=== PATIENT | female | born 1985 | race Caucasian/White ===

== ENCOUNTER 2021-06-07 12:36 | Emergency (ER) | payer MEDICAID, SELFPAY ==
[2021-06-07 12:38] VITALS: BP 114/53; PULSE 94; RESP 16; TEMP 35.2; O2SAT 100; BMI 23.3
[2021-06-07 12:43] VITALS: O2SAT 100
--- NOTE | 2021-06-07 12:58 | EKG12_ITS ---
Test Reason : CP Blood Pressure : / mmHG Vent. Rate : 098 BPM Atrial Rate : 098 BPM P-R Int : 174 ms QRS Dur : 106 ms QT Int : 400 ms P-R-T Axes : 082 094 039 degrees QTc Int : 510 ms Normal sinus rhythm Prolonged QT Abnormal ECG Confirmed by MAXINE AMIN, GRAZYNA ([id number]), editor farm journal CHUCK SOTO ([id number]) on 06/08/2021 8:30:12 AM Referred By: DAVID Confirmed By:GRAZYNA GOODMAN MD
--- NOTE | 2021-06-07 13:01 | NURSING ---
NO OLD EKGS
[2021-06-07 13:12] VITALS: O2SAT 98
--- NOTE | 2021-06-07 13:21 | EDS_ITS ---
HPI History of Present Illness Chief Complaint: Chest Pain Detail of Chief Complaint: Sharp stabbing central chest pain and nerve pinching left-sided neck pain Informant: patient Onset/Context/Timing Onset: Hours Activity at onset: rest and - (After taking second hit off of cigarette) Timing: Continuous Quality: Positive for Aching and Sharp Location: Substernal Current Severity: Mild Maximum Severity: Severe Worsened By: Nothing Relieved By: Nothing Associated Symptoms: Positive for Nausea, Diaphoresis and Dyspnea; Negative for Vomiting, Cough, Fever, Lightheadedness, Acid Reflux and Palpitations Narrative Narrative: Patient is a 36-year-old woman who presents with sharp substernal chest pain after taking a puff off of her cigarette. She also complains of pinching left-sided neck pain. She reports that she got sweaty short of breath and sick to her stomach. She denies history of VTE. Denies leg pain, swelling discoloration. She denies risk factors for VTE. She denies prior symptoms. She has no known history of coronary disease or any risk factors. She denies hiatal hernia, peptic ulcer disease or reflux. She denies food intolerance. She denies black or maroon-colored stool. She denies any respiratory symptoms. Prior Similar Symptoms: No Recent Illness/Hospitalization: No CVD Risk Factors: Positive for Smoking; Negative for Hypertension, Diabetes, Hypercholesterolemia and Family History 1' </=55 PE Risk Factors: Negative for Recent Travel/Surgery, Recent Immobilization, Prior DVT or PE, Cancer and OCP + Smoking + >/=35 TAD Risk Factors: Negative for Marfan's Syndrome, Hypertension and Family History PFSH PFSH Medical History no medical history no medical history Home Medications NK 06/07/21 [History Last Taken Unknown] Allergy/AdvReac Type Severity Reaction Status Date / Time No Known Allergies Allergy Verified 06/07/21 12:45 Surgical History no surgical history no surgical history Social History (Updated 06/07/21 @ 13:[address] Palomo Aquino MD) household members: significant other Smoking Status: Current every day smoker tobacco type: cigarettes substance use type: does not use ROS ROS ED Constitutional Constitutional ED: Denies chills, fever(s), subjective, sweats or weight loss Eyes Eyes: Reports none ENT ENT ED: Denies ear pain, rhinorrhea or sore throat Cardiovascular Cardiovascular: Reports as per HPI and chest pain; Denies orthopnea, palpitations, paroxysmal nocturnal dyspnea or racing heartbeat Respiratory/Chest Respiratory/Chest: Reports dyspnea; Denies cough, dyspnea on exertion, orthopnea, paroxysmal nocturnal dyspnea or sputum Gastrointestinal Gastrointestinal: Reports nausea; Denies abdominal pain, constipation, diarrhea or vomiting Genitourinary Genitourinary ED: Denies dysuria, hematuria or urinary frequency Musculoskeletal Musculoskeletal: Denies arthralgias, back pain, myalgias or neck pain Integumentary Denies rash Neurologic Neurologic: Denies headache(s), paresthesias or weakness Psychiatric Psychiatric: Denies depression Endocrine Endocrinology: Denies polydipsia, polyphagia or polyuria Hematologic/Lymphatic Hematologic/Lymphatic: Denies easy bleeding, easy bruising or lymphadenopathy EXAM Physical Exam Const Vital Signs: 06/07/21 12:38 06/07/21 12:43 06/07/21 13:12 Temperature 95.3 F L Temperature Source Temporal Pulse Rate 94 Respiratory Rate 16 Respiratory Effort Normal Non-Labored Blood Pressure 114/53 L Blood Pressure Mean 73 Pulse Ox 100 100 98 Oxygen Delivery Method Room Air Room Air Room Air 06/07/21 14:23 Temperature Temperature Source Pulse Rate 74 Respiratory Rate 19 H Respiratory Effort Blood Pressure 137/74 H Blood Pressure Mean 95 Pulse Ox 100 Oxygen Delivery Method Room Air Positive well nourished and well developed General Appearance ED: well developed, NAD and other When asked why she had tears in her eyes she began to cry and was unable to stop crying HEENT Reports TM's clear and moist mucous membranes HEENT Narrative: Uvula midline. Posterior without erythema or exudate. normocephalic and atraumatic Tympanic Membrane ED: Yes TM's clear Eyes PERRL and EOMs intact bilaterally General Eye ED: Negative for pale conjunctiva or scleral icterus Neck no lymphadenopathy, supple and no JVD Chest Wall inspection of chest normal and palpation of chest normal Resp normal respiratory effort and clear to auscultation bilaterally Effort and Inspection: respiratory distress Cardio regular rate, regular rhythm, S1 normal heart sound and S2 normal heart sound GI normal to inspection, nondistended, normoactive bowel sounds, soft to palpation, non-tender, non-distended and no masses; Negative for hepatosplenomegaly Palpation: Negative for splenomegaly Back/Spine no CVA tenderness and no thoracic nor lumbar tenderness Cervical Spine: cervical spine tenderness Extremity normal to inspection Extremity Narrative: There is no asymmetry, swelling, discoloration, leg vein distention, palpable cords or tenderness along the distribution of the deep venous system. General Extremety ED: Negative for edema or tenderness General Extremity: Negative for edema Neuro oriented x3 and CN's II-XII intact bilaterally Sensorium / Orientation: awake and alert Sensory Exam: sensory level loss detected Motor Exam: strength 5/5 throughout Psych mental status grossly normal Skin no rashes or lesions noted and no wounds General Skin Exam: Negative for jaundice Heart Score History: Slightly/Non-Suspicious ECG: Normal Age: </= 45 years Risk Factors: 1 or 2 Risk Factors Troponin: </= Normal Limit Score: 1 MDM MDM MDM Narrative Medical decision making narrative: Will obtain EKG to rule out cardiac ischemia. Troponin was obtained. Suspect this is anxiety however will evaluate for cardiac versus noncardiac causes. Lab Data Attestation: I reviewed the patient's lab results. Lab results narrative: White count is slightly elevated with no bandemia. This is nonspecific. Potassium is 3.4. Glucose is slightly evaded 123. Troponin is normal. Patient has a very atypical story. Will discharge to home. Labs: Laboratory Results - last 24 hr 06/07/21 06/07/21 06/07/21 13:50 13:50 13:50 WBC 12.6 H RBC 4.36 Hgb 13.3 Hct 40.0 MCV 91.7 MCH 30.5 MCHC 33.3 RDW Std Deviation 42.0 RDW Coeff of Rich 12.4 Plt Count 288 MPV 9.0 Immature Gran % (Auto) 1.100 H Neut % (Auto) 77.3 H Lymph % (Auto) 16.8 L Darke % (Auto) 3.6 Eos % (Auto) 0.8 Baso % (Auto) 0.4 Absolute Neuts (auto) 9.7 H Absolute Lymphs (auto) 2.12 Nucleated RBC % 0 Sodium 136 Potassium 3.4 L Chloride 105 Carbon Dioxide 17.0 L Anion Gap 14 BUN 14 Creatinine 0.64 Estim Creat Clear Calc 131.41 Est GFR (MDRD) Af Amer 135 Est GFR (MDRD) Non-Af 111 BUN/Creatinine Ratio 21.8 H Glucose 123 H Calcium 8.9 Troponin I High Sens 18 Radiography Chest X-Ray - ED: 1 View, Read by ED Physician (Interpreted by me as normal at 02/16/2005), Normal, Heart, Lungs, Mediastinum, Bony Structures and No Acute Disease Diagnostic Testing: Clinical Impression(s) from Imaging Studies Chest X-Ray 06/07/21 14:01 IMPRESSION: Mildly hyperinflated lungs. Otherwise no acute findings. Electronically Signed: Bryson Augustine, at 14:23 EDT , Discharge Plan Triage Chief Complaint: Chest Pain ED Provider: Palomo Aquino Dx/Rx/DC Orders Clinical Impression: Central chest pain Instructions: ED Chest Pain, Noncardiac Prescriptions: No Action NK RF: 0 Primary Care Provider: Care Physician,No Primary Referrals: Care Physician,No Primary [Primary Care Provider] - Activity Restrictions/Additional Instructions: Follow-up with your primary care provider. The name of your primary care provider is located on your insurance card issue to you by [facility]. It is in your best interest to quit smoking. Disposition Disposition: Home, Self Care
--- NOTE | 2021-06-07 13:39 | ED.RN ---
Attempted to draw pt's lab and unable. Pt has been stuck multiple times by multiple nurses. Lab called to come draw.
--- NOTE | 2021-06-07 14:01 | RAD_ITS ---
INDICATION: chest pain EXAMINATION/TECHNIQUE: X-RAY - XR Chest 1 View COMPARISON: None. FINDINGS: LINES/DEVICES: None. The lungs are mildly hyperinflated. No focal consolidations, pleural effusion, or sizable pneumothorax. Heart size is normal. No acute findings in the bones or soft tissues. RAD/Chest 1 View (Portable) IMPRESSION: Mildly hyperinflated lungs. Otherwise no acute findings. Electronically Signed: Bryson Augustine, at 14:23 EDT ,
[2021-06-07 14:07] LABS: Absolute Lymphocyte Count 2.12 X10^3/uL (0.83-4.51); Absolute Neutrophil Count 9.7 X10^3/uL (2.0-7.7); Basophil# 0.05 X10^3/uL; Basophil% 0.4 % (0-1); Eosinophils% 0.8 % (0-5); Hemoglobin 13.3 g/dL (12.0-15.0); Lymphocyte # 2.12 X10^3/ul (0.83-4.51); Lymphocyte % 16.8 % (19-41); Mean Corp Hgb Conc 33.3 g/dL (32-36); Mean Corpuscular Hgb 30.5 pg (27.0-32.0); Mean Corpuscular Volume 91.7 fL (81-99); Monocyte# 0.46 X10^3/uL; Monocyte% 3.6 % (0-10); NRBC Flagged by Analyzer 0 % (0-5); Neutrophil # 9.74 X10^3/uL (2.7-7.7); Neutrophil % 77.3 % (47-70); Platelet Count 288 K/mm3 (150-450); RBC Distribution Width CV 12.4 % (11.6-14.6); Red Blood Count 4.36 M/mm3 (4.2-5.4); White Blood Count 12.6 K/mm3 (4.4-11.0)
[2021-06-07 14:10] LABS: Anion Gap 14 (5-15); BUN 14 mg/dL (7-18); BUN/Creat Ratio 21.8 RATIO (10-20); Calcium,Total 8.9 mg/dL (8.5-10.1); Chloride 105 mmol/L (98-107); Creatinine, Serum 0.64 mg/dL (0.55-1.02); EST Glomerular Filtration Rate 111 mL/min (>60); Est Glom Filt Rate - Afr Amer 135 mL/min (>60); Estimated Creatinine Clearance 131.41 ml/min; Glucose 123 mg/dL (74-106); Potassium 3.4 mmol/L (3.5-5.1); Sodium Level 136 mmol/L (136-145)
[2021-06-07 14:19] LABS: Troponin-I HS (w/2H Reflex) 18 pg/mL (3.0-54.0)
[2021-06-07 14:23] VITALS: BP 137/74; PULSE 74; RESP 19; O2SAT 100
[2021-06-07 14:52] VITALS: PULSE 77; RESP 17; O2SAT 100
[2021-06-07 15:54] LABS: Reflex Troponin-HS? (from REC) Y
== END 2021-06-07 14:53 | disposition home or self-care (01) ==
PROVIDERS: Emergency Provider Emergency Medicine; Visit Provider Emergency Medicine
DX: R07.89 Other chest pain (principal); F17.210 Nicotine dependence, cigarettes, uncomplicated; R07.2 Precordial pain; R06.00 Dyspnea, unspecified; R11.0 Nausea
CPT/HCPCS: 36415; 71045; 80048; 84484; 85025; 93005; 99285; J7030

== ENCOUNTER → 2022-09-16 | Outpatient (CLI) | payer MEDICAID, SELFPAY ==
--- NOTE | 2022-09-16 07:48 | MRI_ITS ---
STUDY: MRI RIGHT ANKLE WITHOUT CONTRAST REASON FOR EXAM: Female, 37 years old. injury 1 week ago, pt fell 15 feet, c/o swelling, bruising TECHNIQUE: Standardized fat and water weighted pulse sequences were obtained in all 3 orthogonal planes. COMPARISON: Right ankle x-ray dated September 15, 2022 FINDINGS: A nondisplaced oblique fracture line is present in the lateral malleolus with mild marrow edema. Mild marrow edema is also present in the lateral aspect of the posterior tibial malleolus, consistent with a mild contusion. A small ankle joint effusion is also present. Mild to moderate subcutaneous edema is present around the lower leg and foot. Mild diffuse intramuscular edema is also present without a tear or fluid collection. Normal posterior tibialis tendon. Normal flexor digitorum longus tendon. Normal flexor hallucis longus tendon. Normal peroneus longus and brevis tendons. Normal tibialis anterior tendon. Normal extensor hallucis longus tendon. Normal extensor digitorum longus tendons. Normal Achilles tendon and teno-osseous insertion. Normal plantar fascia. Normal plantar calcaneal tubercles. Normal intrinsic muscles of the rearfoot. Normal distal tibiofibular syndesmotic ligamentous complex. Normal lateral ligamentous complex. Normal subtalar ligaments and sinus tarsi. Normal deltoid ligamentous complexes. Normal plantar calcaneonavicular (spring) ligament. Normal tibiotalar articulation. Normal talar dome. Normal subtalar articulations. Normal talonavicular articulation. Normal calcaneocuboid articulation. Normal navicular-cuneiform articulations. MRI/Lower Ext Joint Only (Routine) IMPRESSION: 1. A nondisplaced oblique fracture line is present in the lateral malleolus with mild marrow edema. Mild marrow edema is also present in the lateral aspect of the posterior tibial malleolus, consistent with a mild contusion. 2. A small ankle joint effusion is also present. Mild to moderate subcutaneous edema is present around the lower leg and foot. Mild diffuse intramuscular edema is also present without a tear or fluid collection. Electronically Signed: Lakhwinder Barone MD at 10:13 EDT ,
== END | disposition home or self-care (01) ==
LOC: MRI 07:35
PROVIDERS: Referring Provider Orthopaedic Surgery Sports Medicine; Visit Provider Orthopaedic Surgery Sports Medicine
DX: S82.831A Other fracture of upper and lower end of right fibula, initial encounter for closed fracture (principal); M25.571 Pain in right ankle and joints of right foot
CPT/HCPCS: 73721

== ENCOUNTER 2024-09-27 18:42 | Outpatient (CLI) | payer MEDICAID, SELFPAY ==
[2024-09-27 19:00] VITALS: BMI 28.7
[2024-09-27 19:27] VITALS: BP 109/66; PULSE 78; RESP 16; TEMP 36.7
--- OUTSIDE RECORDS SUMMARY | 2024-09-27 20:17 | XMS RPT_ITS | CCD ---
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 127/127 is probably a cyst or partially visualized gallbladder. IMPRESSION: No acute fracture or traumatic malalignment in the cervical or thoracic spine. Chronic findings as above. Electronically signed by: Derek Stack MD 09/10/2022 1:57 PM CDT Technologist: PIPER Dictated By: DEREK STACK MD Signed By: DEREK STACK MD Signed Out: 09/10/22 14:57:52 Normal [facility] ED Adult Data - Texton 09-10 ED Adult Data - Text ED Adult Data Entered On: 09/10/2022 13:08 EDT Performed On: 09/10/2022 13:06 EDT by Sonia Ariza RN Arrival Information Information Given by : Patient Referral Source ED : Home [facility] Mode of Arrival : Car / Walk-In Sonia Ariza RN - 09/10/2022 13:06 EDT Screening-General Meds Triage : NA Accept Blood Products if Necessary : Yes Immunizations Current : Yes Last Tetanus : Less than 5 years Sonia Ariza RN - 09/10/2022 13:06 EDT Depression Screening Patient able to verbalize? : Yes Feeling Down, Depressed, Hopeless : Not at all Little Interest - Pleasure in Activities : Not at all Initial Depression Screen Score : 0 Depression Screening Score 0 : No IP Pt being evaluated or treated for BH conditions : No Sonia Ariza RN - 09/10/2022 13:06 EDT Screening-Safety Abuse/Violence Concerns? : Patient denies Does the patient have a medically restricted extremity? : No Sonia Ariza RN - 09/10/2022 13:06 EDT Problem List Problem List obtained from : Patient Sonia Ariza RN - 09/10/2022 13:06 EDT (As Of: 09/10/2022 13:08:03 EDT) Problems(Active) Anxiety (SNOMED CT :69026362 ) Name of Problem: Anxiety ; Recorder: Sonia Ariza RN; Confirmation: Confirmed ; Classification: Medical ; Code: [id number] ; Contributor System: [employer] ; Last Updated: 09/10/2022 13:07 EDT ; Life Cycle Date: 09/10/2022 ; Life Cycle Status: Active ; Vocabulary: SNOMED CT Depression (SNOMED CT :546992016 ) Name of Problem: Depression ; Recorder: Sonia Ariza RN; Confirmation: Confirmed ; Classification: Medical ; Code: 928688992 ; Contributor System: [employer] ; Last Updated: 09/10/2022 13:07 EDT ; Life Cycle Date: 09/10/2022 ; Life Cycle Status: Active ; Vocabulary: SNOMED CT EP (epilepsy) (SNOMED CT :817411786 ) Name of Problem: EP (epilepsy) ; Recorder: Sonia Ariza RN; Confirmation: Confirmed ; Classification: Medical ; Code: [id number] ; Contributor System: [employer] ; Last Updated: 09/10/2022 13:07 EDT ; Life Cycle Date: 09/10/2022 ; Life Cycle Status: Active ; Vocabulary: SNOMED CT Diagnoses(Active) Ankle injury - Minor Date: 09/10/2022 ; Diagnosis Type: Reason For Visit ; Confirmation: Confirmed ; Clinical Dx: Ankle injury - Minor ; Classification: Medical ; Clinical Service: Emergency medicine ; Code: PNED ; Probability: 0 ; Diagnosis Code: [id number] Procedure History ED Devices Present on Arrival To ED : None Urinary Catheter Present on Admit to ED : No Sonia Ariza RN - 09/10/2022 13:06 EDT - Procedure History (As Of: 09/10/2022 13:08:03 EDT) Social History Does pt have any alcohol,drugs or tobacco : No Do you consume Alcohol : No Social History obtained from : Patient Sonia Ariza RN - 09/10/2022 13:06 EDT Social History (As Of: 09/10/2022 13:08:03 EDT) Alcohol: Denies Alcohol Use (Last Updated: 09/10/2022 13:07:50 EDT by Sonia Ariza RN ) Tobacco: 5-9 cigarettes (between 1/4 to 1/2 pack)/day in last 30 days Tobacco Use:. Cigarettes (Last Updated: 09/10/2022 13:07:57 EDT by Sonia Ariza RN) Substance Abuse: Denies Substance Abuse (Last Updated: 09/10/2022 13:07:47 EDT by Sonia Ariza RN ) Infection Screening Last Physical Overnight Location of the Patient : Personal Residence Travel outside US within past 30 days : No Exposure AND/OR close contact with a person under investigation or laboratory-confirmed COVID-19 individual within 14 days of symptom onset AND/OR any of the following: : No Do you live/work in a high risk situation (congregated living, hemodialysis, infusion clinic, intermediate, assisted living, fdc, homeless [place] health [place] facility, etc.)? : No Sonia Ariza RN - 09/10/2022 13:06 EDT Normal [facility] ED Discharge Educationon ED Discharge Education Cryotherapy What is cryotherapy? Cryotherapy, or cold therapy, is a treatment that uses cold temperatures to treat an injury or medical condition. It includes using cold packs or ice packs to reduce pain and swelling. Who should not use cryotherapy? Cryotherapy is not safe for people who cannot tell you if they are in pain, such as small children and people who have dementia. Cryotherapy is also not safe for people with certain conditions, such as: ? Raynaud phenomenon. ? Cold hypersensitivity. ? Numbness or loss of feeling in the area being iced. Cryotherapy may or may not be safe for people with certain other conditions. Do not use cryotherapy without your health care provider's approval if you have: ? A heart condition. ? High blood pressure. ? Open or healing wounds. ? An infection. ? Rheumatoid arthritis. ? Poor circulation. ? Diabetes. ? Certain skin conditions. How do I use cryotherapy? To use cryotherapy at home to reduce pain and swelling: ? Place a towel between the cold source and your skin. ? Apply the cold source for no more than 20 minutes at a time. ? Check your skin after 5 minutes to make sure there are no signs of a poor response to cold or skin damage. Check for: ? White spots on your skin. Your skin may look blotchy or mottled. ? Skin that looks blue or pale. ? Skin that feels waxy or hard. ? Repeat these steps as many times each day as told by your health care provider. How can I make a cold pack? When using a cold pack at home to reduce pain and swelling, you can use: ? A silica gel cold pack that has been left in the freezer. You can buy this online or in stores. ? A plastic bag of frozen vegetables. ? A sealable plastic bag that has been filled with crushed ice. Always wrap the pack in a dry or damp towel to avoid direct contact with your skin. Contact a health care provider if: ? You develop white spots on your skin. This may give your skin a blotchy or mottled look. ? Your skin turns blue or pale. ? Your skin becomes waxy or hard. ? Your swelling gets worse. This information is not intended to replace advice given to you by your health care provider. Make sure you discuss any questions you have with your health care provider. Document Released: 09/26/2011 Document Revised: 04/06/2017 Document Reviewed: 10/14/2015 [employer] Patient Education ? 2019 [employer] Orthopedics and Rheumatology Wearing a Splint: Care Instructions Your Care Instructions A splint protects a broken bone or other injury. If you have a removable splint, follow your doctor's instructions and only remove the splint if your doctor says it's okay. Most splints can be adjusted. Your doctor will show you how to do this and will tell you when you might need to adjust the splint. A splint is sometimes called a brace. You may also hear it called an immobilizer. An immobilizer, such as a splint or cast, keeps you from moving the injured area. You may get a splint that's already factory-made. Or your doctor might make your splint from plaster or fiberglass. Some splints have a built-in air cushion. Air pads are inflated to hold the injured area in place. Follow-up care is a peralta part of your treatment and safety. Be sure to make and go to all appointments, and call your doctor if you are having problems. It's also a good idea to know your test results and keep a list of the medicines you take. How can you care for yourself at home? General care ? Follow your doctor's instructions on how much weight you can put on your injured limb. ? If the fingers or toes on the limb with the splint were not injured, wiggle them every now and then. This helps move the blood and fluids in the injured limb. ? Prop up the injured limb on a pillow when you ice it or anytime you sit or lie down during the next 3 days. Try to keep it above the level of your heart. This will help reduce swelling. ? Put ice or cold packs on the limb for 10 to 20 minutes at a time. Try to do this every 1 to 2 hours for the next 3 days (when you are awake) or until the swelling goes down. Be careful not to get the splint wet. Put a thin cloth between the ice and your skin. If your splint is removable, ask your doctor if you can take it off when you use ice. ? If you have an adjustable splint that feels too tight, loosen it slightly. ? Keep up your muscle strength and tone as much as you can while protecting your injured limb. Your doctor may want you to tense and relax the muscles protected by the splint. Check with your doctor or your physical or occupational therapist for instructions. Splint and skin care ? If your splint is not to be removed, try blowing cool air from a agriculture department chair or fan into the splint to help relieve itching. Never stick items under your splint to scratch the skin. ? Do not use oils or lotions near your splint. If the skin becomes red or sore around the edge of the splint, you ma (more content not included)... [facility] ED Emergency Severity Index Adult-Texton 09-10-2022 ED Emergency Severity Index Adult-Text CLAUDIA - Adult Entered On: 09/10/2022 12:17 EDT Performed On: 09/10/2022 12:16 EDT by Constance Knapp RN DCP GENERIC CODE Visit Reason : rt ankle/ lower leg injury Tracking Triage Date/Time : 09/10/2022 12:16 EDT Tracking Reg Status : Requested Tracking Acuity : [id number] Tracking Group : [id number] Tracking Constance Knapp RN - 09/10/2022 12:16 EDT [facility] ED Nrsing Adlt Triage Sep Sc rning - Texton 09-10-2022 ED Nrsing Adlt Triage Sep Scrning - Text ED Nursing Adult Triage Sepsis Screening Tool Entered On: 09/10/2022 12:35 EDT Performed On: 09/10/2022 12:35 EDT by Sonia Ariza RN Adult Sepsis Screening Sepsis Infection Screening ED : No Sonia Ariza RN - 09/10/2022 12:35 EDT [facility] ED Patient Summaryon 023 ED Patient Summary [facility] Emergency Department Discharge Instructions [address] [place] [address] (Patient Copy) Name: BILL BRAVO : 1985 Allergies: No Known Medication Allergies Diagnosis: Acute thoracic myofascial strain; Cervical muscle strain; Sprain of ankle, right Visit Date: 09/10/2022 12:14:45 [facility]#: [id number] Current Date Time: 09/10/2022 21:05:08 Address: [address] [place] [address] Primary Care Provider: Name: LUCA PERSON Phone: Emergency Department Care Providers: Primary Physician: CHELSEY COE MD Thank you for choosing [facility] for your emergency care. You are very important to us. Our goal is to demonstrate our high quality medical care, and provide you with a very good patient experience. You may receive a survey about our service. Please take the time to complete the survey and return it so we can continue to enhance our service. Thank you again for allowing the [facility] Emergency Department to care for your medical needs. If you have questions about your care or follow up information please contact us at [phone]. Follow-Up Instructions BILL BRAVO has been given these follow-up instructions: With: Address: When: AIDEN LOPEZ, Orthopedic Surgery [address] [place] [address], [facility] [address] [place] [address] [facility] (1) Within 3 to 5 days With: Address: When: LUCA PERSON Within 3 to 5 days Patient Education Materials BILL BRAVO has been given the following patient education materials: Wearing a Splint: Care Instructions Your Care Instructions A splint protects a broken bone or other injury. If you have a removable splint, follow your doctor's instructions and only remove the splint if your doctor says it's okay. Most splints can be adjusted. Your doctor will show you how to do this and will tell you when you might need to adjust the splint. A splint is sometimes called a brace. You may also hear it called an immobilizer. An immobilizer, such as a splint or cast, keeps you from moving the injured area. You may get a splint that's already factory-made. Or your doctor might make your splint from plaster or fiberglass. Some splints have a built-in air cushion. Air pads are inflated to hold the injured area in place. Follow-up care is a peralta part of your treatment and safety. Be sure to make and go to all appointments, and call your doctor if you are having problems. It's also a good idea to know your test results and keep a list of the medicines you take. How can you care for yourself at home? General care ? Follow your doctor's instructions on how much weight you can put on your injured limb. ? If the fingers or toes on the limb with the splint were not injured, wiggle them every now and then. This helps move the blood and fluids in the injured limb. ? Prop up the injured limb on a pillow when you ice it or anytime you sit or lie down during the next 3 days. Try to keep it above the level of your heart. This will help reduce swelling. ? Put ice or cold packs on the limb for 10 to 20 minutes at a time. Try to do this every 1 to 2 hours for the next 3 days (when you are awake) or until the swelling goes down. Be careful not to get the splint wet. Put a thin cloth between the ice and your skin. If your splint is removable, ask your doctor if you can take it off when you use ice. ? If you have an adjustable splint that feels too tight, loosen it slightly. ? Keep up your muscle strength and tone as much as you can while protecting your injured limb. Your doctor may want you to tense and relax the muscles protected by the splint. Check with your doctor or your physical or occupational therapist for instructions. Splint and skin care ? If your splint is not to be removed, try blowing cool air from a agriculture department chair or fan into the splint to help relieve itching. Never stick items under your splint to scratch the skin. ? Do not use oils or lotions near your splint. If the skin becomes red or sore around the edge of the splint, you may pad the edges with a soft material, such as moleskin, or use tape to cover the edges. ? If you're allowed to take your splint off, be sure your skin is dry before you put it back on. Be careful not to put the splint on too tightly. ? Check the skin under the splint every day. If you can't remove the splint, check the skin around the edges. Tell your doctor if you see redness or sores. Water and your splint ? Keep your splint dry. Moisture can collect under the splint and cause skin irritation and itching. If you have a wound or have had surgery, moisture under the splint can increase the risk of infection. ? Tape a sheet of plastic to cover your splint when you take a shower or bath, unless your doctor ginger (more content not included)... [facility] ED Physician Reporton 2022 ED Physician Report Basic Information Time Seen: 1330[] Arrival Mode: Walk-In [] History Source: Patient _ _ [] History limitation: None [] History of Present Illness Patient presents to the emergency department for evaluation of injury suffered in a fall down the side of a slope into a [place] 2 days ago. Patient states she slid down the embankment of a [place] approximately 15 feet and then twisted her ankle in the [place] at the bottom. Patient states she went to an urgent care and had x-rays of her right foot and tib-fib which were negative. Patient was told that if she had more pain to go to the emergency department. Patient states she also thinks she bumped her head but suffered no loss of consciousness. Patient complains of neck pain and upper back pain. No numbness or weakness. Patient denies other injury. Patient states her last menstrual period was approximately 2 weeks ago and denies possibility of . Review of Systems Constitutional: no fever, no chills, no sweats, no weakness Skin: no jaundice, no rash, no lesions, no petechiae ENMT: no ear pain, no sore throat, no congestion, no hoarseness Respiratory: no shortness of breath, no cough, no orthopnea, no wheezing Cardiovascular: no chest pain, no palpitations, no edema Gastrointestinal: no nausea, no vomiting, no diarrhea, no GI bleeding Genitourinary: no dysuria, no hematuria, no discharge, no pain Musculoskeletal: Right lower extremity: There is bruising and swelling to the lower leg and foot. Dorsalis pedis is 2+. Sensation intact throughout. There is some calf tenderness to palpation. Back: There is mild tenderness to palpation over the upper T-spine and related musculature. Neck: There is mild tenderness to palpation over the C-spine and related musculature. This soreness extends down into the trapezius ridge on both sides. No erythema or ecchymosis. Arm strength is equal and 5/5. No sensory deficit. Neurologic: no headache, no dizziness, no numbness, no weakness Psychiatric: no sleeping problems, no irritability, no mood swings/depression Heme/Lymph: no bleeding tendency, no bruising tendency, no petechiae, no swollen nodes Allergy/Immunologic: no seasonal allergies, no food allergies, no recurrent infections, no impaired immunity Additional ROS info: Except as noted in the above Review of Systems and in the History of Present Illness all other systems have been reviewed and are negative or noncontributory. Physical Exam Vitals & Measurements Initial: T: 36.9 ?C (Oral) HR: 80 (Peripheral) BP: 110/ 49 RR: 18 SpO2: 100% O2 Therapy: Room air General: alert, no acute distress. Skin: warm, dry. Head: no trauma, normocephalic. Neck: trachea midline, no adenopathy, no tenderness. Eye: normal conjunctiva, sclera clear. Cardiovascular: regular rate and rhythm, normal peripheral perfusion. Respiratory: lungs CTA, respirations non-labored. Chest Wall: no deformity. Gastrointestinal: soft, non distended, no RUQ tenderness, no RUQ guarding. Extremities: Right lower extremity: There is bruising and swelling to the lower leg and foot. Dorsalis pedis is 2+. Sensation intact throughout. There is some calf tenderness to palpation. Back: There is mild tenderness to palpation over the upper T-spine and related musculature. Neck: There is mild tenderness to palpation over the C-spine and related musculature. This soreness extends down into the trapezius ridge on both sides. No erythema or ecchymosis. Arm strength is equal and 5/5. No sensory deficit. Neurological: oriented x 4, LOC appropriate for age, CN II-XII intact, motor strength equal & normal bilaterally, sensation equal & normal bilaterally, speech normal. Psychiatric: cooperative, affect appropriate for age, normal judgement, normal psychiatric thoughts. Medical Decision Making Differential diagnosis: [laceration, abrasion, contusion, sprain, strain, extermity fracture, pelvic fracture, head injury, back injury, spinal injury, internal chest injury, internal abdominal injury] PRELIMINARY VASCULAR REPORT: VENOUS DUPLEX COMPLETED. MD REPORT TO FOLLOW NO EVIDENCE OF ACUTE DVT IN THE RIGHT LOWER EXTREMITY LEFT COMMON FEMORAL VEIN APPEARS PATENT [1] Patient presented to the emergency department for evaluation of injury suffered in a slide down an embankment 2 days ago. Patient had initial imaging of her right foot and right tib-fib at an urgent care was negative. Patient complained of pain to her neck and upper back and also pain to her leg. CT scanning of the C-spine and T-spine, read by radiology, shows no acute traumatic findings. Patient had a venous duplex ultrasound of the leg, read by vascular, which showed no evidence of DVT. Patient is not currently splinted but states she was outfitted with a walking boot though she states she cannot tolerate it. Patient will be outfitted with an Aircast. Patient states she has crutches at home. Patient be prescribed ibuprofen and a small quantity of muscle relaxer to take f (more content not included)... [facility] ED Progress Noteon ED Progress Note Late entry Patient here with right ankle injury Patient states she was seen at an urgent care but has not had any relief. Patient examined by Dillon GOMEZ a provided with ankle stirrup splint and crutches and discharged home Understands plan of care and will follow up as discussed [facility] ED Triage Adult-Texton 09-10 ED Triage Adult-Text ED Triage Entered On: 09/10/2022 12:34 EDT Performed On: 09/10/2022 12:33 EDT by Sonia Ariza RN Triage (As Of: 09/10/2022 12:34:07 EDT) Diagnoses(Active) Ankle injury - Minor Date: 09/10/2022 ; Diagnosis Type: Reason For Visit ; Confirmation: Confirmed ; Clinical Dx: Ankle injury - Minor ; Classification: Medical ; Clinical Service: Emergency medicine ; Code: PNED ; Probability: 0 ; Diagnosis Code: [id number] (As Of: 09/10/2022 12:34:07 EDT) Allergies (Active) No Known Medication Allergies Estimated Onset Date: Unspecified ; Created By: Constance Knapp RN; Reaction Status: Active ; Category: Drug ; Substance: No Known Medication Allergies ; Type: Allergy ; Updated By: Constance Knapp RN; Reviewed Date: 09/10/2022 12:16 EDT Vitals/Ht/Wt Temperature Oral : 36.9 degC Pulse Rate : 80 bpm Respiratory Rate : 18 br/min Systolic Blood Pressure : 110 mmHg Diastolic Blood Pressure : 49 mmHg (LOW) SpO2 : 100 % Oxygen Therapy : Room air Pain Symptoms : Yes Numeric Pain Scale : 10 = Severe Pain VAS Pain Scale Age : VAS (8 yrs & older) Height/Length Dosing : 177.80 cm(Converted to: 5.83 ft, 70.00 in) Weight Measured Type of Scale : Patient Stated Weight Patient Stated Weight : 70.5 kg(Converted to: 2,486.81 oz, 155.43 lb) Sonia Ariza RN - 09/10/2022 12:33 EDT [facility] Vascular Lab Reporton 2022 Vascular Lab Report PRELIMINARY VASCULAR REPORT: VENOUS DUPLEX COMPLETED. MD REPORT TO FOLLOW NO EVIDENCE OF ACUTE DVT IN THE RIGHT LOWER EXTREMITY LEFT COMMON FEMORAL VEIN APPEARS PATENT Normal [facility] No Panel Informationon 09-09 IMPRESSION: No acute osseous abnormality Fibre Technologist: PSCB Transcribe Date/Time: Sep 09 2022 3:56P Dictated by : EZ ABBOTT MD This examination was interpreted and the report reviewed and electronically signed by: EZ ABBOTT MD on Sep 09 2022 3:58PM [facility] DIVISION OF RADIOLOGY Radiology Study observation (narrative) [facility] No Panel InformationOrdered By: Ccf Provider on 09-09-2022 [facility] XR Foot - right AP and Later al and obliqueon 09-09-2022 * * *Final Report* * * DATE OF EXAM: Sep 09 2022 3:54PM WOX [id number] - XR FOOT 3V AP/LAT/OBL RT / PROCEDURE REASON: Pain of right lower extremity * * * * Physician Interpretation * * * * EXAMINATION: XR TIBIA FIBULA 2V AP/LAT RT, XR FOOT 3V AP/LAT/OBL RT CLINICAL HISTORY: Lower extremity pain Technique: XR TIBIA FIBULA 2V AP/LAT RT, XR FOOT 3V AP/LAT/OBL RT -- RIGHT with 2 (accession [id number]), 3 (accession [id number]) views on 2 (accession [id number]), 3 (accession [id number]) images Comparison: None RESULT: X-ray right tibia/fibula: No acute fracture or dislocation. Joint spaces are maintained. X-ray right foot: No acute fracture or dislocation. Joint spaces are maintained. DIVISION OF RADIOLOGY Provider, [facility] - 09/09/2022 * * *Final Report* * * DATE OF EXAM: Sep 09 2022 3:54PM WOX 5337 - XR FOOT 3V AP/LAT/OBL RT / PROCEDURE REASON: Pain of right lower extremity * * * * Physician Interpretation * * * * EXAMINATION: XR TIBIA FIBULA 2V AP/LAT RT, XR FOOT 3V AP/LAT/OBL RT CLINICAL HISTORY: Lower extremity pain Technique: XR TIBIA FIBULA 2V AP/LAT RT, XR FOOT 3V AP/LAT/OBL RT -- RIGHT with 2 (accession [id number]), 3 (accession [id number]) views on 2 (accession [id number]), 3 (accession [id number]) images Comparison: None RESULT: X-ray right tibia/fibula: No acute fracture or dislocation. Joint spaces are maintained. X-ray right foot: No acute fracture or dislocation. Joint spaces are maintained. IMPRESSION IMPRESSION: No acute osseous abnormality Fibre Technologist: SHERINE Transcribe Date/Time: Sep 09 2022 3:56P Dictated by : EZ ABBOTT MD This examination was interpreted and the report reviewed and electronically signed by: EZ ABBOTT MD on Sep 09 2022 3:58PM [facility] XR Tibia and Fibula - right AP and Lateralon 09-09-2022 * * *Final Report* * * DATE OF EXAM: Sep 09 2022 3:54PM WOX 5266 - XR TIBIA FIBULA 2V AP/LAT RT / PROCEDURE REASON: Pain of right lower extremity * * * * Physician Interpretation * * * * EXAMINATION: XR TIBIA FIBULA 2V AP/LAT RT, XR FOOT 3V AP/LAT/OBL RT CLINICAL HISTORY: Lower extremity pain Technique: XR TIBIA FIBULA 2V AP/LAT RT, XR FOOT 3V AP/LAT/OBL RT -- RIGHT with 2 (accession [id number]), 3 (accession [id number]) views on 2 (accession [id number]), 3 (accession [id number]) images Comparison: None RESULT: X-ray right tibia/fibula: No acute fracture or dislocation. Joint spaces are maintained. X-ray right foot: No acute fracture or dislocation. Joint spaces are maintained. DIVISION OF RADIOLOGY Provider, [facility] - 09/09/2022 * * *Final Report* * * DATE OF EXAM: Sep 09 2022 3:54PM WOX 5266 - XR TIBIA FIBULA 2V AP/LAT RT / PROCEDURE REASON: Pain of right lower extremity * * * * Physician Interpretation * * * * EXAMINATION: XR TIBIA FIBULA 2V AP/LAT RT, XR FOOT 3V AP/LAT/OBL RT CLINICAL HISTORY: Lower extremity pain Technique: XR TIBIA FIBULA 2V AP/LAT RT, XR FOOT 3V AP/LAT/OBL RT -- RIGHT with 2 (accession [id number]), 3 (accession [id number]) views on 2 (accession [id number]), 3 (accession [id number]) images Comparison: None RESULT: X-ray right tibia/fibula: No acute fracture or dislocation. Joint spaces are maintained. X-ray right foot: No acute fracture or dislocation. Joint spaces are maintained. IMPRESSION IMPRESSION: No acute osseous abnormality Fibre Technologist: SHERINE Transcribe Date/Time: Sep 09 2022 3:56P Dictated by : EZ ABBOTT MD This examination was interpreted and the report reviewed and electronically signed by: EZ ABBOTT MD on Sep 09 2022 3:58PM [facility] Absolute lymphocyte counton 06-07-2021 Lymphocytes Auto (Unsp spec) [#/Vol] 2.12 10*3/uL 0.83-4.51 [facility] Work Phone: Basophil percentageon 2021 Basophils/100 WBC (Bld) 0.4 % 0-1 [facility] Work Phone: Chloride [Moles/Vol] 105 mmol/L 98-107 [facility] Work Phone: Eosinophils/100 WBC (Bld) 0.8 % 0-5 [facility] Work Phone: Glucose [Mass/Vol] 123 mg/dL 74-106 [facility] Work Phone: Comment on above: Fasting Glucose resu lt from 100 to 125 mg/dL suggests IMPAIRED HOMEOSTASIS per A.D.A. criteria. Neutrophils (Bld) [#/Vol] 9.7 10*3/uL 2.0-7.7 [facility] Work Phone: Neutrophils/100 WBC (Bld) 77.3 % 47-70 [facility] Work Phone: Potassium [Moles/Vol] 3.4 mmol/L 3.5-5.1 [facility] Work Phone: Sodium [Moles/Vol] 136 mmol/L 136-145 [facility] Work Phone: WBC (Bld) [#/Vol] 12.6 10*3/uL 4.4-11.0 [facility] Work Phone: Blood erythrocytes count (nu mber/volume)on 06-07-2021 RBC (Bld) [#/Vol] 4.36 10*6/uL 4.2-5.4 [facility] Work Phone: Blood hemoglobin measurement (mass/volume)on 06-07-2021 Hemoglobin (Bld) [Mass/Vol] 13.3 g/dL 12.0-15.0 [facility] Work Phone: Blood lymphocytes/100 leukoc yteson 06-07-2021 Lymphocytes/100 WBC (Bld) 16.8 % 19-41 [facility] Work Phone: Blood monocytes/100 leukocyt eson 06-07-2021 Monocytes/100 WBC (Bld) 3.6 % 0-10 [facility] Work Phone: Blood platelet mean volumeon 06-07-2021 Platelet mean volume (Bld) [Entitic vol] 9.0 fL 6.2-12.0 [facility] Work Phone: Determination of erythrocyte mean corpuscular volume (MCV)on 06-07-2021 MCV (RBC) [Entitic vol] 91.7 fL 81-99 [facility] Work Phone: Hematocrit Auto (Bld) [Volum e fraction]on 06-07-2021 Hematocrit (Bld) [Volume fraction] 40.0 % 37-47 [facility] Work Phone: Laboratory - Chemistry and C hemistry - challengeon 06-07-2021 CO2 [Moles/Vol] 17.0 mmol/L 21.0-32.0 [facility] Work Phone: Urea nitrogen/Creatinine [Mass ratio] 21.8 mg/mg 10-20 [facility] Work Phone: Laboratory - Hematology and Cell countson 06-07-2021 Erythrocyte distribution width (RBC) [Entitic vol] 42.0 fL 35.1-43.9 [facility] Work Phone: Erythrocyte distribution width (RBC) [Ratio] 12.4 % 11.6-14.6 [facility] Work Phone: Immature granulocytes/100 WBC (Bld) 1.100 % 0.0-0.9 [facility] Work Phone: Comment on above: IG% - Immature Granu locytes (promyelocytes, myelocytes and metamyelocytes) > 1% indicates that a LEFT SHIFT is Present. MCH (RBC) [Entitic mass] 30.5 pg 27.0-32.0 [facility] Work Phone: Nucleated RBC/100 WBC (Bld) [Ratio] 0 % 0-5 [facility] Work Phone: MCHC Auto (RBC) [Mass/Vol]on 06-07-2021 MCHC (RBC) [Mass/Vol] 33.3 g/dL 32-36 [facility] Work Phone: No Panel Informationon 06-07 Estimated Creatinine Clearance Calc 131.41 ml/min [facility] Work Phone: Estimated GFR (MDRD) Amer 135 mL/min >60 [facility] Work Phone: Comment on above: GFR Calc Estimated GFR (MDRD) Non-Af Amer 111 mL/min >60 [facility] Work Phone: Comment on above: Non- GFR Calc Troponin I High Sensitivity 18 pg/mL 3.0-54.0 [facility] Work Phone: Comment on above: Please Note: New Yarelis t Units and Gender Specific Reference Ranges. For more information see Policy Stat Procedure Hanna High Sensitivity Troponin (TNIH) and attachments. Platelets bldon 06-07-2021 Platelets (Bld) [#/Vol] 288 10*3/uL 150-450 [facility] Work Phone: Serum or plasma calcium danny urement (mass/volume)on 06-07-2021 Calcium [Mass/Vol] 8.9 mg/dL 8.5-10.1 [facility] Work Phone: Serum or plasma creatinine m easurement (mass/volume)on 06-07-2021 Creatinine [Mass/Vol] 0.64 mg/dL 0.55-1.02 [facility] Work Phone: Comment on above: The validity of the calculated GFR & GFRAA in patients over 70 years has not been determined. Clinical correlation is essential. Serum or plasma urea nitroge n measurement (mass/volume)on 06-07-2021 Urea nitrogen [Mass/Vol] 14 mg/dL 7-18 [facility] Work Phone: Thin prep Papanicolaou smear with manual screeningon 06-07-2021 Thin prep Papanicolaou smear with manual screening 14 5-15 [facility] Work Phone: XR Foot - right AP and Later al and obliqueon 03-04-2020 IMPRESSION: No acute osseous abnormality identified. No radiopaque foreign body identified. Fibre Technologist: SHERINE Transcribe Date/Time: Mar 04 2020 1:13P Dictated by : VERÓNICA GILBERT MD This examination was interpreted and the report reviewed and electronically signed by: VERÓNICA GILBERT MD on Mar 04 2020 1:16PM [facility] DIVISION OF RADIOLOGY * * *Final Report* * * DATE OF EXAM: Mar 04 2020 1:08PM WOX [id number] - XR FOOT 3V AP/LAT/OBL RT / PROCEDURE REASON: Animal bite of foot, right, initial encounter * * * * Physician Interpretation * * * * Right foot radiographs HISTORY: 34 years old Clinical information: Animal bite of foot, right, initial encounter pt states bit by a pig on Monday hindfoot lateral heel area marked by an arrow on ap, not able to weight bear. wound in that area TECHNIQUE: Images: XR FOOT 3V AP/LAT/OBL RT Comparison: None. RESULT: Findings: Hallux valgus deformity. Cornuate navicular bone. No fracture or dislocation. No soft tissue abnormality identified. DIVISION OF RADIOLOGY Provider, [facility] - 03/04/2020 * * *Final Report* * * DATE OF EXAM: Mar 04 2020 1:08PM WOX [id number] - XR FOOT 3V AP/LAT/OBL RT / PROCEDURE REASON: Animal bite of foot, right, initial encounter * * * * Physician Interpretation * * * * Right foot radiographs HISTORY: 34 years old Clinical information: Animal bite of foot, right, initial encounter pt states bit by a pig on Monday hindfoot lateral heel area marked by an arrow on ap, not able to weight bear. wound in that area TECHNIQUE: Images: XR FOOT 3V AP/LAT/OBL RT Comparison: None. RESULT: Findings: Hallux valgus deformity. Cornuate navicular bone. No fracture or dislocation. No soft tissue abnormality identified. IMPRESSION IMPRESSION: No acute osseous abnormality identified. No radiopaque foreign body identified. Fibre Technologist: PSCB Transcribe Date/Time: Mar 04 2020 1:13P Dictated by : VERÓNICA GILBERT MD This examination was interpreted and the report reviewed and electronically signed by: VERÓNICA GILBERT MD on Mar 04 2020 1:16PM [facility] Radiology Study observation (narrative) [facility] XR Foot - right AP and Later al and obliqueOrdered By: [facility] Provider on 03-04-2020 [facility] Acetaminophenon 06-13-2018 Acetaminophen [Mass/Vol] <1 Low 10-30 [facility] Comment on above: Performed By: #### L ACTM #### [facility] [address] [place] [address] Alcohol, Bloodon 06-13-2018 Alcohol, Blood <10 Normal <10 [facility] [place] Comment on above: Performed By: #### L CBC #### [facility] [address] [place] [address] Comprehensive Panelon 2018 Anion gap [Moles/Vol] 13 mmol/L Normal 8-20 [facility] Comment on above: Performed By: #### L P14 #### [facility] [address] [place] [address] Chloride [Moles/Vol] 103 mmol/L Normal 98-109 [facility] Comment on above: Result Comment: Test ing performed on an Atkinson i-STAT. Performed By: #### L P14 #### [place] [address] Potassium [Moles/Vol] 4.1 mmol/L Normal 3.5-4.9 [facility] Comment on above: Result Comment: Test ing performed on an Atkinson i-STAT. Performed By: #### L P14 #### [facility] [address] [place] [address] Sodium [Moles/Vol] 138 mmol/L Normal 138-146 [facility] Comment on above: Result Comment: Test ing performed on an [place]kinson i-STAT. Performed By: #### L P14 #### [facility] [address] [place] [address] Albumin [Mass/Vol] 3.4 g/dL Normal 3.4-5.0 [facility] Comment on above: Performed By: #### L P14 #### [facility] [address] [place] [address] ALP [Catalytic activity/Vol] 78 U/L Normal 46-116 [facility] Comment on above: Performed By: #### L P14 #### [facility] [address] [place] [address] ALT-SGPT Blood 15 U/L Normal 14-63 [facility] [place] Comment on above: Performed By: #### L P14 #### [facility] [address] [place], [place] [address] AST-SGOT Blood 11 U/L Low 15-37 [facility] [place] Comment on above: Performed By: #### L P14 #### [facility] [address] [place], [place] [address] Bilirubin Ql (U) 0.3 mg/dL Normal 0.2-1.0 [facility] Comment on above: Performed By: #### L P14 #### [facility] [address] [place], [place] [address] Calcium [Mass/Vol] 8.8 mg/dL Normal 8.5-10.1 [facility] Comment on above: Performed By: #### L P14 #### [facility] [address] [place] [address] CO2 Blood 26 mEq/L Normal 21-32 [facility] Comment on above: Performed By: #### L P14 #### [facility] [address] [place] [address] Creatinine [Mass/Vol] 0.65 mg/dL Normal 0.51-0.95 [facility] Comment on above: Performed By: #### L P14 #### [facility] [address] [place], [place] [address] Glucose [Mass/Vol] 101 mg/dL High 70-99 [facility] Comment on above: Performed By: #### L P14 #### [facility] [address] [place], [place] [address] Protein [Mass/Vol] 6.7 g/dL Normal 6.4-8.2 [facility] Comment on above: Performed By: #### L P14 #### [facility] [address] [place], [place] [address] Urea nitrogen [Mass/Vol] 10 mg/dL Normal 7-25 [facility] Comment on above: Performed By: #### L P14 #### [facility] [address] [place], [place] [address] Urea nitrogen/Creatinine [Mass ratio] 15 mg/mg Normal 10-20 [facility] Comment on above: Performed By: #### L P14 #### [facility] [address] [place] [address] HCG,Totalon 06-13-2018 HCG Qn m[IU]/mL Normal [facility] Comment on above: Result Comment: Male <2 Non- female <6 female 0-1 Week 0 - 50 1-2 Weeks 40 - 300 2-3 Weeks 100 - 1000 3-4 Weeks 500 - 6000 1-2 Months 5000 - 310695 2-3 Months [address] - 288102 2nd Trimester 3000 - 99653 The concentration of hCG in maternal serum rises rapidly in early . hCG levels less than 25 mIU/mL do NOT exclude . A further sample should be tested after 48 hours if is suspected. Performed By: #### L HCG #### [place] [address] Hemogramon 06-13-2018 Erythrocyte distribution width (RBC) [Ratio] 13.2 % Normal 11.5-15.9 [facility] Comment on above: Performed By: #### L CBC #### [place] [address] Hematocrit (Bld) [Volume fraction] 37.4 % Normal 37.0-47.0 [facility] Comment on above: Performed By: #### L CBC #### [place] [address] Hemoglobin (Bld) [Mass/Vol] 12.2 g/dL Normal 12.0-16.0 [facility] Comment on above: Performed By: #### L CBC #### [place] [address] MCH (RBC) [Entitic mass] 29.0 pg Normal 27.0-31.0 [facility] Comment on above: Performed By: #### L CBC #### [place] [address] MCHC (RBC) [Mass/Vol] 32.6 % Normal 32.0-36.0 [facility] Comment on above: Performed By: #### L CBC #### [place] [address] MCV (RBC) [Entitic vol] 89.0 fL Normal 81.0-99.0 [facility] Comment on above: Performed By: #### L CBC #### [facility] [address] [place] [address] Platelet mean volume (Bld) [Entitic vol] 9.0 fL Normal 7.1-10.5 [facility] Comment on above: Performed By: #### L CBC #### [place] [address] Platelets (Bld) [#/Vol] 316 thou/cmm Normal 150-400 [facility] Comment on above: Performed By: #### L CBC #### [place] [address] RBC (Bld) [#/Vol] 4.20 mil/cmm Normal 4.20-5.40 [facility] Comment on above: Performed By: #### L CBC #### [place] [address] WBC (Bld) [#/Vol] 19.6 thou/cmm High 4.8-10.5 [facility] Comment on above: Performed By: #### L CBC #### [place] [address] Lactic acidon 06-13-2018 Lactate [Moles/Vol] 1.1 mmol/L Normal 0.4-2.0 [facility] Comment on above: Performed By: #### L CBC #### [place] [address] MDRD eGFRon 06-13-2018 GFR/1.73 sq M predicted among non-blacks MDRD (S/P/Bld) [Vol rate/Area] mL/min/{1.73_m2} Normal >60mL/min/1.73 m2 [facility] Comment on above: Result Comment: If t he patient is , multiply the result by 1.210. Performed By: #### L GFR #### [place] [address] Protimeon 06-13-2018 INR Coag (PPP) [Relative time] 1.01 {INR} Normal 0.90-1.30 [facility] Comment on above: Result Comment: Note : Reference Range Change Vitamin K Antagonist (VKA) Therapeutic Range: INR 2 to 3 (Target INR of 2.5) Note: For patients treated with VKA drugs, such as warfarin, the [place] [employer] 2012 Guideline recommends a therapeutic INR range of 2 to 3 (target INR of 2.5). This recommendation includes high-risk patients with antiphospholipid syndrome with previous arterial or venous thromboembolism, current-generation mechanical or bioprosthetic aortic heart valve replacement. VKA Therapeutic Range for some Mechanical Valve Replacement: INR 2.5 to 3.5 (Target INR of 3) Note: Patients with mechanical aortic valve replacement and additional risk factors for thromboembolic events (atrial fibrillation, previous thromboembolism, LV dysfunction, hypercoagulable conditions) or an older generation mechanical AVR (i.e., ball in-Cage) or any mechanical MVR should have a INR therapeutic range of 2.5 to 3.5 target INR of 3). Irvin GH, et al. Chest 2012; 141:7S-47S Leno RA et al. [facility] 2017; 70: 252-289 Performed By: #### L CBC #### [place] [address] PT Coag (PPP) [Time] 10.3 s Normal 9.7-13.0 [facility] Comment on above: Result Comment: . Performed By: #### L CBC #### [place] [address] Salicylateon 06-13-2018 Salicylate 4.4 mg/dL Normal 2.8-20.0 [facility] Comment on above: Performed By: #### L EDITH #### [address] [address] Troponin Ion 06-13-2018 Troponin I.cardiac [Mass/Vol] ng/mL Normal <=0.07 [facility] Comment on above: Performed By: #### L TRP #### [place] [address] Urinalysis Routineon 019 Appearance (U) CLEAR Normal [facility] [place] Comment on above: Performed By: #### L URIN #### [facility] [address] [place] [address] Bilirubin Urine Negative Normal Negative [facility] Comment on above: Performed By: #### L URIN #### [facility] [address] [place] [address] Color (U) YELLOW Normal [facility] Comment on above: Performed By: #### L URIN #### [facility] [address] [place] [address] Ep Cells Urine 0-2 Normal 0-5 [facility] [place] Comment on above: Performed By: #### L URIN #### [facility] [address] [place] [address] Glucose Ql (U) Negative Normal Negative [facility] [place] Comment on above: Performed By: #### L URIN #### [place] [address] Hemoglobin,Urine TRACE-INTACT Abnormal Negative [facility] Comment on above: Performed By: #### L URIN #### [facility] [address] [place] [address] Ketone Urine Negative Normal Negative [facility] Comment on above: Performed By: #### L URIN #### [facility] [address] [place] [address] Leukocytes Esterase Negative Normal Negative [facility] Comment on above: Performed By: #### L URIN #### [place] [address] Nitrites Urine Negative Normal Negative [facility] [place] Comment on above: Performed By: #### L URIN #### [facility] [address] [place] [address] pH (U) 7.0 [pH] Normal 5.0-8.0 [facility] Comment on above: Performed By: #### L URIN #### [place] [address] Protein (U) [Mass/Vol] Negative Normal Negative [facility] Comment on above: Performed By: #### L URIN #### [facility] [address] [place] [address] RBC LM.HPF (Urine sed) [#/Area] 0-3 Normal 0-3 [facility] Comment on above: Performed By: #### L URIN #### [place] [address] Specific [place], Ur <=1.005 Normal 1.005-1.030 [facility] Comment on above: Performed By: #### L URIN #### [place] [address] Urobilinogen,Ur 0.2 EU/dL Normal 0.2-1.0 [facility] Comment on above: Performed By: #### L URIN #### [place] [address] WBC LM.HPF (Urine sed) [#/Area] NONE Normal 0-5 [facility] Comment on above: Performed By: #### L URIN #### [place] [address] Urine Drug Screenon 06-14-19 19 Urine Amphetamine Non-Detected Normal Non-Detected [facility] Comment on above: Performed By: #### L UDR2 #### [place] [address] Urine Barbiturates Non-Detected Normal Non-Detected [facility] Comment on above: Performed By: #### L UDR2 #### [place] [address] Urine Benzodiazepine Non-Detected Normal Non-Detected [facility] Comment on above: Performed By: #### L UDR2 #### [place] [address] Urine Buprenorphine Non-Detected Normal Non-Detected [facility] Comment on above: Result Comment: Urin e Drug Cutoff Levels Urine Amphetamine 500 ng/mL Urine Barbituate 200 ng/mL Urine Benzodiazepines 150 ng/mL Urine Cocaine 150 ng/mL Urine Methamphetamines 500 ng/mL Urine Methadone 200 ng/mL Urine Opiates 100 ng/mL Urine Oxycodone 100 ng/mL Urine Phencyclidine (PCP) 25 ng/mL Urine Propoxyphene 300 ng/mL Urine Tricyclics 300 ng/mL Urine THC 50 ng/mL Urine Buprenorphine 10 ng/mL The results of these analytes are unconfirmed and reported qualitatively as detected or non-detected relative to the cutoff value. Detected results indicate the sample is likely to contain the analyte. Non-detected results indicate that either the sample does not contain the analyte or it is present in concentrations below the cutoff level. This drug screen should be used for medical diagnostic purposes only. Testing Performed at: [address] [address] Performed By: #### L UDR2 #### [place] [address] Urine Cocaine Non-Detected Normal Non-Detected [facility] Comment on above: Performed By: #### L UDR2 #### [place] [address] Urine Methadone Non-Detected Normal Non-Detected [facility] Comment on above: Performed By: #### L UDR2 #### [place] [address] Urine Methamphetamine Non-Detected Normal Non-Detected [facility] Comment on above: Performed By: #### L UDR2 #### [place] [address] Urine Opiate Non-Detected Normal Non-Detected [facility] Comment on above: Performed By: #### L UDR2 #### [place] [address] Urine Oxycodone Non-Detected Normal Non-Detected [facility] Comment on above: Performed By: #### L UDR2 #### [place] [address] Urine PCP Non-Detected Normal Non-Detected [facility] [place] Comment on above: Performed By: #### L UDR2 #### [place] [address] Urine Propoxyphene Non-Detected Normal Non-Detected [facility] Comment on above: Performed By: #### L UDR2 #### [place] [address] Urine THC see below Normal Non-Detected [facility] Comment on above: Result Comment: Dete cted (unconfirmed) Performed By: #### L UDR2 #### [facility] [address] [place], [place] [address] Urine Tricyclics Non-Detected Normal Non-Detected [facility] Comment on above: Performed By: #### L UDR2 #### [facility] [address] [place], [place] [address] CT HEAD W/O CONTRASTon 11-15 CT HEAD W/O CONTRAST Performed at [facility] APPROVED BY: Enrique Saenz MD EXAMINATION: CT HEAD W/O CONTRAST CLINICAL HISTORY: Head trauma, dizziness TECHNIQUE: Serial axial images without IV contrast were obtained from the vertex to the foramen magnum. MQ: [id number] CT Dose-Length Product (DLP): 772 mGy*cm CT Dose Reduction Employed: No dose reduction techniques were required. COMPARISON: None. RESULT: Post-operative change: None. Acute change: No evidence of an acute infarct or other acute parenchymal process. Hemorrhage: No evidence of acute intracranial hemorrhage. Mass Lesion / Mass Effect: There is no evidence of an intracranial mass or extraaxial fluid collection. No significant mass effect. Chronic change: None apparent. Parenchyma: There is no significant volume loss. The brain parenchyma is otherwise within normal limits for age. Ventricles: The ventricles are within normal limits of size and configuration for age. Paranasal sinuses and skull base: The visualized paranasal sinuses are grossly clear. The skull base and imaged soft tissues are unremarkable. IMPRESSION: Normal unenhanced CT brain. Follow-up as indicated. Normal [facility] Vital Signs Date Time Vital Sign Value Performing Clinician Faci shabana 09-27-2024 19:27-0400 Body temperature 98.1 [degF] Etta Diazden CHRISTMAS TREE GRADER-C Work Phone: [facility] 09-27-2024 19:27-0400 Diastolic blood pressure 66 mm[Hg] Etta Merchant [employer]RISTMAS TREE GRADER-C Work Phone: [facility] 09-27-2024 19:27-0400 Heart rate 78 /min Etta Merchant [employer]RISTMAS TREE GRADER-C Work Phone: [facility] 09-27-2024 19:27-0400 Respiratory rate 16 /min Etta Queden [employer]RISTMAS TREE GRADER-C Work Phone: [facility] 09-27-2024 19:27-0400 Systolic blood pressure 109 mm[Hg] Etta Queden CHRISTMAS TREE GRADER-C Work Phone: [facility] 09-27-2024 19:00-0400 Body height 177.8 cm Etta Queden CHRISTMAS TREE GRADER-C Work Phone: [facility] 09-27-2024 19:00-0400 Body mass index (BMI) [Ratio] 28.7 kg/m2 Etta Queden [employer]RISTMAS TREE GRADER-C Work Phone: [facility] 09-27-2024 19:00-0400 Body weight 90.71 kg Etta Queden [employer]RI[employer] GRADER-C Work Phone: [facility] 09-25-2024 11:09-0400 Body mass index (BMI) [Ratio] 28.55 kg/m2 Bandar Cordova MD Work Phone: [facility] 09-25-2024 11:09-0400 Body weight 90.27 kg Bandar Cordova MD Work Phone: [facility] 09-25-2024 11:09-0400 Diastolic blood pressure 62 mm[Hg] Bandar Cordova MD Work Phone: [facility] 09-25-2024 11:09-0400 Systolic blood pressure 124 mm[Hg] Bandar Cordova MD Work Phone: [facility] 09-11-2024 14:28-0400 Body mass index (BMI) [Ratio] 28.09 kg/m2 Jaspal Sykes APRN.HARDBOARD PRESS OPERATOR Work Phone: [facility] 09-11-2024 14:28-0400 Body weight 88.81 kg Jaspal Sykes APRN.CNP Work Phone: [facility] 09-11-2024 14:28-0400 Diastolic blood pressure 80 mm[Hg] Jaspal Haury MASONRY INSTALLER.HARDBOARD PRESS OPERATOR Work Phone: [facility] 09-11-2024 14:28-0400 Systolic blood pressure 124 mm[Hg] Jaspal Sykes MASONRY INSTALLER.HARDBOARD PRESS OPERATOR Work Phone: [facility] 08-27-2024 10:49-0400 Body mass index (BMI) [Ratio] 27.26 kg/m2 Bimal Patel MD Work Phone: [facility] 08-27-2024 10:49-0400 Body weight 86.18 kg Bimal Patel MD Work Phone: [facility] 08-27-2024 10:49-0400 Diastolic blood pressure 70 mm[Hg] Bimal Patel MD Work Phone: [facility] 08-27-2024 10:49-0400 Systolic blood pressure 124 mm[Hg] Bimal Patel MD Work Phone: [facility] 08-15-2024 09:41-0400 Body mass index (BMI) [Ratio] 26.69 kg/m2 Rosalba Espinosa MD Work Phone: [facility] 08-15-2024 09:41-0400 Body weight 84.37 kg Rosalba Espinosa MD Work Phone: [facility] 08-15-2024 09:41-0400 Diastolic blood pressure 66 mm[Hg] Rosalba Espinosa MD Work Phone: [facility] 08-15-2024 09:41-0400 Systolic blood pressure 128 mm[Hg] Rosalba Espinosa MD Work Phone: [facility] 08-01-2024 10:12-0400 Body mass index (BMI) [Ratio] 26.26 kg/m2 Penelope Spears MASONRY INSTALLER.CNM Work Phone: [facility] 08-01-2024 10:12-0400 Body weight 83.01 kg Penelope Spears MASONRY INSTALLER.CNM Work Phone: [facility] 08-01-2024 10:12-0400 Diastolic blood pressure 64 mm[Hg] Penelope Spears MASONRY INSTALLER.CNM Work Phone: [facility] 08-01-2024 10:12-0400 Systolic blood pressure 110 mm[Hg] Penelope Spears MASONRY INSTALLER.CNM Work Phone: [facility] 07-31-2024 09:06-0400 Body mass index (BMI) [Ratio] 26.32 kg/m2 Genet Praisler-Wood MASONRY INSTALLER.HARDBOARD PRESS OPERATOR Work Phone: [facility] 07-31-2024 09:06-0400 Body temperature 98.1 [degF] Genet Praisler-Wood MASONRY INSTALLER.HARDBOARD PRESS OPERATOR Work Phone: [facility] 07-31-2024 09:06-0400 Body weight 83.2 kg Genet Praisler-Wood MASONRY INSTALLER.HARDBOARD PRESS OPERATOR Work Phone: [facility] 07-31-2024 09:06-0400 Diastolic blood pressure 64 mm[Hg] Genet Praisler-Wood MASONRY INSTALLER.HARDBOARD PRESS OPERATOR Work Phone: [facility] 07-31-2024 09:06-0400 Heart rate 108 /min Genet Praisler-Wood MASONRY INSTALLER.HARDBOARD PRESS OPERATOR Work Phone: [facility] 07-31-2024 09:06-0400 Respiratory rate 21 /min Genet Praisler-Wood MASONRY INSTALLER.HARDBOARD PRESS OPERATOR Work Phone: [facility] 07-31-2024 09:06-0400 SaO2% (BldA) [Mass fraction] 98 % Genet Praisler-Wood MASONRY INSTALLER.HARDBOARD PRESS OPERATOR Work Phone: [facility] 07-31-2024 09:06-0400 Systolic blood pressure 126 mm[Hg] Genet Praisler-Wood MASONRY INSTALLER.HARDBOARD PRESS OPERATOR Work Phone: [facility] 07-18-2024 10:16-0400 Body mass index (BMI) [Ratio] 25.68 kg/m2 Rosalba Espinosa MD Work Phone: [facility] 07-18-2024 10:16-0400 Body weight 81.19 kg Rosalba Espinosa MD Work Phone: [facility] 07-18-2024 10:16-0400 Diastolic blood pressure 62 mm[Hg] Rosalba Epsinosa MD Work Phone: [facility] 07-18-2024 10:16-0400 Systolic blood pressure 118 mm[Hg] Rosalba Espinosa MD Work Phone: [facility] 06-25-2024 10:27-0400 Body mass index (BMI) [Ratio] 23.93 kg/m2 Bimal Patel MD Work Phone: [facility] 06-25-2024 10:27-0400 Body weight 75.66 kg Bimal Patel MD Work Phone: [facility] 06-25-2024 10:27-0400 Diastolic blood pressure 60 mm[Hg] Bimal Patel MD Work Phone: [facility] 06-25-2024 10:27-0400 Systolic blood pressure 100 mm[Hg] Bimal Patel MD Work Phone: [facility] 05-28-2024 11:29-0400 Body mass index (BMI) [Ratio] 22.5 kg/m2 Bimal Patel MD Work Phone: [facility] 05-28-2024 11:29-0400 Body weight 71.12 kg Bimal Patel MD Work Phone: [facility] 05-28-2024 11:29-0400 Diastolic blood pressure 62 mm[Hg] Bimal Patel MD Work Phone: [facility] 05-28-2024 11:29-0400 Systolic blood pressure 110 mm[Hg] Bimal Patel MD Work Phone: [facility] 05-02-2024 09:38-0400 Body height 177.8 cm Etta Queden MASONRY INSTALLER.HARDBOARD PRESS OPERATOR Work Phone: [facility] 05-02-2024 09:38-0400 Body mass index (BMI) [Ratio] 20.95 kg/m2 Etta Queden MASONRY INSTALLER.HARDBOARD PRESS OPERATOR Work Phone: [facility] 05-02-2024 09:38-0400 Body temperature 98.1 [degF] Etta Queden MASONRY INSTALLER.HARDBOARD PRESS OPERATOR Work Phone: [facility] 05-02-2024 09:38-0400 Body weight 66.22 kg Etta Queden MASONRY INSTALLER.HARDBOARD PRESS OPERATOR Work Phone: [facility] 05-02-2024 09:38-0400 Diastolic blood pressure 62 mm[Hg] Etta Queden MASONRY INSTALLER.HARDBOARD PRESS OPERATOR Work Phone: [facility] 05-02-2024 09:38-0400 Heart rate 92 /min Etta Queden MASONRY INSTALLER.HARDBOARD PRESS OPERATOR Work Phone: [facility] 05-02-2024 09:38-0400 Respiratory rate 18 /min Etta Queden MASONRY INSTALLER.HARDBOARD PRESS OPERATOR Work Phone: [facility] 05-02-2024 09:38-0400 SaO2% (BldA) [Mass fraction] 66 % Etta Queden MASONRY INSTALLER.HARDBOARD PRESS OPERATOR Work Phone: [facility] 05-02-2024 09:38-0400 Systolic blood pressure 114 mm[Hg] Etta Queden MASONRY INSTALLER.HARDBOARD PRESS OPERATOR Work Phone: [facility] 04-30-2024 10:55-0400 Body mass index (BMI) [Ratio] 20.83 kg/m2 Bimal Patel MD Work Phone: [facility] 04-30-2024 10:55-0400 Body weight 65.86 kg Bimal Patel MD Work Phone: [facility] 04-30-2024 10:55-0400 Diastolic blood pressure 60 mm[Hg] Bimal Patel MD Work Phone: [facility] 04-30-2024 10:55-0400 Systolic blood pressure 110 mm[Hg] Bimal Patel MD Work Phone: [facility] 04-30-2024 10:22-0400 Body mass index (BMI) [Ratio] 20.83 kg/m2 Whi Mob [facility] 04-30-2024 10:22-0400 Body weight 65.86 kg Whi Mob [facility] 04-01-2024 [id number] Body height 177.8 cm Jaspal Haury MASONRY INSTALLER.HARDBOARD PRESS OPERATOR Work Phone: [facility] 04-01-2024 11:02-0500 Body mass index (BMI) [Ratio] 18.94 kg/m2 Jaspal Haury MASONRY INSTALLER.HARDBOARD PRESS OPERATOR Work Phone: [facility] 04-01-2024 11:02-0500 Body weight 59.88 kg Jaspal Haury MASONRY INSTALLER.HARDBOARD PRESS OPERATOR Work Phone: [facility] 04-01-2024 11:02-0500 Diastolic blood pressure 62 mm[Hg] Jaspal Haury MASONRY INSTALLER.HARDBOARD PRESS OPERATOR Work Phone: [facility] 04-01-2024 11:02-0500 Systolic blood pressure 122 mm[Hg] Jaspal Haury MASONRY INSTALLER.HARDBOARD PRESS OPERATOR Work Phone: [facility] 03-25-2024 11:29-0500 Diastolic blood pressure 67 mm[Hg] Jessenia Lamb MD Work Phone: [facility] 03-25-2024 11:29-0500 Heart rate 109 /min Jessenia Lamb MD Work Phone: [facility] 03-25-2024 11:29-0500 Systolic blood pressure 113 mm[Hg] Jessenia Lamb MD Work Phone: [facility] 03-20-2024 16:28-0500 Body height 177.8 cm La Nena Edmondson MD Work Phone: [facility] 03-20-2024 16:28-0500 Body mass index (BMI) [Ratio] 17.71 kg/m2 La Nena Edmondson MD Work Phone: [facility] 03-20-2024 16:28-0500 Body weight 56 kg La Nena Edmondson MD Work Phone: [facility] 03-20-2024 16:28-0500 Diastolic blood pressure 86 mm[Hg] La Nena Edmondson MD Work Phone: [facility] 03-20-2024 16:28-0500 Heart rate 90 /min La Nena Edmondson MD Work Phone: [facility] 03-20-2024 16:28-0500 Systolic blood pressure 128 mm[Hg] La Nena Edmondson MD Work Phone: [facility] 09-09-2022 14:45-0400 Body temperature 99.1 [degF] Herb Pendlebury MASONRY INSTALLER.HARDBOARD PRESS OPERATOR Work Phone: [facility] 09-09-2022 14:45-0400 Diastolic blood pressure 60 mm[Hg] Herb Pendlebury MASONRY INSTALLER.HARDBOARD PRESS OPERATOR Work Phone: [facility] 09-09-2022 14:45-0400 Heart rate 90 /min Herb Pendlebury MASONRY INSTALLER.HARDBOARD PRESS OPERATOR Work Phone: [facility] 09-09-2022 14:45-0400 Respiratory rate 16 /min Herb Pendlebury MASONRY INSTALLER.HARDBOARD PRESS OPERATOR Work Phone: [facility] 09-09-2022 14:45-0400 SaO2% (BldA) [Mass fraction] 99 % Herb Pendlebury MASONRY INSTALLER.HARDBOARD PRESS OPERATOR Work Phone: [facility] 09-09-2022 14:45-0400 Systolic blood pressure 102 mm[Hg] Herb Pendlebury MASONRY INSTALLER.HARDBOARD PRESS OPERATOR Work Phone: [facility] 06-07-2021 14:52-0400 Heart rate 77 /min [facility] Work Phone: 06-07-2021 14:52-0400 Respiratory rate 17 /min [facility] Work Phone: 06-07-2021 14:52-0400 SaO2% (BldA) [Mass fraction] 100 % [facility] Work Phone: 06-07-2021 14:23-0400 Diastolic blood pressure 74 mm[Hg] [facility] Work Phone: 06-07-2021 14:23-0400 Systolic blood pressure 137 mm[Hg] [facility] Work Phone: 06-07-2021 12:38-0400 Body height 177.8 cm [facility] Work Phone: 06-07-2021 12:38-0400 Body mass index (BMI) [Ratio] 23.3 kg/m2 [facility] Work Phone: 06-07-2021 12:38-0400 Body temperature 95.3 [degF] [facility] Work Phone: 06-07-2021 12:38-0400 Body weight 73.8 kg [facility] Work Phone: Encounters Encounter Date Encounter Type Care Provider Facility Start: 10-14-2024 ambulatory [facility] Facility:[facility] Start: 09-27-2024 End: 09-27-2024 ambulatory Etta Merchant CHRISTMAS TREE GRADER-C Work Phone: -[facility] Start: 09-27-2024 End: 09-27-[address] Rosalba Espinosa MD -[facility] Work Phone: Start: 09-25-2024 End: 09-25-2024 Telephone encounter Bandar Cordova MD Work Phone: OB/Gynecology Comment on above: Care Start: 09-25-2024 End: 09-25-2024 Patient encounter procedure Bandar Cordova MD Work Phone: OB/Gynecology Comment on above: Supervision of high risk in third trimester (HCC) (Primary Dx); AMA (advanced maternal age) multigravida 35+, third trimester (HCC); 37 weeks gestation of (HCC); Nicotine use disorder Start: 09-25-2024 End: 09-25-2024 ambulatory ETTA MERCHANT Facility:[facility] Start: 09-18-2024 End: 09-18-2024 ambulatory ETTA MERCHANT Facility:[facility] Start: 09-11-2024 End: 09-11-2024 Patient encounter procedure Whi Tech 1 Director Of Diagnostic Imaging [facility] Comment on above: Encounter for ultras ound to check growth (HCC) (Primary Dx); AMA (advanced maternal age) multigravida 35+, third trimester (HCC); 35 weeks gestation of (HCC) Supervision of high risk in third trimester (HCC) (Primary Dx); 35 weeks gestation of (HCC); AMA (advanced maternal age) multigravida 35+, third trimester (HCC); Thyroid disease during in third trimester (HCC); Tobacco smoking complicating in third trimester (HCC); History of substance abuse (HCC) Start: 09-11-2024 End: 09-11-2024 ambulatory JASPAL SYKES Facility:[facility] Start: 08-27-2024 End: 08-27-2024 Patient encounter procedure Bimal Patel MD Work Phone: OB/Gynecology Comment on above: Supervision of high risk in third trimester (HCC) (Primary Dx); PTSD (post-traumatic stress disorder); Anxiety; AMA (advanced maternal age) multigravida 35+, third trimester (HCC); 33 weeks gestation of (HCC) Start: 08-27-2024 End: 08-27-2024 ambulatory ETTA MERCHANT Facility:[facility] Start: 08-15-2024 End: 08-15-2024 Office outpatient visit 15 minutes Rosalba Espinosa MD Work Phone: OB/Gynecology Comment on above: Supervision of high risk in third trimester (HCC) (Primary Dx); AMA (advanced maternal age) multigravida 35+, third trimester (HCC); PTSD (post-traumatic stress disorder); Anxiety; Low lying placenta, antepartum (HCC); 31 weeks gestation of (HCC) Start: 08-15-2024 End: 08-15-2024 Patient encounter procedure Whi Tech 1 Director Of Diagnostic Imaging [facility] Comment on above: Encounter for ultras ound to check growth (HCC) (Primary Dx); 31 weeks gestation of (HCC); Seizure disorder during in first trimester (HCC) Start: 08-15-2024 End: 08-15-2024 ambulatory ETTA Jennifer MERCHANT Facility:[facility] Start: 08-02-2024 End: 08-02-2024 Telephone encounter Nurse Director Of Diagnostic Imaging Homa Sparks Work Phone: Obstetrics/Gynecology Comment on above: PRAF Start: 08-01-2024 End: 08-01-2024 Patient encounter procedure Penelope Spears TAMMI Work Phone: OB/Gynecology Comment on above: 29 weeks gestation o f (HCC) (Primary Dx); Supervision of high risk in third trimester (HCC); AMA (advanced maternal age) multigravida 35+, third trimester (HCC); PTSD (post-traumatic stress disorder); Anxiety Start: 08-01-2024 End: 08-01-2024 [facility] Facility:[facility] Start: 07-31-2024 End: 07-31-2024 Patient encounter procedure Genet Tim APRN.CNP Work Phone: [facility] Comment on above: Bacterial sinusitis (Primary Dx); Sinus pressure Start: 07-31-2024 End: 07-31-2024 ambulatory GENET TIM Facility:[facility] Start: 07-30-2024 End: 07-30-2024 Telephone encounter Etta Merchant APRN.CNP Work Phone: [facility] Comment on above: Patient Question Start: 07-23-2024 End: 09-22-2024 Follow-up encounter Bimal Patel MD Work Phone: OB/Gynecology Start: 07-18-2024 End: 07-18-2024 Office outpatient visit 15 minutes Rosalba Espinosa MD Work Phone: OB/Gynecology Comment on above: Encounter for superv ision of high risk in second trimester, antepartum (HCC) (Primary Dx); Low lying placenta, antepartum (HCC); AMA (advanced maternal age) multigravida 35+, second trimester (HCC); 27 weeks gestation of (HCC); Screening for diabetes mellitus; Need for vaccination Start: 07-18-2024 End: 07-18-2024 Patient encounter procedure Whi Tech 1 Director Of Diagnostic Imaging [facility] Comment on above: Encounter for ultras ound to check growth (HCC) (Primary Dx); Advanced maternal age in multigravida, first trimester (HCC); Suspected placental problem not found Start: 07-18-2024 End: 07-18-2024 [facility] Facility:[facility] Start: 06-25-2024 End: 06-25-2024 Patient encounter procedure Bimal Patel MD Work Phone: OB/Gynecology Comment on above: Screening for diabet es mellitus (Primary Dx); 24 weeks gestation of (HCC); Encounter for supervision of high risk in second trimester, antepartum (HCC); Advanced maternal age in multigravida, first trimester (HCC); Low lying placenta, antepartum (HCC); Seizure disorder during in first trimester (HCC) Start: 06-25-2024 End: 06-25-2024 [facility] Facility:[facility] Start: 06-20-2024 End: 06-20-2024 Patient encounter procedure Whi Tech 1 Director Of Diagnostic Imaging [facility] Comment on above: Encounter for follow -up ultrasound of anatomy (HCC) (Primary Dx); 23 weeks gestation of (HCC) Start: 06-20-2024 End: 06-20-2024 [facility] Facility:[facility] Start: 05-29-2024 End: 07-29-2024 Follow-up encounter Kamryn Griggs MD Work Phone: Endocrinology Start: 05-29-2024 End: 05-29-2024 Telephone encounter Nurse Director Of Diagnostic Imaging Homa Sparks Work Phone: Obstetrics/Gynecology Comment on above: PRAF Start: 05-29-2024 End: 05-29-2024 [facility] Facility:[facility] Start: 05-28-2024 End: 05-28-2024 [facility] Facility:[facility] Start: 05-28-2024 End: 05-28-2024 Patient encounter procedure Bimal Patel MD Work Phone: OB/Gynecology Comment on above: 20 weeks gestation o f (HCC) (Primary Dx); Seizure disorder (HCC); Advanced maternal age in multigravida, first trimester (HCC); Encounter for supervision of high risk in first trimester, antepartum (HCC) Multigravida of adva nced maternal age in second trimester (HCC) (Primary Dx); Encounter for anatomic survey (HCC); Supervision of high risk in second trimester (HCC); Supervision of high risk in third trimester (HCC); AMA (advanced maternal age) multigravida 35+, first trimester (HCC) Start: 05-27-2024 End: 05-27-2024 [facility] Taco Watkins MD Work Phone: Epilepsy Comment on above: Syncope and collapse (Primary Dx); 10 weeks gestation of (HCC); Seizure disorder during in first trimester (HCC) Start: 05-17-2024 Unlisted evaluation and management service Lois Campos Other Phone: [facility] Start: 05-02-2024 End: 05-02-2024 Patient encounter procedure Etta Merchant APRN.HARDBOARD PRESS OPERATOR Work Phone: [facility] Comment on above: Well adult exam (Emily luis Dx); Seizure disorder during in first trimester (HCC); Thyroid disease during in first trimester; Tobacco smoking complicating in first trimester; PTSD (post-traumatic stress disorder); Anxiety; Nasal congestion; Screening for depression Start: 05-02-2024 End: 05-02-2024 Patient encounter status Etta Merchant APRN.HARDBOARD PRESS OPERATOR Work Phone: [facility] Work Phone: Start: 05-02-2024 End: 05-02-2024 ambulatory LUCA A NAYA Facility:[facility] Start: 05-02-2024 Encounter for genera l adult medical examination without abnormal findings ETTA MERCHANT [facility] Start: 04-30-2024 End: 04-30-2024 ambulatory LUCA A NAYA Facility:[facility] Start: 04-30-2024 End: 04-30-2024 Patient encounter procedure Whi Tech 1 Director Of Diagnostic Imaging [facility] Comment on above: Encounter for antena jesus screening for malformation using ultrasound (Primary Dx); AMA (advanced maternal age) multigravida 35+, first trimester; 16 weeks gestation of 16 weeks gestation o f (Primary Dx); Seizure disorder (HCC); Advanced maternal age in multigravida, first trimester Start: 04-28-2024 End: 04-28-2024 ambulatory Kamryn Griggs MD Work Phone: [facility] Comment on above: thyroid Start: 04-28-2024 End: 04-28-2024 E-mail encounter from caregiver Kamryn Griggs MD Work Phone: [facility] Start: 04-25-2024 End: 04-25-2024 ambulatory Kamryn Griggs MD Work Phone: Endocrinology Comment on above: Hyperthyroidism (Emily luis Dx) Start: 04-25-2024 End: 04-25-2024 Telemedicine consultation with patient Kamryn Griggs MD Work Phone: Endocrinology Start: 04-10-2024 End: 04-11-2024 Telephone encounter Bimal Patel MD Work Phone: OB/Gynecology Comment on above: OB Start: 04-08-2024 End: 04-08-2024 Telephone encounter Katja Goldman MD Work Phone: Neurology [facility] Start: 04-02-2024 End: 06-02-2024 Follow-up encounter Bandar Cordova MD Work Phone: OB/Gynecology Start: 04-02-2024 End: 04-02-2024 Telephone encounter Darshana Mckinney RN Obstetrics/Gynecolog y Comment on above: PRAF Start: 04-01-2024 End: 06-01-2024 Follow-up encounter Jaspal Sykes APRN.CNP Work Phone: OB/Gynecology Start: 04-01-2024 End: 04-01-2024 ambulatory LUCA PERSON Facility:[facility] Start: 04-01-2024 End: 04-01-2024 Patient encounter procedure Whi Tech 1 Director Of Diagnostic Imaging [facility] Comment on above: Encounter for antena jesus screening for malformation using ultrasound (Primary Dx); AMA (advanced maternal age) multigravida 35+, first trimester; 12 weeks gestation of Start: 04-01-2024 End: 04-01-2024 ambulatory LUCA PERSON Facility:[facility] Start: 04-01-2024 End: 04-01-2024 Patient encounter procedure Jaspal Sykes FRANCINE Work Phone: OB/Gynecology Comment on above: Encounter for superv ision of high risk in first trimester, antepartum (Primary Dx); 12 weeks gestation of ; History of substance abuse (HCC); Advanced maternal age in multigravida, first trimester; Tobacco smoking complicating in first trimester; Seizure disorder during in first trimester (HCC); Thyroid disease during in first trimester; PTSD (post-traumatic stress disorder); Screening for STD (sexually transmitted disease); History of depression Start: 03-28-2024 End: 03-28-2024 Telephone encounter Jessenia Lamb MD Work Phone: Maternal Medicine [facility] Start: 03-25-2024 End: 03-25-2024 [facility] Facility:[facility] Start: 03-25-2024 End: 03-25-2024 Patient encounter procedure Jessenia Lamb MD Work Phone: Maternal Medicine [facility] Comment on above: Anxiety (Primary Dx) ; Hyperthyroidism; Goiter; 10 weeks gestation of ; AMA (advanced maternal age) multigravida 35+, first trimester; Multigravida of advanced maternal age in first trimester; Seizure disorder during in first trimester (HCC); Tobacco smoking complicating in first trimester; Thyroid disease during in first trimester; PTSD (post-traumatic stress disorder) Start: 03-22-2024 End: 2024 Telephone encounter La Nena Edmondson MD Work Phone: Obstetrics/Gynecology Comment on above: Results Start: 03-22-2024 End: 03-22-2024 ambulatory LUCA PERSON Facility:[facility] Start: 03-22-2024 End: 03-22-2024 Patient encounter procedure Whi Tech 1 Director Of Diagnostic Imaging [facility] Kather[facility] THOM[facility] Work Phone: Maternal Medicine Comment on above: Encounter to ryan miner viability of , single or unspecified fetus (Primary Dx); Threatened Start: 03-20-2024 End: 03-20-2024 ambulatory LUCA PERSON Facility:[facility] Start: 03-20-2024 Encounter for gynecological examination (general) (routine) without abnormal findings LA NENA EDMONDSON [facility] Start: 03-20-2024 End: 03-20-2024 Patient encounter procedure La Nena Edmondson MD Work Phone: CB/Gynecology Comment on above: Encounter for gyneco logical examination (general) (routine) without abnormal findings (Primary Dx); Encounter for screening for malignant neoplasm of cervix; Screening mammogram for breast cancer; Missed menses; Vaginal discharge; Enlarged thyroid Start: 03-20-2024 End: 03-20-2024 Patient encounter status La Nena Edmondson MD Work Phone: [facility] Start: 09-16-2022 End: 09-16-2022 ambulatory No Primary Care Physician [facility] Work Phone: Start: 09-16-2022 End: 09-16-2022 Patient encounter procedure No Primary Care Physician [facility] Work Phone: Start: 09-15-2022 End: 09-15-2022 Patient encounter procedure No Primary Care Physician [facility] Work Phone: Start: 09-10-2022 End: 09-10-2022 Emergency department patient visit LUCA PERSON Facility:[id number] Start: 09-09-2022 End: 09-09-2022 Subsequent hospital visit by physician Sam[facility] Work Phone: Radiology Comment on above: Pain of right lower extremity [M79.604] Start: 09-09-2022 End: 09-09-2022 Office outpatient visit 15 minutes Herb Freitas APRN.CNP Work Phone: [facility] Comment on above: Pain of right lower extremity (Primary Dx) Start: 06-07-2021 End: 06-07-2021 Emergency department patient visit [facility]gency [facility] Start: 03-04-2020 End: 03-04-2020 Subsequent hospital visit by physician Xr [facility] Work Phone: Radiology Comment on above: Animal bite of foot, right, initial encounter [S91.351A] Procedures Date Procedure Procedure Detail Performing Clinician Start: 09-25-2024 Urnls dip stick/tabl et rgnt non-auto w/o micrscp Bandar Cordova MD Work Phone: Start: 09-11-2024 Urnls dip stick/tabl et rgnt non-auto w/o micrscp Penelope Spears MASONRY INSTALLER.CNM Work Phone: Start: 09-11-2024 Us preg uterus after 1st trimest 1/1st gestation Bimal Patel MD Work Phone: Start: 08-15-2024 Us preg uterus after 1st trimest 1/1st gestation Penelope Reyna DO Work Phone: Start: 07-18-2024 Us preg uterus after 1st trimest 1/1st gestation Bimal Patel MD Work Phone: Start: 06-20-2024 Us preg uterus after 1st trimest 1/1st gestation Penelope Reyna DO Work Phone: Start: 05-28-2024 Us preg uterus after 1st trimest 1/1st gestation Jessenia Lamb MD Work Phone: Start: 05-02-2024 Adult depression scr eening marcelo Merchant MASONRY INSTALLER.HARDBOARD PRESS OPERATOR Work Phone: Start: 04-30-2024 Us preg uterus after 1st trimest 1/1st gestation Jessenia Lamb MD Work Phone: Start: 04-01-2024 Us preg uterus after 1st trimest 1/1st gestation Jessenia Lamb MD Work Phone: Start: 04-01-2024 Antibody screen ETTA MERCHANT Comment on above: Order Comment: Speci men Type: BLOOD SPECIMENOrdering Facility: [facility] Address: [address] [place] [address] Performed By: #### T SPN ####CC MAIN BLOOD BANKCLIA [id number] [place] [address] [place] Start: 03-22-2024 Us preg uterus after 1st trimest 02/13 gestation La Nena Edmondson MD Work Phone: Start: 09-16-2022 MRI of joint of lowe r extremity No Primary Care Physician Start: 09-15-2022 Radiography of ankle No Primary Care Physician Start: 09-09-2022 Radex foot complete minimum 3 views Herb Freitas APRN.CNP Work Phone: Start: 06-07-2021 Plain chest X-ray Start: 03-04-2020 Radex foot complete minimum 3 views Kathya Roy PA-C Work Phone: Plan of Treatment Date Care Activity Detail Author Start: 07-18-2034 Urine microalbumin profile DTaP,Tdap,Td Vaccine (3 - Td or Tdap) [facility] Start: 03-04-2030 Urine microalbumin profile [facility] Start: 03-20-2027 Screening for malignant neoplasm of cervix Cervical Cancer Screening [facility] Start: 05-02-2025 Covid-19 Vaccine ( season) Covid-19 Vaccine ( season) [facility] Comment on above: Postponed from 10/15/2023 (Declined at t his time) Start: 05-02-2025 Depression Screening Depression Screening [facility] Start: 05-02-2025 Hepatitis B Vaccine (1 of 3 - 19+ 3-dose series) Hepatitis B Vaccine (1 of 3 - 19+ 3-dose series) [facility] Comment on above: Postponed from 2004 (Declined at t his time) Start: 05-02-2025 Pneumococcal vaccination Pneumococcal Vaccine (1 of 2 - PCV) [facility] Comment on above: Postponed from 2004 (Declined at t his time) Start: 10-14-2024 Influenza vaccination [facility] Start: 10-09-2024 End: 10-09-2024 Patient encounter procedure Maternal Medicine Comment on above: Growth Growth/OB Start: 10-02-2024 End: 10-02-2024 Patient encounter procedure 10/02/2024 10:15 AM EDT Routine Office Visit OB/Gynecology [address] [place] [address] Penelope Spears APRN.CN [address] [place] [address] OB OB/Gynecology Comment on above: OB Start: 09-27-2024 Nonstress test [facility] Start: 09-27-2024 Obstetric monitoring [facility] Start: 09-27-2024 Vital signs measurements [facility] Start: 09-27-2024 [facility] Start: 09-27-2024 Patient discharge [facility] Start: 09-25-2024 End: 09-25-2025 OBSTETRIC ULTRASOUND [facility] OBSTETRIC ULTRASOUND [facility] Anc Imaging Routine Supervision of high risk in third trimester (HCC) AMA (advanced maternal age) multigravida 35+, third trimester (HCC) 37 weeks gestation of (HCC) Expected: 09/25/2024, Expires: 09/25/2025 [facility] Work Phone: Comment on above: Expected: 09/25/2024, Expires: Start: 09-25-2024 End: 09-25-2024 Patient encounter procedure 09/25/2024 10:40 AM EDT Routine Office Visit OB/Gynecology [address] [place] [address] Bandar Cordova MD [address] [place] [address] OB OB/Gynecology Comment on above: OB Start: 09-18-2024 End: 09-18-2024 Patient encounter procedure 09/18/2024 10:10 AM EDT Routine Office Visit OB/Gynecology [address] [place] [address] Winter Herrera MD [address] [place] [address] OB OB/Gynecology Comment on above: OB Start: 09-11-2024 End: 09-11-2024 Patient encounter procedure Maternal Medicine Comment on above: Growth Growth/OB Start: 09-11-2024 End: 12-11-2024 Thyrotropin [Units/volume] in Serum or Plasma THYROID STIMULATING HORMONE Lab Routine Thyroid disease during in third trimester (HCC) Expected: 09/11/2024, Expires: 12/11/2024 [facility] Work Phone: Comment on above: Expected: 09/11/2024, Expires: Start: 09-11-2024 End: 12-11-2024 Thyroxine (T4) free [Mass/volume] in Serum or Plasma T4 FREE/FREE THYROXINE Lab Routine Thyroid disease during in third trimester (HCC) Expected: 09/11/2024, Expires: 12/11/2024 [facility] Comment on above: Expected: 09/11/2024, Expires: Start: 08-27-2024 End: 08-27-2025 OBSTETRIC ULTRASOUND WHI OBSTETRIC ULTRASOUND WHI Anc Imaging Routine AMA (advanced maternal age) multigravida 35+, third trimester (HCC) Expected: 08/27/2024, Expires: 08/27/2025 [facility] Work Phone: Comment on above: Expected: 08/27/2024, Expires: Start: 08-27-2024 End: 08-27-2024 Patient encounter procedure 08/27/2024 10:40 AM EDT Routine Office Visit OB/Gynecology [address] [place] [address] Bimal Patel MD [address] [place] [address] OB OB/Gynecology Comment on above: OB Start: 08-15-2024 End: 08-15-2024 Patient encounter procedure Maternal Medicine Comment on above: Growth Ob Start: 08-12-2024 Influenza vaccination Influenza Vaccine (#1) [place] Amy jones Comment on above: Postponed from 10/15/2023 (Declined at t his time) Start: 08-06-2024 End: 05-28-2025 OBSTETRIC ULTRASOUND WHI OBSTETRIC ULTRASOUND WHI Anc Imaging Routine Supervision of high risk in third trimester (HCC) Expected: 08/06/2024, Expires: 05/28/2025 [facility] Comment on above: Expected: 08/06/2024, Expires: Start: 08-01-2024 End: 08-01-2024 Patient encounter procedure 08/01/2024 10:15 AM EDT Routine Office Visit OB/Gynecology [address] [place], [place] [id number] Penelope Spears APRN.CN [address] [place] [address] OB OB/Gynecology Comment on above: OB Start: 07-26-2024 End: 10-25-2024 ANEMIA REFLEX PANEL ANEMIA REFLEX PANEL Lab Routine 24 weeks gestation of (HCC) Encounter for supervision of high risk in second trimester, antepartum (HCC) Advanced maternal age in multigravida, first trimester (HCC) Expected: 07/26/2024 (Approximate), Expires: 10/25/2024 [facility] Comment on above: Expected: 07/26/2024 (Approximate), Expi res: 10/25/2024 Start: 07-26-2024 End: 06-25-2025 GESTATIONAL GLUCOSE SCREEN, 1-HOUR, 50 GRAM, NON-FASTING GESTATIONAL GLUCOSE SCREEN, 1-HOUR, 50 GRAM, NON-FASTING Lab Routine Screening for diabetes mellitus Expected: 07/26/2024 (Approximate), Expires: 06/25/2025 [facility] Work Phone: Comment on above: Expected: 07/26/2024 (Approximate), Expi res: 06/25/2025 Start: 07-26-2024 End: 06-25-2025 SYPHILIS TREPONEMAL W/REFLEX SYPHILIS TREPONEMAL W/REFLEX Lab Routine 24 weeks gestation of (HCC) Encounter for supervision of high risk in second trimester, antepartum (HCC) Advanced maternal age in multigravida, first trimester (HCC) Expected: 07/26/2024 (Approximate), Expires: 06/25/2025 [facility] Comment on above: Expected: 07/26/2024 (Approximate), Expi res: 06/25/2025 Start: 07-18-2024 End: 07-18-2024 Patient encounter procedure Maternal Medicine Comment on above: Growth Growth/OB Start: 07-18-2024 End: 07-18-2024 ambulatory 07/18/2024 9:15 AM EDT Results Only [facility] [address] [place] [address] Glucose Test [facility] Comment on above: Glucose Test Start: 06-25-2024 End: 06-25-2025 OBSTETRIC ULTRASOUND WHI OBSTETRIC ULTRASOUND WHI Anc Imaging Routine Advanced maternal age in multigravida, first trimester ([facility]) Low lying placenta, antepartum (HCC) Expected: 06/25/2024, Expires: 06/25/2025 [facility] Comment on above: Expected: 06/25/2024, Expires: Start: 06-25-2024 End: 06-25-2024 Patient encounter procedure 06/25/2024 10:40 AM EDT Routine Office Visit OB/Gynecology [address] [place] [address] Bimal Patel MD [address] [place] [address] OB Routine OB/Gynecology Comment on above: OB Routine Start: 06-18-2024 End: 05-28-2025 OBSTETRIC ULTRASOUND WHI OBSTETRIC ULTRASOUND WHI Anc Imaging Routine Supervision of high risk in second trimester (HCC) Expected: 06/18/2024 (Approximate), Expires: 05/28/2025 [facility] Work Phone: Comment on above: Expected: 06/18/2024 (Approximate), Expi res: 05/28/2025 Start: 05-29-2024 End: 08-28-2024 Thyrotropin [Units/volume] in Serum or Plasma THYROID STIMULATING HORMONE Lab Routine Low TSH level Expected: 05/29/2024, Expires: 08/28/2024 [facility] Work Phone: Comment on above: Expected: 05/29/2024, Expires: Start: 05-29-2024 End: 05-29-2024 ambulatory 05/29/2024 10:30 AM EDT Results Only [facility] [address] [place] [id number] [facility] Start: 05-28-2024 End: 05-28-2024 Patient encounter procedure Maternal Medicine Comment on above: 20 week anatomy follow up OB Start: 05-27-2024 End: 05-27-2024 Distance Health 05/27/2024 12:00 PM EDT [facility] Epilepsy [address] [place] [address] Taco Watkins MD [address] [address] 10 weeks gestation of [Z3A.10]; Seizure disorder during in first trimester (HCC) [O99.351, G40.909] Epilepsy Comment on above: 10 weeks gestation of [Z3A.10] ; Seizure disorder during in first trimester (HCC) [O99.351, G40.909] Start: 05-22-2024 End: 05-22-2024 Patient encounter procedure Maternal Medicine [facility] Comment on above: 20 week anatomy follow up Start: 05-02-2024 End: 05-02-2024 Patient encounter procedure Maternal Medicine Comment on above: 16 week anatomy Establish care Start: 04-30-2024 End: 04-30-2024 Patient encounter procedure 04/30/2024 1:30 PM EDT Routine Office Visit Maternal Medicine [address] [place] [address] [place] [address] [place], [place] [id number] US/MFM Maternal Medicine Comment on above: US/MFM Start: 04-30-2024 End: 04-30-2024 Patient encounter procedure Maternal Medicine Comment on above: 16 week anatomy OB Start: 04-25-2024 End: 07-25-2024 THYROID PEROXIDASE ANTIBODY [facility] Comment on above: Expected: 04/25/2024, Expires: Start: 04-25-2024 End: 07-25-2024 THYROID STIMULATING IMMUNOGLOBULIN BLOOD [facility] Comment on above: Expected: 04/25/2024, Expires: Start: 04-25-2024 End: 07-25-2024 Thyroxine (T4) free [Mass/volume] in Serum or Plasma [facility] Work Phone: Comment on above: Expected: 04/25/2024, Expires: Start: 04-25-2024 End: 07-25-2024 Triiodothyronine (T3) Free [Mass/volume] in Serum or Plasma [facility] Comment on above: Expected: 04/25/2024, Expires: Start: 04-25-2024 End: 04-25-2024 Patient encounter procedure Neurology [facility] Comment on above: consult new consult Start: 04-22-2024 End: 03-25-2025 OBSTETRIC ULTRASOUND WHI OBSTETRIC ULTRASOUND WHI Anc Imaging Routine AMA (advanced maternal age) multigravida 35+, first trimester Expected: 04/22/2024 (Approximate), Expires: 03/25/2025 [facility] Comment on above: Expected: 04/22/2024 (Approximate), Expi res: 03/25/2025 Start: 04-11-2024 End: 04-11-2024 Patient encounter procedure 04/11/2024 11:00 AM [facility] Endocrinology [address] [place] [address] Kamryn Griggs MD [address] [facility] [address] [place] [address] new consult Endocrinology Comment on above: new consult Start: 04-04-2024 End: 04-04-2024 Patient encounter procedure 04/04/2024 10:00 AM EST Routine Office Visit Maternal Medicine [address] [phone] first trimester anatomy Maternal Medicine Comment on above: first trimester anatomy Start: 04-02-2024 End: 04-02-2024 Patient encounter procedure 04/02/2024 8:40 AM EST Office Visit Internal Medicine [address] [facility] [address] [place] [address] [place] [address] [place], [place] [id number] est care Internal Medicine Comment on above: est care Start: 04-01-2024 End: 07-01-2024 HEMOGLOBIN EVALUATION CASCADE [facility] Work Phone: Comment on above: Expected: 04/01/2024, Expires: Start: 04-01-2024 End: 04-01-2024 Patient encounter procedure 04/01/2024 11:15 AM EST Initial Office Visit OB/Gynecology [address] [place] [address] Jaspal Sykes, MASONRY INSTALLER.HARDBOARD PRESS OPERATOR [address] [place] [address] New OB OB/Gynecology Comment on above: New OB Start: 03-28-2024 End: 03-28-2024 Patient encounter procedure 03/28/2024 11:00 AM EST Initial Office Visit OB/Gynecology [address] [place] [address] Jaspal Sykes, MASONRY INSTALLERArthurHARDBOARD PRESS OPERATOR [address] [place] [address] New OB OB/Gynecology Comment on above: New OB Start: 03-25-2024 End: 06-24-2024 ANEMIA REFLEX PANEL ANEMIA REFLEX PANEL Lab Routine Hyperthyroidism Goiter 10 weeks gestation of AMA (advanced maternal age) multigravida 35+, first trimester Anxiety Multigravida of advanced maternal age in first trimester Seizure disorder during in first trimester (HCC) Tobacco smoking complicating in first trimester Thyroid disease during in first trimester Expected: 03/25/2024, Expires: 06/24/2024 [facility] Comment on above: Expected: 03/25/2024, Expires: Start: 03-25-2024 End: 06-24-2024 Bacteria identified in Urine by Culture BACTERIAL CULTURE, URINE Microbiology Routine Hyperthyroidism Goiter 10 weeks gestation of AMA (advanced maternal age) multigravida 35+, first trimester Anxiety Multigravida of advanced maternal age in first trimester Seizure disorder during in first trimester (HCC) Tobacco smoking complicating in first trimester Thyroid disease during in first trimester Expected: 03/25/2024, Expires: 06/24/2024 [facility] Comment on above: Expected: 03/25/2024, Expires: Start: 03-25-2024 End: 06-24-2024 Chlamydia trachomatis+Neisseria gonorrhoeae DNA [Presence] in Unspecified specimen by SHERITA with probe detection GONORRHEA/CHLAMYDIA NAAT Lab Routine Hyperthyroidism Goiter 10 weeks gestation of AMA (advanced maternal age) multigravida 35+, first trimester Anxiety Multigravida of advanced maternal age in first trimester Seizure disorder during in first trimester (HCC) Tobacco smoking complicating in first trimester Thyroid disease during in first trimester Expected: 03/25/2024, Expires: 06/24/2024 [facility] Comment on above: Expected: 03/25/2024, Expires: Start: 03-25-2024 End: 06-24-2024 Chromosome 21 trisomy [Presence] in Blood or Tissue by Cytogenetics [id number] PLUS Lab Routine AMA (advanced maternal age) multigravida 35+, first trimester Expected: 03/25/2024, Expires: 06/24/2024 [facility] Work Phone: Comment on above: Expected: 03/25/2024, Expires: Start: 03-25-2024 End: 06-24-2024 Hemoglobin A1c in Blood HEMOGLOBIN A1C Lab Routine Hyperthyroidism Goiter 10 weeks gestation of AMA (advanced maternal age) multigravida 35+, first trimester Anxiety Multigravida of advanced maternal age in first trimester Seizure disorder during in first trimester (HCC) Tobacco smoking complicating in first trimester Thyroid disease during in first trimester Expected: 03/25/2024, Expires: 06/24/2024 [facility] Comment on above: Expected: 03/25/2024, Expires: Start: 03-25-2024 End: 06-24-2024 Hepatitis B virus surface Ag [Presence] in Serum HEPATITIS B SURFACE ANTIGEN Lab Routine Hyperthyroidism Goiter 10 weeks gestation of AMA (advanced maternal age) multigravida 35+, first trimester Anxiety Multigravida of advanced maternal age in first trimester Seizure disorder during in first trimester (HCC) Tobacco smoking complicating in first trimester Thyroid disease during in first trimester Expected: 03/25/2024, Expires: 06/24/2024 [facility] Comment on above: Expected: 03/25/2024, Expires: Start: 03-25-2024 End: 06-24-2024 Hepatitis C virus Ab [Presence] in Serum HEPATITIS C ANTIBODY IA WITH CONFIRMATION Lab Routine Hyperthyroidism Goiter 10 weeks gestation of AMA (advanced maternal age) multigravida 35+, first trimester Anxiety Multigravida of advanced maternal age in first trimester Seizure disorder during in first trimester (HCC) Tobacco smoking complicating in first trimester Thyroid disease during in first trimester Expected: 03/25/2024, Expires: 06/24/2024 [facility] Comment on above: Expected: 03/25/2024, Expires: Start: 03-25-2024 End: 06-24-2024 HIV 1+2 Ab [Presence] in Serum or Plasma by Immunoassay HIV 1/2 COMBO WITH REFLEX TO DIFFERENTIATION Lab Routine Hyperthyroidism Goiter 10 weeks gestation of AMA (advanced maternal age) multigravida 35+, first trimester Anxiety Multigravida of advanced maternal age in first trimester Seizure disorder during in first trimester (HCC) Tobacco smoking complicating in first trimester Thyroid disease during in first trimester Expected: 03/25/2024, Expires: 06/24/2024 [facility] Comment on above: Expected: 03/25/2024, Expires: Start: 03-25-2024 End: 03-25-2025 OBSTETRIC ULTRASOUND WHI OBSTETRIC ULTRASOUND WHI Anc Imaging Routine AMA (advanced maternal age) multigravida 35+, first trimester Expected: 03/25/2024, Expires: 03/25/2025 [facility] Comment on above: Expected: 03/25/2024, Expires: Start: 03-25-2024 End: 06-24-2024 RUBELLA IGG ANTIBODY RUBELLA IGG ANTIBODY Lab Routine Hyperthyroidism Goiter 10 weeks gestation of AMA (advanced maternal age) multigravida 35+, first trimester Anxiety Multigravida of advanced maternal age in first trimester Seizure disorder during in first trimester (HCC) Tobacco smoking complicating in first trimester Thyroid disease during in first trimester Expected: 03/25/2024, Expires: 06/24/2024 [facility] Comment on above: Expected: 03/25/2024, Expires: Start: 03-25-2024 End: 06-24-2024 SYPHILIS TREPONEMAL W/REFLEX SYPHILIS TREPONEMAL W/REFLEX Lab Routine Hyperthyroidism Goiter 10 weeks gestation of AMA (advanced maternal age) multigravida 35+, first trimester Anxiety Multigravida of advanced maternal age in first trimester Seizure disorder during in first trimester (HCC) Tobacco smoking complicating in first trimester Thyroid disease during in first trimester Expected: 03/25/2024, Expires: 06/24/2024 [facility] Comment on above: Expected: 03/25/2024, Expires: Start: 03-25-2024 End: 06-24-2024 Triiodothyronine (T3) Free [Mass/volume] in Serum or Plasma T3, FREE Lab Routine Thyroid disease during in first trimester Expected: 03/25/2024, Expires: 06/24/2024 [facility] Comment on above: Expected: 03/25/2024, Expires: Start: 03-25-2024 End: 06-24-2024 TYPE + SCREEN TYPE + SCREEN Blood Bank Routine Hyperthyroidism Goiter 10 weeks gestation of AMA (advanced maternal age) multigravida 35+, first trimester Anxiety Multigravida of advanced maternal age in first trimester Seizure disorder during in first trimester (HCC) Tobacco smoking complicating in first trimester Thyroid disease during in first trimester Expected: 03/25/2024, Expires: 06/24/2024 [facility] Comment on above: Expected: 03/25/2024, Expires: Start: 03-22-2024 End: 03-22-2025 OBSTETRIC ULTRASOUND WHI OBSTETRIC ULTRASOUND WHI Anc Imaging Routine Hyperthyroidism Goiter 10 weeks gestation of AMA (advanced maternal age) multigravida 35+, first trimester Expected: 03/22/2024, Expires: 03/22/2025 [facility] Work Phone: Comment on above: Expected: 03/22/2024, Expires: Start: 03-21-2024 End: 03-21-2024 Patient encounter procedure 03/21/2024 12:30 PM EST Appointment Mammogram [address] [place], [place] [address] Screening mammogram for breast cancer [Z12.31] Mammogram Comment on above: Screening mammogram for breast cancer [Z 12.31] Start: 03-20-2024 End: 06-19-2024 Choriogonadotropin.beta subunit [Units/volume] in Serum or Plasma [facility] Comment on above: Expected: 03/20/2024, Expires: Start: 03-20-2024 End: 06-19-2024 Thyrotropin [Units/volume] in Serum or Plasma [facility] Comment on above: Expected: 03/20/2024, Expires: Start: 03-20-2024 End: 06-19-2024 Thyroxine (T4) free [Mass/volume] in Serum or Plasma [facility] Comment on above: Expected: 03/20/2024, Expires: Start: 10-15-2023 Covid-19 Vaccine () Covid-19 Vaccine () [facility] Start: 10-15-2023 Covid-19 Vaccine () Covid-19 Vaccine () [facility] Start: 10-15-2023 Influenza vaccination Influenza Vaccine (#1) [facility] c Start: 10-14-2022 Influenza vaccination INFLUENZA (#1) [facility] Start: 05-13-2021 COVID-19 VACCINE (3 - Pfizer series) COVID-19 VACCINE (3 - Pfizer series) [facility] Start: 2015 HPV TESTING HPV TESTING [facility] Start: 2012 HPV Vaccine (1 - 3-dose SCDM series) HPV Vaccine (1 - 3-dose SCDM series) [facility] Start: 2006 PAP TESTING PAP TESTING [facility] Start: 2006 Screening for malignant neoplasm of cervix Cervical Cancer Screening [facility] Start: 2004 Hepatitis B Vaccine (1 of 3 - 19+ 3-dose series) Hepatitis B Vaccine (1 of 3 - 19+ 3-dose series) [facility] Start: 2004 Pneumococcal vaccination Pneumococcal Vaccine (1 of 2 - PCV) [facility] Start: 2003 Depression Screening Depression Screening [facility] Start: 2003 HEPATITIS C SCREENING HEPATITIS C SCREENING [facility] Start: 2003 Hepatitis C screening Hepatitis C Screening [facility] Start: 2003 HIV SCREENING HIV SCREENING [facility] Start: 2003 HIV screening HIV Screening [facility] Start: 1991 PNEUMOCOCCAL (1 - PCV) PNEUMOCOCCAL (1 - PCV) [facility] Start: 1991 Pneumococcal vaccination Pneumococcal Vaccine (1 of 2 - PCV) [facility] Start: 1985 HEPATITIS B (1 of 3 - 3-dose series) HEPATITIS B (1 of 3 - 3-dose series) [facility] BACTERIAL VAGINOSIS NAAT BACTERI AL VAGINOSIS NAAT Lab Routine Vaginal discharge Ordered: 03/20/2024 [facility] Comment on above: Ordered: 03/20/2024 MARGOT/TRICHOMONAS NAAT MARGOT /TRICHOMONAS NAAT Lab Routine Vaginal discharge Ordered: 03/20/2024 [facility] Comment on above: Ordered: 03/20/2024 Chlamydia trachomatis+Neisseria gonorrhoeae DNA [Presence] in Unspecified specimen by SHERITA with probe detection GONORRHEA/CHLAMYDIA NAAT Lab Routine Screening for STD (sexually transmitted disease) 04/01/2024 12:13 PM [facility] End: 05-27-2025 EPIL EEG LONG EPIL EEG LONG NEUROLOGY Routine Syncope and collapse 1 Occurrences starting 05/27/2024 until 05/27/2025 [facility] Comment on above: 1 Occurrences starting 05/27/2024 until 05/27/2025 End: 04-19-2025 MG Breast Screening RUDDY SCREENING Radiology Routine Screening mammogram for breast cancer 1 Occurrences starting 03/20/2024 until 04/19/2025 [facility] Work Phone: Comment on above: 1 Occurrences starting 03/20/2024 until 04/19/2025 NEURO CARDIO AUTONOM IC REFLEX W/WO TILT NEURO CARDIO AUTONOMIC REFLEX W/WO TILT Procedures Routine Syncope and collapse Ordered: 05/27/2024 [facility] Comment on above: Ordered: 05/27/2024 OUTSIDE VENDOR CARDI AC OUTPATIENT EVENT RECORDER OUTSIDE VENDOR CARDIAC OUTPATIENT EVENT RECORDER Holter Routine Syncope and collapse Ordered: 05/27/2024 [facility] Work Phone: Comment on above: Ordered: 05/27/2024 PAP TEST PAP TEST Lab Rou kesha Encounter for screening for malignant neoplasm of cervix Ordered: 03/20/2024 [facility] Comment on above: Ordered: 03/20/2024 Patient Education [facility] Work Phone: Patient referral [facility] Work Phone: TRICHOMONAS VAGINALI S NAAT TRICHOMONAS VAGINALIS NAAT Lab Routine Screening for STD (sexually transmitted disease) 04/01/2024 12:13 PM [facility] End: 05-25-2025 US Thyroid gland US THYROID/PARATHYROID Radiology Routine Hyperthyroidism 1 Occurrences starting 04/25/2024 until 05/25/2025 [facility] Comment on above: 1 Occurrences starting 04/25/2024 until 05/25/2025 Immunizations Immunization Date Immunization Notes Care Provider Fa cility 07-18-2024 tetanus toxoid, redu adalgisa diphtheria toxoid, and acellular pertussis vaccine, adsorbed [facility] [employer] [facility] 03-04-2020 tetanus toxoid, redu adalgisa diphtheria toxoid, and acellular pertussis vaccine, adsorbed Herb Freitas APRN.CNP Work Phone: [facility] 04-18-2017 influenza virus vaccine, unspecified formulation Xr [place] Work Phone: [facility] Payers Date Payer Category Payer Self-pay [id number] 2022 Unknown [id number] 2016 Medicaid [id number] 2008 Unknown 1985 Unknown [id number] Unknown [id number] Social History Date Type Detail Facility [facility] Work Phone: Start: 06-07-2021 End: 09-15-2022 Tobacco smoking status IAIS Unknown if ever smoked [facility] Start: 1985 Sex Assigned At Female W [facility] Start: 09-09-2022 End: 09-26-2022 Tobacco smoking status IAIS Smokes tobacco daily [facility] Work Phone: History of tobacco use Cigarette Smoker C [facility] Work Phone: Start: 09-09-2022 End: 05-27-2024 Cigarettes smoked current (pack per day) - Reported 1 [facility] Start: 09-09-2022 End: 05-02-2024 Tobacco use and exposure Smokeless tobacco non-user [facility] Work Phone: Start: 03-04-2020 End: 09-09-2022 Alcohol intake Current non-drinker of alcohol (finding) [facility] Start: 09-09-2022 End: 05-27-2024 Tobacco use panel [facility] Start: 11-04-2016 PHQ2 Score 0 [facility] Start: 1985 Sex Assigned At Not on file C [facility] Start: 02-03-2020 End: 03-04-2020 Exposure to SARS-CoV-2 (event) Not sure [facility] Start: 03-20-2024 End: 03-25-2024 Alcoholic beverage intake Current drinker of alcohol (finding) [facility] Start: 01-22-2024 [facility] Start: 04-01-2024 End: 09-25-2024 Alcoholic beverage intake Ex-drinker (finding) [facility] Start: 03-29-2024 Education 14 [facility] Start: 03-29-2024 Gender identity Identifies as female gender (finding) [facility] Start: 03-29-2024 Sexual orientation Heterosexual (fin ding) [facility] Start: 05-02-2024 Tobacco smoking stat us IAIS Occasional tobacco smoker [facility] Start: 05-02-2024 Tobacco Comment Working on joiv tting with patches [facility] Goals Date Patient Goal Desired Activity /State 06-19-2024 Goal Observation Personal health goal Functional Status Date Assessment Result Facility 06-13-2018 Are you deaf, or do you have serious difficulty hearing No 06/13/2018 4:35 PM Luz Marina Franco RN No [facility] 06-13-2018 Are you blind, or do you have serious difficulty seeing, even when wearing glasses No 06/13/2018 4:35 PM Luz Marina Franco RN No [facility] 06-13-2018 Do you have serious difficulty walking or climbing stairs No 06/13/2018 4:35 PM Luz Marina Franco, RN No [facility] 06-13-2018 Do you have difficul ty dressing or bathing No 06/13/2018 4:35 PM Luz Marina Franco, RN No [facility] 06-13-2018 Because of a physica l, mental, or emotional condition, do you have difficulty doing errands alone such as visiting a physician's office or shopping No 06/13/2018 4:35 PM EDT Luz Marina Yap, RN No [facility] Mental Status Date Assessment Result Facility 06-07-2021 Cognitive function Voice/Name [facility] Work Phone: 06-13-2018 Because of a physica l, mental, or emotional condition, do you have serious difficulty concentrating, remembering, or making decisions No 06/13/2018 4:35 PM EDT Luz Marina Yap RN No [facility] Clinical Notes 03-04-2020 to 09-25-2024 Telephone Encounter - Bandar Cordova MD - 09/25/2024 5:05 PM EDTTelephone Encounter - Bandar Cordova MD - 09/25/2024 5:05 PM EDTPatient InstructionsPatient InstructionsPatient Instructions Note Date & Type Note Facility 09-25-2024 Telephone encounter Note agree Bandar Cordova MD [facility] 09-25-2024 Miscellaneous Notes agree Bandar Cordova MD 37w2d Called Pt and reassured her that it is not uncommon to have some spotting/increase in cervical mucous after a cervical exam. Advised Pt to continue to monitor at this time for contractions & to call the office if they are <10 minutes apart, vaginal bleeding/leaking of fluid, and/or decreased movement. Pt voiced understanding. Staci Schroeder, TRICE Ob patient 37w2d called stating that she had her cervix checked at appointment today and thinks she lost part of her mucus plug- pt. described thicker clear discharge with brownish-red blood mixed in. Patient denies contractions, denies increased pelvic pressure, no bright red VB, baby is active. Patient was anxious d/t brownish-red blood noted in discharge. documented in this encounter [facility] 09-25-2024 Telephone encounter Note 37w2d Called Pt and reassured her that it is not uncommon to have some spotting/increase in cervical mucous after a cervical exam. Advised Pt to continue to monitor at this time for contractions & to call the office if they are <10 minutes apart, vaginal bleeding/leaking of fluid, and/or decreased movement. Pt voiced understanding. Staci Schroeder RN [facility] 09-25-2024 Telephone encounter Note Ob patient 37w2d called stating that she had her cervix checked at appointment today and thinks she lost part of her mucus plug- pt. described thicker clear discharge with brownish-red blood mixed in. Patient denies contractions, denies increased pelvic pressure, no bright red VB, baby is active. Patient was anxious d/t brownish-red blood noted in discharge. [facility] 09-25-2024 Progress note Formatting of t his note might be different from the original. RR- VB No. LOF No. CTXS No. Movement: present. Other c/o: No. Medication list reviewed. SENSITIVE EXAM: The sensitive examination was discussed with the Patient or Patient's Authorized Diversional Therapist. As applicable, any other physician, advance practice provider, medical student, or other health professional student that will be observing or involved in the sensitive examination for educational or training purposes was discussed with the Patient or Authorized Diversional Therapist. The Patient or Authorized Diversional Therapist has agreed to proceed with the sensitive examination. (Sensitive examination includes inspection and/or palpation of the breasts, pelvis, prostate and anorectal regions). Physical Exam See Flow Sheet Abd: soft, nontender, gravid Ext: edema: Trace A/P 37w2d Estimated Date of Delivery: 10/14/24 ASSESSMENT/PLAN: 1. Supervision of high risk in third trimester ([facility]) - ICD9: V23.9, ICD10: O09.93 (primary diagnosis) - URINE OB DIP B/O - OBSTETRIC ULTRASOUND WHI 2. AMA (advanced maternal age) multigravida 35+, third trimester ([facility]) - ICD9: 659.63, ICD10: O09.523 d/wher recommend delivery at 39-40 weeks and r/b/a to this growth scan at 39 weeks if not delivered kcick counts - URINE OB DIP B/O - OBSTETRIC ULTRASOUND WHI 3. 37 weeks gestation of ([facility]) - ICD9: V22.2, ICD10: Z3A.37 - URINE OB DIP B/O - OBSTETRIC ULTRASOUND WHI 4. Nicotine use disorder - ICD9: 305.1, ICD10: F17.200 using nicotine patches only occas at this time Bandar Cordova MD [facility] 09-25-2024 Miscellaneous Notes RR- VB No. LOF No. CTXS No. Movement: present. Other c/o: No. Medication list reviewed. SENSITIVE EXAM: The sensitive examination was discussed with the Patient or Patient's Authorized Diversional Therapist. As applicable, any other physician, advance practice provider, medical student, or other health professional student that will be observing or involved in the sensitive examination for educational or training purposes was discussed with the Patient or Authorized Diversional Therapist. The Patient or Authorized Diversional Therapist has agreed to proceed with the sensitive examination. (Sensitive examination includes inspection and/or palpation of the breasts, pelvis, prostate and anorectal regions). Physical Exam See Flow Sheet Abd: soft, nontender, gravid Ext: edema: Trace A/P 37w2d Estimated Date of Delivery: 10/14/24 ASSESSMENT/PLAN: 1. Supervision of high risk in third trimester ([facility]) - ICD9: V23.9, ICD10: O09.93 (primary diagnosis) - URINE OB DIP B/O - OBSTETRIC ULTRASOUND WHI 2. AMA (advanced maternal age) multigravida 35+, third trimester ([facility]) - ICD9: 659.63, ICD10: O09.523 d/wher recommend delivery at 39-40 weeks and r/b/a to this growth scan at 39 weeks if not delivered kcick counts - URINE OB DIP B/O - OBSTETRIC ULTRASOUND WHI 3. 37 weeks gestation of ([facility]) - ICD9: V22.2, ICD10: Z3A.37 - URINE OB DIP B/O - OBSTETRIC ULTRASOUND WHI 4. Nicotine use disorder - ICD9: 305.1, ICD10: F17.200 using nicotine patches only occas at this time Bandar Cordova MD documented in this encounter [facility] 09-25-2024 Instructions Ivonne Olivarez MA - 09/25/2024 11:09 AM EDT SEQUENTIAL SCREENINGS The [facility] offers sequential screenings for women who are interested in screenings for chromosomal abnormalities and certain defects during a . The sequential screen combines ultrasound and blood tests to determine the risk of chromosomal abnormalities, including Down's Syndrome (Trisomy 21) and Trisomy 18, as well as open neural tube defects including spina bifida. Ultrasound examination is performed between 11 weeks and 13 weeks gestational age. Blood tests are drawn after the ultrasound and again later in the between 15 and 21 weeks gestational age. Please let your physician know if you are interested in this testing. It will require an appointment with our optical engineering technician. This is not an ultrasound performed by a physician in our office during a routine visit. SIGNS AND SYMPTOMS OF LABOR 1. Contractions every 10 minutes or more often 2. Clear, pink, or brownish fluid (water) leaking from vagina 3. Feeling that baby is pushing down, pressure 4. Low, dull backache 5. Cramps that feel like a period 6. Cramps with or without diarrhea If you notice any of the above symptoms, contact our office at [phone] and ask to speak with a nurse. After hours, you can call doctors registry at [phone] OR call [facility] at [phone] and ask to have the doctor call center professional paged. If you consider this an emergency, dial 9-1- or go to your nearest emergency department. NEED HELP? Are you dealing with a violent or abusive relationship? Are you a victim of rape or sexual assult? Call [facility] ([place]) 24 hour Crisis Hotline: 611.663.1436 or 960-407-2434. MANUAL Your Guide to a Healthy manual is now on-line. Visit [email or web address] to download your free copy documented in this encounter [facility] 09-21-2024 Evaluation note MonSep 21 04 :54:08 EDT 2024: No Assessment Information [facility] 09-18-2024 Evaluation note MonSep 18 17 :17:40 EDT 2024: No Assessment Information [facility] 09-11-2024 Note Indication Evaluation of growth Advanced maternal age Impression - Single, live, intrauterine . - presentation is cephalic. - The biometry is consistent with the assigned gestational dating. - The EFW is 3060 g, at the 87%. AC is at the 99%. - The amniotic fluid volume is normal amount with an MVP of 7.4 cm and an JIMMY of 17.8 cm. - The placenta is posterior, fundal. - No malformations visualized on a limited survey as detailed below. Maternal Structures: Uterus: Fibroid(s): Size 31 mm x 17 mm x 26 mm. Mean 24.7 mm. Vol 7.174 cm . Anterior Recommendations Additional follow-up as clinically indicated. Maternal Assessment Height 178 cm Height (ft) 5 ft Height (in) 10 in Physical Exam Initial weight (lb) 123 lb Initial BMI 17.65 kg/m Maternal assessment other: 3 Para 0 REMOTE READ Method Transabdominal ultrasound examination Pierce . Number of fetuses: 1 Dating LMP on: 01/16/2024 GA by LMP 34 w + 1 d ROSELIA by LMP: 10/22/2024 GA by prior assessment 35 w + 2 d ROSELIA by prior assessment: 10/14/2024 Ultrasound examination on: 09/11/2024 GA by U/S based upon: AC, BPD, Femur, HC GA by U/S 36 w + 1 d ROSELIA by U/S: 10/08/2024 Assigned: based on stated ROSELIA, selected on 09/11/2024 Assigned GA 35 w + 2 d Assigned ROSELIA: 10/14/2024 General Evaluation Cardiac activity present. FHR 145 bpm. movements: present. Presentation: cephalic Placenta: Placental site: posterior, fundal Umbilical cord: Cord vessels: 3 vessel cord Amniotic fluid: Amount of AF: normal amount. MVP 7.4 cm. JIMMY 17.8 cm. Q1 7.4 cm, Q2 4.4 cm, Q3 2.8 cm, Q4 3.1 cm Growth Overview Exam date GA BPD (mm) HC (mm) AC (mm) FL (mm) HL (mm) EFW (g) 04/30/2024 16w 1d 33.4 58% 123.4 39% 106.5 66% 20.9 58% 20.4 52% 152 52% 05/28/2024 20w 1d 47.8 63% 174.9 45% 160.5 77% 32.4 63% 32.6 81% 362 68% 06/20/2024 23w 3d 56.2 34% 209.1 36% 214.5 97% 42.1 74% 724 92% 07/18/2024 27w 3d 73.7 94% 266.8 76% 253.6 93% 54.8 95% 1365 95% 08/15/2024 31w 3d 82.7 88% 297.4 63% 296.6 95% 61.7 78% 2097 86% 09/11/2024 35w 2d 89.6 80% 321.9 53% 341.2 99% 68.6 69% 3060 87% Biometry Standard BPD 89.6 mm 36w 2d 80% Hadlock OFD 112.2 mm 34w 1d 44% Nicolaides HC 321.9 mm 35w 3d 53% Camelia AC 341.2 mm 38w 0d 99% Hadlock Femur 68.6 mm 34w 6d 69% Camelia EFW 3,060 g 37w 1d 87% Hadlock EFW (lb) 6 lb EFW (oz) 12 oz EFW by: Hadlock (HC-AC-FL) Extended Rhit 5.0 mm Extremities / Bony Struc FL / HC 0.21 Other Structures FHR 145 bpm Anatomy Lateral ventricles: normal Cavum septi pellucidi: normal Cerebellum: normal Cisterna magna: normal 4-chamber view: normal RVOT view: normal LVOT view: normal 3-vessel view: normal Heart / Thorax Situs: situs solitus (normal) Diaphragm: normal Stomach: normal Kidneys: normal Bladder: normal sex: female Wants to know sex: yes Maternal Structures Uterus / Cervix Fibroids: Fibroids identified Uterine fibroid D1 31 mm Uterine fibroid D2 17 mm Uterine fibroid D3 26 mm Uterine fibroid mean 24.7 mm Uterine fibroid vol 7.174 cm Uterine fibroids findings: Anterior Performed By: Delisa Terrell, JAYMS, RVT Read By: Aaliyah Stevens M.D. [facility] 09-11-2024 Progress note Formatting of t his note might be different from the original. EH - S: Bill is a 39 year old female who presents at 35w2d for a routine visit. Feeling movement. Denies headache, visual changes, chest pain, shortness of breath, vaginal bleeding, leakage of fluid, or dysuria. Feeling well, no complaints. O: See flow sheet Gen: No apparent distress Abd: Gravid, nontender ASSESSMENT/PLAN: 1. Supervision of high risk in third trimester ([facility]) - ICD9: V23.9, ICD10: O09.93 (primary diagnosis) - Continue PNV and LDA 2. 35 weeks gestation of ([facility]) - ICD9: V22.2, ICD10: Z3A.35 - GBS next visit - Growth today, report pending 3. AMA (advanced maternal age) multigravida 35+, third trimester ([facility]) - ICD9: 659.63, ICD10: O09.523 - Age 39 at ROSELIA 4. Thyroid disease during in third trimester ([facility]) - ICD9: 648.13, 246.9, ICD10: O99.283, E07.9 - Last TSH/T4 May - Ordered 5. Tobacco smoking complicating in third trimester ([facility]) - ICD9: 649.03, ICD10: O99.333 - No longer smoking - Using patch through psych 6. History of substance abuse ([facility]) - ICD9: 305.93, ICD10: F19.11 - Coping well, no concerns at this time PTL precautions and kick counts reviewed. RTO in 1 week or sooner as needed. Jaspal Sykes APRN.HARDBOARD PRESS OPERATOR [facility] 09-11-2024 Miscellaneous Notes EH - S: Bill is a 39 year old female who presents at 35w2d for a routine visit. Feeling movement. Denies headache, visual changes, chest pain, shortness of breath, vaginal bleeding, leakage of fluid, or dysuria. Feeling well, no complaints. O: See flow sheet Gen: No apparent distress Abd: Gravid, nontender ASSESSMENT/PLAN: 1. Supervision of high risk in third trimester ([facility]) - ICD9: V23.9, ICD10: O09.93 (primary diagnosis) - Continue PNV and LDA 2. 35 weeks gestation of ([facility]) - ICD9: V22.2, ICD10: Z3A.35 - GBS next visit - Growth today, report pending 3. AMA (advanced maternal age) multigravida 35+, third trimester ([facility]) - ICD9: 659.63, ICD10: O09.523 - Age 39 at ROSELIA 4. Thyroid disease during in third trimester ([facility]) - ICD9: 648.13, 246.9, ICD10: O99.283, E07.9 - Last TSH/T4 May - Ordered 5. Tobacco smoking complicating in third trimester ([facility]) - ICD9: 649.03, ICD10: O99.333 - No longer smoking - Using patch through psych 6. History of substance abuse ([facility]) - ICD9: 305.93, ICD10: F19.11 - Coping well, no concerns at this time PTL precautions and kick counts reviewed. RTO in 1 week or sooner as needed. Jaspal Sykes APRN.HARDBOARD PRESS OPERATOR S: Bill Bravo is a 39 year old female who presents at 35 weeks gestation for a routine visit. Just completed growth US. Denies headache, visual changes, chest pain, shortness of breath, vaginal bleeding, leakage of fluid, or dysuria. Feeling well, no complaints. O: See flow sheet Gen: No apparent distress Abd: Gravid, nontender ASSESSMENT/PLAN: 1. 35 weeks gestation of ([facility]CC) - ICD9: V22.2, ICD10: Z3A.35 (primary diagnosis) 2. Supervision of high risk in third trimester 3. AMA (advanced maternal age) multigravida 35+, third trimester Penelope Spears APRN.CNM documented in this encounter [facility] 09-11-2024 Progress note Formatting of t his note might be different from the original. S: Bill Bravo is a 39 year old female who presents at 35 weeks gestation for a routine visit. Just completed growth US. Denies headache, visual changes, chest pain, shortness of breath, vaginal bleeding, leakage of fluid, or dysuria. Feeling well, no complaints. O: See flow sheet Gen: No apparent distress Abd: Gravid, nontender ASSESSMENT/PLAN: 1. 35 weeks gestation of (HCC) - ICD9: V22.2, ICD10: Z3A.35 (primary diagnosis) 2. Supervision of high risk in third trimester 3. AMA (advanced maternal age) multigravida 35+, third trimester Penelope Spears APRN.CNM [facility] 09-11-2024 Instructions Samantha Abbott LPN - 09/11/2024 2:24 PM EDT SEQUENTIAL SCREENINGS The [facility] offers sequential screenings for women who are interested in screenings for chromosomal abnormalities and certain defects during a . The sequential screen combines ultrasound and blood tests to determine the risk of chromosomal abnormalities, including Down's Syndrome (Trisomy 21) and Trisomy 18, as well as open neural tube defects including spina bifida. Ultrasound examination is performed between 11 weeks and 13 weeks gestational age. Blood tests are drawn after the ultrasound and again later in the between 15 and 21 weeks gestational age. Please let your physician know if you are interested in this testing. It will require an appointment with our optical engineering technician. This is not an ultrasound performed by a physician in our office during a routine visit. SIGNS AND SYMPTOMS OF LABOR 1. Contractions every 10 minutes or more often 2. Clear, pink, or brownish fluid (water) leaking from vagina 3. Feeling that baby is pushing down, pressure 4. Low, dull backache 5. Cramps that feel like a period 6. Cramps with or without diarrhea If you notice any of the above symptoms, contact our office at [phone] and ask to speak with a nurse. After hours, you can call doctors registry at [phone] OR call [facility] at [phone] and ask to have the doctor call center professional paged. If you consider this an emergency, dial 2-3-6 or go to your nearest emergency department. NEED HELP? Are you dealing with a violent or abusive relationship? Are you a victim of rape or sexual assult? Call [facility] ([place]) 24 hour Crisis Hotline: 194.412.8347 or 935-620-6922. MANUAL Your Guide to a Healthy manual is now on-line. Visit [email or web address] to download your free copy documented in this encounter [facility] 08-27-2024 Progress note Formatting of t his note might be different from the original. KJ - S: Aqua denies LOF, contractions or vaginal bleeding. O: 33w1d, see flow sheet SENSITIVE EXAM: Sensitive exam not performed. A/P: Assessment & Plan Supervision of high risk in third trimester ([facility]) PTSD (post-traumatic stress disorder) Anxiety AMA (advanced maternal age) multigravida 35+, third trimester ([facility]) Growth US scheduled Orders: OBSTETRIC ULTRASOUND WHI; Future 33 weeks gestation of (HCC) Reviewed PTL & FM precautions Bimal Patel MD [facility] 08-27-2024 Miscellaneous Notes KJ - S: Bill denies LOF, contractions or vaginal bleeding. O: 33w1d, see flow sheet SENSITIVE EXAM: Sensitive exam not performed. A/P: Assessment & Plan Supervision of high risk in third trimester ([facility]CC) PTSD (post-traumatic stress disorder) Anxiety AMA (advanced maternal age) multigravida 35+, third trimester ([facility]CC) Growth US scheduled Orders: OBSTETRIC ULTRASOUND WHI; Future 33 weeks gestation of ([facility]CC) Reviewed PTL & FM precautions Bimal Patel MD documented in this encounter [facility] 08-27-2024 Instructions Hilda Nogueira MA - 08/27/2024 10:47 AM EDT SEQUENTIAL SCREENINGS The [facility] offers sequential screenings for women who are interested in screenings for chromosomal abnormalities and certain defects during a . The sequential screen combines ultrasound and blood tests to determine the risk of chromosomal abnormalities, including Down's Syndrome (Trisomy 21) and Trisomy 18, as well as open neural tube defects including spina bifida. Ultrasound examination is performed between 11 weeks and 13 weeks gestational age. Blood tests are drawn after the ultrasound and again later in the between 15 and 21 weeks gestational age. Please let your physician know if you are interested in this testing. It will require an appointment with our optical engineering technician. This is not an ultrasound performed by a physician in our office during a routine visit. SIGNS AND SYMPTOMS OF LABOR 1. Contractions every 10 minutes or more often 2. Clear, pink, or brownish fluid (water) leaking from vagina 3. Feeling that baby is pushing down, pressure 4. Low, dull backache 5. Cramps that feel like a period 6. Cramps with or without diarrhea If you notice any of the above symptoms, contact our office at [phone] and ask to speak with a nurse. After hours, you can call doctors registry at [phone] OR call [facility] at [phone] and ask to have the doctor call center professional paged. If you consider this an emergency, dial 10-14- or go to your nearest emergency department. NEED HELP? Are you dealing with a violent or abusive relationship? Are you a victim of rape or sexual assult? Call [facility] ([place]) 24 hour Crisis Hotline: 952.261.7232 or 976-072-0720. MANUAL Your Guide to a Healthy manual is now on-line. Visit [email or web address] to download your free copy documented in this encounter [facility] 08-21-2024 Evaluation note MonAug 21 03 :28:34 EDT 2024: No Assessment Information [facility] 08-15-2024 Evaluation note MonAug 15 23 :54:41 EDT 2024: No Assessment Information [facility] 08-15-2024 Note Indication Evaluation of growth Advanced maternal age Impression - Single, live, intrauterine . - presentation is cephalic. - The biometry is consistent with the assigned gestational dating. - The EFW is 2097 g, at the 86%. AC is at the 95%. - The amniotic fluid volume is normal amount with an MVP of 4.4 cm and an JIMMY of 13.4 cm. - The placenta is posterior, fundal. - No malformations visualized on a limited survey as detailed below. Maternal Structures: Uterus: Fibroid(s): Size 30 mm x 21 mm x 27 mm. Mean 26.0 mm. Vol 8.906 cm . Anterior Recommendations Growth in four weeks Maternal Assessment Height 178 cm Height (ft) 5 ft Height (in) 10 in Physical Exam Initial weight (lb) 123 lb Initial BMI 17.65 kg/m Maternal assessment other: 3 Para 0 REMOTE READ Method Transabdominal ultrasound examination Pierce . Number of fetuses: 1 Dating LMP on: 01/16/2024 GA by LMP 30 w + 2 d ROSELIA by LMP: 10/22/2024 GA by prior assessment 31 w + 3 d ROSELIA by prior assessment: 10/14/2024 Ultrasound examination on: 08/15/2024 GA by U/S based upon: AC, BPD, Femur, HC GA by U/S 32 w + 5 d ROSELIA by U/S: 10/05/2024 Assigned: based on stated ROSELIA, selected on 08/15/2024 Assigned GA 31 w + 3 d Assigned ROSELIA: 10/14/2024 General Evaluation Cardiac activity present. FHR 145 bpm. movements: present. Presentation: cephalic Placenta: Placental site: posterior, fundal Umbilical cord: Cord vessels: 3 vessel cord Amniotic fluid: Amount of AF: normal amount. MVP 4.4 cm. JIMMY 13.4 cm. Q1 2.8 cm, Q2 4.1 cm, Q3 2.1 cm, Q4 4.4 cm Growth Overview Exam date GA BPD (mm) HC (mm) AC (mm) FL (mm) HL (mm) EFW (g) 04/30/2024 16w 1d 33.4 58% 123.4 39% 106.5 66% 20.9 58% 20.4 52% 152 52% 05/28/2024 20w 1d 47.8 63% 174.9 45% 160.5 77% 32.4 63% 32.6 81% 362 68% 06/20/2024 23w 3d 56.2 34% 209.1 36% 214.5 97% 42.1 74% 724 92% 07/18/2024 27w 3d 73.7 94% 266.8 76% 253.6 93% 54.8 95% 1365 95% 08/15/2024 31w 3d 82.7 88% 297.4 63% 296.6 95% 61.7 78% 2097 86% Biometry Standard BPD 82.7 mm 33w 2d 88% Hadlock OFD 103.1 mm 30w 3d 40% Nicolaides HC 297.4 mm 32w 0d 63% Camelia AC 296.6 mm 33w 4d 95% Hadlock Femur 61.7 mm 31w 6d 78% Camelia EFW 2,097 g 32w 5d 86% Hadlock EFW (lb) 4 lb EFW (oz) 10 oz EFW by: Hadlock (HC-AC-FL) Extended Rhit 5.1 mm Extremities / Bony Struc FL / HC 0.21 Other Structures FHR 145 bpm Anatomy Lateral ventricles: normal Cavum septi pellucidi: normal Cerebellum: normal Cisterna magna: normal 4-chamber view: normal RVOT view: normal LVOT view: normal 3-vessel view: normal Heart / Thorax Situs: situs solitus (normal) Diaphragm: normal Stomach: normal Kidneys: normal Bladder: normal sex: female Wants to know sex: yes Maternal Structures Uterus / Cervix Fibroids: Fibroids identified Uterine fibroid D1 30 mm Uterine fibroid D2 21 mm Uterine fibroid D3 27 mm Uterine fibroid mean 26.0 mm Uterine fibroid vol 8.906 cm Uterine fibroids findings: Anterior Performed By: Delisa Terrell, GENE, RVT Read By: Aaliyah Stevens M.D. [facility] 08-15-2024 Progress note Formatting of t his note might be different from the original. S: Bill Bravo is a 39 year old female who presents at 10/14/2024, by Ultrasound for a routine visit. Denies headache, visual changes, chest pain, shortness of breath, vaginal bleeding, leakage of fluid, or dysuria. Feeling well, no complaints. Good movement, No contractions O: See flow sheet Gen: No apparent distress Abd: Gravid, nontender EFW 86% JIMMY 13 ASSESSMENT/PLAN: 1. Supervision of high risk in third trimester ([facility]) - ICD9: V23.9, ICD10: O09.93 (primary diagnosis) 2. AMA (advanced maternal age) multigravida 35+, third trimester ([facility]) - ICD9: 659.63, ICD10: O09.523 3. PTSD (post-traumatic stress disorder) - ICD9: 309.81, ICD10: F43.10 4. Anxiety - ICD9: 300.00, ICD10: F41.9 stable 5. Low lying placenta, antepartum ([facility]) - ICD9: 641.13, ICD10: O44.40 resolved 6. 31 weeks gestation of ([facility]) - ICD9: V22.2, ICD10: Z3A.31 Rosalba Espinosa MD [facility] 08-15-2024 Miscellaneous Notes S: Bill Bravo is a 39 year old female who presents at 10/14/2024, by Ultrasound for a routine visit. Denies headache, visual changes, chest pain, shortness of breath, vaginal bleeding, leakage of fluid, or dysuria. Feeling well, no complaints. Good movement, No contractions O: See flow sheet Gen: No apparent distress Abd: Gravid, nontender EFW 86% JIMMY 13 ASSESSMENT/PLAN: 1. Supervision of high risk in third trimester ([facility]) - ICD9: V23.9, ICD10: O09.93 (primary diagnosis) 2. AMA (advanced maternal age) multigravida 35+, third trimester ([facility]) - ICD9: 659.63, ICD10: O09.523 3. PTSD (post-traumatic stress disorder) - ICD9: 309.81, ICD10: F43.10 4. Anxiety - ICD9: 300.00, ICD10: F41.9 stable 5. Low lying placenta, antepartum ([facility]) - ICD9: 641.13, ICD10: O44.40 resolved 6. 31 weeks gestation of ([facility]) - ICD9: V22.2, ICD10: Z3A.31 Rosalba Espinosa MD documented in this encounter [facility] 08-15-2024 Instructions Max Waldrop MA - 08/15/2024 9:41 AM EDT SEQUENTIAL SCREENINGS The [facility] offers sequential screenings for women who are interested in screenings for chromosomal abnormalities and certain defects during a . The sequential screen combines ultrasound and blood tests to determine the risk of chromosomal abnormalities, including Down's Syndrome (Trisomy 21) and Trisomy 18, as well as open neural tube defects including spina bifida. Ultrasound examination is performed between 11 weeks and 13 weeks gestational age. Blood tests are drawn after the ultrasound and again later in the between 15 and 21 weeks gestational age. Please let your physician know if you are interested in this testing. It will require an appointment with our optical engineering technician. This is not an ultrasound performed by a physician in our office during a routine visit. SIGNS AND SYMPTOMS OF LABOR 1. Contractions every 10 minutes or more often 2. Clear, pink, or brownish fluid (water) leaking from vagina 3. Feeling that baby is pushing down, pressure 4. Low, dull backache 5. Cramps that feel like a period 6. Cramps with or without diarrhea If you notice any of the above symptoms, contact our office at [phone] and ask to speak with a nurse. After hours, you can call doctors registry at [phone] OR call [facility] at [phone] and ask to have the doctor call center professional paged. If you consider this an emergency, dial 9--1 or go to your nearest emergency department. NEED HELP? Are you dealing with a violent or abusive relationship? Are you a victim of rape or sexual assult? Call [facility] ([place]) 24 hour Crisis Hotline: 829.285.6376 or 549-541-7097. MANUAL Your Guide to a Healthy manual is now on-line. Visit [email or web address] ncyGuide to download your free copy documented in this encounter [facility] 08-02-2024 Miscellaneous Notes 3rd risk assessment form submitted 08/02/24 Neema Menchaca RN documented in this encounter [facility] 08-02-2024 Telephone encounter Note 3rd risk assessment form submitted 08/02/24 Neema Menchaca RN [facility] 08-01-2024 Progress note Formatting of t his note might be different from the original. S: Bill Braov is a 39 year old female who presents at 29 weeks gestation for a routine visit. Positive movements. Increased nasal / head congestion. Seen at Urgent Care yesterday and started on antibiotic and nasal spray. Denies headache, visual changes, chest pain, shortness of breath, vaginal bleeding, leakage of fluid, or dysuria. O: See flow sheet Gen: No apparent distress Abd: Gravid, nontender ASSESSMENT/PLAN: 1. 29 weeks gestation of 2. Supervision of high risk in third trimester 3. AMA (advanced maternal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 have a problem with alcohol or other drug use? 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 stopped 2011. pt father alcoholic, 2 sisters from overdose. Does your partner have a problem with alcohol or other drug use? Yes fob addict to heroin. clean since 2014. fob father alcoholic, fob brother is addict and alcoholic. In the past, have you had difficulties in your life because of alcohol or other drugs, including prescription medications? Yes In the past month have you drunk any alcohol or used other drugs? Yes Are you taking medication for pain during the either prescribed or not? No Based on the screen and further questions, she is considered at moderate risk due to: use in the past Patient offered brief intervention. In discussing this issue my medical advice was that Bill Bravo abstain. Her readiness to change(0 lowest - 10 highest) was 10. We discussed her motivation to change based upon this response. Patient agreed that she would: abstain. Patient will return in 2 weeks to discuss her progress with this plan. In total, 5 minutes of personal time was spent administering and interpreting the screen, plus performing a brief intervention. Jaspal Sykes APRN.HARDBOARD PRESS OPERATOR ASSESSMENT: 39 year old at 11w4d wks gestational age PLAN: 1) Patient oriented to practice. Patient given new OB orientation folder. Discussed nutrition, folic acid supplementation, dietary guidelines, exercise, smoking, alcohol, caffeine, and drug use. Discussed gestational weight gain guidelines. Discussed routine OB labs including STD/HIV. Discussed how to access Your guide to a health and the Rn Labor And Delivery. Discussed hemoglobin electrophoresis. Patient: Accepts Reviewed midwifery and foreman/project manager services that are available. 2) Screening: Hemoglobin A1C: ordered Baby Aspirin: The patient has been counseled about the potential benefits of low dose aspirin in and our recommendation that this be offered to all patients, regardless of whether they meet the high risk criteria specified above. She Accepts Aneuploidy Screening: Discussed aneuploidy screening, nuchal translucency/first trimester early anatomy ultrasound and NIPT. The risks/benefits and limitations of NIPT/aneuploidy screening were reviewed including the potential for false negative and false positive results. The availability of genetic counseling was reviewed. Information on aneuploidy screening was provided. The patient chooses to proceed with First trimester early anatomy ultrasound (12-13w6d) and NIPT (10 weeks) Myriad Carrier Screening: Discussed myriad carrier screening. We discussed the availability of professional-society guided carrier screening and reviewed the conditions screened and limitations of screening. The availability of genetic counseling was reviewed. Information on carrier screening was provided. The patient Declines 3) Patient offered option of Virtual Visits. Patient unsure. May consider in future. ACTIVE PROBLEM LIST Encounter for Supervision of High Risk in First Trimester, Antepartum - 04/01/2024 Comment: Care Checklist Vaccines: [] Flu vaccine [] declined [] RSV vaccine 32 0/7 - 36 6/7 (Oct - Mar) [] declined [] COVID vaccine [] declined [] TDaP 27-36 [] declined First trimester: [x] Dating US [x] 1st tri labs [x] Pap smear [] Carrier screening [x] declined [x] NIPT screening [] declined [x] First trimester anatomy scan [] declined [x] universal ASA ordered (start 12w-16w) [] declined [] M Power Consult [] not indicated [] declined Second trimester: [] Anatomy scan [] Mode of Delivery - [] Feeding - [] Pump ordered [] Diabetes screen [] CBC, RPR [] Behavioral Health Screening Third trimester (28-30 weeks): [] Consent [] Contraception [] Clinical Research Nurse Coordinator [] TeamBirth handout Third trimester (36-40 weeks): [] GBS [] Presentation - [] Scheduled [] yes - Hibiclens, pre-op instructions, CBC, T&S ordered [] no [] H&P [] Preferences worksheet [] Scanned in EM Advanced Maternal Age in Multigravida, First Trimester - 04/01/2024 Comment: Will be 39 at [place] Jaspal Sykes APRN.BRIDGET History of Depression - 04/01/2024 Comment: April 01, 2024 Follows with psych in [place]. Seeing next week. Mental health resources provided. 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 Risks reviewed. Resources provided. Cessation encouraged. Jaspal Sykes APRN.CNP Thyroid Disease During in First Trimester - 03/25/2024 Comment: TSH 0.067 Free T4 1.5 Free T3 order Ptsd (Post-Traumatic Stress Disorder) - 03/25/2024 Comment: Lost both sisters at young ages. Dad struggled with alcoholism. On Prazosin - stopped night terrors Clonazepam rarely Mental health resources provided Jaspal Sykes APRN.BRIDGET History of Substance Use - 04/01/2024 Comment: April 01, 2024 Reports abusing prescription pills. Has not used in 12 years. Follows with recovery program. Jaspal Sykes APRN.BRIDGET Bill self swabbed for STD screening today as she already had exam. Follow up in 2 weeks or sooner prn. Plan for NT scan between 12w0d and 13w6d gestation. Jaspal Sykes APRN.BRIDGET I spent 4 minutes counseling on risks of smoking during , providing resources, and encouraging cessation during this visit. documented in this encounter [facility] 03-29-2024 Instructions Jaspal Sykes APRN.CNP - 03/29/2024 2:48 PM EST Images from the original note were not included. Please select the following link to access the [facility] Your Guide to a Healthy . [email or web address] Please select the following link to access the [facility] Your Guide to a Healthy . [email or web address] How SMOKING Affects Your and Your Baby During Smoking during affects you and your baby's health before, during and after your baby is born. The nicotine (the addictive substance in cigarettes), carbon monoxide and numerous other poisons you inhale from a cigarette are carried through your bloodstream and go directly to your baby. Smoking while will: Lower the amount of oxygen available to you and your growing baby Increase your baby's heart rate Increase the chances of miscarriage and stillbirth Increase the risk that your baby is born prematurely and/or born with low weight Increase your baby's risk of developing respiratory problems The more cigarettes you smoke per day, the greater your baby's chances of developing these and other health problems. There is no safe level of smoking for your baby's health. How does secondhand smoke affect me and my baby? Second-hand smoke (also called passive smoke or environmental tobacco smoke) is the combination of smoke from a burning cigarette and smoke exhaled by a smoker. The smoke that geiger off the end of a cigarette or cigar contains more harmful substances ( tar, carbon monoxide, nicotine and others) than the smoke inhaled by the smoker. If you are regularly exposed to second-hand smoke, you increase your and your baby's risk of developing lung cancer, heart disease, emphysema, allergies, asthma and other health problems. Babies exposed to second-hand smoke may also develop reduced lung capacity and are at higher risk for sudden syndrome (SIDS). What happens if I keep smoking after my baby is born? If you continue to smoke after your baby is born, you increase his or her chance of developing certain illnesses and problems, such as: Frequent colds Bronchitis and pneumonia Asthma Chronic coughs Ear infections High blood pressure Learning and behavior problems later in childhood Why should I quit smoking? Smoking is the leading cause of preventable in the [place] By quitting you can: Prolong your life Lower your risk of heart disease Lower your risk of developing lung, throat, mouth, pancreatic and bladder cancer Lower your risk of developing breathing problems such as chronic obstructive pulmonary disease (COPD), asthma and emphysema Lower your risk of developing allergies Raise your energy level Improve your appearance; your skin will wrinkle less and look better, and your fingers and teeth will not be yellow Improve your sense of smell and taste Feel healthier overall, with improved self-esteem Save a lot of money (the average smoker spends $740 a year for cigarettes!) How can I quit smoking? There is no one way to quit smoking that works for everyone, since each person has different smoking habits. Here are some tips: Hide your matches, lighters, and ashtrays. Take a deep breath and hold it for five to ten seconds whenever you get the urge to smoke. Designate your home a non-smoking area. Ask people who smoke not to smoke around you. Drink less caffeinated beverages; caffeine may stimulate your urge to smoke. Also avoid alcohol, as it also may increase your urge to smoke and can be harmful to your baby. Change your habits connected with smoking. If you smoked while driving or when feeling stressed, try other activities to replace smoking. Keep mints or gum (preferably sugarless) on hand for those times when you get the urge to smoke. Stay active to keep your mind off smoking and help relieve tension: take a walk, exercise, read a book or try a new a hobby. Look for support from others. Join a support group or smoking cessation program, such as the [facility] Smoking Cessation Program. For more information, please call . Do not go places where many people are smoking such as bars or clubs, and smoking sections of restaurants. Should I use a nicotine replacement to help me quit? Nicotine gum and patches release nicotine into the bloodstream of the smoker who is trying to quit. Although these products can reduce withdrawal symptoms and decrease cravings in smokers who are trying to quit, nicotine is quite toxic and potentially harmful to the fetus (as well as to the who is ). Therefore, these and any other products containing nicotine are not always ecommended for the woman who is trying to quit smoking. They may be prescribed in indivdual cases. How will I feel when I quit? The benefits of not smoking start within days of quitting. After you quit, you and your baby's heart beat will return to normal, and your baby will be less likely to develop breathing problems. You may have symptoms of withdrawal because your body is used to nicotine, the addictive substance in cigarettes. You may crave cigarettes, be irritable, feel very hungry, cough often, get headaches or have difficulty concentrating. The withdrawal symptoms are only temporary. They are strongest when you first quit but will go away within 10 to 14 days. When withdrawal symptoms occur, stay in control. Think about your reasons for quitting. Remind yourself that these are signs that your body is healing and getting used to being without cigarettes. Remember that withdrawal symptoms are easier to treat than the major diseases that smoking can cause. Even after the withdrawal is over, expect periodic urges to smoke. However, these cravings are generally short-lived and will go away whether you smoke or not. Don't Smoke! If you smoke again (called a relapse) do not lose hope. Seventy-five percent of those who quit relapse. Most smokers quit three times before they are successful. If you relapse, don't give up! Plan ahead and think about what you will do next time you get the urge to smoke. (This information is provided by the [facility] and is not intended to replace the medical advice of your doctor or health care provider. Please consult your health care provider for advice about a specific medical condition. For additional written health information, please call the Cancer Answer Line at [facility] Monday - Monday 8-4:30 for assistance: [phone]. Or visit [email or web address]/) [facility] s Smoking Cessation Program The [facility] Smoking Cessation Program is a comprehensive, multifaceted program that can be tailored to your individual needs. We offer a variety of services designed to help you throughout the process, including office visits, distance health visits (virtual or telephone), and the eCoach program or pharmacy consultations. To schedule, call [phone] Appointments: An office visit: This is a one-on-one approach where you go to an office and meet with the provider to discuss your options for quitting. Distance health visits: This type of visit can be completed via virtual visit or telephone visit. Virtual visits require a smartphone, tablet or computer with access to a webcam, microphone and Internet connection. You will need to sign up for [email or web address] prior to your virtual visit. Telephone visits can be completed via audio only if patient does not have access to the above Pharmacotherapy Nicotine replacement therapy (patches, gum, lozenges, inhalers or nasal spray) Bupropion (Wellbutrin) Chantix Integrative and Lifestyle Medicine Services: Acupuncture Holistic Psychotherapy Meditation Yoga And more The eCoach program Expert tips tailored to you Behavioral replacements Recognizing individual triggers On your schedule Pharmacy consultation You can meet with a pharmacist (either online or in person) to discuss smoking cessation medications, including: Nicotine replacement therapy: gum, patches, lozenges, inhalers or nasal spray Bupropion SR Varenicline (Chantix ) The [place] [employer] (ACS) has a section devoted to quitting tobacco with information on where to get help, interactive tools, the relationship of tobacco and cancer, how to keep your kids smoke-free, smoke-free communities and the ACS s annual [place] Smokeout. Visit this link for more info: https://www.cancer.org/cancer/ris k-prevention/tobacco/guide-quitti ng-smoking.html The [place] [employer] has tools, tips, support and fact sheets to help you stop smoking or to help a loved one quit. There s also more information about [place] From Smoking , the program we use in our smoking classes at [facility]. Visit this link for more info: https://www.lung.org/quit-smoking /ibjk-ixvfuyf-mzao-smoking The National [employer] [place] s site, Smokefree.gov, has an abundance of free and accurate resources to encourage smokers to stop: Smokefree apps for your smartphone offer individualized guidance once you input your information You can sign up for the SmokefreeAnyviteT text messaging program, which sends you daily text messages with encouragement, tips and advice to help making quitting easier Create a personalized Quit Plan by choosing a quit date and answering seven questions Take a quiz on your withdrawal symptoms See how you can prepare to quit 6-375-VEQB-NOW is the national portal to a network of state quitlines. Quitlines offer evidence-based support--like counseling, referrals to local programs, and free medication--to people who want to quit tobacco. Psychotherapy Services at [facility] Call Behavioral Health Access Line at [phone] to schedule Individual psychotherapy In-person or virtual Wait time for first evaluation may be 12 or more weeks. Wait list spots may be available. Due to the high volume of patients this option is recommended if you are looking for short term acute symptom coping strategies. 8-908-4-PGUV4EFGX - [facility] Mental Health Hotline If you are in suicidal crisis, please call or text 7-162-869-TALK ( ) or visit the National Suicide Prevention Lifeline website. mchb.union county general hospitala.gov If you are in crisis, call 911 or go to your nearest Emergency Department Here are some links for wonderful Providers here in the community and surrounding areas. Do not hesitate to contact their offices, many are offering virtual visits during this time. Psychotherapy Services outside of [facility] Support International Online Provider Directory https://psidiGlobal Experienceory.com/ - can assist in finding providers in your area that might be more extensive then the list below. [facility] [place], [place] [address] [place] [address] [address] [facility] [address] [place] [address] [facility] [address] [place], [place] [id number] Benjamín Jolly MD [address] [place] [address] [facility] [address] [facility], [address] [place] [address] [facility] [address] [place] [address] [facility]ing Services Talavera / Leslie [phone]/ [phone] Maryam Ludwig [address] [facility] [address] [facility] [phone] Aves of Counseling and Mediation Miller / Manjeet [phone] Behavioral health services of [address] [address]/ [place] [phone] Yolanda Juan, NANDA, CLC [facility] Workshops, telehealth and at home visits. [phone] [facility] counseling [place] 20 locations [place], [place], [place], [place], [place], [place], [place], [facility], [facility], [place], [place], [place], [place], [place], [place], [facility], [place], [place] ,[facility], [place], [place],[facility], [facility] [place], [place], [facility], [facility], [place] www.multicare healthAdBm Technologieser.co [phone] Psychotherapy resources outside of [facility] are listed below [facility] Scurri Psychotherapy Web: https://www.AssuraMed/ Support International Online Provider Directory https://African Grain Company/ Insight Counseling https://CLOUD SYSTEMS/ StraighterLine for Behavioral Health and Wellness Web: https://Pathwright/ Tactiga for Effective Living Web: https://Aventura.IndianRoots.AtheroNova/ LifeStance Web: https://Nest Labs.AtheroNova/location/[place]/ [facility] Web: https://www.All Together [facility].or / [facility] Web: https://Adams Arms.org/ Recovery Resources Mental health and substance abuse help Web: https://www.Kreditss.org & RESOURCES Support International Direct peer support and connection to professional resources Non-Emergency Helpline Phone: / Text: [phone] Web: https://www..net/ Online Provider Directory: https://African Grain Company/ Online Support Meetings: https://www..net/get-he lp/ger-imwihs-ammukuh-meetings/ BEN Baby and B2B Sales Executive Services Web: https://wwwYabbly/ Provasculon Expert information on medication use during and Text: [phone] Web: https://Nyxoah/ NATIONAL REGISTRY FOR PSYCHIATRIC MEDICATIONS Currently studying the safety of antidepressants, ADHD medications and atypical antipsychotics taken during TO PARTICIPATE CALL TOLL-FREE: Web: https://womenentalhealth.org/re search/pregnancyregistry/ Support Groups: [facility]- Follow on facebook Baby Bistro support group led by [facility] department [facility] - Support Group [facility].org The POEM support group [phone] Www.poTuneWikionline.org Follow on facebook - POEM rush chapter Online support meetings PSI https://www..net/get-he lp/ugx-igbbqu-mjulruk-meetings/ [facility] mommy and me virtual support group 11:30-1pm Support for mothers and new babies and toddlers Kramer childbirth education: Childbirth @cc.org or call [phone] CRISIS: CRISIS HOTLINE [phone], 911 or go to the nearest [facility] [phone] / [facility] [phone] https://www.calvary hospitalrb.org Crisis text line text the word HOME to [address]250 [facility] [address] guzman [address] [facility] [address] www.Happy Inspector.AtheroNova Mahsa Cavazos clinical counseling [address] [address] www.bethbritton.AtheroNova [phone] [facility] space psychotherapy Elly Saldana AIR CARGO GROUND CREW SUPERVISOR TELEGRAPH OFFICE TELEPHONE CLERK-S [address] [facility] www.O4 International [phone]/ Adam [phone] They all offer virtual. All work with trauma Support groups Online support meetings PSI https://www..net/get-he lp/qcf-gcijbe-vvplxkw-meetings/ Here are the support groups they offer: Support of parents of 1 to 4 years old children POEM ( Outreach and Encouragement for Moms) offers free support for mothers experiencing depression, anxiety, and other mood and anxiety disorders. Masks are recommended but not required. No pre-registration required. Babies in arms welcome. meetings now take place on the and Monday of each month Location: [facility] [address] [place] [address] Room 122 (library room) 7-8:00 p.m. When you enter the [facility] parking lot off of [address] the entrance door closest to our meeting room is on the front of the building toward the right. For those who are more comfortable with a virtual platform, POEM offers online support group options several days of the week. To register for an online group or to find out more about POEM, website at: https://mhaohio.org/get-help/nyu [facility] – brooklynyfgb-uonfvb-zpzpor/poem-services/ offer a confidential helpline: private Facebook group is called MARILIN Fink Here are the groups they offer: Traumatic childbirth resources: Http://pattch.org/ https://www.StarbucksmarlenyUnigobakariJinni.AtheroNova/ Name Location (s) Phone # (s) Services Website [facility] 9204 [facility], [facility] [phone]; [address] [facility] 201 [facility] [phone] In-Person GROUPS INDIVIDUAL THERAPY MATERNAL- MENTAL HEALTH MEDICATION MANAGEMENT PLAY AND ART THERAPY TELETHERAPY https://www.AssuraMed/s ervices/ [facility] Lianna RUSH? [address] [place], [place] [address] ? [address], [address] [place], [place] [id number] ? BAZAN [address] [place], [place] [address]? Grief Support Groups Individual Grief Counseling Spiritual Care Memorial Events https://berlin.[facility].org/grief-services [facility] [address] [place], [place] [address]; ; Email: genesis@ZeroDesktop Women's Mental Health; Couples Counseling; Trauma (EMDR); Stress Management; Mood and Anxiety Related Disorders- and much more https://www.Steel Wool Entertainment/ LifeStance Numerous as they have contract providers: access website to find specific providers near you Counseling including CBT and EMDR as well as many more modalities; Medication Management; Telehealth and In-Person https://CoolHotNot Corporation/ Repka.com Behavioral Health and Wellness [address] [place] [address]; [phone] Personal, Family and Group Therapy; Psychological Testing and Diagnosis; Medication Management; Life and Career Coaching; Psychoanalysis; Literacy Testing; Yoga and Meditation https://Pathwright/ Quixhop Mind [place] [address] [facility] [address], [place] [address] [address] ; [address] [place] [address], [address] [place] [address]; Office # for both sites: Individual and Couples Counseling https://www.Microtest Diagnostics.AtheroNova/ paymentinsurance.html OCD & Anxiety [facility] [address] [facility], [address], [place] [address]; Specialize in Cognitive-Behavioral Therapy (CBT) for the treatment of anxiety disorders across the lifespan. TELEHEALTH ONLY. https://ocdandanxietycenteroMedSynergiesv Yillio.AtheroNova/faqs [facility] [address] [facility] [address]th [place], [address] [place] [address] [facility] [place], [address] [place] [address] [facility] [place] [address] [place] [address] [place] [address], [address] [place] 4726 [facility] [place], [address] [place] [address]25 [place], [place], [id number] Transportation Services To minimize patient barriers, [facility] provides transportation services to patients who qualify. If you are unable to get to your appointment at any of our facilities, please let us know. Need help now? Stop by one of our walk-in clinics to establish behavioral health care. Counseling Indvidual, Group, Couples and Family Counseling and EMDR. Medication Management Case Management benefits applications housing assistance Substance abuse treatment Medication assisted treatment https://www.[facility].or g/mental-health/ [facility] OFFICE AT [facility] [address] [place] [address] [facility] OFFICE 5208 [place] [address] [facility] OFFICE [address] [place] [address] TO OFFICE (at [facility]) [address] [place] [address] [facility] SYRINGE EXCHANGE PROGRAM & HIV SCREENING [address] [place] [address] V[place] EXCHANGE PROGRAM [address] [place] [address] Behavioral Health Urgent Care: [facility] Sites Counseling Indvidual and Group Medication Management Case Management benefits applications housing assistance Substance abuse treatment Medication assisted treatment Employment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 state, incidental AMA (advanced maternal age) multigravida 35+, third trimester ([facility]) Thyroid disease during in third trimester ([facility]) Tobacco smoking complicating in third trimester ([facility]) Tobacco use disorder complicating , childbirth, or the puerperium, antepartum condition or complication History of substance abuse ([facility]) Other, mixed, or unspecified nondependent drug abuse, unspecified [facility] Diagnosis Anxiety- Primary Anxiety state, unspecified Hyperthyroidism Thyrotoxicosis 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 or other cause, without mention of thyrotoxic crisis or storm Goiter Goiter, unspecified 10 weeks gestation of ([facility]) state, incidental AMA (advanced maternal age) multigravida 35+, first trimester ([facility]) Multigravida of advanced maternal age in first trimester ([facility]) Seizure disorder during in first trimester ([facility]) Tobacco smoking complicating in first trimester ([facility]) Tobacco use disorder complicating , childbirth, or the puerperium, antepartum condition or complication Thyroid disease during in first trimester ([facility]) PTSD (post-traumatic stress disorder) Posttraumatic stress disorder 16 weeks gestation of ([facility])- Primary state, incidental Seizure disorder ([facility]) Unspecified epilepsy without mention of intractable epilepsy Advanced maternal age in multigravida, first trimester ([facility]) 20 weeks gestation of ([facility])- Primary state, incidental Seizure disorder ([facility]) Unspecified epilepsy without mention of intractable epilepsy Advanced maternal age in multigravida, first trimester ([facility]) Encounter for supervision of high risk in first trimester, antepartum ([facility]) Screening for diabetes mellitus- Primary 24 weeks gestation of ([facility]) state, incidental Encounter for supervision of high risk in second trimester, antepartum ([facility]) Advanced maternal age in multigravida, first trimester ([facility]) Low lying placenta, antepartum ([facility]) Seizure disorder during in first trimester ([facility]) Low lying placenta, antepartum ([facility])- Primary Supervision of high risk in third trimester ([facility])- Primary Unspecified high-risk PTSD (post-traumatic stress disorder) Posttraumatic stress disorder Anxiety Anxiety state, unspecified AMA (advanced maternal age) multigravida 35+, third trimester ([facility]) 33 weeks gestation of ([facility]) state, incidental Supervision of high risk in third trimester ([facility])- Primary Unspecified high-risk AMA (advanced maternal age) multigravida 35+, third trimester ([facility]) Thyroid disease during in third trimester ([facility]) History of substance abuse ([facility]) Other, mixed, or unspecified nondependent drug abuse, unspecified Tobacco smoking complicating in third trimester ([facility]) Tobacco use disorder complicating , childbirth, or the puerperium, antepartum condition or complication PTSD (post-traumatic stress disorder) Posttraumatic stress disorder 36 weeks gestation of ([facility]) state, incidental 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 or other cause, without mention of thyrotoxic crisis or storm Goiter Goiter, unspecified 10 weeks gestation of ([facility]) state, incidental AMA (advanced maternal age) multigravida 35+, first trimester ([facility]) Multigravida of advanced maternal age in first trimester ([facility]) Seizure disorder during in first trimester ([facility]) Tobacco smoking complicating in first trimester ([facility]) Tobacco use disorder complicating , childbirth, or the puerperium, antepartum condition or complication Thyroid disease during in first trimester ([facility]) PTSD (post-traumatic stress disorder) Posttraumatic stress disorder 16 weeks gestation of ([facility])- Primary state, incidental Seizure disorder ([facility]) Unspecified epilepsy without mention of intractable epilepsy Advanced maternal age in multigravida, first trimester ([facility]) 20 weeks gestation of ([facility])- Primary state, incidental Seizure disorder (HCC) Unspecified epilepsy without mention of intractable epilepsy Advanced maternal age in multigravida, first trimester ([facility]) Encounter for supervision of high risk in first trimester, antepartum ([facility]) Screening for diabetes mellitus- Primary 24 weeks gestation of ([facility]) state, incidental Encounter for supervision of high risk in second trimester, antepartum ([facility]) Advanced maternal age in multigravida, first trimester ([facility]) Low lying placenta, antepartum ([facility]) Seizure disorder during in first trimester ([facility]) Supervision of high risk in third trimester ([facility])- Primary Unspecified high-risk PTSD (post-traumatic stress disorder) Posttraumatic stress disorder Anxiety Anxiety state, unspecified AMA (advanced maternal age) multigravida 35+, third trimester (HCC) 33 weeks gestation of ([facility]) state, incidental Supervision of high risk in third trimester ([facility])- Primary Unspecified high-risk AMA (advanced maternal age) multigravida 35+, third trimester ([facility]) Thyroid disease during in third trimester ([facility]) History of substance abuse ([facility]) Other, mixed, or unspecified nondependent drug abuse, unspecified Tobacco smoking complicating in third trimester (HCC) Tobacco use disorder complicating , childbirth, or the puerperium, antepartum condition or complication PTSD (post-traumatic stress disorder) Posttraumatic stress disorder 36 weeks gestation of (HCC) state, incidental Supervision of high risk in third trimester ([facility])- Primary Unspecified high-risk AMA (advanced maternal age) multigravida 35+, third trimester ([facility]) 37 weeks gestation of ([facility]) state, incidental Nicotine use disorder Tobacco use disorder documented in this encounter [facility] Discharge instructions Additional Instructions Follow-up with your primary care provider. The name of your primary care provider is located on your insurance card issue to you by [facility]. It is in your best interest to quit smoking.[facility] Work Phone: Reason for referral (narrative)* Diagnostic Procedure Only (Urgent) - Closed Specialty Diagnoses / Procedures Referred By Contac t Referred To Contact XR IMAGING Diagnoses Pain of right lower extremity Procedures XR FOOT GENERAL 3V AP/LAT/OBL RIGHT RADEX FOOT COMPLETE MINIMUM 3 VIEWS Herb Freitas APRN.HARDBOARD PRESS OPERATOR [address] [place] [address] [place] [address] Referral ID Status Reason Start Date Expiration Date V isits Requested Visits Authorized [id number] Closed Auto-Generate d Referral 09/09/2022 10/09/2023 1 1 * Diagnostic Procedure Only (Urgent) - Closed Specialty Diagnoses / Procedures Referred By Francesca t Referred To Contact XR IMAGING Diagnoses Pain of right lower extremity Procedures XR TIBIA FIBULA 2V AP/LAT RIGHT RADIOLOGIC EXAMINATION TIBIA & FIBULA 2 VIEWS Herb Freitas APRN.HARDBOARD PRESS OPERATOR [address] [place] [address] [place] [address] Referral ID Status Reason Start Date Expiration Date V isits Requested Visits Authorized [id number] Closed Auto-Generate d Referral 09/09/2022 10/09/2023 1 1 [facility] for referral (narrative)* Diagnostic Procedure Only (Routine) - Authorized Specialty Diagnoses / Procedures Referred By Francesca t Referred To Contact BR IMAGING Diagnoses Screening mammogram for breast cancer Procedures RUDDY SCREENING SCREENING MAMMOGRAPHY BI 2-VIEW BREAST INC CAD [place] Nena Edmondson MD [address] [address] Br Imaging [address] [place] [address] Referral ID Status Reason Start Date Expiration Date Visits Requested Visits Authorized [id number] Authorized Auto-Generat ed Referral 03/20/2024 04/19/2025 1 1 [facility] for referral (narrative)* Diagnostic Procedure Only (Routine) - Closed Specialty Diagnoses / Procedures Referred By Franecsca t Referred To Contact [facility][NOTE 3] Diagnoses Threatened Procedures OBSTETRIC ULTRASOUND WHI US PREG UTERUS AFTER 1ST TRIMEST 1/1ST GESTATION [place]ena Edmondson [place] [address] [id number] [address] Referral ID Status Reason Start Date Expiration Date V isits Requested Visits Authorized [id number] Closed Auto-Generate d Referral 03/22/2024 03/22/2025 1 1 [facility] for referral (narrative)* Referring Provider Reason for Referral [facility] for referral (narrative)No reason for referral information available[facility] Work Phone: Reason for visit Narrative* Diagnostic Procedure Only (Urgent) - Closed Specialty Diagnoses / Procedures Referred By Contac t Referred To Contact XR IMAGING Diagnoses Pain of right lower extremity Procedures XR FOOT GENERAL 3V AP/LAT/OBL RIGHT RADEX FOOT COMPLETE MINIMUM 3 VIEWS Herb Freitas, GABINO.HARDBOARD PRESS OPERATOR [address] [place] [address] [place] [address] Referral ID Status Reason Start Date Expiration Date V isits Requested Visits Authorized [id number] Closed Auto-Generate d Referral 09/09/2022 10/09/2023 1 1 [facility] for visit Narrative* Diagnostic Procedure Only (Routine) - Closed Specialty Diagnoses / Procedures Referred By Contac t Referred To Contact [facility][NOTE 3] Diagnoses AMA (advanced maternal age) multigravida 35+, third trimester (HCC) Procedures OBSTETRIC ULTRASOUND WHI US PREG UTERUS AFTER 1ST TRIMEST GESTATION Bimal Patel MD [address] [place] [address] Phone: tel: fax: [address] [address] Referral ID Status Reason Start Date Expiration Date V isits Requested Visits Authorized [id number] Closed Auto-Generate d Referral 08/27/2024 08/27/2025 1 1 [facility] Summary Purpose Family History No Family History Records FoundNo Family History Records FoundNo Family History Records FoundNo Family History Records FoundNo Family History Records FoundNo Family History Records FoundNo Family History Records Found Advance Directives Advance Directive Response Recorded Date/ Time Living Will No June 07, 2021 12:43pm Power of Tactical Air Control Party Manager No June 07 12:43pm Chief Complaint and Reason for Visit Chief Complaint cHEST PAIN Chief Complaint RIGHT ANKLE RM 3 Other fracture of upper and lower end of right fib Reason for Visit Closed fracture of r ight distal fibula Right ankle pain Chief Complaint Admit Date R/O LABOR September 27, 2024 6: 42pm Reason for Referral Specialty Diagnoses / Procedures Referred By Contac t Referred To Contact Orthopedics Diagnoses Pain of right lower extremity Procedures CONSULT TO ORTHOPAEDICS OFFICE/OUTPATIENT [facility] 60-74 MINUTES Herb Freitas APRN.HARDBOARD PRESS OPERATOR [address] [place] [address] Referral ID Status Reason Start Date Expiration Date Visits Requested Visits Authorized [id number] Authorized PCP Requested Referral 09/09/2022 09/09/2023 1 1 Specialty Diagnoses / Procedures Referred By Contac t Referred To Contact XR IMAGING Diagnoses Pain of right lower extremity Procedures XR FOOT GENERAL 3V AP/LAT/OBL RIGHT RADEX FOOT COMPLETE MINIMUM 3 VIEWS Herb Freitas APRN.HARDBOARD PRESS OPERATOR [address] [place] [address] Xr Imaging Referral ID Status Reason Start Date Expiration Date V isits Requested Visits Authorized [id number] Closed Auto-Generate d Referral 09/09/2022 10/09/2023 1 1 Specialty Diagnoses / Procedures Referred By Contac t Referred To Contact XR IMAGING Diagnoses Pain of right lower extremity Procedures XR TIBIA FIBULA 2V AP/LAT RIGHT RADIOLOGIC EXAMINATION TIBIA & FIBULA 2 VIEWS Herb Freitas APRN.HARDBOARD PRESS OPERATOR [address] [place] [address] Xr Imaging Referral ID Status Reason Start Date Expiration Date V isits Requested Visits Authorized [id number] Closed Auto-Generate d Referral 09/09/2022 10/09/2023 1 1 Additional Source Comments INFORMATION SOURCE (unrecogn ized section and content) DATE CREATED AUTHOR 08/26/2018 [facility] DATE CREATED AUTHOR AUTHOR'S ORGANIZ ATION 09/13/2022 [facility] DATE CREATED AUTHOR AUTHOR'S ORGANIZ ATION 03/28/2024 [facility] DATE CREATED AUTHOR AUTHOR'S ORGANIZ ATION 03/30/2024 [facility] DATE CREATED AUTHOR AUTHOR'S ORGANIZ ATION 06/21/2024 [facility] DATE CREATED AUTHOR AUTHOR'S ORGANIZ ATION 08/02/2024 [facility] DATE CREATED AUTHOR AUTHOR'S ORGANIZ ATION 09/27/2024 [facility] Goals (unrecognized section and content) Goals may be documented in a n alternate sectionGoals may be documented in an alternate section No Goals Information No Goals Information No Goals Information No Goals Information No Goals Information No Goals Information No Goals Information No Goals InformationGoals may be documented in an alternate section Source Comments (unrecognize d section and content) In the event this informatio n is protected by the Federal Confidentiality of Alcohol and Drug Abuse Patient Records regulations: The Federal rules restrict any use of the information to criminally investigate or prosecute any alcohol or drug abuse patient.[facility] the event this information is protected by the Federal Confidentiality of Alcohol and Drug Abuse Patient Records regulations: The Federal rules restrict any use of the information to criminally investigate or prosecute any alcohol or drug abuse patient.[facility] CenterIn the event this information is protected by the Federal Confidentiality of Alcohol and Drug Abuse Patient Records regulations: The Federal rules restrict any use of the information to criminally investigate or prosecute any alcohol or drug abuse patient.[facility] CenterIn the event this information is protected by the Federal Confidentiality of Alcohol and Drug Abuse Patient Records regulations: The Federal rules restrict any use of the information to criminally investigate or prosecute any alcohol or drug abuse patient.[facility] Center[facility] the event this information is protected by the Federal Confidentiality of Alcohol and Drug Abuse Patient Records regulations: The Federal rules restrict any use of the information to criminally investigate or prosecute any alcohol or drug abuse patient.[facility] CenterIn the event this information is protected by the Federal Confidentiality of Alcohol and Drug Abuse Patient Records regulations: The Federal rules restrict any use of the information to criminally investigate or prosecute any alcohol or drug abuse patient.[facility] CenterIn the event this information is protected by the Federal Confidentiality of Alcohol and Drug Abuse Patient Records regulations: The Federal rules restrict any use of the information to criminally investigate or prosecute any alcohol or drug abuse patient.[facility] Center[facility] the event this information is protected by the Federal Confidentiality of Alcohol and Drug Abuse Patient Records regulations: The Federal rules restrict any use of the information to criminally investigate or prosecute any alcohol or drug abuse patient.[facility] CenterIn the event this information is protected by the Federal Confidentiality of Alcohol and Drug Abuse Patient Records regulations: The Federal rules restrict any use of the information to criminally investigate or prosecute any alcohol or drug abuse patient.[facility] CenterIn the event this information is protected by the Federal Confidentiality of Alcohol and Drug Abuse Patient Records regulations: The Federal rules restrict any use of the information to criminally investigate or prosecute any alcohol or drug abuse patient.[facility] CenterIn the event this information is protected by the Federal Confidentiality of Alcohol and Drug Abuse Patient Records regulations: The Federal rules restrict any use of the information to criminally investigate or prosecute any alcohol or drug abuse patient.[facility] CenterIn the event this information is protected by the Federal Confidentiality of Alcohol and Drug Abuse Patient Records regulations: The Federal rules restrict any use of the information to criminally investigate or prosecute any alcohol or drug abuse patient.[facility] CenterIn the event this information is protected by the Federal Confidentiality of Alcohol and Drug Abuse Patient Records regulations: The Federal rules restrict any use of the information to criminally investigate or prosecute any alcohol or drug abuse patient.[facility] CenterIn the event this information is protected by the Federal Confidentiality of Alcohol and Drug Abuse Patient Records regulations: The Federal rules restrict any use of the information to criminally investigate or prosecute any alcohol or drug abuse patient.[facility] CenterIn the event this information is protected by the Federal Confidentiality of Alcohol and Drug Abuse Patient Records regulations: The Federal rules restrict any use of the information to criminally investigate or prosecute any alcohol or drug abuse patient.[facility] CenterIn the event this information is protected by the Federal Confidentiality of Alcohol and Drug Abuse Patient Records regulations: The Federal rules restrict any use of the information to criminally investigate or prosecute any alcohol or drug abuse patient.[facility] CenterIn the event this information is protected by the Federal Confidentiality of Alcohol and Drug Abuse Patient Records regulations: The Federal rules restrict any use of the information to criminally investigate or prosecute any alcohol or drug abuse patient.[facility] CenterIn the event this information is protected by the Federal Confidentiality of Alcohol and Drug Abuse Patient Records regulations: The Federal rules restrict any use of the information to criminally investigate or prosecute any alcohol or drug abuse patient.[facility] CenterIn the event this information is protected by the Federal Confidentiality of Alcohol and Drug Abuse Patient Records regulations: The Federal rules restrict any use of the information to criminally investigate or prosecute any alcohol or drug abuse patient.[facility] CenterIn the event this information is protected by the Federal Confidentiality of Alcohol and Drug Abuse Patient Records regulations: The Federal rules restrict any use of the information to criminally investigate or prosecute any alcohol or drug abuse patient.[facility] CenterIn the event this information is protected by the Federal Confidentiality of Alcohol and Drug Abuse Patient Records regulations: The Federal rules restrict any use of the information to criminally investigate or prosecute any alcohol or drug abuse patient.[facility] CenterIn the event this information is protected by the Federal Confidentiality of Alcohol and Drug Abuse Patient Records regulations: The Federal rules restrict any use of the information to criminally investigate or prosecute any alcohol or drug abuse patient.[facility] CenterIn the event this information is protected by the Federal Confidentiality of Alcohol and Drug Abuse Patient Records regulations: The Federal rules restrict any use of the information to criminally investigate or prosecute any alcohol or drug abuse patient.[facility] CenterIn the event this information is protected by the Federal Confidentiality of Alcohol and Drug Abuse Patient Records regulations: The Federal rules restrict any use of the information to criminally investigate or prosecute any alcohol or drug abuse patient.[facility] CenterIn the event this information is protected by the Federal Confidentiality of Alcohol and Drug Abuse Patient Records regulations: The Federal rules restrict any use of the information to criminally investigate or prosecute any alcohol or drug abuse patient.[facility] CenterIn the event this information is protected by the Federal Confidentiality of Alcohol and Drug Abuse Patient Records regulations: The Federal rules restrict any use of the information to criminally investigate or prosecute any alcohol or drug abuse patient.[facility] CenterIn the event this information is protected by the Federal Confidentiality of Alcohol and Drug Abuse Patient Records regulations: The Federal rules restrict any use of the information to criminally investigate or prosecute any alcohol or drug abuse patient.[facility] CenterIn the event this information is protected by the Federal Confidentiality of Alcohol and Drug Abuse Patient Records regulations: The Federal rules restrict any use of the information to criminally investigate or prosecute any alcohol or drug abuse patient.[facility] CenterIn the event this information is protected by the Federal Confidentiality of Alcohol and Drug Abuse Patient Records regulations: The Federal rules restrict any use of the information to criminally investigate or prosecute any alcohol or drug abuse patient.[facility] CenterIn the event this information is protected by the Federal Confidentiality of Alcohol and Drug Abuse Patient Records regulations: The Federal rules restrict any use of the information to criminally investigate or prosecute any alcohol or drug abuse patient.[facility] CenterIn the event this information is protected by the Federal Confidentiality of Alcohol and Drug Abuse Patient Records regulations: The Federal rules restrict any use of the information to criminally investigate or prosecute any alcohol or drug abuse patient.[facility] CenterIn the event this information is protected by the Federal Confidentiality of Alcohol and Drug Abuse Patient Records regulations: The Federal rules restrict any use of the information to criminally investigate or prosecute any alcohol or drug abuse patient.[facility] CenterIn the event this information is protected by the Federal Confidentiality of Alcohol and Drug Abuse Patient Records regulations: The Federal rules restrict any use of the information to criminally investigate or prosecute any alcohol or drug abuse patient.[facility] CenterIn the event this information is protected by the Federal Confidentiality of Alcohol and Drug Abuse Patient Records regulations: The Federal rules restrict any use of the information to criminally investigate or prosecute any alcohol or drug abuse patient.[facility] CenterIn the event this information is protected by the Federal Confidentiality of Alcohol and Drug Abuse Patient Records regulations: The Federal rules restrict any use of the information to criminally investigate or prosecute any alcohol or drug abuse patient.[facility] CenterIn the event this information is protected by the Federal Confidentiality of Alcohol and Drug Abuse Patient Records regulations: The Federal rules restrict any use of the information to criminally investigate or prosecute any alcohol or drug abuse patient.[facility] CenterIn the event this information is protected by the Federal Confidentiality of Alcohol and Drug Abuse Patient Records regulations: The Federal rules restrict any use of the information to criminally investigate or prosecute any alcohol or drug abuse patient.[facility] CenterIn the event this information is protected by the Federal Confidentiality of Alcohol and Drug Abuse Patient Records regulations: The Federal rules restrict any use of the information to criminally investigate or prosecute any alcohol or drug abuse patient.[facility] CenterIn the event this information is protected by the Federal Confidentiality of Alcohol and Drug Abuse Patient Records regulations: The Federal rules restrict any use of the information to criminally investigate or prosecute any alcohol or drug abuse patient.[facility] CenterIn the event this information is protected by the Federal Confidentiality of Alcohol and Drug Abuse Patient Records regulations: The Federal rules restrict any use of the information to criminally investigate or prosecute any alcohol or drug abuse patient.[facility] CenterIn the event this information is protected by the Federal Confidentiality of Alcohol and Drug Abuse Patient Records regulations: The Federal rules restrict any use of the information to criminally investigate or prosecute any alcohol or drug abuse patient.[facility] CenterIn the event this information is protected by the Federal Confidentiality of Alcohol and Drug Abuse Patient Records regulations: The Federal rules restrict any use of the information to criminally investigate or prosecute any alcohol or drug abuse patient.[facility] Reason for Visit (unrecogniz ed section and content) Reason Comments Ankle Injury right ankle injury x 1 am, fell 15ft into a lower [place] Reason Comments Well Woman Reason Comments Results Reason Comments US Specialty Diagnoses / Procedures Referred By Contac t Referred To Contact [facility][NOTE 3] Diagnoses Threatened Procedures OBSTETRIC ULTRASOUND WHI US PREG UTERUS AFTER 1ST TRIMEST GESTATION La Nena Edmondson MD [address] [address] Formerly [facility] [address] [place] [address] Referral ID Status Reason Start Date Expiration Date V isits Requested Visits Authorized [id number] Closed Auto-Generate d Referral 03/22/2024 03/22/2025 1 1 Reason Comments Consult Specialty Diagnoses / Procedures Referred By Contac t Referred To Contact Diagnoses Hyperthyroidism Goiter 10 weeks gestation of AMA (advanced maternal age) multigravida 35+, first trimester Procedures CONSULT TO MATERNAL MEDI OFFICE/OUTPATIENT NEW HIGH [facility] 60 MINUTES La Nena Edmondson MD [address] [address] Phone: tel: fax: Referral ID Status Reason Start Date Expiration Date V isits Requested Visits Authorized [id number] Closed PCP Requested Referral Auto-Generated Referral 03/22/2024 03/22/2025 1 1 Reason Onset Date Comments Results 03/22/2024 Reason Comments Initial OB Visit Specialty Diagnoses / Procedures Referred By Contac t Referred To Contact [facility][NOTE 3] Diagnoses AMA (advanced maternal age) multigravida 35+, first trimester Procedures OBSTETRIC ULTRASOUND WHI US PREG UTERUS AFTER 1ST [place] [address] [place] [address] Phone: tel: fax: [facility] [address] [place] [address] Referral ID Status Reason Start Date Expiration Date V isits Requested Visits Authorized [id number] Closed Auto-Generate d Referral 03/25/2024 03/25/2025 1 1 Reason Comments PRAF Reason Comments OB Reason Comments Thyroid Problem Specialty Diagnoses / Procedures Referred By Contac t Referred To Contact Endocrinology Diagnoses Hyperthyroidism Goiter Procedures CONSULT TO ENDOCRINOLOGY OFFICE/OUTPATIENT NEW HIGH MDM 60 MINUTES La Nena Edmondson MD [address] [address] Phone: tel: fax: Referral ID Status Reason Start Date Expiration Date V isits Requested Visits Authorized [id number] Closed PCP Requested Referral 03/22/2024 03/22/2025 1 1 Referral ID Status Reason Start Date Expiration Date V isits Requested Visits Authorized [id number] Closed Auto-Generate d Referral 03/25/2024 03/25/2025 1 1 Reason Onset Date Comments Care 04/30/2024 Reason Comments Establish Care Reason Comments New Patient Specialty Diagnoses / Procedures Referred By Contac t Referred To Contact Neurology Diagnoses 10 weeks gestation of (HCC) Seizure disorder during in first trimester (HCC) Procedures CONSULT TO NEUROLOGY OFFICE/OUTPATIENT NEW HIGH MDM 60 [place] [address] [place] [address] Phone: tel: fax: Referral ID Status Reason Start Date Expiration Date V isits Requested Visits Authorized [id number] Closed PCP Requested Referral 03/25/2024 03/25/2025 1 1 Reason Onset Date Comments Care 05/28/2024 Reason Comments US Specialty Diagnoses / Procedures Referred By Contac t Referred To Contact [facility][NOTE 3] Diagnoses AMA (advanced maternal age) multigravida 35+, first trimester (HCC) Procedures OBSTETRIC ULTRASOUND WHI US PREG UTERUS AFTER 1ST [place] [address] [place] [address] Phone: tel: fax: [address] [address] Referral ID Status Reason Start Date Expiration Date V isits Requested Visits Authorized [id number] Closed Auto-Generate d Referral 04/22/2024 03/25/2025 1 1 Specialty Diagnoses / Procedures Referred By Contac t Referred To Contact [facility][NOTE 3] Diagnoses Supervision of high risk in second trimester (HCC) Procedures OBSTETRIC ULTRASOUND WHI US PREG UTERUS AFTER 1ST TRIMEST GESTATION Penelope Reyna DO [address] [place] [address] Phone: tel: fax: [address] [address] Referral ID Status Reason Start Date Expiration Date V isits Requested Visits Authorized [id number] Closed Auto-Generate d Referral 06/18/2024 05/28/2025 1 1 Reason Onset Date Comments Care 06/25/2024 Specialty Diagnoses / Procedures Referred By Contac t Referred To Contact [facility][NOTE 3] Diagnoses Advanced maternal age in multigravida, first trimester (HCC) Low lying placenta, antepartum (HCC) Procedures OBSTETRIC ULTRASOUND WHI US PREG UTERUS AFTER 1ST TRIMEST GESTATION Bimal Patel MD [address] [place] [address] Phone: tel: fax: [address] [address] Referral ID Status Reason Start Date Expiration Date V isits Requested Visits Authorized [id number] Closed Auto-Generate d Referral 06/25/2024 06/25/2025 1 1 Reason Onset Date Comments Care 07/18/2024 Reason Comments Patient Question Reason Comments Sinus Problem Sinus pressure, pain . Nasal congestion x 9 days Reason Onset Date Comments Care 08/01/2024 Reason Onset Date Comments Care 08/15/2024 Specialty Diagnoses / Procedures Referred By Francesca grewal Referred To Contact [facility][NOTE 3] Diagnoses Supervision of high risk in third trimester (HCC) Procedures OBSTETRIC ULTRASOUND WHI US PREG UTERUS AFTER 1ST TRIMEST GESTATION Penelope Reyna DO [address] [place] [address] Phone: tel: fax: [facility] [address] [place] [address] Referral ID Status Reason Start Date Expiration Date V isits Requested Visits Authorized [id number] Closed Auto-Generate d Referral 08/06/2024 05/28/2025 1 1 Reason Onset Date Comments Care 08/27/2024 Reason Onset Date Comments Care 09/11/2024 Reason Onset Date Comments Care 09/25/2024 Reason Comments Care Care Teams (unrecognized sec tion and content) And Drying Supervisor Cooking Casing Relationship Specialty Start Date End Date Luca Person MD [address] [place] [address] PCP - General Internal Medicine 09/09/22 Team Status: Active Member Role Status Dates Dr. Luca Person MD Primary Care Provider Active Team Status: Inactive Member Role Status Dates No Primary Care Physician Primary Care Provider, Refer ring Provider Active Aiden Hercules MD Attending Provider Active Team Status: Inactive Member Role Status Dates No Primary Care Physician Primary Care Provider Active Dr. Uri Vargas MD Attending Provider Active Team Status: Inactive Member Role Status Dates Aiden Hercules MD Attending Provider, Referring Prov ider Active Dr. Luca Person MD Primary Care Provider Active And Drying Supervisor Cooking Casing Relationship Specialty Start Date [place] Luc[place] Person [place] [address] [address] PCP - General Internal Medicine 09/09/22 And Drying Supervisor Cooking Casing Relationship Specialty Start Date End Date Luca Person MD [address] [place] [address] PCP - General Internal Medicine 09/09/22 And Drying Supervisor Cooking Casing Relationship Specialty Start Date End Date Luca Person MD [address] [place] [address] PCP - General Internal Medicine 09/09/22 And Drying Supervisor Cooking Casing Relationship Specialty Start Date End Date Luca Person MD [address] [place] [address] PCP - General Internal Medicine 09/09/22 And Drying Supervisor Cooking Casing Relationship Specialty Start Date End Date Luca Person MD [address] [place] [address] PCP - General Internal Medicine 09/09/22 And Drying Supervisor Cooking Casing Relationship Specialty Start Date End Date Luca Person MD [address] [place] [address] PCP - General Internal Medicine 09/09/22 And Drying Supervisor Cooking Casing Relationship Specialty Start Date End Date Luca Person MD [address] [place] [address] PCP - General Internal Medicine 09/09/22 And Drying Supervisor Cooking Casing Relationship Specialty Start Date End Date Luca Person MD [address] [place], [place] [address] PCP - General Internal Medicine 09/09/22 And Drying Supervisor Cooking Casing Relationship Specialty Start Date End Date Luca Person MD [address] [place], [place] [address] PCP - General Internal Medicine 09/09/22 And Drying Supervisor Cooking Casing Relationship Specialty Start Date End Date Luca Person MD [address] [facility] [address] [place] [address] PCP - General Internal Medicine 09/09/22 And Drying Supervisor Cooking Casing Relationship Specialty Start Date End Date Luca Person MD [address] [facility] [address] [place], [place] [address] PCP - General Internal Medicine 09/09/22 And Drying Supervisor Cooking Casing Relationship Specialty Start Date End Date Luca Person MD [address] [facility] [address] [place], [place] [id number] PCP - General Internal Medicine 09/09/22 And Drying Supervisor Cooking Casing Relationship Specialty Start Date End Date Luca Person MD [address] [facility] [address] [place], [place] [address] PCP - General Internal Medicine 09/09/22 And Drying Supervisor Cooking Casing Relationship Specialty Start Date End Date Etta Merchant, MASONRY INSTALLER.HARDBOARD PRESS OPERATOR [address] [place] [address] PCP - General Family Medicine 05/02/24 And Drying Supervisor Cooking Casing Relationship Specialty Start Date End Date Etta Merchant, MASONRY INSTALLER.HARDBOARD PRESS OPERATOR [address] [place] [address] PCP - General Family Medicine 05/02/24 And Drying Supervisor Cooking Casing Relationship Specialty Start Date End Date Etta Merchant, MASONRY INSTALLER.HARDBOARD PRESS OPERATOR [address] [facility] [address] PCP - General Family Medicine 05/02/24 And Drying Supervisor Cooking Casing Relationship Specialty Start Date End Date Etta Merchant, MASONRY INSTALLER.HARDBOARD PRESS OPERATOR [address] [place] [address] PCP - General Family Medicine 05/02/24 And Drying Supervisor Cooking Casing Relationship Specialty Start Date End Date Luca Person MD [facility] [address], [place] [address] PCP - General Internal Medicine 09/09/22 05/01/24 Etta Merchant, MASONRY INSTALLER.HARDBOARD PRESS OPERATOR [address] [facility] [place] [address] PCP - General Family Medicine 05/02/24 And Drying Supervisor Cooking Casing Relationship Specialty Start Date End Date Etta Merchant, MASONRY INSTALLER.HARDBOARD PRESS OPERATOR [address] [facility] [address] PCP - General Family Medicine 05/02/24 And Drying Supervisor Cooking Casing Relationship Specialty Start Date End Date Etta Merchant, MASONRY INSTALLER.HARDBOARD PRESS OPERATOR [address] [facility] [address] PCP - General Family Medicine 05/02/24 And Drying Supervisor Cooking Casing Relationship Specialty Start Date End Date Etta Merchant, MASONRY INSTALLER.HARDBOARD PRESS OPERATOR [address] [facility] [address] PCP - General Family Medicine 05/02/24 And Drying Supervisor Cooking Casing Relationship Specialty Start Date End Date Etta Merchant, MASONRY INSTALLER.HARDBOARD PRESS OPERATOR [address] [facility] [place] [address] PCP - General Family Medicine 05/02/24 And Drying Supervisor Cooking Casing Relationship Specialty Start Date End Date Etta Merchant, MASONRY INSTALLER.HARDBOARD PRESS OPERATOR [address] [place] [address] PCP - General Family Medicine 05/02/24 And Drying Supervisor Cooking Casing Relationship Specialty Start Date End Date QuedenJacquelinny A, MASONRY INSTALLER.HARDBOARD PRESS OPERATOR [address] [place] [address] PCP - General Family Medicine 05/02/24 And Drying Supervisor Cooking Casing Relationship Specialty Start Date End Date Queden, Etta A, MASONRY INSTALLER.HARDBOARD PRESS OPERATOR [address] [place] [address] PCP - General Family Medicine 05/02/24 And Drying Supervisor Cooking Casing Relationship Specialty Start Date End Date Queden, Etta A, MASONRY INSTALLER.HARDBOARD PRESS OPERATOR [address] [place] [address] PCP - General Family Medicine 05/02/24 And Drying Supervisor Cooking Casing Relationship Specialty Start Date End Date QuedenJacquelinny A, MASONRY INSTALLER.HARDBOARD PRESS OPERATOR [address] [place] [address] PCP - General Family Medicine 05/02/24 And Drying Supervisor Cooking Casing Relationship Specialty Start Date End Date QuedenJacquelinny A, MASONRY INSTALLER.HARDBOARD PRESS OPERATOR [address] [place] [address] PCP - General Family Medicine 05/02/24 And Drying Supervisor Cooking Casing Relationship Specialty Start Date End Date Queden, Etta A, MASONRY INSTALLER.HARDBOARD PRESS OPERATOR [address] [place] [address] PCP - General Family Medicine 05/02/24 And Drying Supervisor Cooking Casing Relationship Specialty Start Date End Date Queden, Etta A, MASONRY INSTALLER.HARDBOARD PRESS OPERATOR [address] [place] [address] PCP - General Family Medicine 05/02/24 And Drying Supervisor Cooking Casing Relationship Specialty Start Date End Date Etta Merchant, MASONRY INSTALLER.HARDBOARD PRESS OPERATOR [address] [place] [address] PCP - General Family Medicine 05/02/24 And Drying Supervisor Cooking Casing Relationship Specialty Start Date End Date Etta Merchant, MASONRY INSTALLER.HARDBOARD PRESS OPERATOR [address] [place] [address] PCP - General Family Medicine 05/02/24 And Drying Supervisor Cooking Casing Relationship Specialty Start Date End Date Etta Merchant, MASONRY INSTALLER.HARDBOARD PRESS OPERATOR [address] [place], [place] [id number] PCP - General Family Medicine 05/02/24 And Drying Supervisor Cooking Casing Relationship Specialty Start Date End Date Etta Merchant, MASONRY INSTALLER.HARDBOARD PRESS OPERATOR [address] [place] [address] PCP - General Family Medicine 05/02/24 Team Status: Active Member Role/Relationship Status Dates Etta Merchant CHRISTMAS TREE GRADER, CHRISTMAS TREE GRADER-C Primary Care Provider Active Team Status: Inactive Member Role/Relationship Status Dates Etta Merchant CHRISTMAS TREE GRADER, CHRISTMAS TREE GRADER-C Primary Care Provider Active Start: September 27, 2024 End: September 27, 2024 Dr. Rosalba Espinosa MD Attending Provider Active Start: September 27, 2024 End: September 27, 2024 FOR RECORDS PERTAINING TO PATIENTS WHO ARE OR HAVE BEEN ENROLLED IN A CHEMICAL DEPENDENCY/SUBSTANCEABUSE PROGRAM, SOME INFORMATION MAY BE OMITTED. This clinical summary was aggregated from multiple sources. Caution should be exercised in using it in the provision of clinical care. This summary normalizes information from multiple sources, and as a consequence, information in this document may materially change the coding, format and clinical context of patient data. In addition, data may be omitted in some cases. CLINICAL DECISIONS SHOULD BE BASED ON THE PRIMARY CLINICAL RECORDS. [facility] provides no warranty or guarantee of the accuracy or completeness of information in this document.
--- NOTE | 2024-09-29 17:14 | OB.TRI.NOTE ---
HPI - General General Date of Admission: 09/28/24 Date of Service: 09/28/24 Chief Complaint: spotting HPI Narrative BILL BRAVO, is a 39 F who presents with spotting. No painful contractions. No LOF. Good movement. Cervix 1 cm. No blood on exam. Reactive NST Maternal Data Information Final ROSELIA: 10/14/24 Gestational age: 37+4 PFSH PFS Medical History Closed fracture of right distal fibula Right ankle pain Home Medications ?Medication ?Instructions ?Recorded ?Last Taken ?Type clonazepam 1 mg tablet 1 mg PO 09/15/22 Unknown History Held on 09/27/24. Instructions: on hold since aspirin 81 mg chewable tablet 1 tab PO DAILY 09/27/24 09/27/24 08:00 History vit no.95-ferrous 1 tab PO DAILY 09/27/24 09/27/24 08:00 History fumarate 28 mg-folic acid 800 mcg tablet () Allergy/AdvReac Type Severity Reaction Status Date / Time No Known Allergies Allergy Verified 09/27/24 19:31 Surgical History Hx of dilation and curettage Social History household members: significant other Smoking Status: Current every day smoker tobacco type: cigarettes alcohol intake: current alcohol intake frequency: holidays/special occasions only substance use type: does not use History 3 Elective abortions Hx Para 0 Spontaneous abortions Hx # Term Pregnancies Ectopic pregnancies Hx # Pregnancies Multiple births # of living children NST FHR Rate Baby A Baseline: 130 Variability:: Moderate Accelerations:: 15 x 15 Decelerations:: None NST Reactive:: Yes Uterine Activity:: irregular Assessment & Plan (1) 37 weeks gestation of : (2) Spotting affecting in third trimester: PLAN: Plan Discharged home
== END 2024-09-27 19:43 | disposition home or self-care (01) ==
LOC: WPOUT 18:56 → WP 18:56
PROVIDERS: PCP Nurse Practitioner Family; Visit Provider Obstetrics & Gynecology
DX: O26.853 Spotting complicating pregnancy, third trimester (principal); Z3A.37 37 weeks gestation of pregnancy; O99.333 Smoking (tobacco) complicating pregnancy, third trimester; F17.210 Nicotine dependence, cigarettes, uncomplicated
CPT/HCPCS: 99221; G0378

== ENCOUNTER 2024-09-29 19:58 | Outpatient (CLI) | payer MEDICAID, SELFPAY ==
--- OUTSIDE RECORDS SUMMARY | 2024-09-29 20:04 | XMS RPT_ITS | CCD ---
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 clonazePAM (KLONOPIN) 1 mg tablet TAKE ONE TABLET BY MOUT (more content not included)... Normal [facility] Examination level ultrasound on 04-30-2024 [...] 5 oz EFW by: Hadlock (HC-AC-FL) Extended Hospital Sales Representative 4.8 mm Extremities / Bony Struc FL / HC 0.17 72% Hadlock Other Structures FHR 158 bpm Anatomy Cranium: normal Lateral ventricles: normal Choroid plexus: normal Midline falx: normal Cerebellum: normal Cisterna magna: normal Lips: normal Profile: normal 4-chamber view: normal RVOT view: normal LVOT view: normal 3-vessel view: normal 3-hvoece-wuzcnbr view: normal Heart / Thorax Diaphragm: normal [...] Lt ovary: Not visualized Performed By: Delisa Terrell, GENE, RVT Read By: Aaliyah Stevens M.D. MATERNAL MEDICINE [facility] Radiology Study observation (narrative) [facility] Comprehensive metabolic 2000 panelon 04-25-2024 Albumin [Mass/Vol] 4.1 g/dL 3.9 - 4.9 g/dL [facility] ALP [Catalytic activity/Vol] 69 U/L 34 - 123 U/L [facility] ALT With P-5'-P [Catalytic activity/Vol] 15 U/L 7 - 38 U/L [facility] Anion gap [Moles/Vol] 11 mmol/L 8 - 15 mmol/L [facility] AST With P-5'-P [Catalytic activity/Vol] 12 U/L Low 13 - 35 U/L [facility] Bilirubin [Mass/Vol] 0.3 mg/dL 0.2 - 1 .3 mg/dL [facility] Calcium [Mass/Vol] 9.5 mg/dL 8.5 - 10. 2 mg/dL [facility] Chloride [Moles/Vol] 103 mmol/L 98 - 10 7 mmol/L [facility] CO2 [Moles/Vol] 24 mmol/L 22 - 30 mmol/L [facility] Creatinine [Mass/Vol] 0.44 mg/dL Low 0.58 - 0.96 mg/dL [facility] GFR/1.73 sq M.predicted among non-blacks MDRD (S/P/Bld) [Vol rate/Area] 126 mL/min/{1.73_m2} - PINF [facility] Comment on above: Estimated Glomerular Filtration Rate [...] [Mass/Vol] 90 mg/dL 74 - 99 mg/dL [facility] Comment on above: The [place] Diabete s Association (ADA) provides guidance for [...] Standards of Medical Care in Diabetes 2016, [place] Diabetes Association. Diabetes Care. 2016.39(Suppl 1). Interpretation and review of laboratory results Abnormal [facility] Potassium [Moles/Vol] 3.9 mmol/L 3.7 - 5.1 mmol/L [facility] Protein [Mass/Vol] 6.9 g/dL 6.3 - 8.0 g/dL [facility] Sodium [Moles/Vol] 138 mmol/L 136 - 144 mmol/L [facility] Urea nitrogen [Mass/Vol] 9 mg/dL 7 - 21 mg/dL [facility] Albumin [Mass/Vol] 4.1 g/dL Normal 3.9-4.9 [facility] Comment on above: Order Comment: Cara felix Type: BLOOD SPECIMEN Ordering Facility: [facility] Address: [address] [place] [address] Performed By: #### 3 016-3, 16493-8 #### [facility] CLIA [id number] [address] [place] [address] ALP [Catalytic activity/Vol] 69 U/L Normal 34-123 [facility] Comment on above: Order Comment: Cara felix Type: BLOOD SPECIMEN Ordering Facility: [facility] Address: [address] [place] [address] Performed By: #### 3 016-3, 10216-3 #### [facility] CLIA [id number] [address] [place] ALT With P-5'-P [Catalytic activity/Vol] 15 U/L Normal 7-38 [facility] Comment on above: Order Comment: Speci men Type: BLOOD SPECIMEN Ordering Facility: [facility] Address: [facility] [place] [id number] Performed By: #### 3 016-3, 72530-5 #### [facility] CLIA [id number] [address] [place] [address] [place] Anion gap [Moles/Vol] 11 mmol/L Normal 8-15 [facility] Comment on above: Order Comment: Speci men Type: BLOOD SPECIMEN Ordering Facility: [facility] Address: [address] [place], [place] [address] Performed By: #### 3 016-3, 17781-0 #### [facility] CLIA [id number] [address] [place] [address] [place] AST With P-5'-P [Catalytic activity/Vol] 12 U/L Low 13-35 [facility] Comment on above: Order Comment: Speci men Type: BLOOD SPECIMEN Ordering Facility: [facility] Address: [address] [place], [place] [address] Performed By: #### 3 016-3, 85820-7 #### [facility] CLIA [id number] [address] [place] [address] [place] Bilirubin [Mass/Vol] 0.3 mg/dL Normal 0.2-1.3 [facility] Comment on above: Order Comment: Speci men Type: BLOOD SPECIMEN Ordering Facility: [facility] Address: [address] [place] [id number] Performed By: #### 3 016-3, 01943-8 #### [facility] CLIA [id number] [address] [place] [address] [place] Calcium [Mass/Vol] 9.5 mg/dL Normal 8.5-10.2 [facility] Comment on above: Order Comment: Speci men Type: BLOOD SPECIMEN Ordering Facility: [facility] Address: [address] [place] [address] Performed By: #### 3 016-3, 77529-2 #### [facility] CLIA [id number] [address] [place] [address] [place] Chloride [Moles/Vol] 103 mmol/L Normal 98-107 [facility] Comment on above: Order Comment: Speci men Type: BLOOD SPECIMEN Ordering Facility: [facility] Address: [address] [place] [address] Performed By: #### 3 016-3, 18254-2 #### [facility] CLIA [id number] [address] [place] [address] [place] CO2 [Moles/Vol] 24 mmol/L Normal 22-30 [facility] Comment on above: Order Comment: Speci men Type: BLOOD SPECIMEN Ordering Facility: [facility] Address: [address] [place] [address] Performed By: #### 3 016-3, 57610-1 #### [facility] CLIA [id number] [address] [place] [address] [facility] Creatinine [Mass/Vol] 0.44 mg/dL Low 0.58-0.96 [facility] Comment on above: Order Comment: Speci men Type: BLOOD SPECIMEN Ordering Facility: [facility] Address: [address] [place] [address] Performed By: #### 3 016-3, 29332-6 #### [facility] CLIA [id number] [address] [place] [address] [facility] Creatinine and Glomerular filtration rate.predicted panel (S/P/Bld) 126 mL/min/1.73m??? Normal >=60 [facility] Comment on above: Order Comment: Speci men Type: BLOOD SPECIMEN Ordering Facility: [facility] Address: [address] [place] [address] Result Comment: Anya mated Glomerular Filtration Rate [...] actual GFR. Performed By: #### 3 016-3, 02405-9 #### [facility] CLIA [id number] [address] [place] [address] [place] Glucose [Mass/Vol] 90 mg/dL Normal 74-99 [facility] Comment on above: Order Comment: Cara felix Type: BLOOD SPECIMEN Ordering Facility: [facility] Address: [address] [place] [address] Result Comment: The [place] Diabetes Association (ADA) provides guidance for cutoff [...] Standards of Medical Care in Diabetes 2016, [place] Diabetes Association. Diabetes Care. 2016.39(Suppl 1). Performed By: #### 3 016-3, 85262-3 #### [facility] CLIA [id number] [address] [place] [address] [place] Potassium [Moles/Vol] 3.9 mmol/L Normal 3.7-5.1 [facility] Comment on above: Order Comment: Cara felix Type: BLOOD SPECIMEN Ordering Facility: [facility] Address: [address] [place] [id number] Performed By: #### 3 016-3, 27558-0 #### [facility] CLIA [id number] [address] [place] [address] [place] Protein [Mass/Vol] 6.9 g/dL Normal 6.3-8.0 [facility] Comment on above: Order Comment: Cara felix Type: BLOOD SPECIMEN Ordering Facility: [facility] Address: [address] [place], [place] [address] Performed By: #### 3 016-3, 94281-4 #### [facility] CLIA [id number] [address] [place] [address] [place] Sodium [Moles/Vol] 138 mmol/L Normal 136-144 [facility] Comment on above: Order Comment: Speci men Type: BLOOD SPECIMEN Ordering Facility: [facility] Address: [address] [place] [address] Performed By: #### 3 016-3, 98527-6 #### [facility] CLIA [id number] [address] [place] [address] [place] Urea nitrogen [Mass/Vol] 9 mg/dL Normal 7-21 [facility] Comment on above: Order Comment: Speci men Type: BLOOD SPECIMEN Ordering Facility: [facility] Address: [address] [place] [address] Performed By: #### 3 016-3, 74093-3 #### [facility] CLIA [id number] [address] [place] [address] [place] No Panel Informationon 04-25 [facility] T3Free SerPl-mCncon 04-26-19 25 Free T3 [Mass/Vol] 2.7 pg/mL Normal 2.3-4.1 [facility] Comment on above: Order Comment: Speci men Type: BLOOD SPECIMEN Ordering Facility: [facility] Address: [address] [place] [address] Performed By: #### 3 024-7, 3051-0 #### [facility] CLIA [id number] [address] [place] [address] [place] T4 Free SerPl-mCncon 025 Free T4 [Mass/Vol] 1.1 ng/dL Normal 0.9-1.7 [facility] Comment on above: Order Comment: Speci men Type: BLOOD SPECIMEN Ordering Facility: [facility] Address: [address] [place] [address] Performed By: #### 3 024-7, 3051-0 #### [facility] CLIA [id number] [address] [place] [id number] [facility] THYROID PEROXIDASE ANTIBODYo n 04-25-2024 TPO Ab Qn [IU]/mL Normal <5.6 [facility] Comment on above: Order Comment: Specrickey felix Type: BLOOD SPECIMEN Ordering Facility: [facility] Address: [address] [place] [address] Result Comment: Thyr oid Peroxidase Antibody test is used as an aid in diagnosis of autoimmune thyroid disease. Clinical correlation is required. Performed By: #### M ICRO #### [facility] CLIA [id number] [address] [place], [place] [address] [address] [place] THYROID STIMULATING HORMONEo n 04-25-2024 TSH Qn 0.771 m[IU]/L [facility] Comment on above: If the patient is [...] Plata, et al. 2017 Guidelines of the [place] Thyroid Association for the Diagnosis and Management of Thyroid Disease during and the . Thyroid, 2017:27:3:315-389. THYROID STIMULATING IMMUNOGL OBULIN BLOODon 04-25-2024 Thyroid stimulating immunoglobulins actual/normal (S) [Relative mass conc] % Normal <0.55 [facility] Comment on above: Order Comment: Speci isidro Type: BLOOD SPECIMEN Ordering Facility: [facility] Address: [address] [place] [address] Result Comment: Thyr oid Stimulating Immunoglobulin test is used as an aid in diagnosis of autoimmune hyperthyroidism especially in patients with Grave's orbitopathy and dermopathy. Low positive TSH receptor stimulating antibody levels may occasionally be found in patients with autoimmune hypothyroidism. Clinical correlation is required. Performed By: #### T SIGIM #### [facility] CLIA [id number] [facility] [place] [address] [place] TSI QUALITATIVE Negative Normal Negative [facility] Comment on above: Order Comment: Cara felix Type: BLOOD SPECIMEN Ordering Facility: [facility] Address: [address] [place] [address] Performed By: #### T SIGIM #### [facility] CLIA [id number] [address] [place] [address] [place] TSH Qnon 04-25-2024 Interpretation and review of laboratory results Normal [facility] TSH SerPl-aCncon 04-25-2024 TSH Qn 0.771 m[IU]/L Normal 0.270-4.200 [facility] Comment on above: Order Comment: Cara felix Type: BLOOD SPECIMEN Ordering Facility: [facility] Address: [address] [place] [address] Result Comment: If t he patient is , TSH reference range varies by gestational period: First Trimester (weeks 9-12): 0.180-2.990 mIU/L Second Trimester: 0.110-3.980 mIU/L Third Trimester: 0.480-4.710 mIU/L Lan Aragon et al. A Practical Approach for the Verifications and Determination of Site- and Trimester-Specific Reference Intervals for Thyroid Function tests in . Thyroid, 2019:29:3:412-420. Abisai E, et al. 2017 Guidelines of the [place] Thyroid Association for the Diagnosis and Management of Thyroid Disease during and the . Thyroid, 2017:27:3:315-389. Performed By: #### 3 016-3, 79951-7 #### [facility] CLIA [id number] [address] [place] [address] [place] CNPNon 04-10-2024 CNPN Telephone (OBGYWM) BILL BRAVO ([id number]) 1985 F Date Time Provider Department 04/10/24 BIMAL PATEL During your visit today, we recorded the following information about you: Staci Schroeder, RN 04/10/2024 12:20 PM Signed 13w2d Pt calling crying stating she saw her Pnggwkhg30 results online and that Trisomy 21 was [...] then relaxed. States she sees MFM in [facility], but that it is quite a drive and she would like to be seen here in [place]. [facility] physician is one who ordered testing. MFM [...] AM Signed Pt notified. TRICE Vines Tara, TRICE 04/15/2024 9:25 AM Signed Aaliyah Stevens MD [...] yesterday and she has seen MFM in [facility] 03/25/24 (Jessenia Lamb). . 13w3d. complicated by AMA, PTSD, Anxiety (On Klonopin), Seizure disorder (On Lamictal) and Tobacco use. Pt has a psychiatrist who manages her anxiety and PTSD. Pt wanted to see MFM provider in [place] as she lives in [place]. Had already had May 2024 appt scheduled [...] for f/u. Advised Pt to send Dr. Zainab ramey message for his guidance. MFM appointments in [place] cancelled. Pt denies additional questions/concerns at this time. Staci Schroeder RN Allergies As of Date: 04/10/2024 (No Known Allergies) Date Reviewed: 04/01/2024 Reviewed by: Haury, Jaspal, MEDICAL FIELD REPRESENTATIVE.WET CLEANER MACHINE - Fully Assessed Reason for Visit: OB [Other] Prescriptions as of 04/15/2024 - folic acid 1 mg tablet Take 1 tablet by mouth once daily. - prazosin HCl (PRAZOSIN ORAL) Take 2 mg by mouth daily at bedtime. - Yyeulakt-St-Sst-Fe-F A tab Take 1 tablet by mouth [...] of de (more content not included)... Normal [facility] BILL BRAVO ([id number]) 1985 F Date Time Provider Department 04/08/24 KATJA RO During your visit today, we recorded the following information about you: Amy Patient Tnt Line Supervisor Candace Boyd 04/08/2024 12:58 PM Signed Name of Caller: Bill Relationship to patient: patient Last visit in this department: Visit date not found Reason for Call: Other : Patient calling to see if she can do this appointment virtually. She also stated since she is she's not sure about scans how that would work etc. Please advise. Callback number: [phone] Fax Number (if necessary): N/A Additional info if needed (Prior Auth #, Claim #, etc?): N/A Candace Reyes Patient Tnt Line Supervisor Sugar Stuart RN 04/08/2024 4:03 PM Addendum New patient consult - patient ~ 16 weeks Denies recent seizure/unable to recall date of last seizure Offered transfer to [facility] for options to schedule earlier appointment w/epilepsy provider due to Per [facility] - Patient placed on wait list w/Dr. Ro; declined earlier appointment w/other epilepsy provider Spoke with patient - she does Not wish to schedule earlier appointment Sguar Forrester RN Allergies As of Date: 04/08/2024 (No Known Allergies) Date Reviewed: 04/01/2024 Reviewed by: Jaspal Sykes APRN.WET CLEANER MACHINE - Fully Assessed Prescriptions as of 04/08/2024 - folic acid 1 mg tablet Take 1 tablet by mouth once daily. - prazosin HCl (PRAZOSIN ORAL) Take 2 mg by mouth daily at bedtime. - Aczekahd-La-Ngg-Fe-F A tab Take 1 tablet by mouth [...] Encounter Status:Closed by SUGAR FORRESTER on 04/08/24 [facility] 04-02-2024 [facility] BILL [facility]VO ([id number]) 1985 F Date Time Provider Department 04/02/24 [facility] MCKINNEY [facility] During your visit today, we recorded the following information about you: Darshana Mckinney RN 04/02/2024 8:11 AM Signed 1st risk assessment form submitted 04/02/2024 12w 1 d today Allergies As of Date: 04/02/2024 (No Known Allergies) Date Reviewed: 04/01/2024 Reviewed by: Jaspal Sykes APRN.WET CLEANER MACHINE - Fully Assessed Reason for Visit: PRAF [4193] Prescriptions as of 04/02/2024 - folic acid 1 mg tablet Take 1 tablet by mouth once daily. - prazosin HCl (PRAZOSIN ORAL) Take 2 mg by mouth daily at bedtime. - Enjvcsrm-Im-Ucf-Fe-F A tab Take 1 tablet by mouth [...] Status:Closed by DARSHANA MCKINNEY on 04/02/24 Normal [facility] Bacteria Ur Culton 5 Bacteria identified Cx Nom (U) ORGANISM ID: 1 10,000 -<50,000 CFU/ml Normal urogenital sunday Normal [facility] Comment on above: Performed By: #### 6 30-4 ####[facility] [id number] [place] [address] [place] C. trachomatis+N. gonorrhoea e DNA SHERITA+probe Ql (Unsp spec)on 04-01-2024 C. trachomatis rRNA SHERITA+probe Ql (Unsp spec) Not detected Normal Not detected [facility] Comment on above: Order Comment: Speci men Type: URINE SPECIMEN Ordering Facility: [facility] Address: [address] [place] [address] Performed By: #### 3 6902-5 #### [facility] CLIA [id number] [address] [place] [address] [place] N. gonorrhoeae rRNA SHERITA+probe Ql (Unsp spec) Not detected Normal Not detected [facility] Comment on above: Order Comment: Speci men Type: URINE SPECIMEN Ordering Facility: [facility] Address: [address] [place] [address] Performed By: #### 3 6902-5 #### [facility] CLIA [id number] [address] [place] [address] [place] C. trachomatis rRNA SHERITA+probe Ql (Unsp spec) Not detected Normal Not detected [facility] Comment on above: Order Comment: Speci men Type: URINE SPECIMEN Ordering Facility: [facility] Address: [address] [place] [address] Performed By: #### 3 6902-5 #### [facility] CLIA [id number] [address] [place] [address] [place] N. gonorrhoeae rRNA SHERITA+probe Ql (Unsp spec) Not detected Normal Not detected [facility] Comment on above: Order Comment: Speci men Type: URINE SPECIMEN Ordering Facility: [facility] Address: [address] [place] [address] Performed By: #### 3 6902-5 #### [facility] CLIA [id number] [address] [place] [address] [place] CBC W Auto Differential pane l (Bld)on 04-01-2024 Basophils (Bld) [#/Vol] 0.03 10*3/uL Normal <0.11 [facility] Comment on above: Order Comment: Speci men Type: URINE SPECIMEN Ordering Facility: [facility] Address: [address] [place] [address] Performed By: #### 3 6902-5 #### [facility] CLIA [id number] [address] [place] [address] [place] Basophils/100 WBC (Bld) 0.2 % Normal [facility] Comment on above: Order Comment: Speci men Type: URINE SPECIMEN Ordering Facility: [facility] Address: [address] [place] [address] Performed By: #### 3 6902-5 #### [facility] CLIA [id number] [address] [place] [address] [place] Differential cell count method Nom (Bld) Auto Normal [facility] Comment on above: Order Comment: Speci men Type: URINE SPECIMEN Ordering Facility: [facility] Address: [address] [place] [address] Performed By: #### 3 6902-5 #### [facility] CLIA [id number] [address] [place] [address] [place] Eosinophils (Bld) [#/Vol] 0.06 10*3/uL Normal <0.46 [facility] Comment on above: Order Comment: Speci men Type: URINE SPECIMEN Ordering Facility: [facility] Address: [address] [place] [address] Performed By: #### 3 6902-5 #### [facility] CLIA [id number] [address] [place] [address] [place] Eosinophils/100 WBC (Bld) 0.4 % Normal [facility] Comment on above: Order Comment: Speci men Type: URINE SPECIMEN Ordering Facility: [facility] Address: [address] [place] [address] Performed By: #### 3 6902-5 #### [facility] CLIA [id number] [address] [place] [address] [place] Erythrocyte distribution width (RBC) [Ratio] 13.5 % Normal 11.5-15.0 [facility] Comment on above: Order Comment: Speci men Type: URINE SPECIMEN Ordering Facility: [facility] Address: [address] [place] [address] Performed By: #### 3 6902-5 #### [facility] CLIA [id number] [address] [place] [address] [place] Hematocrit (Bld) [Volume fraction] 37.7 % Normal 36.0-46.0 [facility] Comment on above: Order Comment: Speci men Type: URINE SPECIMEN Ordering Facility: [facility] Address: [address] [place] [address] Performed By: #### 3 6902-5 #### [facility] CLIA [id number] [address] [place] [address] [place] Hemoglobin (Bld) [Mass/Vol] 12.8 g/dL Normal 11.5-15.5 [facility] Comment on above: Order Comment: Speci men Type: URINE SPECIMEN Ordering Facility: [facility] Address: [address] [place] [address] Performed By: #### 3 6902-5 #### [facility] CLIA [id number] [address] [place] [address] [place] Immature granulocytes (Bld) [#/Vol] 0.14 10*3/uL High <0.10 [facility] Comment on above: Order Comment: Speci men Type: URINE SPECIMEN Ordering Facility: [facility] Address: [address] [place] [address] Performed By: #### 3 6902-5 #### [facility] CLIA [id number] [address] [place] [address] [place] Immature granulocytes/100 WBC (Bld) 1.0 % Normal [facility] Comment on above: Order Comment: Speci men Type: URINE SPECIMEN Ordering Facility: [facility] Address: [address] [place] [address] Performed By: #### 3 6902-5 #### [facility] CLIA [id number] [address] [place] [address] [place] Lymphocytes (Bld) [#/Vol] 2.72 10*3/uL Normal 1.00-4.00 [facility] Comment on above: Order Comment: Speci men Type: URINE SPECIMEN Ordering Facility: [facility] Address: [address] [place] [address] Performed By: #### 3 6902-5 #### [facility] CLIA [id number] [address] [place] [address] [place] Lymphocytes/100 WBC (Bld) 19.4 % Normal [facility] Comment on above: Order Comment: Speci men Type: URINE SPECIMEN Ordering Facility: [facility] Address: [address] [place] [address] Performed By: #### 3 6902-5 #### [facility] CLIA [id number] [address] [place] [address] [place] MCHC (RBC) [Mass/Vol] 34.0 g/dL Normal 30.5-36.0 [facility] Comment on above: Order Comment: Speci men Type: URINE SPECIMEN Ordering Facility: [facility] Address: [address] [place] [address] Performed By: #### 3 6902-5 #### [facility] CLIA [id number] [address] [place] [address] [place] MCV (RBC) [Entitic vol] 85.9 fL Normal 80.0-100.0 [facility] Comment on above: Order Comment: Speci men Type: URINE SPECIMEN Ordering Facility: [facility] Address: [address] [place] [address] Performed By: #### 3 6902-5 #### [facility] CLIA [id number] [address] [place] [address] [place] Monocytes (Bld) [#/Vol] 0.85 10*3/uL Normal <0.87 [facility] Comment on above: Order Comment: Speci men Type: URINE SPECIMEN Ordering Facility: [facility] Address: [address] [place] [address] Performed By: #### 3 6902-5 #### [facility] CLIA [id number] [address] [place] [address] [place] Monocytes/100 WBC (Bld) 6.0 % Normal [facility] Comment on above: Order Comment: Speci men Type: URINE SPECIMEN Ordering Facility: [facility] Address: [address] [place] [address] Performed By: #### 3 6902-5 #### [facility] CLIA [id number] [address] [place] [address] [place] Neutrophils (Bld) [#/Vol] 10.25 10*3/uL High 1.45-7.50 [facility] Comment on above: Order Comment: Speci men Type: URINE SPECIMEN Ordering Facility: [facility] Address: [address] [place] [address] Performed By: #### 3 6902-5 #### [facility] CLIA [id number] [address] [place] [address] [place] Neutrophils/100 WBC (Bld) 73.0 % Normal [facility] Comment on above: Order Comment: Speci men Type: URINE SPECIMEN Ordering Facility: [facility] Address: [address] [place] [address] Performed By: #### 3 6902-5 #### [facility] CLIA [id number] [address] [place] [address] [place] Nucleated RBC (Bld) [#/Vol] 10*3/uL Normal <0.01 [facility] Comment on above: Order Comment: Speci men Type: URINE SPECIMEN Ordering Facility: [facility] Address: [address] [place] [address] Performed By: #### 3 6902-5 #### [facility] CLIA [id number] [address] [place] [address] [place] Nucleated RBC/100 WBC (Bld) [Ratio] 0.0 /100 WBC Normal [facility] Comment on above: Order Comment: Speci men Type: URINE SPECIMEN Ordering Facility: [facility] Address: [address] [place] [address] Performed By: #### 3 6902-5 #### [facility] CLIA [id number] [address] [place] [address] [place] Platelet mean volume (Bld) [Entitic vol] 8.3 fL Low 9.0-12.7 [facility] Comment on above: Order Comment: Speci men Type: URINE SPECIMEN Ordering Facility: [facility] Address: [address] [place] [address] Performed By: #### 3 6902-5 #### [facility] CLIA [id number] [address] [place] [address] [place] Platelets (Bld) [#/Vol] 289 10*3/uL Normal 150-400 [facility] Comment on above: Order Comment: Speci men Type: URINE SPECIMEN Ordering Facility: [facility] Address: [address] [place] [address] Performed By: #### 3 6902-5 #### [facility] CLIA [id number] [address] [place] [address] [place] RBC (Bld) [#/Vol] 4.39 10*6/uL Normal 3.90-5.20 [facility] Comment on above: Order Comment: Speci men Type: URINE SPECIMEN Ordering Facility: [facility] Address: [address] [place] [address] Performed By: #### 3 6902-5 #### [facility] CLIA [id number] [address] [place] [address] [place] WBC (Bld) [#/Vol] 14.05 10*3/uL High 3.70-11.00 [facility] Comment on above: Order Comment: Speci men Type: URINE SPECIMEN Ordering Facility: [facility] Address: [address] [place] [address] Performed By: #### 3 6902-5 #### [facility] CLIA [id number] [address] [place] [address] [place] Examination level ultrasound on 04-01-2024 Indication First trimester anatomic survey Advanced maternal age, history of seizures Impression REMOTE READ The patient is referred for a first trimester anatomy scan including nuchal translucency measurement as clinically indicated. - Single, live, intrauterine . - Northrop rump length measurement is consistent with the [...] view: suboptimal 4-chamber view with color: suboptimal [id number] view: suboptimal Abdominal cord insertion: normal Stomach: [...] Read By: Aaliyah Stevens M.D. MATERNAL MEDICINE [facility] Radiology Study observation (narrative) [facility] HBV surface Ag Ser Qlon 03-16 HBV surface Ag Ql (S) Negative Normal Negative [facility] Comment on above: Order Comment: Speci men Type: URINE SPECIMEN Ordering Facility: [facility] Address: [address] [place] [address] Performed By: #### 3 6902-5 #### [facility] CLIA [id number] [address] [place] [address] [place] [address] [place] HCV Ab Ser Qlon 04-01-2024 HCV Ab Ql (S) Positive Abnormal Negative [facility] Comment on above: Order Comment: Speci men Type: BLOOD SPECIMENOrdering Facility: [facility] Address: [address] [place] [address] Performed By: #### 1 6128-1, 56970-7 ####[facility] [id number] [place] [address] [place] HCV RNA SHERITA+probe Qnon 04-01 HCV RNA SHERITA+probe Ql Not detected Normal Not detected [facility] Comment on above: Order Comment: Speci men Type: BLOOD SPECIMENOrdering Facility: [facility] Address: [address] [place] [address] Performed By: #### 1 6128-1, 99897-1 ####[facility] [id number] [place] [address] [place] HGB ELECTROPHORESIS FOR EVAL (LAB ORDER)on 04-01-2024 Hemoglobin A (Bld) [Mass fraction] 96.9 % Normal 96.2-98.0 [facility] Comment on above: Order Comment: Speci men Type: SWAB Ordering Facility: [facility] Address: [address] [place] [address] Performed By: #### C VTV, BVAMP #### [facility] CLIA [id number] [address] [place] [address] [place] Hemoglobin A2 (Bld) [Mass fraction] 3.1 % Normal 2.0-3.1 [facility] Comment on above: Order Comment: Speci men Type: SWAB Ordering Facility: [facility] Address: [address] [place] [address] Performed By: #### C VTV, BVAMP #### [facility] CLIA [id number] [address] [place] [address] [place] Hemoglobin Unsp Elph (Bld) [Mass fraction] No abnormal hemoglobin identified. Normal No abnormal hemoglobin identified. [facility] Comment on above: Order Comment: Speci men Type: SWAB Ordering Facility: [facility] Address: [address] [place] [address] Performed By: #### C VTV, BVAMP #### [facility] CLIA [id number] [address] [place] [address] [place] HGB EVALUATION CASCADE INTER Kurtis 04-01-2024 Hemoglobin pattern (Bld) [Interp] Reviewed by Brigitte Trotter MD, PhD Normal [facility] Comment on above: Order Comment: Speci men Type: SWAB Ordering Facility: [facility] Address: [address] [place] [address] Performed By: #### C VTV, BVAMP #### [facility] CLIA [id number] [address] [place] [address] [place] INTERPRETATION (HGB EVAL) Normal [facility] Comment on above: Order Comment: Speci men Type: SWAB Ordering Facility: [facility] Address: [address] [place] [address] Result Comment: Hemo globins were analyzed by capillary electrophoresis and CBC red cell parameters were reviewed. No abnormal hemoglobin is identified. There is a normal hemoglobin capillary electrophoresis pattern. Performed By: #### C VTV, BVAMP #### [facility] CLIA [id number] [address] [place] [address] [place] HIV 1+2 Ab IA Qlon 5 HIV 1 and 2 Ab IA.rapid Nom (S/P/Bld) Normal [facility] Comment on above: Order Comment: Speci men Type: URINE SPECIMEN Ordering Facility: [facility] Address: [address] [place] [address] Result Comment: Test not indicated. Performed By: #### 3 6902-5 #### [facility] CLIA [id number] [address] [place] [address] [place] HIV 1+2 Ab+HIV1 p24 Ag IA Ql Non-Reactive Normal Nonreactive [facility] Comment on above: Order Comment: Speci men Type: URINE SPECIMEN Ordering Facility: [facility] Address: [address] [place] [address] Performed By: #### 3 6902-5 #### [facility] CLIA [id number] [address] [place] [address] [place] HIV immunoassay testing algorithm interpretation (S/P/Bld) [Interp] Normal [facility] Comment on above: Order Comment: Speci men Type: URINE SPECIMEN Ordering Facility: [facility] Address: [address] [place] [address] Result Comment: No e vidence of HIV-1 or HIV-2 infection. Should recent infection be suspected, repeat testing may be considered 2-3 weeks after this draw. [place] Rev. Code 3701.243(E): This information has been [...] diagnoses. Performed By: #### 3 6902-5 #### [facility] CLIA [id number] [address] [place] [address] [place] HbA1c (Bld)on 04-01-2024 Average glucose Estimated from glycated hemoglobin (Bld) [Mass/Vol] 117 mg/dL Normal [facility] Comment on above: Order Comment: Speci men Type: URINE SPECIMEN Ordering Facility: [facility] Address: [address] [place] [address] Result Comment: eAG: (Estimated average glucose) is a calculated value from HgbA1c and is vaccine customer representative of the average blood glucose level in the last 2-3 month period. Performed By: #### 3 6902-5 #### [facility] CLIA [id number] [address] [place] [address] [place] HbA1c (Bld) [Mass fraction] 5.7 % High 4.3-5.6 [facility] Comment on above: Order Comment: Speci men Type: URINE SPECIMEN Ordering Facility: [facility] Address: [address] [place] [address] Result Comment: Jerry [place] Diabetes Association guidelines indicate that patients with HgbA1c in the range 5.7-6.4% are at increased risk for development of diabetes, and intervention by lifestyle modification may be beneficial. HgbA1c greater or equal to 6.5% is considered diagnostic of diabetes. Performed By: #### 3 6902-5 #### [facility] CLIA [id number] [address] [place] [address] [place] [id number] PLUSon 04-01-2024 Cell-free DNA./Cell-free DNA.total Dosage of chromosome-specific cfDNA (cfDNA) [Molar fraction] 15% Normal [facility] Comment on above: Order Comment: Speci men Type: URINE SPECIMEN Ordering Facility: [facility] Address: [address] [place] [address] Performed By: #### 3 6902-5 #### [facility] CLIA [id number] [address] [place] [address] [place] Chr 13+18+21+X+Y aneuploidy Dosage of chromosome-specific cfDNA Ql (cfDNA) Negative Normal [facility] Comment on above: Order Comment: Speci men Type: URINE SPECIMEN Ordering Facility: [facility] Address: [address] [place] [address] Performed By: #### 3 6902-5 #### [facility] CLIA [id number] [address] [place] [address] [place] Chr 21 trisomy Dosage of chromosome-specific cfDNA Ql (cfDNA) Negative Normal [facility] Comment on above: Order Comment: Speci men Type: URINE SPECIMEN Ordering Facility: [facility] Address: [address] [place] [address] Performed By: #### 3 6902-5 #### [facility] CLIA [id number] [address] [place] [address] [place] Chr X and Y aneuploidy risk Sequencing Ql (cfDNA) [Interp] Not detected Normal [facility] Comment on above: Order Comment: Speci men Type: URINE SPECIMEN Ordering Facility: [facility] Address: [address] [place] [address] Result Comment: Not Detected Not Detected Performed By: #### 3 6902-5 #### [facility] CLIA [id number] [address] [place] [address] [place] Citation James (Reference lab test) Comment Normal [facility] Comment on above: Order Comment: Speci men Type: URINE SPECIMEN Ordering Facility: [facility] Address: [address] [place] [address] Result Comment: 1. P yasmine MEDELLIN et al. Wanda Med. 2012;14(3):296-305. 2. Marilyn MERAZ, et al. Prenat Diag. 2013;33(6):591-597. 3. Jose C, et al. Clin Chem. 2015 Apr;61(4):608-616. 4. Maury MEDELLIN, et al. Wanda Med. 2011;13(11):913-920. 5. ACOG/SMFM Practice Bulletin No. 226, Nov 2019. Performed By: #### 3 6902-5 #### [facility] CLIA [id number] [address] [place] [address] [place] Gestational age Estimated from conception date Pierce Normal [facility] Comment on above: Order Comment: Speci men Type: URINE SPECIMEN Ordering Facility: [facility] Address: [address] [place] [address] Performed By: #### 3 6902-5 #### [facility] CLIA [id number] [address] [place] [address] [place] GESTATIONALAGE AGE > OR = 9W Yes Normal [facility] Comment on above: Order Comment: Speci men Type: URINE SPECIMEN Ordering Facility: [facility] Address: [address] [place] [address] Performed By: #### 3 6902-5 #### [facility] CLIA [id number] [address] [place] [address] [place] Laboratory comment James (Report) Comment Normal [facility] Comment on above: Order Comment: Speci isidro Type: URINE SPECIMEN Ordering Facility: [facility] Address: [address] [place] [address] Result Comment: The MaterniT(R) 21 PLUS laboratory-developed test (LDT) analyzes circulating cell-free DNA from a maternal blood sample. This test is used for screening purposes and not diagnostic. Clinical correlation is recommended. Validation data on twin pregnancies is limited and the ability of this test to detect aneuploidy in higher multiple gestations has not yet been validated. Performed By: #### 3 6902-5 #### [facility] CLIA [id number] [address] [place] [address] news director name Nom (Provider) Comment Normal [facility] Comment on above: Order Comment: Specrickey felix Type: URINE SPECIMEN Ordering Facility: [facility] Address: [address] [place] [address] Result Comment: This specimen showed an expected representation of chromosome 21, 18 and 13 material. Clinical correlation is suggested. Comment Vickey Villarreal MD, PhD, Director, [employer] Performed By: #### 3 6902-5 #### [facility] CLIA [id number] [address] [place] [address] LIMITATIONS OF THE TEST Comment Normal [facility] Comment on above: Order Comment: Cara felix Type: URINE SPECIMEN Ordering Facility: [facility] Address: [address] [place] [address] Result Comment: Isidro plata the results of these tests are highly [...] Fragmin(R)). Performed By: #### 3 6902-5 #### [facility] CLIA [id number] [address] [place] [address] [place] Monosomy X risk Dosage of chromosome-specific cfDNA Ql (Plasma cell-free+WBC DNA) [Interp] Not detected Normal [facility] Comment on above: Order Comment: Speci men Type: URINE SPECIMEN Ordering Facility: [facility] Address: [address] [place] [address] Performed By: #### 3 6902-5 #### [facility] CLIA [id number] [address] [place] [address] STATES [facility] NEGATIVE PREDICTIVE VALUE Note Normal [facility] Comment on above: Order Comment: Speci men Type: URINE SPECIMEN Ordering Facility: [facility] Address: [address] [place] [address] Result Comment: The Negative Predictive Value (NPV) for trisomy 21, 18, and 13 is greater than 99%. The NPV for SCA and ESS cannot be calculated as SCA and ESS are only reported when an abnormality is detected. Performed By: #### 3 6902-5 #### [facility] CLIA [id number] [address] [place] [address] [place] PERFORMANCE CHARACTERISTICS Note Normal [facility] Comment on above: Order Comment: Speci men Type: URINE SPECIMEN Ordering Facility: [facility] Address: [address] [place] [address] Result Comment: ! Sex ! Accuracy: 99.4% [...] ! ! ! * As reported in [facility] database nstd37 [https://www.ncbi.nlm.nih.gov/dbvar/studies/nstd37/ ] # Estimated Sensitivity. [...] only. Performed By: #### 3 6902-5 #### [facility] CLIA [id number] [address] [place], [place] [address] [address] [place] POSITIVE PREDICTIVE VALUE N/A Normal [facility] Comment on above: Order Comment: Speci men Type: URINE SPECIMEN Ordering Facility: [facility] Address: [address] [place] [address] Performed By: #### 3 6902-5 #### [facility] CLIA [id number] [address] [place] [address] [place] Reference Lab Test Method Comment Normal [facility] Comment on above: Order Comment: Speci men Type: URINE SPECIMEN Ordering Facility: [facility] Address: [address] [place] [address] Result Comment: See Notes Circulating cell-free DNA [...] 22. Performed By: #### 3 6902-5 #### [facility] CLIA [id number] [address] [place] [address] [place] Service comment (Unsp spec) [Interp] Comment Normal [facility] Comment on above: Order Comment: Speci men Type: URINE SPECIMEN Ordering Facility: [facility] Address: [address] [place] [address] Result Comment: See Notes [employer] is a subsidiary of [employer], using the brand [employer]. This test was developed and its performance characteristics determined by [employer]. It has not been cleared or approved by the Food and Drug Administration. This laboratory is certified under the Clinical Laboratory Improvement Amendments (CLIA) as qualified to perform high complexity clinical laboratory testing and accredited by the [employer] ([employer]). If there is future clinical need for adding MaterniT GENOME testing, this specimen will be available until term. [facility] samples will not be retained beyond 60 days. [facility] patients will have to send a new sample for re-sequencing ([facility] Test Code: [id number]). Performed By: #### 3 6902-5 #### [facility] CLIA [id number] [address] [place] [address] [place] Sex Dosage of chromosome-specific cfDNA Nom (cfDNA) Comment Normal [facility] Comment on above: Order Comment: Speci men Type: URINE SPECIMEN Ordering Facility: [facility] Address: [address] [place] [address] Result Comment: Cons istent with Female Performed By: #### 3 6902-5 #### [facility] CLIA [id number] [address] [place] [address] [place] Test performance information James (Unsp spec) Comment Normal [facility] Comment on above: Order Comment: Speci men Type: URINE SPECIMEN Ordering Facility: [facility] Address: [address] [place] [address] Result Comment: The performance characteristics of the MaterniT(R) 21 PLUS laboratory-developed test (LDT) have been determined in a clinical validation study with women at increased risk for chromosomal aneuploidy.[1-4] Performed By: #### 3 6902-5 #### [facility] CLIA [id number] [address] [place] [address] [place] Trisomy 13 risk Dosage of chromosome-specific cfDNA Ql (cfDNA) [Interp] Negative Normal [facility] Comment on above: Order Comment: Speci men Type: URINE SPECIMEN Ordering Facility: [facility] Address: [address] [place] [address] Performed By: #### 3 6902-5 #### [facility] CLIA [id number] [address] [place] [address] [place] Trisomy 18 risk Dosage of chromosome-specific cfDNA Ql (Plasma cell-free+WBC DNA) [Interp] Negative Normal [facility] Comment on above: Order Comment: Speci men Type: URINE SPECIMEN Ordering Facility: [facility] Address: [address] [place] [address] Performed By: #### 3 6902-5 #### [facility] CLIA [id number] [address] [place] [address] [place] RBC PARAMETERS FOR HB IDon 0 - Erythrocyte distribution width (RBC) [Ratio] 13.4 % Normal 11.5-15.0 [facility] Comment on above: Order Comment: Speci men Type: SWAB Ordering Facility: [facility] Address: [address] [place] [address] Performed By: #### C VTV, BVAMP #### [facility] CLIA [id number] [address] [place] [address] [place] Hematocrit (Bld) [Volume fraction] 39.4 % Normal 36.0-46.0 [facility] Comment on above: Order Comment: Speci men Type: SWAB Ordering Facility: [facility] Address: [address] [place] [address] Performed By: #### C VTV, BVAMP #### [facility] CLIA [id number] [address] [place] [address] [place] Hemoglobin (Bld) [Mass/Vol] 12.9 g/dL Normal 11.5-15.5 [facility] Comment on above: Order Comment: Speci men Type: SWAB Ordering Facility: [facility] Address: [address] [place] [address] Performed By: #### C VTV, BVAMP #### [facility] CLIA [id number] [address] [place] [address] [place] MCH (RBC) [Entitic mass] 29.2 pg Normal 26.0-34.0 [facility] Comment on above: Order Comment: Speci men Type: SWAB Ordering Facility: [facility] Address: [address] [place] [address] Performed By: #### C VTV, BVAMP #### [facility] CLIA [id number] [address] [place] [address] [place] Order Comment: Speci men Type: URINE SPECIMEN Ordering Facility: [facility] Address: [address] [place] [address] Performed By: #### 3 6902-5 #### [facility] CLIA [id number] [address] [place] [address] [place] MCHC (RBC) [Mass/Vol] 32.7 g/dL Normal 30.5-36.0 [facility] Comment on above: Order Comment: Speci men Type: SWAB Ordering Facility: [facility] Address: [address] [place] [address] Performed By: #### C VTV, BVAMP #### [facility] CLIA [id number] [address] [place] [address] [place] MCV (RBC) [Entitic vol] 89.1 fL Normal 80.0-100.0 [facility] Comment on above: Order Comment: Speci men Type: SWAB Ordering Facility: [facility] Address: [address] [place] [address] Performed By: #### C VTV, BVAMP #### [facility] CLIA [id number] [address] [place] [address] [place] RBC (Bld) [#/Vol] 4.42 10*6/uL Normal 3.90-5.20 [facility] Comment on above: Order Comment: Speci men Type: SWAB Ordering Facility: [facility] Address: [address] [place] [address] Performed By: #### C VTV, BVAMP #### [facility] CLIA [id number] [address] [place] [address] [place] RUBELLA IGG ANTIBODYon 04-01 RUBELLA IGG AB, QUAL Positive Normal Positive [facility] Comment on above: Order Comment: Speci men Type: BLOOD SPECIMENOrdering Facility: [facility] Address: [address] [place] [address] Result Comment: The result suggests recent or past exposure to Rubella virus or history of Rubella vaccination. Positive result may also be seen due to presence of passively-transferred antibodies. Please correlate with patient's history. Performed By: #### R UBIGG ####[facility] [id number] [place] [address] [place] Reagin and Treponema pallidu m IgG and IgM [Interp]on 04-01-2024 T. pallidum IgG+IgM IA Ql (S) Non-Reactive Normal Nonreactive [facility] Comment on above: Order Comment: Speci men Type: URINE SPECIMEN Ordering Facility: [facility] Address: [address] [place] [address] Performed By: #### 3 6902-5 #### [facility] CLIA [id number] [address] [place] [address] [place] Reagin+T pallidum IgG+IgM Se rPl-Impon 04-01-2024 Reagin and Treponema pallidum IgG and IgM [Interp] Cannot exclude recent Treponemal infection if specimen collected within 7-10 days after appearance of suspect lesions or 2-3 weeks after an exposure. Clinical correlation is required. Normal [facility] Comment on above: Order Comment: Speci men Type: URINE SPECIMEN Ordering Facility: [facility] Address: [address] [place] [address] Performed By: #### 3 6902-5 #### [facility] CLIA [id number] [address] [place] [address] [place] T3Free SerPl-mCncon 04-01-19 25 Free T3 [Mass/Vol] 2.7 pg/mL Normal 2.3-4.1 [facility] Comment on above: Order Comment: Speci men Type: SWAB Ordering Facility: [facility] Address: [address] [place] [address] Performed By: #### C VTV, BVAMP #### [facility] CLIA [id number] [address] [place] [address] [place] TRICHOMONAS VAGINALIS NAATon 04-01-2024 T. vaginalis DNA SHERITA+probe Ql (Unsp spec) Not detected Normal Not detected [facility] Comment on above: Order Comment: Speci men Type: URINE SPECIMEN Ordering Facility: [facility] Address: [address] [place] [address] Performed By: #### 3 6902-5 #### [facility] CLIA [id number] [address] [place] [address] OF [facility] TYPE + SCREEN PRENATALon ABO A Normal [facility] Comment on above: Order Comment: Speci men Type: BLOOD SPECIMENOrdering Facility: [facility] Address: [address] [place] [address] Performed By: #### T SPN ####[facility] [id number] [place] [address] [place] Rh Nom (Bld) Positive Normal [facility] Comment on above: Order Comment: Speci men Type: BLOOD SPECIMENOrdering Facility: [facility] Address: [address] [place] [address] Performed By: #### T SPN ####[facility]LOOD BANKIA [id number] [address] OF [facility] TYPE AND SCREEN EXPIRATION 04/04/2024 23:59 Normal [facility] Comment on above: Order Comment: Speci men Type: BLOOD SPECIMENOrdering Facility: [facility] Address: [address] [place] [address] Performed By: #### T SPN ####[facility] BLO[facility] BANKCLIA [id number] [place] [address] [place] CNCOon 03-28-2024 CNCO Letter Text [facility] CNPRenee 03-28-2024 CNPN Telephone ([facility]) BILL BRAVO Alok ([id number]) 1985 F Date Time Provider Department 03/28/24 [...] Family Services. Please advise. Thank. Callback number: [phone] Lila Guajardo Allergies As of Date: 03/28/2024 (No Known Allergies) Date Reviewed: 03/25/2024 Reviewed by: Fiona Pierce, RN - Fully Assessed Prescriptions as of 03/28/2024 - prazosin HCl (PRAZOSIN ORAL) Take 2 mg by mouth daily at bedtime. - Hoeercec-Er-Clj-Fe-F A tab Take 1 tablet by mouth [...] Encounter Status:Closed by BRY WANG on 03/28/24 [id number][facility] 1985 F Date Time Provider Department 03/22/24 LA NENA EDMONDSON [facility] During your visit today, we recorded the following information about you: La Nena Edmondson MD 03/22/2024 7:55 PM Signed She had US today and confirmed to have an IUP. Her thyroid labs showed a probably hyperactive thyroid and she has to see lolita/Dr. Boy ZEPEDA. Referral placed. 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 Needs MFM appointment for a consult and first trimester US All orders placed. Thank you. Delisa Li RN 03/25/2024 8:48 AM Signed Called patient. No answer, LVM to call back. TRICE Lyn Tiffany, RN 2024 10:05 AM Signed Pt has NOB scheduled in [facility] for 03/28/24 Endo consult visit scheduled for [...] [O09.521] Order(s):CONSULT TO ENDOCRINOLOGY [9007] Order #: [id number]: 1 FUTURE OBSTETRIC ULTRASOUND [facility] [[id number]] Order #: [id number]: 1 FUTURE CONSULT TO MATERNAL MEDI [[id number]] Order #: [id number]: 1 FUTURE Prescriptions as of 2024 - prazosin HCl (PRAZOSIN ORAL) Take 2 mg by mouth daily at bedtime. - Kehklhbw-Qc-Riq-Fe-F A tab Take 1 tablet by mouth [...] Encounter Status:Closed by ELLY DOMINGO on 03/26/24 [facility] CNPN Telephone ([facility]) BILL BRAVO ([id number]) 1985 F Date Time Provider Department 03/22/24 LA NENA EDMONDSON [facility] During your visit today, we recorded the following information about you: La Nena Edmondson MD 03/22/2024 8:14 AM Signed Please let her know that the blood work we did on Monday due to delayed period and concerns with her thyroid came back showing that she is . She can do dating US today or monday if she wants. Shannon Carrillo, TRICE 03/22/2024 9:41 AM Signed I called the patient and there was no answer. She has viewed HCG results and is now scheduled for US today, 03/22 at [facility]. I left a voicemail for patient letting [...] [95] Primary Visit Diagnosis:Threatened [O20.0] Order(s):OBSTETRIC ULTRASOUND [facility] [[id number]] Order #: [id number]: 1 FUTURE Prescriptions as of 03/22/2024 - [...] Status:Closed by SHANNON CARRILLO on 03/22/24 Normal [facility] Examination level ultrasound on 03-22-2024 Indication Confirmation of intrauterine . Estimation of gestational age Impression - Single, live, intrauterine . - An intrauterine gestational sac with a yolk sac and pole is present. - Northrop rump length measurement is NOT consistent with [...] Read By: Jessenia Lamb M.D. MATERNAL MEDICINE [facility] Radiology Study observation (narrative) [facility] B-HCG SerPl-[place]Cn[place] 5 [place] [address].0 m[IU]/mL High <5.0 [facility] Comment on above: Order Comment: Speci men Type: BLOOD SPECIMENOrdering Facility: [facility] Address: [address] [place] [address] Result Comment: MCKENNA TITATIVE HCG NORMAL RANGES Weeks of Gestation (Weeks Since LMP) 3 Weeks (5.8-71.2 mIU/mL) 4 Weeks (9.5-750 mIU/mL) 5 Weeks (217-7138 mIU/mL) 6 Weeks (158-79630 mIU/mL) 7 Weeks (3697-890967 mIU/mL) 8 Weeks (55972-719907 mIU/mL) 9 Weeks (01516-288666 mIU/mL) 10 Weeks (33848-525649 mIU/mL) 12 Weeks (20455-398423 mIU/mL) Referenced to 4th IS of [facility] Performed By: #### 2 1198-7 ####[facility]CLIA [id number] [facility] [place] [address] [place] BACTERIAL VAGINOSIS NAATon 0 03-20-2024 Lactobacillus crispatus+gasseri+lexx enii + Gardnerella vaginalis + Atopobium vaginae rRNA SHERITA+probe Ql (Vag fld) Not detected Normal Not detected [facility] Comment on above: Order Comment: Speci men Type: SWAB Ordering Facility: [facility] Address: [address] [place] [address] Performed By: #### C VTV, BVAMP #### [facility] CLIA [id number] [address] [place] [address] [place] MARGOT/TRICHOMONAS NAATon 0 03-20-2024 C. glabrata RNA SHERITA+probe Ql (Vag fld) Not detected Normal Not detected [facility] Comment on above: Order Comment: Speci men Type: SWAB Ordering Facility: [facility] Address: [address] [place] [address] Performed By: #### C VTV, BVAMP #### [facility] CLIA [id number] [address] [place] [address] [place] Margot sp DNA SHERITA+probe Ql (Vag fld) Not detected Normal Not detected [facility] Comment on above: Order Comment: Speci men Type: SWAB Ordering Facility: [facility] Address: [address] [place] [address] Result Comment: The Margot species group target includes C. albicans, C. tropicalis, C. parapsilosis, and C. dubliniensis. Performed By: #### C VTV, BVAMP #### [facility] CLIA [id number] [address] [place] [address] [place] T. vaginalis DNA SHERITA+probe Ql (Unsp spec) Not detected Normal Not detected [facility] Comment on above: Order Comment: Speci men Type: SWAB Ordering Facility: [facility] Address: [address] [place] [address] Performed By: #### C VTV, BVAMP #### [facility] CLIA [id number] [address] [place] [address] [place] CNOVon 03-20-2024 [facility] ([id number][facility] 1985 F Date Time Provider Department 03/20/24 [...] last menstrual period was 01/16/2024 (exact date). 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 On exam thyroid is slightly enlarged Counseled She will see her PCP in 1-2 weeks and will do labs today. Declines Cx Wants testing for BV. Participation of a fellow, resident, medical student, or advanced practice provider student in performing the sensitive examination was discussed with the patient or authorized vaccine customer representative. The patient or authorized vaccine customer representative has agreed to proceed with the [...] of Onset Coronary Artery Disease Mother 52 [place] Alcohol/Drug Father Alcohol/Drug Sister Cancer Maternal Grandmother [...] HPV ordered. Reviewed and encouraged self-breast exam. 0941-4295 mg of calcium daily. Encourged a healthy [...] discharge [N89.8] Enlarged thyroid [E04.9] Order(s):RUDDY SCREENING [[id number]] Order #: [id number] FUTURE PAP TEST [SAT5131] Order #: [id number] HCG QUANTITATIVE [SQHCGQT] Order #: [id number] FUTURE MARGOT/TRICHOMONAS NAAT [SQCVTV] Order #: [id number] BACTERIAL VAGINOSIS NAAT [SQBVAMP] Order #: [id number] THYROID STIMULATING HORMONE [SQTSH] Order #: [id number] FUTURE T4 FREE/FREE THYROXINE [SQFT4] Order #: [id number] FUTURE Prescriptions as of 03/20/2024 - buPROPion [...] initial encounte* (more content not included)... Normal [facility] PAP TESTon 03-20-2024 ADEQUACY Satisfactory for interpretation. Normal [facility] Comment on above: Order Comment: Speci men Type: FLUID SPECIMENOrdering Facility: [facility] Address: [address] [place] [address] Performed By: #### L [id number] ####[facility] LABCLIA [id number] [place] [address] [place] CASE REPORT Normal [facility] Comment on above: Order Comment: Speci men Type: FLUID SPECIMENOrdering Facility: [facility] Address: [address] [place] [address] Result Comment: Gyne cologic Cytology Report Case: [id number] Authorizing Provider: La Nena Edmondson MD Collected: 03/20/2024 04:47 PM Ordering Location: CB/Gynecology Received: 03/21/2024 05:57 AM First Screen: Mili Coronado, CT, ASCP Rescreen: Katia Wise, CT, ASCP Specimen: Pap Test, ThinPrep, Cervix Performed By: #### L [id number] ####[facility] LABCLIA [id number] [place] [address] [place] CLINICAL HISTORY, CYTOLOGY, COPY CENTER ASSOCIATE Routine Exam Normal [facility] Comment on above: Order Comment: Speci men Type: FLUID SPECIMENOrdering Facility: [facility] Address: [address] [place] [address] Result Comment: Vagi nal Spotting Performed By: #### L [id number] ####[facility] LABCLIA [id number] [place] [address] [place] FINAL PERFORMING LAB [facility] Comment on above: Order Comment: Speci men Type: FLUID SPECIMENOrdering Facility: [facility] Address: [address] [place] [address] Result Comment: Tech nical component, car racer screening performed at [facility], [address] [place] [address] CLIA# [id number] Diagnostic interpretation performed at [facility], [address] [place] [address] CLIA# [id number] Procurement Analyst: Ahsan Kinney M.D. Performed By: #### L [id number] ####[facility] LABCLIA [id number] [place] [address] [place] INTERPRETATION, CYTOLOGY, COPY CENTER ASSOCIATE Normal [facility] Comment on above: Order Comment: Speci men Type: FLUID SPECIMENOrdering Facility: [facility] Address: [address] [place] [address] Result Comment: Nega tive for intraepithelial lesion or malignancy. at 0948 EST Performed By: #### L [id number] ####[facility] LABCLIA [id number] [place] [address] [place] LMP 01/16/2024 Normal [facility] Comment on above: Order Comment: Speci men Type: FLUID SPECIMENOrdering Facility: [facility] Address: [address] [place] [address] Performed By: #### L [id number] ####[facility] LABCLIA [id number] [place] [address] [place] PAP DISCLAIMER COMMENT The Pap Smear is a screening test for cervical cancer. False negative results occur with all screening tests, emphasizing the need for rescreening at recommended intervals, and clinical correlation. Normal [facility] Comment on above: Order Comment: Speci men Type: FLUID SPECIMENOrdering Facility: [facility] Address: [address] [place] [address] Performed By: #### L [id number] ####[facility] LABIA [id number] [place] [address] [place] PAP SLIDING JOINT MAKER COMMENT This specimen has been analyzed by the ThinPrep Imaging System, an automated imaging and review system, which assists the laboratory in evaluating cells on ThinPrep Pap tests. Following automated imaging, selected inman from every slide are reviewed by a car racer. Normal [facility] Comment on above: Order Comment: Speci men Type: FLUID SPECIMENOrdering Facility: [facility] Address: [address] [place] [address] Performed By: #### L [id number] ####[facility] LABIA [id number] [place] [address] [place] T4 Free SerPl-mCncon 025 Free T4 [Mass/Vol] 1.5 ng/dL Normal 0.9-1.7 [facility] Comment on above: Order Comment: Speci men Type: SWAB Ordering Facility: [facility] Address: [address] [place] [address] Performed By: #### C VTV, BVAMP #### [facility] CLIA [id number] [address] [place] [address] [place] TSH SerPl-aCncon 03-20-2024 TSH Qn 0.067 m[IU]/L Low 0.270-4.200 [facility] Comment on above: Order Comment: Speci men Type: SWAB Ordering Facility: [facility] Address: [address] [place] [address] Result Comment: If t he patient is , TSH reference range varies by gestational period: First Trimester (weeks 9-12): 0.180-2.990 mIU/L Second Trimester: 0.110-3.980 mIU/L Third Trimester: 0.480-4.710 mIU/L Lan Aragon et al. A Practical Approach for the Verifications and Determination of Site- and Trimester-Specific Reference Intervals for Thyroid Function tests in . Thyroid, 2019:29:3:412-420. Abisai Plata et al. 2017 Guidelines of the [place] Thyroid Association for the Diagnosis and Management of Thyroid Disease during and the . Thyroid, 2017:27:3:315-389. Performed By: #### C VTV, BVAMP #### [facility] CLIA [id number] [address] [place], [place] [address] [place] [address] [place] APAP 325MG/OXYCODONE 5MG [...] Tiwari RN - 09/10/2022 20:58 EDT Normal [facility] Comment on above: Order Comment: Check [...] findings as above. Electronically signed by: Derek Stcak MD 09/10/2022 1:57 PM CDT Technologist: PIPER Dictated By: DEREK STACK MD Signed By: DEREK STACK MD Signed Out: 09/10/22 14:57:52 Normal [facility] CT THORACIC SPINE WO CONTRAS Ton [...] STACK MD Signed Out: 09/10/22 14:57:52 Normal [facility] ED Adult Data - Texton 09-10 [...] have a medically restricted extremity? : No Sonai Ariza RN - 09/10/2022 13:06 EDT Problem List Problem List obtained from : Patient Sonia Ariza RN - 09/10/2022 13:06 EDT (As Of: 09/10/2022 13:08:03 EDT) Problems(Active) Anxiety (SNOMED CT :35346624 ) Name of Problem: Anxiety ; Recorder: Sonia Ariza RN; Confirmation: Confirmed ; Classification: Medical ; Code: [id number] ; Contributor System: [employer] ; Last Updated: 09/10/2022 13:07 EDT ; Life Cycle Date: 09/10/2022 ; Life Cycle Status: Active ; Vocabulary: SNOMED CT Depression (SNOMED CT :361360932 ) Name of Problem: Depression ; Recorder: Sonia Ariza RN; Confirmation: Confirmed ; Classification: Medical ; Code: [id number] ; Contributor System: Good EggsChart ; Last Updated: 09/10/2022 13:07 EDT ; Life Cycle Date: 09/10/2022 ; Life Cycle Status: Active ; Vocabulary: SNOMED CT EP (epilepsy) (SNOMED CT :115675725 ) Name of Problem: EP (epilepsy) ; Recorder: Sonia Ariza RN; Confirmation: Confirmed ; Classification: Medical ; Code: [id number] ; Contributor System: [employer] ; Last Updated: 09/10/2022 13:07 EDT ; Life Cycle Date: 09/10/2022 ; Life Cycle Status: Active ; Vocabulary: SNOMED CT Diagnoses(Active) Ankle injury - Minor Date: 09/10/2022 ; Diagnosis Type: Reason For Visit ; Confirmation: Confirmed ; Clinical Dx: Ankle injury - Minor ; Classification: Medical ; Clinical Service: Emergency medicine ; Code: PNED ; Probability: 0 ; Diagnosis Code: [id number] Procedure History ED Devices Present on Arrival [...] risk situation (congregated living, hemodialysis, infusion clinic, shelter, assisted living, jail, homeless alf, etc.)? : No Sonia Ariza RN - 09/10/2022 13:06 EDT Normal [facility] ED Discharge Educationon ED Discharge Education [...] 09/26/2011 Document Revised: 04/06/2017 Document Reviewed: 10/14/2015 [employer] Patient Education ? 2019 [employer] Orthopedics and Rheumatology Wearing a Splint: [...] removed, try blowing cool air from a hair stylist or fan into the splint to help relieve itching. Never stick items under your splint to scratch the skin. ? Do not use oils or lotions near your splint. If the skin becomes red or sore around the edge of the splint, you ma (more content not included)... Normal [facility] ED Emergency Severity Index Adult-Texton 09-10-2022 ED Emergency Severity Index Adult-Text CLAUDIA - Adult Entered On: 09/10/2022 12:17 EDT Performed On: 09/10/2022 12:16 EDT by Constance Knapp RN CLUADIA DCP GENERIC CODE Visit Reason : rt ankle/ lower leg injury Tracking Triage Date/Time : 09/10/2022 12:16 EDT Tracking Reg Status : Requested Tracking Acuity : [id number] Tracking Group : [id number] Tracking Constance Knapp RN - 09/10/2022 12:16 EDT Normal [facility] ED Nrsing Adlt Triage Sep Sc rning - Texton 09-10-2022 ED Nrsing Adlt Triage Sep Scrning - Text ED Nursing Adult Triage Sepsis Screening Tool Entered On: 09/10/2022 12:35 EDT Performed On: 09/10/2022 12:35 EDT by Sonia Ariza RN Adult Sepsis Screening Sepsis Infection Screening ED : No Sonia Ariza RN - 09/10/2022 12:35 EDT Normal [facility] ED Patient Summaryon 023 ED Patient Summary [facility] Emergency Department Discharge Instructions [id number] [place] [address] (Patient Copy) Name: LAWRENCEBILL HER : 1985 Allergies: No Known Medication Allergies Diagnosis: Acute thoracic myofascial strain; Cervical muscle strain; Sprain of ankle, right Visit Date: 09/10/2022 12:14:45 [facility]#: [id number] Current Date Time: 09/10/2022 21:05:08 Address: [address] [place] [address] Primary Care Provider: Name: LUCA PERSON Phone: Emergency Department Care Providers: Primary Physician: CHELSEY COE MD Thank you for choosing [facility] for your emergency care. You are very important to us. Our goal is to demonstrate our high quality medical care, and provide you with a very good patient experience. You may receive a survey about our service. Please take the time to complete the survey and return it so we can continue to enhance our service. Thank you again for allowing the [facility] Emergency Department to care for your medical needs. If you have questions about your care or follow up information please contact us at [phone]. Follow-Up Instructions BILL BRAVO has been given these follow-up instructions: With: Address: When: AIDEN LOPEZ, Orthopedic Surgery [address] [place] [address], [facility] [address] [place] [address] [facility] () Within 3 to 5 days With: Address: [...] removed, try blowing cool air from a hair stylist or fan into the splint to help [...] doctor ginger (more content not included)... Normal [facility] ED Physician Reporton 2022 ED Physician Report Basic Information Time Seen: 1330[] Arrival Mode: Walk-In [] History Source: Patient _ _ [] History limitation: None [] History of Present Illness Patient presents to the emergency department for evaluation of injury suffered in a fall down the side of a slope into a [place] 2 days ago. Patient states she slid down the embankment of a [place] approximately 15 feet and then twisted her ankle in the [place] at the bottom. Patient states she went [...] take f (more content not included)... Normal [facility] ED Progress Noteon ED Progress Note Late entry Patient here with right ankle injury Patient states she was seen at an urgent care but has not had any relief. Patient examined by Dillon GOMEZ a provided with ankle stirrup splint and crutches and discharged home Understands plan of care and will follow up as discussed Normal [facility] ED Triage Adult-Texton 09-10 ED Triage [...] PNED ; Probability: 0 ; Diagnosis Code: [id number] (As Of: 09/10/2022 12:34:07 EDT) Allergies (Active) [...] Ariza RN - 09/10/2022 12:33 EDT Normal [facility] Vascular Lab Reporton 2022 Vascular Lab Report PRELIMINARY VASCULAR REPORT: VENOUS DUPLEX COMPLETED. MD REPORT TO FOLLOW NO EVIDENCE OF ACUTE DVT IN THE RIGHT LOWER EXTREMITY LEFT COMMON FEMORAL VEIN APPEARS PATENT Normal [facility] No Panel Informationon 09-09 IMPRESSION: No acute osseous abnormality Food Safety Coordinator: SHERINE Transcribe Date/Time: Sep 09 2022 3:56P Dictated by : EZ ABBOTT MD This examination was interpreted and the report reviewed and electronically signed by: EZ ABBOTT MD on Sep 09 2022 3:58PM [facility] DIVISION OF RADIOLOGY Radiology Study observation (narrative) [facility] No Panel InformationOrdered By: Ccf Provider on 09-09-2022 [facility] XR Foot - right AP and Later [...] AP/LAT/OBL RT -- RIGHT with 2 (accession [id number]), 3 (accession [id number]) views on 2 (accession [id number]), 3 (accession [id number]) images Comparison: None RESULT: X-ray right tibia/fibula: No acute fracture or dislocation. Joint spaces are maintained. X-ray right foot: No acute fracture or dislocation. Joint spaces are maintained. DIVISION OF RADIOLOGY Provider, [facility] [place] - 09/09/2022 * * *Final Report* * [...] AP/LAT/OBL RT -- RIGHT with 2 (accession [id number]), 3 (accession [id number]) views on 2 (accession [id number]), 3 (accession [id number]) images Comparison: None RESULT: X-ray right tibia/fibula: No acute fracture or dislocation. Joint spaces are maintained. X-ray right foot: No acute fracture or dislocation. Joint spaces are maintained. IMPRESSION IMPRESSION: No acute osseous abnormality Food Safety Coordinator: [facility] Transcribe Date/Time: Sep 09 2022 3:56P Dictated by : EZ ABBOTT MD This examination was interpreted and the report reviewed and electronically signed by: EZ ABBOTT MD on Sep 09 2022 3:58PM [facility] XR Tibia and Fibula - right AP [...] AP/LAT/OBL RT -- RIGHT with 2 (accession [id number]), 3 (accession [id number]) views on 2 (accession [id number]), 3 (accession [id number]) images Comparison: None RESULT: X-ray right tibia/fibula: No acute fracture or dislocation. Joint spaces are maintained. X-ray right foot: No acute fracture or dislocation. Joint spaces are maintained. DIVISION OF RADIOLOGY Provider, [facility] [place] - 09/09/2022 * * *Final Report* * [...] AP/LAT/OBL RT -- RIGHT with 2 (accession [id number]), 3 (accession [id number]) views on 2 (accession [id number]), 3 (accession [id number]) images Comparison: None RESULT: X-ray right tibia/fibula: No acute fracture or dislocation. Joint spaces are maintained. X-ray right foot: No acute fracture or dislocation. Joint spaces are maintained. IMPRESSION IMPRESSION: No acute osseous abnormality Food Safety Coordinator: [facility] Transcribe Date/Time: Sep 09 2022 3:56P Dictated by : EZ ABBOTT MD This examination was interpreted and the report reviewed and electronically signed by: EZ ABBOTT MD on Sep 09 2022 3:58PM [facility] Absolute lymphocyte counton 06-07-2021 Lymphocytes Auto (Unsp spec) [#/Vol] 2.12 10*3/uL 0.83-4.51 [facility] Work Phone: Basophil percentageon 2021 Basophils/100 WBC (Bld) 0.4 % 0-1 [facility] Work Phone: Chloride [Moles/Vol] 105 mmol/L 98-107 [facility] Work Phone: Eosinophils/100 WBC (Bld) 0.8 % 0-5 [facility] Work Phone: Glucose [Mass/Vol] 123 mg/dL 74-106 [facility] Work Phone: Comment on above: Fasting Glucose resu lt from 100 to 125 mg/dL suggests IMPAIRED HOMEOSTASIS per A.D.A. criteria. Neutrophils (Bld) [#/Vol] 9.7 10*3/uL 2.0-7.7 [facility] Work Phone: Neutrophils/100 WBC (Bld) 77.3 % 47-70 [facility] Work Phone: Potassium [Moles/Vol] 3.4 mmol/L 3.5-5.1 [facility] Work Phone: Sodium [Moles/Vol] 136 mmol/L 136-145 [facility] Work Phone: WBC (Bld) [#/Vol] 12.6 10*3/uL 4.4-11.[address] [facility] Work Phone: Blood erythrocytes count (nu mber/volume)on 06-07-2021 RBC (Bld) [#/Vol] 4.36 10*6/uL 4.2-5.[address] [facility] Work Phone: Blood hemoglobin measurement (mass/volume)on 06-07-2021 Hemoglobin (Bld) [Mass/Vol] 13.3 g/dL 12.0-15.0 [facility] Work Phone: Blood lymphocytes/100 leukoc yteson 06-07-2021 Lymphocytes/100 WBC (Bld) 16.8 % 19-41 [facility] Work Phone: Blood monocytes/100 leukocyt eson 06-07-2021 Monocytes/100 WBC (Bld) 3.6 % 0-10 [facility] Work Phone: Blood platelet mean volumeon 06-07-2021 Platelet mean volume (Bld) [Entitic vol] 9.0 fL 6.2-12.0 [facility] Work Phone: Determination of erythrocyte mean corpuscular volume (MCV)on 06-07-2021 MCV (RBC) [Entitic vol] 91.7 fL 81-99 [facility] Work Phone: Hematocrit Auto (Bld) [Volum e fraction]on 06-07-2021 Hematocrit (Bld) [Volume fraction] 40.0 % 37-47 [facility] Work Phone: Laboratory - Chemistry and C hemistry - challengeon 06-07-2021 CO2 [Moles/Vol] 17.0 mmol/L 21.0-32.0 [facility] Work Phone: Urea nitrogen/Creatinine [Mass ratio] 21.8 mg/mg 10-20 [facility] Work Phone: Laboratory - Hematology and Cell countson 06-07-2021 Erythrocyte distribution width (RBC) [Entitic vol] 42.0 fL 35.1-43.9 [facility] Work Phone: Erythrocyte distribution width (RBC) [Ratio] 12.4 % 11.6-14.6 [facility] Work Phone: Immature granulocytes/100 WBC (Bld) 1.100 % 0.0-0.9 [facility] Work Phone: Comment on above: IG% - Immature Granu locytes (promyelocytes, myelocytes and metamyelocytes) > 1% indicates that a LEFT SHIFT is Present. MCH (RBC) [Entitic mass] 30.5 pg 27.0-32.0 [facility] Work Phone: Nucleated RBC/100 WBC (Bld) [Ratio] 0 % 0-5 [facility] Work Phone: MCHC Auto (RBC) [Mass/Vol]on 06-07-2021 MCHC (RBC) [Mass/Vol] 33.3 g/dL 32-36 [facility] Work Phone: No Panel Informationon 06-07 Estimated Creatinine Clearance Calc 131.41 ml/min [facility] Work Phone: Estimated GFR (MDRD) Amer 135 mL/min >60 [facility] Work Phone: Comment on above: GFR Calc Estimated GFR (MDRD) Non-Af Amer 111 mL/min >60 [facility] Work Phone: Comment on above: Non- GFR Calc Troponin I High Sensitivity 18 pg/mL 3.0-54.0 [facility] Work Phone: Comment on above: Please Note: [place] t Units and Gender Specific Reference Ranges. For more information see Policy Stat Procedure [place] High Sensitivity Troponin (TNIH) and attachments. Platelets bldon 06-07-2021 Platelets (Bld) [#/Vol] 288 10*3/uL 150-450 [facility] Work Phone: Serum or plasma calcium danny urement (mass/volume)on 06-07-2021 Calcium [Mass/Vol] 8.9 mg/dL 8.5-10.1 [facility] Work Phone: Serum or plasma creatinine m easurement (mass/volume)on 06-07-2021 Creatinine [Mass/Vol] 0.64 mg/dL 0.55-1.02 [facility] Work Phone: Comment on above: The validity of the calculated GFR & GFRAA in patients over 70 years has not been determined. Clinical correlation is essential. Serum or plasma urea nitroge n measurement (mass/volume)on 06-07-2021 Urea nitrogen [Mass/Vol] 14 mg/dL 7-18 [facility] Work Phone: Thin prep Papanicolaou smear with manual screeningon 06-07-2021 Thin prep Papanicolaou smear with manual screening 14 5-15 [facility] Work Phone: XR Foot - right AP and Later al and obliqueon 03-04-2020 IMPRESSION: No acute osseous abnormality identified. No radiopaque foreign body identified. Food Safety Coordinator: SHERINE Transcribe Date/Time: Mar 04 2020 1:13P Dictated by : VERÓNICA GILBERT MD This examination was interpreted and the report reviewed and electronically signed by: VERÓNICA GILBERT MD on Mar 04 2020 1:16PM [facility] DIVISION OF RADIOLOGY * * *Final [...] tissue abnormality identified. DIVISION OF RADIOLOGY Provider, [facility] [place] - 03/04/2020 * * *Final Report* * [...] abnormality identified. No radiopaque foreign body identified. Food Safety Coordinator: [facility] Transcribe Date/Time: Mar 04 2020 1:13P Dictated by : VERÓNICA GILBERT MD This examination was interpreted and the report reviewed and electronically signed by: VERÓNICA GILBERT MD on Mar 04 2020 1:16PM [facility] Radiology Study observation (narrative) [facility] XR Foot - right AP and Later al and obliqueOrdered By: Cc Provider on 03-04-2020 [facility] Acetaminophenon 06-13-2018 Acetaminophen [Mass/Vol] <1 Low 10-30 [facility] Comment on above: Performed By: #### L ACTM #### [facility] [address] [place] [address] Alcohol, Bloodon 06-13-2018 Alcohol, Blood <10 Normal <10 [facility] Comment on above: Performed By: #### L CBC #### [facility] [address] [place] [address] Comprehensive Panelon 2018 Anion gap [Moles/Vol] 13 mmol/L Normal 8-20 [facility] Comment on above: Performed By: #### L P14 #### [place] [address] Chloride [Moles/Vol] 103 mmol/L Normal 98-109 [facility] Comment on above: Result Comment: Test ing performed on an [place] i-STAT. Performed By: #### L P14 #### [place] [address] Potassium [Moles/Vol] 4.1 mmol/L Normal 3.5-4.9 [facility] Comment on above: Result Comment: Test ing performed on an [place] i-STAT. Performed By: #### L P14 #### [place] [address] Sodium [Moles/Vol] 138 mmol/L Normal 138-146 [facility] Comment on above: Result Comment: Test ing performed on an [place] i-STAT. Performed By: #### L P14 #### [facility] [address] [place] [address] Albumin [Mass/Vol] 3.4 g/dL Normal 3.4-5.0 [facility] Comment on above: Performed By: #### L P14 #### [place] [address] ALP [Catalytic activity/Vol] 78 U/L Normal 46-116 [facility] Comment on above: Performed By: #### L P14 #### [address] [place] [address] ALT-SGPT Blood 15 U/L Normal 14-63 [facility] Comment on above: Performed By: #### L P14 #### [facility] [address] [place], [place] [address] AST-SGOT Blood 11 U/L Low 15-37 [facility] Comment on above: Performed By: #### L P14 #### [facility] [address] [place], [place] [address] Bilirubin Ql (U) 0.3 mg/dL Normal 0.2-1.0 [facility] Comment on above: Performed By: #### L P14 #### [facility] [address] [place], [place] [address] Calcium [Mass/Vol] 8.8 mg/dL Normal 8.5-10.1 [facility] Comment on above: Performed By: #### L P14 #### [facility] [address] [place] [address] CO2 Blood 26 mEq/L Normal 21-32 [facility] Comment on above: Performed By: #### L P14 #### [facility] [address] [place], [place] [address] Creatinine [Mass/Vol] 0.65 mg/dL Normal 0.51-0.95 [facility] Comment on above: Performed By: #### L P14 #### [facility] [address] [place], [place] [address] Glucose [Mass/Vol] 101 mg/dL High 70-99 [facility] Comment on above: Performed By: #### L P14 #### [facility] [address] [place], [place] [address] Protein [Mass/Vol] 6.7 g/dL Normal 6.4-8.2 [facility] Comment on above: Performed By: #### L P14 #### [facility] [address] [place], [place] [address] Urea nitrogen [Mass/Vol] 10 mg/dL Normal 7-25 [facility] Comment on above: Performed By: #### L P14 #### [address] [address] Urea nitrogen/Creatinine [Mass ratio] 15 mg/mg Normal 10-20 [facility] Comment on above: Performed By: #### L P14 #### [place] [address] HCG,Totalon 06-13-2018 HCG Qn m[IU]/mL Normal [facility] Comment on above: Result Comment: Male <2 Non- female <6 female 0-1 Week 0 - 50 1-2 Weeks 40 - 300 2-3 Weeks 100 - 1000 3-4 Weeks 500 - 6000 1-2 Months 5000 - 330471 2-3 Months [address] - [id number] 2nd Trimester 3000 - [address] The concentration of hCG in maternal serum rises rapidly in early . hCG levels less than 25 mIU/mL do NOT exclude . A further sample should be tested after 48 hours if is suspected. Performed By: #### L HCG #### [place] [address] Hemogramon 06-13-2018 Erythrocyte distribution width (RBC) [Ratio] 13.2 % Normal 11.5-15.9 [facility] Comment on above: Performed By: #### L CBC #### [place] [address] Hematocrit (Bld) [Volume fraction] 37.4 % Normal 37.0-47.0 [facility] Comment on above: Performed By: #### L CBC #### [place] [address] Hemoglobin (Bld) [Mass/Vol] 12.2 g/dL Normal 12.0-16.0 [facility] Comment on above: Performed By: #### L CBC #### [place] [address] MCH (RBC) [Entitic mass] 29.0 pg Normal 27.0-31.0 [facility] Comment on above: Performed By: #### L CBC #### [place] [address] MCHC (RBC) [Mass/Vol] 32.6 % Normal 32.0-36.0 [facility] Comment on above: Performed By: #### L CBC #### [facility] [address] [place], [place] [address] MCV (RBC) [Entitic vol] 89.0 fL Normal 81.0-99.0 [facility] Comment on above: Performed By: #### L CBC #### [facility] [address] [place], [place] [address] Platelet mean volume (Bld) [Entitic vol] 9.0 fL Normal 7.1-10.5 [facility] Comment on above: Performed By: #### L CBC #### [facility] [address] [place], [place] [address] Platelets (Bld) [#/Vol] 316 thou/cmm Normal 150-400 [facility] Comment on above: Performed By: #### L CBC #### [place] [address] RBC (Bld) [#/Vol] 4.20 mil/cmm Normal 4.20-5.40 [facility] Comment on above: Performed By: #### L CBC #### [facility] [address] [place] [address] WBC (Bld) [#/Vol] 19.6 thou/cmm High 4.8-10.5 [facility] Comment on above: Performed By: #### L CBC #### [place] [address] Lactic acidon 06-13-2018 Lactate [Moles/Vol] 1.1 mmol/L Normal 0.4-2.0 [facility] Comment on above: Performed By: #### L CBC #### [facility] [address] [place], [place] [address] MDRD eGFRon 06-13-2018 GFR/1.73 sq M predicted among non-blacks MDRD (S/P/Bld) [Vol rate/Area] mL/min/{1.73_m2} Normal >60mL/min/1.73 m2 [facility] Comment on above: Result Comment: If t he patient is , multiply the result by 1.210. Performed By: #### L GFR #### [place] [address] Protimeon 06-13-2018 INR Coag (PPP) [Relative time] 1.01 {INR} Normal 0.90-1.30 [facility] Comment on above: Result Comment: Note : Reference Range Change Vitamin K Antagonist (VKA) Therapeutic Range: INR 2 to 3 (Target INR of 2.5) Note: For patients treated with VKA drugs, such as warfarin, the [employer] 2012 Guideline recommends [...] GH, et al. Chest 2012; 141:7S-47S Leno RA, et al. JACC 2017; 70: 252-289 Performed By: #### L CBC #### [place] [address] PT Coag (PPP) [Time] 10.3 s Normal 9.7-13.0 [facility] Comment on above: Result Comment: . Performed By: #### L CBC #### [place] [address] Salicylateon 06-13-2018 Salicylate 4.4 mg/dL Normal 2.8-20.0 [facility] Comment on above: Performed By: #### L EDITH #### [place] [address] Troponin Ion 06-13-2018 Troponin I.cardiac [Mass/Vol] ng/mL Normal <=0.07 [facility] Comment on above: Performed By: #### L TRP #### [address] [place] [address] Urinalysis Routineon 019 Appearance (U) CLEAR Normal [facility] Comment on above: Performed By: #### L URIN #### [facility] [address] [place] [address] Bilirubin Urine Negative Normal Negative [facility] Comment on above: Performed By: #### L URIN #### [facility] [address] [place] [address] Color (U) YELLOW Normal [facility] Comment on above: Performed By: #### L URIN #### [facility] [address] [place] [address] Ep Cells Urine 0-2 Normal 0-5 [facility] Comment on above: Performed By: #### L URIN #### [place] [address] Glucose Ql (U) Negative Normal Negative [facility] Comment on above: Performed By: #### L URIN #### [place] [address] Hemoglobin,Urine TRACE-INTACT Abnormal Negative [facility] Comment on above: Performed By: #### L URIN #### [place] [address] Ketone Urine Negative Normal Negative [facility] Comment on above: Performed By: #### L URIN #### [place] [address] Leukocytes Esterase Negative Normal Negative [facility] Comment on above: Performed By: #### L URIN #### [place] [address] Nitrites Urine Negative Normal Negative [facility] Comment on above: Performed By: #### L URIN #### [place] [address] pH (U) 7.0 [pH] Normal 5.0-8.0 [facility] Comment on above: Performed By: #### L URIN #### [place] [address] Protein (U) [Mass/Vol] Negative Normal Negative [facility] Comment on above: Performed By: #### L URIN #### [place] [address] RBC LM.HPF (Urine sed) [#/Area] 0-3 Normal 0-3 [facility] Comment on above: Performed By: #### L URIN #### [place] [address] Specific [place], Ur <=1.005 Normal 1.005-1.030 [facility] Comment on above: Performed By: #### L URIN #### [place] [address] Urobilinogen,Ur 0.2 EU/dL Normal 0.2-1.0 [facility] Comment on above: Performed By: #### L URIN #### [place] [address] WBC LM.HPF (Urine sed) [#/Area] NONE Normal 0-5 [facility] Comment on above: Performed By: #### L URIN #### [place] [address] Urine Drug Screenon 06-14-19 19 Urine Amphetamine Non-Detected Normal Non-Detected [facility] Comment on above: Performed By: #### L UDR2 #### [place] [address] Urine Barbiturates Non-Detected Normal Non-Detected [facility] Comment on above: Performed By: #### L UDR2 #### [place] [address] Urine Benzodiazepine Non-Detected Normal Non-Detected [facility] Comment on above: Performed By: #### L UDR2 #### [place] [address] Urine Buprenorphine Non-Detected Normal Non-Detected [facility] Comment on above: Result Comment: Urin e [...] medical diagnostic purposes only. Testing Performed at: [place] [address] Performed By: #### L UDR2 #### [place] [address] Urine Cocaine Non-Detected Normal Non-Detected [facility] Comment on above: Performed By: #### L UDR2 #### [place] [address] Urine Methadone Non-Detected Normal Non-Detected [facility] Comment on above: Performed By: #### L UDR2 #### [place] [address] Urine Methamphetamine Non-Detected Normal Non-Detected [facility] Comment on above: Performed By: #### L UDR2 #### [place] [address] Urine Opiate Non-Detected Normal Non-Detected [facility] Comment on above: Performed By: #### L UDR2 #### [place] [address] Urine Oxycodone Non-Detected Normal Non-Detected [facility] Comment on above: Performed By: #### L UDR2 #### [facility] [address] [place] [address] Urine PCP Non-Detected Normal Non-Detected [facility] Comment on above: Performed By: #### L UDR2 #### [place] [address] Urine Propoxyphene Non-Detected Normal Non-Detected [facility] Comment on above: Performed By: #### L UDR2 #### [facility] [address] [place], [place] [address] Urine THC see below Normal Non-Detected [facility] Comment on above: Result Comment: Dete cted (unconfirmed) Performed By: #### L UDR2 #### [facility] [address] [place], [place] [address] Urine Tricyclics Non-Detected Normal Non-Detected [facility] Comment on above: Performed By: #### L UDR2 #### [facility] [address] [place], [place] [address] CT HEAD W/O CONTRASTon 11-15 CT HEAD W/O CONTRAST Performed at [facility] APPROVED BY: Enrique Saenz MD [...] unenhanced CT brain. Follow-up as indicated. Normal [facility] Vital Signs Date Time Vital Sign Value Performing Clinician Avai shabana 09-27-2024 19:27-0400 Body temperature 98.1 [degF] Etta Merchant [employer] Work Phone: [facility] 09-27-2024 19:27-0400 Diastolic blood pressure 66 mm[Hg] Etta Merchant [employer] Work Phone: [facility] 09-27-2024 19:27-0400 Heart rate 78 /min Etta Laneden [employer] Work Phone: [facility] 09-27-2024 19:27-0400 Respiratory rate 16 /min Etta Laneden [employer] Work Phone: [facility] 09-27-2024 19:27-0400 Systolic blood pressure 109 mm[Hg] Etta Laneden [employer] Work Phone: [facility] 09-27-2024 19:00-0400 Body height 177.8 cm Etta Laneden [employer] Work Phone: [facility] 09-27-2024 19:00-0400 Body mass index (BMI) [Ratio] 28.7 kg/m2 Etta Laneden [employer] Work Phone: [facility] 09-27-2024 19:00-0400 Body weight 90.71 kg Etta Laneden FIELD MERCHANDISER-C Work Phone: [facility] 09-25-2024 11:09-0400 Body mass index (BMI) [Ratio] 28.55 kg/m2 Bandar Cordova MD Work Phone: [facility] 09-25-2024 11:09-0400 Body weight 90.27 kg Bandar Cordova MD Work Phone: [facility] 09-25-2024 11:09-0400 Diastolic blood pressure 62 mm[Hg] Bandar Cordova MD Work Phone: [facility] 09-25-2024 11:09-0400 Systolic blood pressure 124 mm[Hg] Bandar Cordova MD Work Phone: [facility] 09-11-2024 14:28-0400 Body mass index (BMI) [Ratio] 28.09 kg/m2 Jaspal Sykes APRN.WET CLEANER 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 Phone: [facility] 09-11-2024 14:28-0400 Body weight 88.81 kg Jaspal Sykes APRN.WET CLEANER 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 Phone: [facility] 09-11-2024 14:28-0400 Diastolic blood pressure 80 mm[Hg] Jaspal Mony MEDICAL FIELD REPRESENTATIVE.WET CLEANER 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 Phone: [facility] 09-11-2024 14:28-0400 Systolic blood pressure 124 mm[Hg] Jaspal Maesoni MEDICAL FIELD REPRESENTATIVE.WET CLEANER 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 Phone: [facility] 08-27-2024 10:49-0400 Body mass index (BMI) [Ratio] 27.26 kg/m2 Bimal Patel MD Work Phone: [facility] 08-27-2024 10:49-0400 Body weight 86.18 kg Bimal Patel MD Work Phone: [facility] 08-27-2024 10:49-0400 Diastolic blood pressure 70 mm[Hg] Bimal Patel MD Work Phone: [facility] 08-27-2024 10:49-0400 Systolic blood pressure 124 mm[Hg] Bimal Patel MD Work Phone: [facility] 08-15-2024 09:41-0400 Body mass index (BMI) [Ratio] 26.69 kg/m2 Rosalba Espinosa MD Work Phone: [facility] 08-15-2024 09:41-0400 Body weight 84.37 kg Rosalba Espinosa MD Work Phone: [facility] 08-15-2024 09:41-0400 Diastolic blood pressure 66 mm[Hg] Rosalba Espinosa MD Work Phone: [facility] 08-15-2024 09:41-0400 Systolic blood pressure 128 mm[Hg] Rosalba Espinosa MD Work Phone: [facility] 08-01-2024 10:12-0400 Body mass index (BMI) [Ratio] 26.26 kg/m2 Penelope Spears MEDICAL FIELD REPRESENTATIVE.CNM Work Phone: [facility] 08-01-2024 10:12-0400 Body weight 83.01 kg Penelope Spears MEDICAL FIELD REPRESENTATIVE.CNM Work Phone: [facility] 08-01-2024 10:12-0400 Diastolic blood pressure 64 mm[Hg] Penelope Plotts MEDICAL FIELD REPRESENTATIVE.CNM Work Phone: [facility] 08-01-2024 10:12-0400 Systolic blood pressure 110 mm[Hg] Penelope Plotts MEDICAL FIELD REPRESENTATIVE.CNM Work Phone: [facility] 07-31-2024 09:06-0400 Body mass index (BMI) [Ratio] 26.32 kg/m2 Genet Praisler-Wood MEDICAL FIELD REPRESENTATIVE.WET CLEANER 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 Phone: [facility] 07-31-2024 09:06-0400 Body temperature 98.1 [degF] Genet Praisler-Wood MEDICAL FIELD REPRESENTATIVE.WET CLEANER 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 Phone: [facility] 07-31-2024 09:06-0400 Body weight 83.2 kg Genet Praisler-Wood MEDICAL FIELD REPRESENTATIVE.WET CLEANER 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 Phone: [facility] 07-31-2024 09:06-0400 Diastolic blood pressure 64 mm[Hg] Genet Praisler-Wood MEDICAL FIELD REPRESENTATIVE.WET CLEANER 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 Phone: [facility] 07-31-2024 09:06-0400 Heart rate 108 /min Genet Praisler-Wood MEDICAL FIELD REPRESENTATIVE.WET CLEANER 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 Phone: [facility] 07-31-2024 09:06-0400 Respiratory rate 21 /min Genet Praisler-Wood MEDICAL FIELD REPRESENTATIVE.WET CLEANER 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 Phone: [facility] 07-31-2024 09:06-0400 SaO2% (BldA) [Mass fraction] 98 % Genet Praisler-Wood MEDICAL FIELD REPRESENTATIVE.WET CLEANER 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 Phone: [facility] 07-31-2024 09:06-0400 Systolic blood pressure 126 mm[Hg] Genet Praisler-Wood MEDICAL FIELD REPRESENTATIVE.WET CLEANER 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 Phone: [facility] 07-18-2024 10:16-0400 Body mass index (BMI) [Ratio] 25.68 kg/m2 Rosalba Espinosa MD Work Phone: [facility] 07-18-2024 10:16-0400 Body weight 81.19 kg Rosalba Espinosa MD Work Phone: [facility] 07-18-2024 10:16-0400 Diastolic blood pressure 62 mm[Hg] Rosalba Espinosa MD Work Phone: [facility] 07-18-2024 10:16-0400 Systolic blood pressure 118 mm[Hg] Rosalba Espinosa MD Work Phone: [facility] 06-25-2024 10:27-0400 Body mass index (BMI) [Ratio] 23.93 kg/m2 Bimal Patel MD Work Phone: [facility] 06-25-2024 10:27-0400 Body weight 75.66 kg Bimal Patel MD Work Phone: [facility] 06-25-2024 10:27-0400 Diastolic blood pressure 60 mm[Hg] Bimal Patel MD Work Phone: [facility] 06-25-2024 10:27-0400 Systolic blood pressure 100 mm[Hg] Bimal Patel MD Work Phone: [facility] 05-28-2024 11:29-0400 Body mass index (BMI) [Ratio] 22.5 kg/m2 Bimal Patel MD Work Phone: [facility] 05-28-2024 11:29-0400 Body weight 71.12 kg Bimal Patel MD Work Phone: [facility] 05-28-2024 11:29-0400 Diastolic blood pressure 62 mm[Hg] Bimal Patel MD Work Phone: [facility] 05-28-2024 11:29-0400 Systolic blood pressure 110 mm[Hg] Bimal Patel MD Work Phone: [facility] 05-02-2024 09:38-0400 Body height 177.8 cm Etta Merchant APRN.CNP Work Phone: [facility] 05-02-2024 09:38-0400 Body mass index (BMI) [Ratio] 20.95 kg/m2 Etta Queden MEDICAL FIELD REPRESENTATIVE.WET CLEANER 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 Phone: [facility] 05-02-2024 09:38-0400 Body temperature 98.1 [degF] Etta Queden MEDICAL FIELD REPRESENTATIVE.WET CLEANER 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 Phone: [facility] 05-02-2024 09:38-0400 Body weight 66.22 kg Etta Queden MEDICAL FIELD REPRESENTATIVE.WET CLEANER 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 Phone: [facility] 05-02-2024 09:38-0400 Diastolic blood pressure 62 mm[Hg] Etta Queden MEDICAL FIELD REPRESENTATIVE.WET CLEANER 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 Phone: [facility] 05-02-2024 09:38-0400 Heart rate 92 /min Etta Queden MEDICAL FIELD REPRESENTATIVE.WET CLEANER 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 Phone: [facility] 05-02-2024 09:38-0400 Respiratory rate 18 /min Etta Queden MEDICAL FIELD REPRESENTATIVE.WET CLEANER 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 Phone: [facility] 05-02-2024 09:38-0400 SaO2% (BldA) [Mass fraction] 66 % Etta Queden MEDICAL FIELD REPRESENTATIVE.WET CLEANER 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 Phone: [facility] 05-02-2024 09:38-0400 Systolic blood pressure 114 mm[Hg] Etta Queden MEDICAL FIELD REPRESENTATIVE.WET CLEANER 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 Phone: [facility] 04-30-2024 10:55-0400 Body mass index (BMI) [Ratio] 20.83 kg/m2 Bimal Patel MD Work Phone: [facility] 04-30-2024 10:55-0400 Body weight 65.86 kg Bimal Patel MD Work Phone: [facility] 04-30-2024 10:55-0400 Diastolic blood pressure 60 mm[Hg] Bimal Patel MD Work Phone: [facility] 04-30-2024 10:55-0400 Systolic blood pressure 110 mm[Hg] Bimal Patel MD Work Phone: [facility] 04-30-2024 10:22-0400 Body mass index (BMI) [Ratio] 20.83 kg/m2 i [facility] 04-30-2024 10:22-0400 Body weight 65.86 kg i [facility] 04-01-2024 11:02-0500 Body height 177.8 cm Jaspal Tusoni MEDICAL FIELD REPRESENTATIVE.WET CLEANER 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 Phone: [facility] 04-01-2024 11:02-0500 Body mass index (BMI) [Ratio] 18.94 kg/m2 Jaspal Haury MEDICAL FIELD REPRESENTATIVE.WET CLEANER 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 Phone: [facility] 04-01-2024 11:02-0500 Body weight 59.88 kg Jaspal Haury MEDICAL FIELD REPRESENTATIVE.WET CLEANER 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 Phone: [facility] 04-01-2024 11:02-0500 Diastolic blood pressure 62 mm[Hg] Jaspal Haury MEDICAL FIELD REPRESENTATIVE.WET CLEANER 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 Phone: [facility] 04-01-2024 11:02-0500 Systolic blood pressure 122 mm[Hg] Jaspal Haury MEDICAL FIELD REPRESENTATIVE.WET CLEANER 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 Phone: [facility] 03-25-2024 11:29-0500 Diastolic blood pressure 67 mm[Hg] Jessenia Lamb MD Work Phone: [facility] 03-25-2024 11:29-0500 Heart rate 109 /min Jessenia Lamb MD Work Phone: [facility] 03-25-2024 11:29-0500 Systolic blood pressure 113 mm[Hg] Jessenia Lamb MD Work Phone: [facility] 03-20-2024 16:28-0500 Body height 177.8 cm La Nena Edmondson MD Work Phone: [facility] 03-20-2024 16:28-0500 Body mass index (BMI) [Ratio] 17.71 kg/m2 La Nena Edmondson MD Work Phone: [facility] 03-20-2024 16:28-0500 Body weight 56 kg La Nena Edmondson MD Work Phone: [facility] 03-20-2024 16:28-0500 Diastolic blood pressure 86 mm[Hg] La Nena Edmondson MD Work Phone: [facility] 03-20-2024 16:28-0500 Heart rate 90 /min La Nena Edmondson MD Work Phone: [facility] 03-20-2024 16:28-0500 Systolic blood pressure 128 mm[Hg] La Nena Edmondson MD Work Phone: [facility] 09-09-2022 14:45-0400 Body temperature 99.1 [degF] Herb Pendlebury MEDICAL FIELD REPRESENTATIVE.WET CLEANER 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 Phone: [facility] 09-09-2022 14:45-0400 Diastolic blood pressure 60 mm[Hg] Herb Pendlebury MEDICAL FIELD REPRESENTATIVE.WET CLEANER 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 Phone: [facility] 09-09-2022 14:45-0400 Heart rate 90 /min Herb Pendlebury MEDICAL FIELD REPRESENTATIVE.WET CLEANER 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 Phone: [facility] 09-09-2022 14:45-0400 Respiratory rate 16 /min Herb Pendlebury MEDICAL FIELD REPRESENTATIVE.WET CLEANER 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 Phone: [facility] 09-09-2022 14:45-0400 SaO2% (BldA) [Mass fraction] 99 % Herb Pendlebury MEDICAL FIELD REPRESENTATIVE.WET CLEANER 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 Phone: [facility] 09-09-2022 14:45-0400 Systolic blood pressure 102 mm[Hg] Herb Pendlebury MEDICAL FIELD REPRESENTATIVE.WET CLEANER 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 Phone: [facility] 06-07-2021 14:52-0400 Heart rate 77 /min [facility] Work Phone: 06-07-2021 14:52-0400 Respiratory rate 17 /min [facility] Work Phone: 06-07-2021 14:52-0400 SaO2% (BldA) [Mass fraction] 100 % [facility] Work Phone: 06-07-2021 14:23-0400 Diastolic blood pressure 74 mm[Hg] [facility] Work Phone: 06-07-2021 14:23-0400 Systolic blood pressure 137 mm[Hg] [facility] Work Phone: 06-07-2021 12:38-0400 Body height 177.[address] [facility] Work Phone: 06-07-2021 12:38-0400 Body mass index (BMI) [Ratio] 23.3 kg/m2 [facility] Work Phone: 06-07-2021 12:38-0400 Body temperature 95.3 [degF] [facility] Work Phone: 06-07-2021 12:38-0400 Body weight 73.[address] [facility] Work Phone: Encounters Encounter Date Encounter Type Care Provider Facility Start: 09-27-2024 End: 09-27-[address] Rosalba Espinosa [facility] Work Phone: Start: 09-27-2024 End: 09-27-2024 ambulatory Etta Merchant FIELD MERCHANDISER-C Work Phone: [facility] Comment on above: Start: 09-25-2024 End: 09-25-2024 Telephone encounter Bandar [...] Start: 09-25-2024 End: 09-25-2024 ambulatory ETTA MERCHANT Facility:[facility] Start: 09-18-2024 End: 09-18-2024 ambulatory ETTA Jennifer ANOOP Facility:[facility] Start: 09-11-2024 End: 09-11-2024 Patient encounter procedure Whi Tech 1 General Purchasing Agent [facility] Comment on [...] Start: 09-11-2024 End: 09-11-2024 ambulatory JASPAL SYKES Facility:[facility] Start: 08-27-2024 End: 08-27-2024 Patient encounter procedure Bimal Patel MD Work Phone: OB/Gynecology Comment on above: Supervision of high risk in third trimester (HCC) (Primary Dx); PTSD (post-traumatic stress disorder); Anxiety; AMA (advanced maternal age) multigravida 35+, third trimester (HCC); 33 weeks gestation of (HCC) Start: 08-27-2024 End: 08-27-2024 ambulatory ETTA Jennifer ANOOP Facility:[facility] Start: 08-15-2024 End: 08-15-2024 Office outpatient visit 15 minutes Rosalba Espinosa MD Work Phone: OB/Gynecology Comment on above: Supervision of high risk in third trimester (HCC) (Primary Dx); AMA (advanced maternal age) multigravida 35+, third trimester (HCC); PTSD (post-traumatic stress disorder); Anxiety; Low lying placenta, antepartum (HCC); 31 weeks gestation of (HCC) Start: 08-15-2024 End: 08-15-2024 Patient encounter procedure Whi Tech 1 General Purchasing Agent [facility] Comment on above: Encounter for ultras ound to check growth (HCC) (Primary Dx); 31 weeks gestation of (HCC); Seizure disorder during in first trimester (HCC) Start: 08-15-2024 End: 08-15-2024 ambulatory [facility] Facility:[facility] Start: 08-02-2024 End: 08-02-2024 Telephone encounter Nurse General Purchasing Agent Homa Sparks Work Phone: Obstetrics/Gynecology Comment on above: PRAF Start: 08-01-2024 End: 08-01-2024 Patient encounter procedure Penelope Spears CNM Work Phone: OB/Gynecology Comment on above: 29 weeks gestation o f (HCC) (Primary Dx); Supervision of high risk in third trimester (HCC); AMA (advanced maternal age) multigravida 35+, third trimester (HCC); PTSD (post-traumatic stress disorder); Anxiety Start: 08-01-2024 End: 08-01-2024 ambulatory [facility]A [facility] Facility:[facility] Start: 07-31-2024 End: 07-31-2024 Patient encounter procedure Genet Tim APRN.CNP Work Phone: [facility] Comment on above: Bacterial sinusitis (Primary Dx); Sinus pressure Start: 07-31-2024 End: 07-31-2024 ambulatory GENET TIM Facility:[facility] Start: 07-30-2024 End: 07-30-2024 Telephone encounter Etta Merchant APRN.CNP Work Phone: [facility] Comment on above: Patient Question Start: 07-23-2024 [...] 07-18-2024 Patient encounter procedure Whi Tech 1 General Purchasing Agent [facility] Comment on above: Encounter for ultras ound to check growth (HCC) (Primary Dx); Advanced maternal age in multigravida, first trimester (HCC); Suspected placental problem not found Start: 07-18-2024 End: 07-18-[address] [facility] Facility:[facility] Start: 06-25-2024 End: 06-25-2024 Patient encounter [...] first trimester (HCC) Start: 06-25-2024 End: 06-25-[address] [facility] Facility:[facility] Start: 06-20-2024 End: 06-20-2024 Patient encounter procedure Whi Tech 1 General Purchasing Agent [facility] Comment on above: Encounter for follow -up ultrasound of anatomy (HCC) (Primary Dx); 23 weeks gestation of (HCC) Start: 06-20-2024 End: 06-20-[address] [facility] Facility:[facility] Start: 05-29-2024 End: 07-29-2024 Follow-up encounter Kamryn Griggs MD Work Phone: Endocrinology Start: 05-29-2024 End: 05-29-2024 Telephone encounter Nurse General Purchasing Agent Homa Sparks Work Phone: Obstetrics/Gynecology Comment on above: PRAF Start: 05-29-2024 End: 05-29-[address] [facility] Facility:[facility] Start: 05-28-2024 End: 05-28-[address] [facility] Facility:[facility] Start: 05-28-2024 End: 05-28-2024 Patient encounter [...] first trimester (HCC) Start: 05-27-2024 End: 05-27-2024 [facility] Taco Watkins MD Work Phone: Epilepsy Comment on above: Syncope and collapse (Primary Dx); 10 weeks gestation of (HCC); Seizure disorder during in first trimester (HCC) Start: 05-17-2024 Unlisted evaluation and management service Lois Campos Other Phone: [facility] Start: 05-02-2024 End: 05-02-2024 Patient encounter procedure Etta Merchant APRN.CNP Work Phone: [facility] Comment on above: Well adult exam (Emily luis Dx); Seizure disorder during in first trimester (HCC); Thyroid disease during in first trimester; Tobacco smoking complicating in first trimester; PTSD (post-traumatic stress disorder); Anxiety; Nasal congestion; Screening for depression Start: 05-02-2024 End: 05-02-2024 Patient encounter status Etta Merchant APRN.WET CLEANER 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 Phone: [facility] Work Phone: Start: 05-02-2024 End: 05-02-2024 ambulatory LUCA PERSON Facility:[facility] Start: 05-02-2024 Encounter for genera l adult medical examination without abnormal findings ETTA MERCHANT [facility] Start: 04-30-2024 End: 04-30-2024 ambulatory LUCA PERSON Facility:[facility] Start: 04-30-2024 End: 04-30-2024 Patient encounter procedure Whi Tech 1 General Purchasing Agent [facility] Comment on [...] Start: 04-08-2024 End: 04-08-2024 Telephone encounter Katja Ro MD Work Phone: Neurology Epilepsy [facility] Start: 04-02-2024 End: 06-02-2024 Follow-up encounter Bandar Cordova MD Work Phone: OB/Gynecology Start: 04-02-2024 End: 04-02-2024 Telephone encounter Darshana Mckinney RN Obstetrics/Gynecolog y Comment on above: PRAF Start: 04-01-2024 End: 06-01-2024 Follow-up encounter Jaspal Sykes APRN.CNP Work Phone: OB/Gynecology Start: 04-01-2024 End: 04-01-2024 ambulatory LUCA PERSON Facility:[facility] Start: 04-01-2024 End: 04-01-2024 Patient encounter procedure Whi Tech 1 General Purchasing Agent [facility] Comment on above: Encounter for antena jesus screening for malformation using ultrasound (Primary Dx); AMA (advanced maternal age) multigravida 35+, first trimester; 12 weeks gestation of Start: 04-01-2024 End: 04-01-2024 ambulatory LUCA PERSON Facility:[facility] Start: 04-01-2024 End: 04-01-2024 Patient encounter [...] Jessenia Lamb MD Work Phone: Maternal Medicine [facility] Start: 03-25-2024 End: 03-25-2024 ambulatory LUCA PERSON Facility:[facility] Start: 03-25-2024 End: 03-25-2024 Patient encounter procedure Jessenia Lamb MD Work Phone: Maternal Medicine [facility] Comment on above: Anxiety (Primary Dx) ; [...] Results Start: 03-22-2024 End: 03-22-2024 ambulatory LUCA PRESON Facility:[facility] Start: 03-22-2024 End: 03-22-2024 Patient encounter procedure Sallie Roth 1 General Purchasing Agent [address] Work Phone: Maternal Medicine Comment on above: Encounter to ryan miner viability of , single or unspecified fetus (Primary Dx); Threatened Start: 03-20-2024 End: 03-20-2024 ambulatory LUCA PERSON Facility:[facility] Start: 03-20-2024 Encounter for gynecological examination (general) (routine) without abnormal findings LA NENA EDMONDSON [facility] Start: 03-20-2024 End: 03-20-2024 Patient encounter procedure La Nena Edmondson MD Work Phone: CB/Gynecology Comment on above: Encounter for gyneco logical examination (general) (routine) without abnormal findings (Primary Dx); Encounter for screening for malignant neoplasm of cervix; Screening mammogram for breast cancer; Missed menses; Vaginal discharge; Enlarged thyroid Start: 03-20-2024 End: 03-20-2024 Patient encounter status La Nena Edmondson MD Work Phone: [facility] Start: 09-16-2022 End: 09-16-2022 ambulatory No Primary Care Physician [facility] Work Phone: Start: 09-16-2022 End: 09-16-2022 Patient encounter procedure No Primary Care Physician [facility] Work Phone: Start: 09-15-2022 End: 09-15-2022 Patient encounter procedure No Primary Care Physician [facility] Work Phone: Start: 09-10-2022 End: 09-10-2022 Emergency department patient visit LUCA PERSON Facility:[id number] Start: 09-09-2022 End: 09-09-2022 Subsequent hospital visit by physician Samanta [facility] Ollie Work Phone: Radiology Comment on above: Pain of right lower extremity [M79.604] Start: 09-09-2022 End: 09-09-2022 Office outpatient visit 15 minutes Herb Freitas MEDICAL FIELD REPRESENTATIVE.WET CLEANER 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 Phone: [facility] Comment on above: Pain of right lower extremity (Primary Dx) Start: 06-07-2021 End: 06-07-2021 [facility] Start: 03-04-2020 End: 03-04-2020 Subsequent hospital visit by physician [facility] Work Phone: Radiology Comment on above: Animal bite of foot, right, initial encounter [S91.351A] Procedures Date Procedure Procedure Detail Performing Clinician Start: 09-25-2024 Urnls dip stick/tabl et rgnt non-auto w/o micrscp Bandar Cordova MD Work Phone: Start: 09-11-2024 Urnls dip stick/tabl et rgnt non-auto w/o micrscp Penelope Spears MEDICAL FIELD REPRESENTATIVE.CNM Work Phone: Start: 09-11-2024 Us preg uterus after 1st trimest 1/1st gestation Bimal Patel MD Work Phone: Start: 08-15-2024 Us preg uterus after 1st trimest / gestation Penelope Reyna DO Work Phone: Start: 07-18-2024 Us preg uterus after 1st trimest / gestation Bimal Patel MD Work Phone: Start: 06-20-2024 Us preg uterus after 1st trimest /1st gestation Penelope Reyna DO Work Phone: Start: 05-28-2024 Us preg uterus after 1st trimest /1st gestation Jessenia Lamb MD Work Phone: Start: 05-02-2024 Adult depression scr eening marcelo Merchant MEDICAL FIELD REPRESENTATIVE.WET CLEANER 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 Phone: Start: 04-30-2024 Us preg uterus after 1st trimest /1st gestation Jessenia Lamb MD Work Phone: Start: 04-01-2024 Us preg uterus after 1st trimest 1/1st gestation Jessenia Lamb MD Work Phone: Start: 04-01-2024 Antibody screen ETTA QUEULICES Comment on above: Order Comment: Speci men Type: BLOOD SPECIMENOrdering Facility: [facility] Address: [address] [place] [address] Performed By: #### T SPN ####CC MAIN BLOOD BANKCLIA [id number] [facility] [id number] [place] Start: 03-22-2024 Us preg [...] DTaP,Tdap,Td Vaccine (3 - Td or Tdap) [facility] Start: 03-04-2030 Urine microalbumin profile [facility] Start: 03-20-2027 Screening for malignant neoplasm of cervix Cervical Cancer Screening [facility] Start: 05-02-2025 Covid-19 Vaccine ( season) Covid-19 Vaccine ( season) [facility] Comment on above: Postponed from 10/15/2023 (Declined at t his time) Start: 05-02-2025 Depression Screening Depression Screening [facility] Start: 05-02-2025 Hepatitis B Vaccine (1 of 3 - 19+ 3-dose series) Hepatitis B Vaccine (1 of 3 - 19+ 3-dose series) [facility] Comment on above: Postponed from 2004 (Declined at t his time) Start: 05-02-2025 Pneumococcal vaccination Pneumococcal Vaccine (1 of 2 - PCV) [facility] Comment on above: Postponed from 2004 (Declined at t his time) Start: 10-14-2024 Influenza vaccination [facility] Start: 10-14-2024 ambulatory [place] [facility] Start: 10-09-2024 End: 10-09-2024 Patient encounter procedure Maternal Medicine Comment on above: Growth Growth/OB Start: 10-02-2024 End: 10-02-2024 Patient encounter procedure 10/02/2024 10:15 AM EDT Routine Office Visit OB/Gynecology [address] [place] [address] Penelope Spears APRN.CN [address] [place] [address] OB OB/Gynecology Comment on above: OB Start: 09-27-2024 Nonstress test [facility] Start: 09-27-2024 Obstetric monitoring [facility] Start: 09-27-2024 Vital signs measurements [facility] Start: 09-27-2024 [facility] Start: 09-27-2024 Patient discharge [facility] Start: 09-25-2024 End: 09-25-2025 OBSTETRIC ULTRASOUND WHI OBSTETRIC ULTRASOUND WHI Anc Imaging Routine Supervision of high risk in third trimester (HCC) AMA (advanced maternal age) multigravida 35+, third trimester (HCC) 37 weeks gestation of (HCC) Expected: 09/25/2024, Expires: 09/25/2025 [facility] Work Phone: Comment on above: Expected: 09/25/2024, Expires: Start: 09-25-2024 End: 09-25-2024 Patient encounter procedure 09/25/2024 10:40 AM EDT Routine Office Visit OB/Gynecology [address] [place], [place] [id number] Bandar Cordova MD [address] [place] [address] OB OB/Gynecology Comment on above: OB Start: 09-18-2024 End: 09-18-2024 Patient encounter procedure 09/18/2024 10:10 AM EDT Routine Office Visit OB/Gynecology [address] [place] [address] Winter Herrera MD [address] [place] [address] OB OB/Gynecology Comment on above: OB Start: 09-11-2024 End: 09-11-2024 Patient encounter procedure Maternal Medicine Comment on above: Growth Growth/OB Start: 09-11-2024 End: 12-11-2024 Thyrotropin [Units/volume] in Serum or Plasma THYROID STIMULATING HORMONE Lab Routine Thyroid disease during in third trimester (HCC) Expected: 09/11/2024, Expires: 12/11/2024 [facility] Work Phone: Comment on above: Expected: 09/11/2024, Expires: Start: 09-11-2024 End: 12-11-2024 Thyroxine (T4) free [Mass/volume] in Serum or Plasma T4 FREE/FREE THYROXINE Lab Routine Thyroid disease during in third trimester (HCC) Expected: 09/11/2024, Expires: 12/11/2024 [facility] Comment on above: Expected: 09/11/2024, Expires: Start: 08-27-2024 End: 08-27-2025 OBSTETRIC ULTRASOUND WHI OBSTETRIC ULTRASOUND WHI Anc Imaging Routine AMA (advanced maternal age) multigravida 35+, third trimester (HCC) Expected: 08/27/2024, Expires: 08/27/2025 [facility] Work Phone: Comment on above: Expected: 08/27/2024, Expires: Start: 08-27-2024 End: 08-27-2024 Patient encounter procedure 08/27/2024 10:40 AM EDT Routine Office Visit OB/Gynecology [address] [place] [id number] Bimal Patel MD [address] [place] [address] OB OB/Gynecology Comment on above: OB Start: 08-15-2024 End: 08-15-2024 Patient encounter procedure Maternal Medicine Comment on above: Growth Ob Start: 08-12-2024 Influenza vaccination Influenza Vaccine (#1) [facility] Comment on above: Postponed from 10/15/2023 (Declined at t his time) Start: 08-06-2024 End: 05-28-2025 OBSTETRIC ULTRASOUND WHI OBSTETRIC ULTRASOUND WHI Anc Imaging Routine Supervision of high risk in third trimester (HCC) Expected: 08/06/2024, Expires: 05/28/2025 [facility] Comment on above: Expected: 08/06/2024, Expires: Start: 08-01-2024 End: 08-01-2024 Patient encounter procedure 08/01/2024 10:15 AM EDT Routine Office Visit OB/Gynecology [address] [place] [address] Penelope Spears APRN.CN [address] [place] [address] OB OB/Gynecology Comment on above: OB Start: 07-26-2024 End: 10-25-2024 ANEMIA REFLEX PANEL ANEMIA REFLEX PANEL Lab Routine 24 weeks gestation of (HCC) Encounter for supervision of high risk in second trimester, antepartum (HCC) Advanced maternal age in multigravida, first trimester (HCC) Expected: 07/26/2024 (Approximate), Expires: 10/25/2024 [facility] Comment on above: Expected: 07/26/2024 (Approximate), Expi res: 10/25/2024 Start: 07-26-2024 End: 06-25-2025 GESTATIONAL GLUCOSE SCREEN, 1-HOUR, 50 GRAM, NON-FASTING GESTATIONAL GLUCOSE SCREEN, 1-HOUR, 50 GRAM, NON-FASTING Lab Routine Screening for diabetes mellitus Expected: 07/26/2024 (Approximate), Expires: 06/25/2025 [facility] Work Phone: Comment on above: Expected: 07/26/2024 (Approximate), Expi res: 06/25/2025 Start: 07-26-2024 End: 06-25-2025 SYPHILIS TREPONEMAL W/REFLEX SYPHILIS TREPONEMAL W/REFLEX Lab Routine 24 weeks gestation of (HCC) Encounter for supervision of high risk in second trimester, antepartum (HCC) Advanced maternal age in multigravida, first trimester (HCC) Expected: 07/26/2024 (Approximate), Expires: 06/25/2025 [facility] Comment on above: Expected: 07/26/2024 (Approximate), Expi res: 06/25/2025 Start: 07-18-2024 End: 07-18-2024 Patient encounter procedure Maternal Medicine Comment on above: Growth Growth/OB Start: 07-18-2024 End: 07-18-2024 ambulatory 07/18/2024 9:15 AM EDT Results Only [place] [facility] [address] [place] [address] Glucose Test [facility] Comment on above: Glucose Test Start: 06-25-2024 End: 06-25-2025 OBSTETRIC ULTRASOUND WHI OBSTETRIC ULTRASOUND WHI Anc Imaging Routine Advanced maternal age in multigravida, first trimester (HCC) Low lying placenta, antepartum (HCC) Expected: 06/25/2024, Expires: 06/25/2025 [facility] Comment on above: Expected: 06/25/2024, Expires: Start: 06-25-2024 End: 06-25-2024 Patient encounter procedure 06/25/2024 10:40 AM EDT Routine Office Visit OB/Gynecology [address] [place] [address] Bimal Patel MD [address] [place] [address] OB Routine OB/Gynecology Comment on above: OB Routine Start: 06-18-2024 End: 05-28-2025 OBSTETRIC ULTRASOUND WHI OBSTETRIC ULTRASOUND WHI Anc Imaging Routine Supervision of high risk in second trimester (HCC) Expected: 06/18/2024 (Approximate), Expires: 05/28/2025 [facility] Work Phone: Comment on above: Expected: 06/18/2024 (Approximate), Expi res: 05/28/2025 Start: 05-29-2024 End: 08-28-2024 Thyrotropin [Units/volume] in Serum or Plasma THYROID STIMULATING HORMONE Lab Routine Low TSH level Expected: 05/29/2024, Expires: 08/28/2024 [facility] Work Phone: Comment on above: Expected: 05/29/2024, Expires: Start: 05-29-2024 End: 05-29-2024 ambulatory 05/29/2024 10:30 AM EDT Results Only [facility] [address] [place] [id number] [facility] Start: 05-28-2024 End: 05-28-2024 Patient encounter procedure Maternal Medicine Comment on above: 20 week anatomy follow up OB Start: 05-27-2024 End: 05-27-2024 [facility] 05/27/2024 12:00 PM EDT [facility] Epilepsy [address] [place] [address] Taco Watkins MD [address] [address] 10 weeks gestation of [Z3A.10]; Seizure disorder during in first trimester ([facility]) [O99.351, G40.909] Epilepsy Comment on above: 10 weeks gestation of [Z3A.10] ; Seizure disorder during in first trimester (HCC) [O99.351, G40.909] Start: 05-22-2024 End: 05-22-2024 Patient encounter procedure Maternal Medicine [facility] Comment on above: 20 week anatomy follow up Start: 05-02-2024 End: 05-02-2024 Patient encounter procedure Maternal Medicine Comment on above: 16 week anatomy Establish care Start: 04-30-2024 End: 04-30-2024 Patient encounter procedure 04/30/2024 1:30 PM EDT Routine Office Visit Maternal Medicine [address] [place] [address] [place] [address] [place] [address] US/MFM Maternal Medicine Comment on above: US/MFM Start: 04-30-2024 End: 04-30-2024 Patient encounter procedure Maternal Medicine Comment on above: 16 week anatomy OB Start: 04-25-2024 End: 07-25-2024 THYROID PEROXIDASE ANTIBODY [facility] Comment on above: Expected: 04/25/2024, Expires: Start: 04-25-2024 End: 07-25-2024 THYROID STIMULATING IMMUNOGLOBULIN BLOOD [facility] Comment on above: Expected: 04/25/2024, Expires: Start: 04-25-2024 End: 07-25-2024 Thyroxine (T4) free [Mass/volume] in Serum or Plasma [facility] Work Phone: Comment on above: Expected: 04/25/2024, Expires: Start: 04-25-2024 End: 07-25-2024 Triiodothyronine (T3) Free [Mass/volume] in Serum or Plasma [facility] Comment on above: Expected: 04/25/2024, Expires: Start: 04-25-2024 End: 04-25-2024 Patient encounter procedure Neurology [facility] Comment on above: consult new consult Start: 04-22-2024 End: 03-25-2025 OBSTETRIC ULTRASOUND WHI OBSTETRIC ULTRASOUND WHI Anc Imaging Routine AMA (advanced maternal age) multigravida 35+, first trimester Expected: 04/22/2024 (Approximate), Expires: 03/25/2025 [facility] Comment on above: Expected: 04/22/2024 (Approximate), Expi res: 03/25/2025 Start: 04-11-2024 End: 04-11-2024 Patient encounter procedure 04/11/2024 11:00 AM EST [facility] Endocrinology [address] [place] [address] Kamryn Griggs MD [address] [place] [address] new consult Endocrinology Comment on above: new consult Start: 04-04-2024 End: 04-04-2024 Patient encounter procedure 04/04/2024 10:00 AM EST Routine Office Visit Maternal Medicine [address] [facility] [address] [place] [id number] first trimester anatomy Maternal Medicine Comment on above: first trimester anatomy Start: 04-02-2024 End: 04-02-2024 Patient encounter procedure 04/02/2024 8:40 AM EST Office Visit Internal Medicine [address] [facility] [address] [place] [address] [place] [address] [place] [address] est care Internal Medicine Comment on above: est care Start: 04-01-2024 End: 07-01-2024 HEMOGLOBIN EVALUATION CASCADE [facility] Work Phone: Comment on above: Expected: 04/01/2024, Expires: Start: 04-01-2024 End: 04-01-2024 Patient encounter procedure 04/01/2024 11:15 AM EST Initial Office Visit OB/Gynecology [address] [place], [place] [address] Jaspal Sykes APRN.W[employer]ACHINE [address] [place], [place] [address] New OB OB/Gynecology Comment on above: New OB Start: 03-28-2024 End: 03-28-2024 Patient encounter procedure 03/28/2024 11:00 AM EST Initial Office Visit OB/Gynecology [address] [place], [place] [id number] Jaspal Sykes APRN.W[employer]ACHINE [address] [place] [address] New OB OB/Gynecology Comment on above: New [...] in first trimester Expected: 03/25/2024, Expires: 06/24/2024 [facility] Comment on above: Expected: 03/25/2024, Expires: Start: [...] in first trimester Expected: 03/25/2024, Expires: 06/24/2024 [facility] Comment on above: Expected: 03/25/2024, Expires: Start: [...] in first trimester Expected: 03/25/2024, Expires: 06/24/2024 [facility] Comment on above: Expected: 03/25/2024, Expires: Start: 03-25-2024 End: 06-24-2024 Chromosome 21 trisomy [Presence] in Blood or Tissue by Cytogenetics [id number] PLUS Lab Routine AMA (advanced maternal age) multigravida 35+, first trimester Expected: 03/25/2024, Expires: 06/24/2024 [facility] Work Phone: Comment on above: Expected: [...] in first trimester Expected: 03/25/2024, Expires: 06/24/2024 [facility] Comment on above: Expected: 03/25/2024, Expires: Start: [...] in first trimester Expected: 03/25/2024, Expires: 06/24/2024 [facility] Comment on above: Expected: 03/25/2024, Expires: Start: [...] in first trimester Expected: 03/25/2024, Expires: 06/24/2024 [facility] Comment on above: Expected: 03/25/2024, Expires: Start: [...] in first trimester Expected: 03/25/2024, Expires: 06/24/2024 [facility] Comment on above: Expected: 03/25/2024, Expires: Start: 03-25-2024 End: 03-25-2025 OBSTETRIC ULTRASOUND WHI OBSTETRIC ULTRASOUND WHI Anc Imaging Routine AMA (advanced maternal age) multigravida 35+, first trimester Expected: 03/25/2024, Expires: 03/25/2025 [facility] Comment on above: Expected: 03/25/2024, Expires: Start: [...] in first trimester Expected: 03/25/2024, Expires: 06/24/2024 [facility] Comment on above: Expected: 03/25/2024, Expires: Start: [...] in first trimester Expected: 03/25/2024, Expires: 06/24/2024 [facility] Comment on above: Expected: 03/25/2024, Expires: Start: 03-25-2024 End: 06-24-2024 Triiodothyronine (T3) Free [Mass/volume] in Serum or Plasma T3, FREE Lab Routine Thyroid disease during in first trimester Expected: 03/25/2024, Expires: 06/24/2024 [facility] Comment on above: Expected: 03/25/2024, Expires: Start: [...] in first trimester Expected: 03/25/2024, Expires: 06/24/2024 [facility] Comment on above: Expected: 03/25/2024, Expires: Start: 03-22-2024 End: 03-22-2025 OBSTETRIC ULTRASOUND WHI OBSTETRIC ULTRASOUND WHI Anc Imaging Routine Hyperthyroidism Goiter 10 weeks gestation of AMA (advanced maternal age) multigravida 35+, first trimester Expected: 03/22/2024, Expires: 03/22/2025 [facility] Work Phone: Comment on above: Expected: 03/22/2024, Expires: Start: 03-21-2024 End: 03-21-2024 Patient encounter procedure 03/21/2024 12:30 PM EST Appointment [facility]amm[facility] [address] [facility] [place] [address] Screening mammogram for breast cancer [Z12.31] Mammogram Comment on above: Screening mammogram for breast cancer [Z 12.31] Start: 03-20-2024 End: 06-19-2024 Choriogonadotropin.beta subunit [Units/volume] in Serum or Plasma [facility] Comment on above: Expected: 03/20/2024, Expires: Start: 03-20-2024 End: 06-19-2024 Thyrotropin [Units/volume] in Serum or Plasma [facility] Comment on above: Expected: 03/20/2024, Expires: Start: 03-20-2024 End: 06-19-2024 Thyroxine (T4) free [Mass/volume] in Serum or Plasma [facility] Comment on above: Expected: 03/20/2024, Expires: Start: 10-15-2023 Covid-19 Vaccine ( season) Covid-19 Vaccine ( season) [facility] Start: 10-15-2023 Covid-19 Vaccine () Covid-19 Vaccine () [facility] Start: 10-15-2023 Influenza vaccination Influenza Vaccine (#1) [facility] Start: 10-14-2022 Influenza vaccination INFLUENZA (#1) [facility] Start: 05-13-2021 COVID-19 VACCINE (3 - Pfizer series) COVID-19 VACCINE (3 - Pfizer series) [facility] Start: 2015 HPV TESTING HPV TESTING [facility] Start: 2012 HPV Vaccine (1 - 3-dose SCDM series) HPV Vaccine (1 - 3-dose SCDM series) [facility] Start: 2006 PAP TESTING PAP TESTING [facility] Start: 2006 Screening for malignant neoplasm of cervix Cervical Cancer Screening [facility] Start: 2004 Hepatitis B Vaccine (1 of 3 - 19+ 3-dose series) Hepatitis B Vaccine (1 of 3 - 19+ 3-dose series) [facility] Start: 2004 Pneumococcal vaccination Pneumococcal Vaccine (1 of 2 - PCV) [facility] Start: 2003 Depression Screening Depression Screening [facility] Start: 2003 HEPATITIS C SCREENING HEPATITIS C SCREENING [facility] Start: 2003 Hepatitis C screening Hepatitis C Screening [facility] Start: 2003 HIV SCREENING HIV SCREENING [facility] Start: 2003 HIV screening HIV Screening [facility] Start: 1991 PNEUMOCOCCAL (1 - PCV) PNEUMOCOCCAL (1 - PCV) [facility] Start: 1991 Pneumococcal vaccination Pneumococcal Vaccine (1 of 2 - PCV) [facility] Start: 1985 HEPATITIS B (1 of 3 - 3-dose series) HEPATITIS B (1 of 3 - 3-dose series) [facility] BACTERIAL VAGINOSIS NAAT BACTERI AL VAGINOSIS NAAT Lab Routine Vaginal discharge Ordered: 03/20/2024 [facility] Comment on above: Ordered: 03/20/2024 MARGOT/TRICHOMONAS NAAT MARGOT /TRICHOMONAS NAAT Lab Routine Vaginal discharge Ordered: 03/20/2024 [facility] Comment on above: Ordered: 03/20/2024 Chlamydia trachomatis+Neisseria gonorrhoeae DNA [Presence] in Unspecified specimen by SHERITA with probe detection GONORRHEA/CHLAMYDIA NAAT Lab Routine Screening for STD (sexually transmitted disease) 04/01/2024 12:13 PM [facility] End: 05-27-2025 EPIL EEG LONG EPIL EEG LONG NEUROLOGY Routine Syncope and collapse 1 Occurrences starting 05/27/2024 until 05/27/2025 [facility] Comment on above: 1 Occurrences starting 05/27/2024 until 05/27/2025 End: 04-19-2025 MG Breast Screening RUDDY SCREENING Radiology Routine Screening mammogram for breast cancer 1 Occurrences starting 03/20/2024 until 04/19/2025 [facility] Work Phone: Comment on above: 1 Occurrences starting 03/20/2024 until 04/19/2025 NEURO CARDIO AUTONOM IC REFLEX W/WO TILT NEURO CARDIO AUTONOMIC REFLEX W/WO TILT Procedures Routine Syncope and collapse Ordered: 05/27/2024 [facility] Comment on above: Ordered: 05/27/2024 OUTSIDE VENDOR CARDI AC OUTPATIENT EVENT RECORDER OUTSIDE VENDOR CARDIAC OUTPATIENT EVENT RECORDER Holter Routine Syncope and collapse Ordered: 05/27/2024 [facility] Work Phone: Comment on above: Ordered: 05/27/2024 PAP TEST PAP TEST Lab Ruby rebolledo Encounter for screening for malignant neoplasm of cervix Ordered: 03/20/2024 [facility] Comment on above: Ordered: 03/20/2024 Patient Education [facility] Work Phone: Patient referral [facility] Work Phone: TRICHOMONAS VAGINALI S NAAT TRICHOMONAS VAGINALIS NAAT Lab Routine Screening for STD (sexually transmitted disease) 04/01/2024 12:13 PM [facility] End: 05-25-2025 US Thyroid gland US THYROID/PARATHYROID Radiology Routine Hyperthyroidism 1 Occurrences starting 04/25/2024 until 05/25/2025 [facility] Comment on above: 1 Occurrences starting 04/25/2024 until 05/25/2025 Immunizations Immunization Date Immunization Notes Care Provider Kaci coleman 07-18-2024 tetanus toxoid, redu adalgisa diphtheria toxoid, and acellular pertussis vaccine, adsorbed [facility] 03-04-2020 tetanus toxoid, redu adalgisa diphtheria toxoid, and acellular pertussis vaccine, adsorbed Herb Freitas APRN.[facility] Work Phone: [facility] 04-18-2017 influenza virus vaccine, unspecified formulation [facility] Work Phone: [facility] Payers Date Payer Category Payer Self-pay [id number] 2022 Unknown [id number] 2016 Medicaid [id number] 2008 Unknown 1985 Unknown [id number] Unknown [id number] Unknown [id number] Social History Date Type Detail Facility [facility] Work Phone: Start: 06-07-2021 End: 09-15-2022 Tobacco smoking status NHIS Unknown if ever smoked [facility] Start: 1985 Sex Assigned At Female [facility] Start: 09-09-2022 End: 09-26-2022 Tobacco smoking status NHIS Smokes tobacco daily [facility] Work Phone: History of tobacco use Cigarette Smoker [facility] Work Phone: Start: 09-09-2022 End: 05-27-2024 Cigarettes smoked current (pack per day) - Reported 1 [facility] Start: 09-09-2022 End: 05-02-2024 Tobacco use and exposure Smokeless tobacco non-user [facility] Work Phone: Start: 03-04-2020 End: 09-09-2022 Alcohol intake Current non-drinker of alcohol (finding) [facility] Start: 09-09-2022 End: 05-27-2024 Tobacco use panel [facility] Start: 11-04-2016 PHQ2 Score 0 [facility] Start: 1985 Sex Assigned At Not on file [facility] Start: 02-03-2020 End: 03-04-2020 Exposure to SARS-CoV-2 (event) Not sure [facility] Start: 03-20-2024 End: 03-25-2024 Alcoholic beverage intake Current drinker of alcohol (finding) [facility] Start: 01-22-2024 [facility] Start: 04-01-2024 End: 09-25-2024 Alcoholic beverage intake Ex-drinker (finding) [facility] Start: 03-29-2024 Education 14 [facility] Start: 03-29-2024 Gender identity Identifies as female gender (finding) [facility] Start: 03-29-2024 Sexual orientation Heterosexual (chen bledsoe) [facility] Start: 05-02-2024 Tobacco smoking stat us NVIS Occasional tobacco smoker [facility] Start: 05-02-2024 Tobacco Comment Working on jovi tting with patches [facility] Goals Date Patient Goal Desired Activity /State 06-19-2024 Goal Observation Personal health goal Functional Status Date Assessment Result Facility 06-13-2018 Are you deaf, or do you have serious difficulty hearing No 06/13/2018 4:35 PM Luz Marina Franco, TRICE No [facility] 06-13-2018 Are you blind, or do you have serious difficulty seeing, even when wearing glasses No 06/13/2018 4:35 PM Luz Marina Franco, RN No [facility] 06-13-2018 Do you have serious difficulty walking or climbing stairs No 06/13/2018 4:35 PM Luz Marina Franco, RN No [facility] 06-13-2018 Do you have difficul ty dressing or bathing No 06/13/2018 4:35 PM EDT Luz Marina Yap RN No [facility] 06-13-2018 Because of a physica l, mental, or emotional condition, do you have difficulty doing errands alone such as visiting a physician's office or shopping No 06/13/2018 4:35 PM EDT Luz Marina Yap RN No [facility] Mental Status Date Assessment Result Facility 06-07-2021 Cognitive function Voice/Name [facility] Work Phone: 06-13-2018 Because of a physica l, mental, or emotional condition, do you have serious difficulty concentrating, remembering, or making decisions No 06/13/2018 4:35 PM EDT Luz Marina Yap RN No [facility] Clinical Notes 03-04-2020 to 09-27-2024 Telephone Encounter - Mervat Randall RN - 09/27/2024 6:22 PM EDTTelephone Encounter - Mervat Randall RN - 09/27/2024 6:22 PM EDTTelephone Encounter - Staci Schroeder RN - 09/25/2024 4:27 PM EDT Note Date & Type Note Facility 09-27-2024 Telephone encounter Note Reason for Conversation Background Spotting and very small dark blood clots for about 48 hours since last cervix check. Believes she lost her mucous plug on Monday following cervix check. No abdominal pain or contractions. Disposition Go to LD Now Patient advised to go to the Labor and Delivery Unit now. Patient plans to go to [facility] at this time. She has another adult available to drive her. Encouraged to anchor tack puller and call 911 if anything worsens or changes en route. [facility] Charge Nurse (Sukhjinder) notified of patient's pending arrival. Reason for Disposition MILD-MODERATE vaginal bleeding (e.g., small to medium clots; like mild menstrual period) (Exception: Single episode of faint spotting when wiping, or slight spotting after intercourse or pelvic exam.) No Initial Assessment on file. No Additional Information on file. Protocols Used - Vaginal Bleeding Greater Than 20 Weeks [id number] [facility] Work Phone: 09-27-2024 Miscellaneous Notes Reason for Conversation Background Spotting and very small dark blood clots for about 48 hours since last cervix check. Believes she lost her mucous plug on Monday following cervix check. No abdominal pain or contractions. Disposition Go to Now Patient advised to go to the Labor and Delivery Unit now. Patient plans to go to [facility] at this time. She has another adult available to drive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 Smoking Cessation Program is a comprehensive, multifaceted program that can be tailored to your individual needs. We offer a variety of services designed to help you throughout the process, including office visits, distance health visits (virtual or telephone), and the eCoach program or pharmacy consultations. To schedule, call [phone] Appointments: An office visit: This is a [...] You will need to sign up for LogicBayt prior to your virtual visit. Telephone visits [...] spray Bupropion SR Varenicline (Chantix ) The [place] Cancer Society (ACS) has a section devoted to quitting tobacco with information on where to get help, interactive tools, the relationship of tobacco and cancer, how to keep your kids smoke-free, smoke-free communities and the ACS s annual [place] Smokeout. Visit this link for more info: https://www.cancer.org/cancer/ris k-prevention/tobacco/guide-quitti ng-smoking.html The [place] Lung Association has tools, tips, support and fact sheets to help you stop smoking or to help a loved one quit. There s also more information about [place] From Smoking , the program we use in our smoking classes at [facility]. Visit this link for more info: https://www.lung.org/quit-smoking /qxuz-qgdulbs-bibp-smoking The National Cancer Crandon s site, Smokefree.gov, has an abundance of free and accurate resources to encourage smokers to stop: Smokefree apps for your smartphone offer individualized guidance once you input your information You can sign up for the SmokefreeTXT text messaging program, which sends you daily text messages with encouragement, tips and advice to help making quitting easier Create a personalized Quit Plan by choosing a quit date and answering seven questions Take a quiz on your withdrawal symptoms See how you can prepare to quit NOW is the national portal to a network of state quitlines. Quitlines offer evidence-based support--like counseling, referrals to local programs, and free medication--to people who want to quit tobacco. Psychotherapy Services at [facility] Call Behavioral Health Access Line at [phone] to schedule Individual psychotherapy In-person or virtual Wait time for first evaluation may be 12 or more weeks. Wait list spots may be available. Due to the high volume of patients this option is recommended if you are looking for short term acute symptom coping strategies. 2-177-0-ZHUK0CWJE - [facility] Mental Health Hotline If you are in suicidal crisis, please call or text 7-314-588-TALK ( ) or visit the National Suicide Prevention Lifeline website. mchb.[facility] care facilitya.gov If you are in crisis, call 911 or go to your nearest Emergency Department Here are some links for wonderful Providers here in the community and surrounding areas. Do not hesitate to contact their offices, many are offering virtual visits during this time. Psychotherapy Services outside of [facility] Support International Online Provider Directory https://Tuizzi.Apps4Pro/ - can assist in finding providers in your area that might be more extensive then the list below. [facility] [place], [place] [address] [place] [address] [facility] [address] [place] [address] [facility] [address] [place], [place] [address] [facility] [address] [place] [address] Benjamín Jolly MD [address] [place] [address] [facility] [address] [place] [address], [address] [place] [address] [facility] [address] [place] [address] [facility] [place] / [place] [phone]/ [phone] Maryam Ludwig [address] [facility] [phone] Josuees of Counseling and Mediation [place] / [place] [phone] [facility] [address] [place] [address]/ [place] and [place] [phone] Yolanda Juan, NANDA, CLC [facility] Workshops, telehealth and at home visits. [phone] [facility] [place] 20 locations [place], [place], [place], [place], [place], [place], [place], [facility], [place], [place], [place], [place], [place], [place], [facility], [place], [place] ,[facility], [place], [place],[facility], [facility], [place], [facility], [facility], [place] www.st. joseph medical centerBIO-NEMSer.co [phone] Psychotherapy resources outside of [facility] are listed below [facility] Talko Psychotherapy Web: https://www.Filament Labs/ Support International Online Provider Directory https://Tibion Bionic Technologies/ [facility] https://Task Spotting Inc./ Partners for Behavioral Health and Wellness Web: https://Bio-Key International/ Center for Effective Living Web: https://www.effectiveScreen Tonicliving.Apps4Pro/ LifeStance Web: https://Plan B Funding.Apps4Pro/location/s yañez/[place]/ [facility] Web: https://www.signaturehealthinc.or / [facility] Web: https://Clinicient.org/ Recovery Resources Mental health and substance abuse help Web: https://www.recres.org & RESOURCES Support International Direct peer support and connection to professional resources Non-Emergency Helpline Phone: / Text: [phone] Web: https://www..net/ Online Provider Directory: https://Tibion Bionic Technologies/ Online Support Meetings: https://www..net/get-he lp/ccp-vuakll-ecwxjxs-meetings/ BEN Baby and Special Education Resource Room Teacher Services Web: https://WHI Solution/ MotherToLandmark Games And Toys Expert information on medication use during and Text: [phone] Web: https://Evogen/ NATIONAL REGISTRY FOR PSYCHIATRIC MEDICATIONS Currently studying the safety of antidepressants, ADHD medications and atypical antipsychotics taken during TO PARTICIPATE CALL TOLL-FREE: Web: https://womenentalhealth.org/re search/pregnancyregistry/ Support Groups: [facility]- Follow on facebook Baby Bistro support group led by [facility] department [facility] - Support Group [facility].org The POEM support group [phone] Www.poemonline.org Follow on facebook - MARILIN fink Online support meetings PSI https://www..net/get-he lp/ooe-ynbxfp-fvygeig-meetings/ [facility] mommy and me virtual support group 11:30-1pm Support for mothers and new babies and toddlers Bar[place]oo childbirth education: Childbirth @[facility].org or call [phone] CRISIS: CRISIS HOTLINE [phone], 911 or go to the nearest . [facility] [phone] / [facility] [phone] https://www.[facility].org Crisis text line text the word HOME to [phone] [facility] [address]omas [address] [facility] [address] www.Dragon Ports Mahsa Cavazos clinical counseling [address] [facility] [address] [place] [address] www.Sopogy.Apps4Pro [phone] Expert Dynamics psychotherapy Elly Saldana WAREHOUSE CLERK CENTRIFUGAL DRIER OPERATOR-S [address] [facility] www.Particle [phone]/ [place] [phone] They all offer virtual. All work with trauma Support groups Online support meetings PSI https://www..net/get-he lp/kbi-ncticg-qgzzlug-meetings/ Here are the support groups they offer: Support of parents of 1 to 4 years old children POEM ( Outreach and Encouragement for Moms) offers free support for mothers experiencing depression, anxiety, and other mood and anxiety disorders. Masks are recommended but not required. No pre-registration required. Babies in arms welcome. meetings now take place on the and Monday of each month Location: [facility] [address] [place] [address] Room 122 (library room) 7-8:00 p.m. When you enter the [facility] parking lot off of [address] the entrance door closest to our meeting room is on the front of the building toward the right. For those who are more comfortable with a virtual platform, PO offers online support group options several days of the week. To register for an online group or to find out more about POEM, website at: https://aohio.org/get-help/[facility] centerqbiq-edkyqq-xycvst/poem-services/ offer a confidential helpline: private Facebook group is called MARILIN Fink Here are the groups they offer: Traumatic childbirth resources: Http://pattch.org/ https://www.dayannaPOKKTsherlyn CellCap Technologies.Apps4Pro/ Name Location (s) Phone # (s) Services Website [facility] [address] [facility] [place], [place] - [phone]; [address] [facility] [address] [facility] [phone] In-Person GROUPS INDIVIDUAL THERAPY MATERNAL- MENTAL HEALTH MEDICATION MANAGEMENT PLAY AND ART THERAPY TELETHERAPY https://www.Filament Labs/s noemi/ Mereabdisherlyn of Lianna [place]? [address] [place], [place] [address] ? JESSUP [address] [facility], [address] [place], [place] [address] ? BAZAN [address] [place], [place] [address]? Grief Support Groups Individual Grief Counseling Spiritual Care Memorial Events https://abrams.[facility].org/grief-services [facility] [address] [place], [place] [address]; ; Email: genesis@Cupoint Women's Mental Health; Couples Counseling; Trauma (EMDR); Stress Management; Mood and Anxiety Related Disorders- and much more https://www.Bibulu/ LifeStance Numerous as they have contract providers: access website to find specific providers near you Counseling including CBT and EMDR as well as many more modalities; Medication Management; Telehealth and In-Person https://Uman Pharma/ Partners for Behavioral Health and Wellness [address] [place], [place] [address]; [phone] Personal, Family and Group Therapy; Psychological Testing and Diagnosis; Medication Management; Life and Career Coaching; Psychoanalysis; Literacy Testing; Yoga and Meditation https://PrecisionHawk.Apps4Pro/ Fit Mind [facility] [address], [place] [address] [address] ; [address] [facility], [address] [place] [address]; Office # for both sites: Individual and Couples Counseling https://www.Shanxi Zinc Industry Group.Apps4Pro/ paymentinsurance.html OCD & Anxiety [facility] [address] [facility], [address], [place] [address]; Specialize in Cognitive-Behavioral Therapy (CBT) for the treatment of anxiety disorders across the lifespan. TELEHEALTH ONLY. https://ocdandanxietycenterofclev Just Fab/faqs [facility] [address] [facility] 6th [place], [address] [address] [place], [address] [place] [address] [facility] [address] [place], [id number] [place] [address] [place], [address], [address] [place] [address] [place], [address] [place] [address] [place], [place], [id number] Transportation Services To minimize patient barriers, [facility] provides transportation services to patients who qualify. If you are unable to get to your appointment at any of our facilities, please let us know. Need help now? Stop by one of our walk-in clinics to establish behavioral health care. Counseling Indvidual, Group, Couples and Family Counseling and EMDR. Medication Management Case Management benefits applications housing assistance Substance abuse treatment Medication assisted treatment https://www.[facility].or g/mental-health/ [facility] OFFICE AT [facility] [address] [place] [address] [facility] OFFICE [address] [place] [address] [facility] OFFICE [address] [place] [address] [place] OFFICE (at [facility]) [address] [place] [address] [place] SYRINGE EXCHANGE PROGRAM & HIV SCREENING [address] [place] [address] [place] [facility] EXCHANGE PROGRAM [address] [place] [address] Behavioral Health Urgent Care: [facility] Sites Counseling Indvidual and Group Medication Management Case Management benefits applications housing assistance Substance abuse treatment Medication assisted treatment Employment Services/ Job Training https://theKodiak Networksmsio.org/ Recovery Resources [address] [place], [place] [address]: P: [phone] [address] [facility], [address] [address] P: [phone] Our services include: Addiction Mental Health Treatment Assessment Psychiatry Medical Care Employment Housing Drug and Alcohol Prevention HIV/AIDS Prevention https://www.[facility].org/ [facility] [place] [address] [place] [address] [place] [address] [place], [place] [address] [place] [address] [place] [address] [place] [address] [facility] [address] [place] [address] [place] [address] [place] [address] TMS Therapy/ Counseling Psychocological Testing for ADHD Medication Management In-Person/ Telemedicine https://www.Layer3 TV/amer[place] ents-depression Memory & Psychological services [address] [place] [address], [place] [address] Neuropsychological Testing For ADHD https://www.memoryandpsych.com/ The Counsel[facility] - Main Office [facility] [place], [place] [address] [address] [id number] [address] [id number] Providing cghf-eu-gewf and telehealth services. Adult Case Management Community Education and Prevention Employment Outpatient Treatment - Counseling & Psychotherapy Psychiatric Services http://www.ccwhc.org/ Ebb And [facility] Center [place] [address] [place] [address] [facility] [address] [place] [address] Virtual Appointments! Now offering safe and convenient virtual client appointments to anyone in [place]! Individual Therapy Couples/Relationship Therapy Trauma/EMDR Therapy Art Therapy Play Therapy Pharmacy Intern Support: Parenting Skills, Parent Child Interaction Therapy, Parent Infant Interaction Therapy Meditation Dietitian/Financial Legal Assistant Services Group Therapy Yoga https://www.Texas Energy Network. Apps4Pro/ Maritza Mckeon [phone] Private Practice: Telehealth Only Specializes in EMDR for Trauma None documented in this encounter [facility] 03-28-2024 Telephone encounter Note Name of Caller: Aqua Relationship to patient: patient Last visit in this department: Visit date not found Reason for Call: Other : Patient is asking if she can have a letter sent to her My Chart from Dr. Lamb stating her due date. She needs for Job and Family Services. Please advise. Thank. Callback number: [phone] Lila Guajardo [facility] 03-28-2024 Miscellaneous Notes Name of Caller: Aqua Relationship to patient: patient Last visit in this department: Visit date not found Reason for Call: Other : Patient is asking if she can have a letter sent to her My Chart from Dr. Lamb stating her due date. She needs for Job and Family Services. Please advise. Thank. Callback number: [phone] Lila Guajardo documented in this encounter [facility] 2024 Telephone encounter Note Pt has [facility] scheduled [facility] for 03/28/24 Endo consult visit scheduled for 04/11/24 US scheduled for 04/04/24 Will close this encounter. Elly Domingo, RN [facility] 2024 Miscellaneous Notes Pt has NOB scheduled in [facility] for 03/28/24 Endo consult visit scheduled for 04/11/24 US scheduled for 04/04/24 Will close this encounter. Elly Domingo RN Called patient. No answer, LVM to call back. Delisa Li RN She had US today and confirmed to have an IUP. Her thyroid labs showed a probably hyperactive thyroid and she has to see lolita/Dr. Boy DIMASP. Referral placed. 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 Needs MFM appointment for a consult and first trimester US All orders placed. Thank you. documented in this encounter [facility] 03-25-2024 Note HNO ID: [id number] Author: JESSENIA LAMB MD Service: ? Author [...] of Onset Coronary Artery Disease Mother 52 [place] Alcohol/Drug Father Alcohol/Drug Sister Cancer Maternal Grandmother [...] ANEMIA REFLEX P (more content not included)... [facility] 03-25-2024 History of Present illness Narrative [...] of Onset Coronary Artery Disease Mother 52 [place] Alcohol/Drug Father Alcohol/Drug Sister Cancer Maternal Grandmother [...] age) multigravida 35+, first trimester Relevant Orders [id number] PLUS OBSTETRIC ULTRASOUND WHI OBSTETRIC ULTRASOUND WHI [...] which included preparing to see the patient, xely-ct-rzer patient care, completing clinical documentation, obtaining and/or reviewing separately obtained history, counseling and educating the patient/family/caregiver, ordering medications, tests, or procedures, independently interpreting results (not separately reported), and care coordination (not separately reported). documented in this encounter [facility] 03-25-2024 Telephone encounter Note Called patient. No answer, [facility] to call back. Delisa Li RN [facility] 03-22-2024 Telephone encounter Note She had US today and confirmed to have an IUP. Her thyroid labs showed a probably hyperactive thyroid and she has to see lolita/Dr. Brunson KATELYN. Referral placed. 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 Needs [facility] appointment for a consult and first trimester US All orders placed. Thank you. [facility] 03-22-2024 Telephone encounter Note Patient called back and spoke to PSS. Confirmed that she got the message and is going to go to US today as scheduled. Shannon Carrillo RN [facility] 03-22-2024 Miscellaneous Notes Patient called back and spoke to PSS. Confirmed that she got the message and is going to go to US today as scheduled. Shannon Carrillo RN I called the patient and there was no answer. She has viewed HCG results and is now scheduled for US today, 03/22 at [facility]. I left a voicemail for patient letting [...] if she wants. documented in this encounter [facility] 03-22-2024 Telephone encounter Note I called the patient and there was no answer. She has viewed HCG results and is now scheduled for US today, 03/22 at [facility]. I left a voicemail for patient letting her know that I was calling about results and US order. Advised patient to call office with any questions. Shannon Carrillo RN [facility] 03-22-2024 Telephone encounter Note Please let her know that the blood work we did on Monday due to delayed period and concerns with her thyroid came back showing that she is . She can do dating US today or monday if she wants. [facility] 03-20-2024 Note HNO ID: [id number] Author: LA NENA EDMONDSON MD Service: ? Author Type: Physician Type: Progress Notes Filed: 03/20/2024 16:45 Note Text: Bill Bravo is a 38 year old No obstetric history on file. who presents for her annual gynecologic exam. Patient's last menstrual period was 01/16/2024 (exact date). 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 On exam thyroid is slightly enlarged Counseled She will see her PCP in 1-2 weeks and will do labs today. Declines Cx Wants testing for BV. Participation of a fellow, resident, medical student, or advanced practice provider student in performing the sensitive examination was discussed with the patient or authorized vaccine customer representative. The patient or authorized vaccine customer representative has agreed to proceed with the [...] of Onset Coronary Artery Disease Mother 52 [place] Alcohol/Drug Father Alcohol/Drug Sister Cancer Maternal Grandmother [...] HPV ordered. Reviewed and encouraged self-breast exam. 2254-4301 mg of calcium daily. Encourged a healthy diet and exercise. Return to office in one year or earlier as needed. La Nena Edmondson MD [facility] 03-20-2024 History of Present illness Narrative Bill Bravo is a 38 year old No obstetric history on file. who presents for her annual gynecologic exam. Patient's last menstrual period was 01/16/2024 (exact date). 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 On exam thyroid is slightly enlarged Counseled She will see her PCP in 1-2 weeks and will do labs today. Declines Cx Wants testing for BV. Participation of a fellow, resident, medical student, or advanced practice provider student in performing the sensitive examination was discussed with the patient or authorized vaccine customer representative. The patient or authorized vaccine customer representative has agreed to proceed with the [...] of Onset Coronary Artery Disease Mother 52 [place] Alcohol/Drug Father Alcohol/Drug Sister Cancer Maternal Grandmother [...] HPV ordered. Reviewed and encouraged self-breast exam. 0264-5995 mg of calcium daily. Encourged a healthy diet and exercise. Return to office in one year or earlier as needed. La Nena Edmondson MD documented in this encounter [facility] 09-10-2022 Note ED Nursing Discharge Summary Entered On: 09/10/2022 21:04 EDT Performed On: 09/10/2022 16:35 EDT by Te CARNES, Mackenzie KINCAID Information [id number] ED IV's : No IV ED IV Site Assessment : No IV ED Vitals Completed : Yes ED Final Assessment Completed : Yes ED Progress Note Completed : Yes Complete all PRN/Pain response forms? : Yes ED Disassociate Patient from Monitor : N/A Updated Depart Time : Yes Mode of Discharge : Ambulatory Discharge Transportation : Private vehicle ED Belongings sent w patient [id number] : Yes Valuables Complete : No Mackenzie Tiwari RN - 09/10/2022 21:03 EDT Education Instructions given to [...] Mackenzie Tiwari RN - 09/10/2022 21:03 EDT [facility] 09-09-2022 History of Present illness Narrative [...] 2022 3:29 PM documented in this encounter [facility] 09-09-2022 History of Present illness Narrative Subjective HPI Nontoxic-appearing female presents urgent care chief plaint right ankle injury. Duration of symptoms today. Associated symptoms right ankle pain swelling bruising. Patient [place] when she slipped and fell into [place]. States she slid down the bank that [...] x 1 am, fell 15ft into a [place] PAST MEDICAL HISTORY Diagnosis Date Anxiety Chronic [...] of Onset Coronary Artery Disease Mother 52 [place] Alcohol/Drug Father Alcohol/Drug Sister Cancer Maternal Grandmother [...] of care. This note was generated using [employer] software. It may contain errors in wording, punctuation, or spelling. Herb Freitas APRN.[employer] documented in this encounter [facility] 03-04-2020 History of Present illness Narrative Radiology [...] 2020 1:08 PM documented in this encounter [facility] Evaluation note No assessment inform ation available [facility] Work Phone: Evaluation note Diagnosis Pain of right lower extremity- Primary [facility] Diagnosis Onset Date Resolution Status Closed fracture of right distal fibula acute Right ankle pain acute [facility] Work Phone: Evaluation note* Diagnosis Pain of right lower extremity [facility] Diagnosis Animal bite of foot, right, initial encounter [facility] Diagnosis Encounter for gynecological examination (general) (routine) without abnormal findings- Primary Encounter for screening for malignant neoplasm of cervix Screening for malignant neoplasm of the cervix Screening mammogram for breast cancer Missed menses Absence of menstruation Vaginal discharge Leukorrhea, not specified as infective Enlarged thyroid Goiter, unspecified [facility] Diagnosis Threatened - Primary Threatened , unspecified as to episode of care Encounter to determine viability of , single or unspecified fetus- Primary Threatened Threatened , unspecified as to episode of care [facility] Diagnosis Encounter to determine viability of , single or unspecified fetus- Primary Threatened Threatened , unspecified as to episode of care [facility]* Diagnosis Anxiety- Primary Anxiety state, unspecified [...] c/w Overt hyperthroidism [facility] Diagnosis Hyperthyroidism- Primary Thyrotoxicosis without mention [...] Posttraumatic stress disorder [facility]* Diagnosis Anxiety- Primary Anxiety state, unspecified [...] other mental disorder documented in this encounter [facility] note* Diagnosis Anxiety- Primary Anxiety state, [...] of state, incidental documented in this encounter [facility] note* Diagnosis Anxiety- Primary Anxiety state, [...] crisis or storm documented in this encounter [facility] note* Diagnosis Anxiety- Primary Anxiety state, [...] thyroid function study documented in this encounter [facility] note* Diagnosis Anxiety- Primary Anxiety state, [...] multigravida, first trimester documented in this encounter [facility] note* Diagnosis Anxiety- Primary Anxiety state, [...] multigravida, first trimester documented in this encounter [facility] note* Diagnosis Anxiety- Primary Anxiety state, [...] Primary Routine general medical examination at a health care facility Seizure disorder during in first trimester (HCC) Thyroid disease during in first trimester Tobacco smoking complicating in first trimester Tobacco use disorder complicating , childbirth, or the puerperium, antepartum condition or complication PTSD (post-traumatic stress disorder) Posttraumatic stress disorder Anxiety Anxiety state, unspecified Nasal congestion Other diseases of nasal cavity and sinuses Screening for depression [facility] Diagnosis Anxiety- Primary Anxiety state, unspecified Hyperthyroidism Thyrotoxicosis 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 or other cause, without mention of thyrotoxic crisis or storm Goiter Goiter, unspecified 10 weeks gestation of ([facility]) state, incidental AMA (advanced maternal age)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 or other cause, without mention of thyrotoxic crisis or storm Goiter Goiter, unspecified 10 weeks gestation of ([facility]) state, incidental AMA (advanced maternal age) multigravida 35+, first trimester ([facility]) Multigravida of advanced maternal age in first trimester ([facility]) Seizure disorder during in first trimester ([facility]) Tobacco smoking complicating in first trimester ([facility]) Tobacco use disorder complicating , childbirth, or the puerperium, antepartum condition or complication Thyroid disease during in first trimester ([facility]) PTSD (post-traumatic stress disorder) Posttraumatic stress disorder 16 weeks gestation of ([facility])- Primary state, incidental Seizure disorder ([facility]) Unspecified epilepsy without mention of intractable epilepsy Advanced maternal age in multigravida, first trimester ([facility]) 20 weeks gestation of ([facility])- Primary state, incidental Seizure disorder ([facility]) Unspecified epilepsy without mention of intractable epilepsy Advanced maternal age in multigravida, first trimester ([facility]) Encounter for supervision of high risk in first trimester, antepartum ([facility]) Screening for diabetes mellitus- Primary 24 weeks gestation of ([facility]) state, incidental Encounter for supervision of high risk in second trimester, antepartum ([facility]) Advanced maternal age in multigravida, first trimester ([facility]) Low lying placenta, antepartum ([facility]) Seizure disorder during in first trimester ([facility]) Supervision of high risk in third trimester ([facility])- Primary Unspecified high-risk PTSD (post-traumatic stress disorder) Posttraumatic stress disorder Anxiety Anxiety state, unspecified AMA (advanced maternal age) multigravida 35+, third trimester ([facility]) 33 weeks gestation of ([facility]) state, incidental Supervision of high risk in third trimester ([facility])- Primary Unspecified high-risk 35 weeks gestation of ([facility]) state, incidental AMA (advanced maternal age) multigravida 35+, third trimester ([facility]) Thyroid disease during in third trimester ([facility]) Tobacco smoking complicating in third trimester ([facility]) Tobacco use disorder complicating , childbirth, or the puerperium, antepartum condition or complication History of substance abuse ([facility]) Other, mixed, or unspecified nondependent drug abuse, unspecified [facility]* Diagnosis Anxiety- Primary Anxiety state, unspecified Hyperthyroidism Thyrotoxicosis 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 or other cause, without mention of thyrotoxic crisis or storm Goiter Goiter, unspecified 10 weeks gestation of ([facility]) state, incidental AMA (advanced maternal age) multigravida 35+, first trimester ([facility]) Multigravida of advanced maternal age in first trimester ([facility]) Seizure disorder during in first trimester ([facility]) Tobacco smoking complicating in first trimester ([facility]) Tobacco use disorder complicating , childbirth, or the puerperium, antepartum condition or complication Thyroid disease during in first trimester ([facility]) PTSD (post-traumatic stress disorder) Posttraumatic stress disorder 16 weeks gestation of ([facility])- Primary state, incidental Seizure disorder ([facility]) Unspecified epilepsy without mention of intractable epilepsy Advanced maternal age in multigravida, first trimester ([facility]) 20 weeks gestation of ([facility])- Primary state, incidental Seizure disorder ([facility]) Unspecified epilepsy without mention of intractable epilepsy Advanced maternal age in multigravida, first trimester ([facility]) Encounter for supervision of high risk in first trimester, antepartum ([facility]) Screening for diabetes mellitus- Primary 24 weeks gestation of ([facility]) state, incidental Encounter for supervision of high risk in second trimester, antepartum ([facility]) Advanced maternal age in multigravida, first trimester ([facility]) Low lying placenta, antepartum ([facility]) Seizure disorder during in first trimester ([facility]) Low lying placenta, antepartum ([facility])- Primary Supervision of high risk in third trimester ([facility])- Primary Unspecified high-risk PTSD (post-traumatic stress disorder) Posttraumatic stress disorder Anxiety Anxiety state, unspecified AMA (advanced maternal age) multigravida 35+, third trimester ([facility]) 33 weeks gestation of ([facility]) state, incidental Supervision of high risk in third trimester ([facility])- Primary Unspecified high-risk AMA (advanced maternal age) multigravida 35+, third trimester ([facility]) Thyroid disease during in third trimester ([facility]) History of substance abuse ([facility]) Other, mixed, or unspecified nondependent drug abuse, unspecified Tobacco smoking complicating in third trimester ([facility]) Tobacco use disorder complicating , childbirth, or the puerperium, antepartum condition or complication PTSD (post-traumatic stress disorder) Posttraumatic stress disorder 36 weeks gestation of ([facility]) state, incidental [facility]* Diagnosis Anxiety- Primary Anxiety state, unspecified Hyperthyroidism Thyrotoxicosis 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 or other cause, without mention of thyrotoxic crisis or storm Goiter Goiter, unspecified 10 weeks gestation of ([facility]) state, incidental AMA (advanced maternal age) multigravida 35+, first trimester ([facility]) Multigravida of advanced maternal age in first trimester ([facility]) Seizure disorder during in first trimester ([facility]) Tobacco smoking complicating in first trimester [...] Advanced maternal age in multigravida, first trimester ([facility]) Encounter for supervision of high risk in first trimester, antepartum ([facility]) Screening for diabetes mellitus- Primary 24 weeks gestation of ([facility]) state, incidental Encounter for supervision of high risk in second trimester, antepartum ([facility]) Advanced maternal age in multigravida, first trimester ([facility]) Low lying placenta, antepartum ([facility]) Seizure disorder during in first trimester ([facility]) Supervision of high risk in third trimester ([facility])- Primary Unspecified high-risk PTSD (post-traumatic stress disorder) Posttraumatic stress disorder Anxiety Anxiety state, unspecified AMA (advanced maternal age) multigravida 35+, third trimester ([facility]) 33 weeks gestation of ([facility]) state, incidental Supervision of high risk in third trimester ([facility])- Primary Unspecified high-risk AMA (advanced maternal age) multigravida 35+, third trimester ([facility]) Thyroid disease during in third trimester ([facility]) History of substance abuse ([facility]) Other, mixed, or unspecified nondependent drug abuse, unspecified Tobacco smoking complicating in third trimester ([facility]) Tobacco use disorder complicating , childbirth, or the puerperium, antepartum condition or complication PTSD (post-traumatic stress disorder) Posttraumatic stress disorder 36 weeks gestation of ([facility]) state, incidental Supervision of high risk in third trimester ([facility])- Primary Unspecified high-risk AMA (advanced maternal age) multigravida 35+, third trimester ([facility]) 37 weeks gestation of ([facility]) state, incidental Nicotine use disorder Tobacco use disorder documented in this encounter [facility] Discharge instructions Additional Instructions Follow-up with your primary care provider. The name of your primary care provider is located on your insurance card [facility]. It is in your best interest to quit smoking.[facility] Work Phone: Reason for referral (narrative)* Diagnostic Procedure Only (Urgent) - Closed Specialty Diagnoses / Procedures Referred By Contac t Referred To Contact XR IMAGING Diagnoses Pain of right lower extremity Procedures XR FOOT GENERAL 3V AP/LAT/OBL RIGHT RADEX FOOT COMPLETE MINIMUM 3 VIEWS Herb Freitas APRN.[employer] [address] [place] [address] [place] [address] Referral ID Status Reason Start Date Expiration Date V isits Requested Visits Authorized [id number] Closed Auto-Generate d Referral 09/09/2022 10/09/2023 1 1 * Diagnostic Procedure Only (Urgent) - Closed Specialty Diagnoses / Procedures Referred By Kenyettaac t Referred To Contact XR IMAGING Diagnoses Pain of right lower extremity Procedures XR TIBIA FIBULA 2V AP/LAT RIGHT RADIOLOGIC EXAMINATION TIBIA & FIBULA 2 VIEWS Herb Freitas APRN.[employer] [address] [place] [address] [place] [address] Referral ID Status Reason Start Date Expiration Date V isits Requested Visits Authorized [id number] Closed Auto-Generate d Referral 09/09/2022 10/09/2023 1 1 [facility] for referral (narrative)* Diagnostic Procedure Only (Routine) - Authorized Specialty Diagnoses / Procedures Referred By Contac t Referred To Contact BR IMAGING Diagnoses Screening mammogram for breast cancer Procedures RUDDY SCREENING SCREENING MAMMOGRAPHY BI 2-VIEW BREAST INC CAD La Nena Edmondson MD [address] [address] Br Imaging [address] [place] [address] Referral ID Status Reason Start Date Expiration Date Visits Requested Visits Authorized [id number] Authorized Auto-Generat ed Referral 03/20/2024 04/19/2025 1 1 [facility] for referral (narrative)* Diagnostic Procedure Only (Routine) - Closed Specialty Diagnoses / Procedures Referred By Contac t Referred To Contact [facility] Diagnoses Threatened Procedures OBSTETRIC ULTRASOUND WHI US PREG UTERUS AFTER 1ST TRIMEST GESTATION La Nena Edmondson MD [address] [address] [facility] [address] [place] [address] Referral ID Status Reason Start Date Expiration Date V isits Requested Visits Authorized [id number] Closed Auto-Generate d Referral 03/22/2024 03/22/2025 1 1 [facility] Referring Provider Reason for Referral [facility] Servic e Needs WIAPOHReason for referral (narrative)No reason for referral information availableWMercer County [facility] Work Phone: Reason for visit Narrative* Diagnostic Procedure Only (Urgent) - Closed Specialty Diagnoses / Procedures Referred By Francesca t Referred To Contact XR IMAGING Diagnoses Pain of right lower extremity Procedures XR FOOT GENERAL 3V AP/LAT/OBL RIGHT RADEX FOOT COMPLETE MINIMUM 3 VIEWS Herb Freitas APRN.CNP [address] [place] [address] Xr Imaging [id number] Referral ID Status Reason Start Date Expiration Date V isits Requested Visits Authorized [id number] Closed Auto-Generate d Referral 09/09/2022 10/09/2023 1 1 [facility] for visit Narrative* Diagnostic Procedure Only (Routine) - Closed Specialty Diagnoses / Procedures [facility] To Contact [facility] Diagnoses AMA (advanced maternal age) multigravida 35+, third trimester ([facility]) Procedures OBSTETRIC ULTRASOUND WHI US PREG UTERUS AFTER 1ST TRIMEST GESTATION Bimal Patel MD [address] [place] [address] Phone: tel: fax: [facility] [place] [address] Referral ID Status Reason Start Date Expiration Date V isits Requested Visits Authorized [id number] Closed Auto-Generate d Referral 08/27/2024 08/27/2025 1 1 [facility] Summary Purpose Family History No Family History Records FoundNo Family History Records FoundNo Family History Records FoundNo Family History Records FoundNo Family History Records FoundNo Family History Records FoundNo Family History Records Found Advance Directives No Advanced Directives Records Found Advance Directive Response Recorded Date/ Time Living Will No June 07, 2021 12:43pm Power of Otc Clerk No June 07 12:43pm Chief Complaint and [...] lower extremity Procedures CONSULT TO ORTHOPAEDICS OFFICE/OUTPATIENT [facility] 60-74 MINUTES Herb Freitas, MEDICAL FIELD REPRESENTATIVE.[employer] [address] [place] [address] Referral ID Status Reason Start Date Expiration Date Visits Requested Visits Authorized [id number] Authorized PCP Requested Referral 09/09/2022 09/09/2023 1 1 Specialty Diagnoses / Procedures Referred By Contac t Referred To Contact XR IMAGING Diagnoses Pain of right lower extremity Procedures XR FOOT GENERAL 3V AP/LAT/OBL RIGHT RADEX FOOT COMPLETE MINIMUM 3 VIEWS Herb Freitas, MEDICAL FIELD REPRESENTATIVE.[employer] [address] [place] [address] Xr Imaging Referral ID Status Reason Start Date Expiration Date V isits Requested Visits Authorized [id number] Closed Auto-Generate d Referral 09/09/2022 10/09/2023 1 1 Specialty Diagnoses / Procedures Referred By Contac t Referred To Contact XR IMAGING Diagnoses Pain of right lower extremity Procedures XR TIBIA FIBULA 2V AP/LAT RIGHT RADIOLOGIC EXAMINATION TIBIA & FIBULA 2 VIEWS Herb Freitas APRN.[employer] [address] [place] [address] Xr Imaging Referral ID Status Reason Start Date Expiration Date V isits Requested Visits Authorized [id number] Closed Auto-Generate d Referral 09/09/2022 10/09/2023 1 1 Additional Source Comments INFORMATION SOURCE (unrecogn ized section and content) DATE CREATED AUTHOR 08/26/2018 [facility] DATE CREATED AUTHOR AUTHOR'S ORGANIZ ATION 09/13/2022 [facility] DATE CREATED AUTHOR AUTHOR'S ORGANIZ ATION 03/28/2024 [facility] DATE CREATED AUTHOR AUTHOR'S ORGANIZ ATION 03/30/2024 [facility] DATE CREATED AUTHOR AUTHOR'S ORGANIZ ATION 08/02/2024 [facility] DATE CREATED AUTHOR AUTHOR'S ORGANIZ ATION 09/27/2024 [facility] DATE CREATED AUTHOR AUTHOR'S ORGANIZ ATION 09/29/[address] [facility] Goals (unrecognized section and content) Goals [...] or prosecute any alcohol or drug abuse patient.[facility] the event this information is protected by the Federal Confidentiality of Alcohol and Drug Abuse Patient Records regulations: The Federal rules restrict any use of the information to criminally investigate or prosecute any alcohol or drug abuse patient.[facility] Hospital[facility] the event this information is protected by the Federal Confidentiality of Alcohol and Drug Abuse Patient Records regulations: The Federal rules restrict any use of the information to criminally investigate or prosecute any alcohol or drug abuse patient.[facility] Hospital[facility] the event this information is protected by the Federal Confidentiality of Alcohol and Drug Abuse Patient Records regulations: The Federal rules restrict any use of the information to criminally investigate or prosecute any alcohol or drug abuse patient.[facility] HospitalIn the event this information is protected by the Federal Confidentiality of Alcohol and Drug Abuse Patient Records regulations: The Federal rules restrict any use of the information to criminally investigate or prosecute any alcohol or drug abuse patient.[facility] HospitalIn the event this information is protected by the Federal Confidentiality of Alcohol and Drug Abuse Patient Records regulations: The Federal rules restrict any use of the information to criminally investigate or prosecute any alcohol or drug abuse patient.[facility] HospitalIn the event this information is protected by the Federal Confidentiality of Alcohol and Drug Abuse Patient Records regulations: The Federal rules restrict any use of the information to criminally investigate or prosecute any alcohol or drug abuse patient.[facility] HospitalIn the event this information is protected by the Federal Confidentiality of Alcohol and Drug Abuse Patient Records regulations: The Federal rules restrict any use of the information to criminally investigate or prosecute any alcohol or drug abuse patient.[facility] HospitalIn the event this information is protected by the Federal Confidentiality of Alcohol and Drug Abuse Patient Records regulations: The Federal rules restrict any use of the information to criminally investigate or prosecute any alcohol or drug abuse patient.[facility] HospitalIn the event this information is protected by the Federal Confidentiality of Alcohol and Drug Abuse Patient Records regulations: The Federal rules restrict any use of the information to criminally investigate or prosecute any alcohol or drug abuse patient.[facility] the event this information is protected by the Federal Confidentiality of Alcohol and Drug Abuse Patient Records regulations: The Federal rules restrict any use of the information to criminally investigate or prosecute any alcohol or drug abuse patient.[facility] HospitalIn the event this information is protected by the Federal Confidentiality of Alcohol and Drug Abuse Patient Records regulations: The Federal rules restrict any use of the information to criminally investigate or prosecute any alcohol or drug abuse patient.[facility] HospitalIn the event this information is protected by the Federal Confidentiality of Alcohol and Drug Abuse Patient Records regulations: The Federal rules restrict any use of the information to criminally investigate or prosecute any alcohol or drug abuse patient.[facility] the event this information is protected by the Federal Confidentiality of Alcohol and Drug Abuse Patient Records regulations: The Federal rules restrict any use of the information to criminally investigate or prosecute any alcohol or drug abuse patient.[facility] HospitalIn the event this information is protected by the Federal Confidentiality of Alcohol and Drug Abuse Patient Records regulations: The Federal rules restrict any use of the information to criminally investigate or prosecute any alcohol or drug abuse patient.[facility] HospitalIn the event this information is protected by the Federal Confidentiality of Alcohol and Drug Abuse Patient Records regulations: The Federal rules restrict any use of the information to criminally investigate or prosecute any alcohol or drug abuse patient.[facility] HospitalIn the event this information is protected by the Federal Confidentiality of Alcohol and Drug Abuse Patient Records regulations: The Federal rules restrict any use of the information to criminally investigate or prosecute any alcohol or drug abuse patient.[facility] HospitalIn the event this information is protected by the Federal Confidentiality of Alcohol and Drug Abuse Patient Records regulations: The Federal rules restrict any use of the information to criminally investigate or prosecute any alcohol or drug abuse patient.[facility] HospitalIn the event this information is protected by the Federal Confidentiality of Alcohol and Drug Abuse Patient Records regulations: The Federal rules restrict any use of the information to criminally investigate or prosecute any alcohol or drug abuse patient.[facility] HospitalIn the event this information is protected by the Federal Confidentiality of Alcohol and Drug Abuse Patient Records regulations: The Federal rules restrict any use of the information to criminally investigate or prosecute any alcohol or drug abuse patient.[facility] HospitalIn the event this information is protected by the Federal Confidentiality of Alcohol and Drug Abuse Patient Records regulations: The Federal rules restrict any use of the information to criminally investigate or prosecute any alcohol or drug abuse patient.[facility] HospitalIn the event this information is protected by the Federal Confidentiality of Alcohol and Drug Abuse Patient Records regulations: The Federal rules restrict any use of the information to criminally investigate or prosecute any alcohol or drug abuse patient.[facility] HospitalIn the event this information is protected by the Federal Confidentiality of Alcohol and Drug Abuse Patient Records regulations: The Federal rules restrict any use of the information to criminally investigate or prosecute any alcohol or drug abuse patient.[facility] HospitalIn the event this information is protected by the Federal Confidentiality of Alcohol and Drug Abuse Patient Records regulations: The Federal rules restrict any use of the information to criminally investigate or prosecute any alcohol or drug abuse patient.[facility] HospitalIn the event this information is protected by the Federal Confidentiality of Alcohol and Drug Abuse Patient Records regulations: The Federal rules restrict any use of the information to criminally investigate or prosecute any alcohol or drug abuse patient.[facility] HospitalIn the event this information is protected by the Federal Confidentiality of Alcohol and Drug Abuse Patient Records regulations: The Federal rules restrict any use of the information to criminally investigate or prosecute any alcohol or drug abuse patient.[facility] HospitalIn the event this information is protected by the Federal Confidentiality of Alcohol and Drug Abuse Patient Records regulations: The Federal rules restrict any use of the information to criminally investigate or prosecute any alcohol or drug abuse patient.[facility] HospitalIn the event this information is protected by the Federal Confidentiality of Alcohol and Drug Abuse Patient Records regulations: The Federal rules restrict any use of the information to criminally investigate or prosecute any alcohol or drug abuse patient.[facility] HospitalIn the event this information is protected by the Federal Confidentiality of Alcohol and Drug Abuse Patient Records regulations: The Federal rules restrict any use of the information to criminally investigate or prosecute any alcohol or drug abuse patient.[facility] HospitalIn the event this information is protected by the Federal Confidentiality of Alcohol and Drug Abuse Patient Records regulations: The Federal rules restrict any use of the information to criminally investigate or prosecute any alcohol or drug abuse patient.[facility] HospitalIn the event this information is protected by the Federal Confidentiality of Alcohol and Drug Abuse Patient Records regulations: The Federal rules restrict any use of the information to criminally investigate or prosecute any alcohol or drug abuse patient.[facility] HospitalIn the event this information is protected by the Federal Confidentiality of Alcohol and Drug Abuse Patient Records regulations: The Federal rules restrict any use of the information to criminally investigate or prosecute any alcohol or drug abuse patient.[facility] HospitalIn the event this information is protected by the Federal Confidentiality of Alcohol and Drug Abuse Patient Records regulations: The Federal rules restrict any use of the information to criminally investigate or prosecute any alcohol or drug abuse patient.[facility] HospitalIn the event this information is protected by the Federal Confidentiality of Alcohol and Drug Abuse Patient Records regulations: The Federal rules restrict any use of the information to criminally investigate or prosecute any alcohol or drug abuse patient.[facility] HospitalIn the event this information is protected by the Federal Confidentiality of Alcohol and Drug Abuse Patient Records regulations: The Federal rules restrict any use of the information to criminally investigate or prosecute any alcohol or drug abuse patient.[facility] HospitalIn the event this information is protected by the Federal Confidentiality of Alcohol and Drug Abuse Patient Records regulations: The Federal rules restrict any use of the information to criminally investigate or prosecute any alcohol or drug abuse patient.[facility] HospitalIn the event this information is protected by the Federal Confidentiality of Alcohol and Drug Abuse Patient Records regulations: The Federal rules restrict any use of the information to criminally investigate or prosecute any alcohol or drug abuse patient.[facility] HospitalIn the event this information is protected by the Federal Confidentiality of Alcohol and Drug Abuse Patient Records regulations: The Federal rules restrict any use of the information to criminally investigate or prosecute any alcohol or drug abuse patient.[facility] HospitalIn the event this information is protected by the Federal Confidentiality of Alcohol and Drug Abuse Patient Records regulations: The Federal rules restrict any use of the information to criminally investigate or prosecute any alcohol or drug abuse patient.[facility] HospitalIn the event this information is protected by the Federal Confidentiality of Alcohol and Drug Abuse Patient Records regulations: The Federal rules restrict any use of the information to criminally investigate or prosecute any alcohol or drug abuse patient.[facility] HospitalIn the event this information is protected by the Federal Confidentiality of Alcohol and Drug Abuse Patient Records regulations: The Federal rules restrict any use of the information to criminally investigate or prosecute any alcohol or drug abuse patient.[facility] HospitalIn the event this information is protected by the Federal Confidentiality of Alcohol and Drug Abuse Patient Records regulations: The Federal rules restrict any use of the information to criminally investigate or prosecute any alcohol or drug abuse patient.[facility] HospitalIn the event this information is protected by the Federal Confidentiality of Alcohol and Drug Abuse Patient Records regulations: The Federal rules restrict any use of the information to criminally investigate or prosecute any alcohol or drug abuse patient.[facility] Reason for Visit (unrecogniz ed section and content) Reason Comments Ankle Injury right ankle injury x 1 am, fell 15ft into a [employer] [place] Reason Comments Well Woman Reason Comments Results Reason Comments US Specialty Diagnoses / Procedures Referred By Contac t Referred To Contact [facility] Diagnoses Threatened Procedures OBSTETRIC ULTRASOUND WHI US PREG UTERUS AFTER 1ST TRIMEST GESTATION La Nena Edmondson MD [address] [address] [facility] [address] [place] [address] Referral ID Status Reason Start Date Expiration Date V isits Requested Visits Authorized [id number] Closed Auto-Generate d Referral 03/22/2024 03/22/2025 1 1 Reason Comments Consult Specialty Diagnoses / Procedures Referred By Contac t Referred To Contact Diagnoses Hyperthyroidism Goiter 10 weeks gestation of AMA (advanced maternal age) multigravida 35+, first trimester Procedures CONSULT TO MATERNAL MEDI OFFICE/OUTPATIENT [facility] 60 MINUTES La Nena Edmondson MD [address] [address] Phone: tel: fax: Referral ID Status Reason Start Date Expiration Date V isits Requested Visits Authorized [id number] Closed PCP Requested Referral Auto-Generated Referral 03/22/2024 03/22/2025 1 1 Reason Onset Date Comments Results 03/22/2024 Reason Comments Initial OB Visit Specialty Diagnoses / Procedures Referred By Contac t Referred To Contact [facility] Diagnoses AMA (advanced maternal age) multigravida 35+, first trimester Procedures OBSTETRIC ULTRASOUND WHI US PREG UTERUS AFTER 1ST [place] [address] [place] [address] Phone: tel: fax: [address] [address] Referral ID Status Reason Start Date Expiration Date V isits Requested Visits Authorized [id number] Closed Auto-Generate d Referral 03/25/2024 03/25/2025 1 1 Reason Comments PRAF Reason Comments OB Reason Comments Thyroid Problem Specialty Diagnoses / Procedures Referred By Contac t Referred To Contact Endocrinology Diagnoses Hyperthyroidism Goiter Procedures CONSULT TO ENDOCRINOLOGY OFFICE/OUTPATIENT [facility] MDM 60 MINUTES La Nena Edmondson MD [address] [address] Phone: tel: fax: Referral ID Status Reason Start Date Expiration Date V isits Requested Visits Authorized [id number] Closed PCP Requested Referral 03/22/2024 03/22/2025 1 1 Referral ID Status Reason Start Date Expiration Date V isits Requested Visits Authorized [id number] Closed Auto-Generate d Referral 03/25/2024 03/25/2025 1 1 Reason Onset Date Comments Care 04/30/2024 Reason Comments Establish Care Reason Comments New Patient Specialty Diagnoses / Procedures Referred By Contac t Referred To Contact Neurology Diagnoses 10 weeks gestation of (HCC) Seizure disorder during in first trimester (HCC) Procedures CONSULT TO NEUROLOGY OFFICE/OUTPATIENT NEW [facility] 60 [place] [address] [place] [address] Phone: tel: fax: Referral ID Status Reason Start Date Expiration Date V isits Requested Visits Authorized [id number] Closed PCP Requested Referral 03/25/2024 03/25/2025 1 1 Reason Onset Date Comments Care 05/28/2024 Reason Comments US Specialty Diagnoses / Procedures Referred By Contac t Referred To Contact [facility] Diagnoses AMA (advanced maternal age) multigravida 35+, first trimester (HCC) Procedures OBSTETRIC ULTRASOUND WHI US PREG UTERUS AFTER 1ST [place] [address] [place] [address] Phone: tel: fax: [address] [address] Referral ID Status Reason Start Date Expiration Date V isits Requested Visits Authorized [id number] Closed Auto-Generate d Referral 04/22/2024 03/25/2025 1 1 Specialty Diagnoses / Procedures Referred By Contac t Referred To Contact [facility] Diagnoses Supervision of high risk in second trimester (HCC) Procedures OBSTETRIC ULTRASOUND WHI US PREG UTERUS AFTER 1ST TRIMEST GESTATION Penelope Reyna DO [address] [place] [address] Phone: tel: fax: [address] [phone] Referral ID Status Reason Start Date Expiration Date V isits Requested Visits Authorized [id number] Closed Auto-Generate d Referral 06/18/2024 05/28/2025 1 1 Reason Onset Date Comments Care 06/25/2024 Specialty Diagnoses / Procedures Referred By Contac t Referred To Contact [facility] Diagnoses Advanced maternal age in multigravida, first trimester (HCC) Low lying placenta, antepartum (HCC) Procedures OBSTETRIC ULTRASOUND WHI US PREG UTERUS AFTER 1ST TRIMEST GESTATION Bimal Patel MD [address] [place] [address] Phone: tel: fax: [address] [address] Referral ID Status Reason Start Date Expiration Date V isits Requested Visits Authorized [id number] Closed Auto-Generate d Referral 06/25/2024 06/25/2025 1 1 Reason Onset Date Comments Care 07/18/2024 Reason Comments Patient Question Reason Comments Sinus Problem Sinus pressure, pain . Nasal congestion x 9 days Reason Onset Date Comments Care 08/01/2024 Reason Onset Date Comments Care 08/15/2024 Specialty Diagnoses / Procedures Referred By Contac t Referred To Contact [facility] Diagnoses Supervision of high risk in third trimester (HCC) Procedures OBSTETRIC ULTRASOUND WHI US PREG UTERUS AFTER 1ST TRIMEST GESTATION Penelope Reyna DO [address] [place] [address] Phone: tel: fax: [address] [address] Referral ID Status Reason Start Date Expiration Date V isits Requested Visits Authorized [id number] Closed Auto-Generate d Referral 08/06/2024 05/28/2025 1 1 Reason Onset Date Comments Care 08/27/2024 Reason Onset Date Comments Care 09/11/2024 Reason Onset Date Comments Care 09/25/2024 Reason Comments Care Reason Comments Care Teams (unrecognized sec tion and content) Military Science Teacher Relationship Specialty Start Date End Date Luca Person MD [address] [place] [address] PCP - General Internal Medicine 09/09/22 Team [...] Luca Person MD Primary Care Provider Active Military Science Teacher Relationship Specialty Start Date End Date Luca Person MD [id number] [place] [address] PCP - General Internal Medicine 09/09/22 Military Science Teacher Relationship Specialty Start Date End Date Luca Person MD [id number] [place] [address] PCP - General Internal Medicine 09/09/22 Military Science Teacher Relationship Specialty Start Date End Date Luca Person MD [id number] [place] [address] PCP - General Internal Medicine 09/09/22 Military Science Teacher Relationship Specialty Start Date End Date Luca Person MD [id number] [place] [address] PCP - General Internal Medicine 09/09/22 Military Science Teacher Relationship Specialty Start Date End Date Luca Person MD [id number] [place] [address] PCP - General Internal Medicine 09/09/22 Military Science Teacher Relationship Specialty Start Date End Date Luca Person MD [address] [place] [address] PCP - General Internal Medicine 09/09/22 Military Science Teacher Relationship Specialty Start Date End Date Luca Person MD [id number] [place] [address] PCP - General Internal Medicine 09/09/22 Military Science Teacher Relationship Specialty Start Date End Date Luca Person MD [address] [place], [place] [address] PCP - General Internal Medicine 09/09/22 Military Science Teacher Relationship Specialty Start Date End Date Luca Person MD [address] [place], [place] [address] PCP - General Internal Medicine 09/09/22 Military Science Teacher Relationship Specialty Start Date End Date Luca Person MD [address] [place], [place] [address] PCP - General Internal Medicine 09/09/22 Military Science Teacher Relationship Specialty Start Date End Date Luca Person MD [address] [place], [place] [address] PCP - General Internal Medicine 09/09/22 Military Science Teacher Relationship Specialty Start Date End Date Luca Person MD [address] [place], [place] [address] PCP - General Internal Medicine 09/09/22 Military Science Teacher Relationship Specialty Start Date End Date Luca Person MD [address] [place], [place] [address] PCP - General Internal Medicine 09/09/22 Military Science Teacher Relationship Specialty Start Date End Date Etta Merchant, MEDICAL FIELD REPRESENTATIVE.W[employer] CLE[employer]ER MACHINE [address] [facility], [place] [id number] PCP - General Family Medicine 05/02/24 Military Science Teacher Relationship Specialty Start Date End Date Etta Merchant, MEDICAL FIELD REPRESENTATIVE.W[employer] CLEANER MACHINE [address] [facility], [place] [id number] PCP - General Family Medicine 05/02/24 Military Science Teacher Relationship Specialty Start Date End Date Etta Merchant, MEDICAL FIELD REPRESENTATIVE.WET CLEANER MACHINE [address] [place] [place] [address] PCP - General Family Medicine 05/02/24 Military Science Teacher Relationship Specialty Start Date End Date Etta Merchant, MEDICAL FIELD REPRESENTATIVE.W[employer] CLEANER MACHINE [address] [place] [address] PCP - General Family Medicine 05/02/24 Military Science Teacher Relationship Specialty Start Date End Date Luca Person MD [address] [place] [id number] PCP - General Internal Medicine 09/09/22 05/01/24 Etta Merchant, MEDICAL FIELD REPRESENTATIVE.W[employer] CLE[employer]ER MACHINE [address] [place] [address] PCP - General Family Medicine 05/02/24 Military Science Teacher Relationship Specialty Start Date End Date Etta Merchant, MEDICAL FIELD REPRESENTATIVE.WET CLEANER MACHINE [address] [place] [address] PCP - General Family Medicine 05/02/24 Military Science Teacher Relationship Specialty Start Date End Date Etta Merchant, MEDICAL FIELD REPRESENTATIVE.WET CLEANER MACHINE [address] [place] [address] PCP - General Family Medicine 05/02/24 Military Science Teacher Relationship Specialty Start Date End Date QueEtta gonzalez, MEDICAL FIELD REPRESENTATIVE.WET CLEANER MACHINE [address] [place] [address] PCP - General Family Medicine 05/02/24 Military Science Teacher Relationship Specialty Start Date End Date Etta Merchant, MEDICAL FIELD REPRESENTATIVE.WET CLEANER MACHINE [address] [place] [address] PCP - General Family Medicine 05/02/24 Military Science Teacher Relationship Specialty Start Date End Date Etta Merchant, MEDICAL FIELD REPRESENTATIVE.WET CLEANER MACHINE [address] [place] [address] PCP - General Family Medicine 05/02/24 Military Science Teacher Relationship Specialty Start Date End Date Etta Merchant, MEDICAL FIELD REPRESENTATIVE.WET CLEANER MACHINE [address] [place] [address] PCP - General Family Medicine 05/02/24 Military Science Teacher Relationship Specialty Start Date End Date Etta Merchant A, MEDICAL FIELD REPRESENTATIVE.WET CLEANER MACHINE [address] [place] [address] PCP - General Family Medicine 05/02/24 Military Science Teacher Relationship Specialty Start Date End Date Etta Merchant, MEDICAL FIELD REPRESENTATIVE.WET CLEANER MACHINE [address] [place] [address] PCP - General Family Medicine 05/02/24 Military Science Teacher Relationship Specialty Start Date End Date Etta Merchant, MEDICAL FIELD REPRESENTATIVE.WET CLEANER MACHINE [address] [place] [address] PCP - General Family Medicine 05/02/24 Military Science Teacher Relationship Specialty Start Date End Date Queden, Etta A, MEDICAL FIELD REPRESENTATIVE.WET CLEANER MACHINE [address] [place] [address] PCP - General Family Medicine 05/02/24 Military Science Teacher Relationship Specialty Start Date End Date Queden, Etta A, MEDICAL FIELD REPRESENTATIVE.WET CLEANER MACHINE [address] [place] [address] PCP - General Family Medicine 05/02/24 Military Science Teacher Relationship Specialty Start Date End Date Queden, Etta A, MEDICAL FIELD REPRESENTATIVE.WET CLEANER MACHINE [address] [place] [address] PCP - General Family Medicine 05/02/24 Military Science Teacher Relationship Specialty Start Date End Date QuedenMichelleEtta A, MEDICAL FIELD REPRESENTATIVE.WET CLEANER MACHINE [address] [place] [address] PCP - General Family Medicine 05/02/24 Military Science Teacher Relationship Specialty Start Date End Date Queden, Etta A, MEDICAL FIELD REPRESENTATIVE.WET CLEANER MACHINE [address] [place] [address] PCP - General Family Medicine 05/02/24 Military Science Teacher Relationship Specialty Start Date End Date Queden, Etta A, MEDICAL FIELD REPRESENTATIVE.WET CLEANER MACHINE [address] [place] [address] PCP - General Family Medicine 05/02/24 Military Science Teacher Relationship Specialty Start Date End Date Queden, Etta A, MEDICAL FIELD REPRESENTATIVE.WET CLEANER MACHINE [address] [place] [address] PCP - General Family Medicine 05/02/24 Team Status: Active Member Role/Relationship Status Dates Etta Merchant FIELD MERCHANDISER, FIELD MERCHANDISER-C Primary Care Provider Active Team Status: Inactive Member Role/Relationship Status Dates Etta Merchant FIELD MERCHANDISER, FIELD MERCHANDISER-C Primary Care Provider Active Start: September 27, 2024 End: September 27, 2024 Dr. Rosalba Espinosa MD Attending Provider Active Start: September 27, 2024 End: September 27, 2024 Military Science Teacher Relationship Specialty Start Date End Date Etta Merchant MEDICAL FIELD REPRESENTATIVE.WET CLEANER MACHINE [address] [place] [address] PCP - General Family Medicine 05/02/24 FOR RECORDS PERTAINING TO PATIENTS WHO ARE [...] BE BASED ON THE PRIMARY CLINICAL RECORDS. [facility] [employer] [facility]. provides no warranty or guarantee of the accuracy or completeness of information in this document.
[2024-09-29 20:17] VITALS: BP 129/79; PULSE 97; RESP 16; TEMP 36.6
[2024-09-29 20:21] VITALS: BMI 28.8
--- NOTE | 2024-09-30 06:25 | OB.TRI.NOTE ---
HPI - General General Date of Admission: 09/29/24 Date of Service: 09/29/24 Chief Complaint: LUQ HPI Narrative BILL BRAVO, is a 39 F who presents with LUQ pain. Has been intermittent but now more constant. Pain along lower ribs. No n/v. Mylanta didn't help. No LOF no VB No contractions. Good movement. Baby recently dropped. Reactive nst Maternal Data Information Final ROSELIA: 10/14/24 Gestational age: 37+6 PFSH PFSH Medical History Closed fracture of right distal fibula Right ankle pain Home Medications ?Medication ?Instructions ?Recorded ?Last Taken ?Type clonazepam 1 mg tablet 1 mg PO Q12H PRN anxiety 09/15/22 Unknown History Held on 09/27/24. Instructions: on hold since aspirin 81 mg chewable tablet 1 tab PO DAILY 09/27/24 09/29/24 08:00 History 1 TAB vit no.95-ferrous 1 tab PO DAILY 09/27/24 09/29/24 08:00 History fumarate 28 mg-folic acid 800 mcg 1 TAB tablet () Allergy/AdvReac Type Severity Reaction Status Date / Time No Known Allergies Allergy Verified 09/29/24 20:20 Surgical History Hx of dilation and curettage Social History household members: significant other Smoking Status: Current every day smoker tobacco type: cigarettes alcohol intake: current alcohol intake frequency: holidays/special occasions only substance use type: does not use History 3 Elective abortions Hx Para 0 Spontaneous abortions Hx # Term Pregnancies Ectopic pregnancies Hx # Pregnancies Multiple births # of living children NST FHR Rate Baby A Baseline: 150 Variability:: Moderate Accelerations:: 15 x 15 Decelerations:: None NST Reactive:: Yes Uterine Activity:: occasional Assessment & Plan (1) Abdominal pain of left upper quadrant during , antepartum: (2) 37 weeks gestation of : PLAN: Plan Discharged
== END 2024-09-29 22:05 | disposition home or self-care (01) ==
LOC: WPOUT 20:01 → WP 20:01
PROVIDERS: PCP Nurse Practitioner Family; Referring Provider Obstetrics & Gynecology; Visit Provider Obstetrics & Gynecology
DX: O99.891 Other specified diseases and conditions complicating pregnancy (principal); Z3A.37 37 weeks gestation of pregnancy; O99.333 Smoking (tobacco) complicating pregnancy, third trimester; F17.210 Nicotine dependence, cigarettes, uncomplicated; R10.12 Left upper quadrant pain
CPT/HCPCS: 59025; 59050; 99221; G0378

== ENCOUNTER 2024-10-08 19:22 | Inpatient (IN) | payer MEDICAID, SELFPAY ==
--- NOTE | 2024-10-08 19:28 | PCM.HP.OB ---
HPI - General General Date of Admission: 10/08/24 Date of Service: 10/08/24 HPI Narrative BILL BRAVO, is a 39 F who presents for induction. Maternal Data Information ROSELIA Calculator Estimated Delivery Date Method Current WG Current Estimate 10/14/24 Manual 39w 1d PFSH PFS Medical History (Updated 10/08/24 @ 19:[address] Denise Mejia MD) Anxiety PTSD (post-traumatic stress disorder) Closed fracture of right distal fibula Right ankle pain History of seizure Home Medications ?Medication ?Instructions ?Recorded ?Last Taken ?Type clonazepam 1 mg tablet 1 mg PO Q12H PRN anxiety 09/15/22 Unknown History Held on 09/27/24. Instructions: on hold since aspirin 81 mg chewable tablet 1 tab PO DAILY 09/27/24 09/29/24 08:00 History 1 TAB vit no.95-ferrous 1 tab PO DAILY 09/27/24 09/29/24 08:00 History fumarate 28 mg-folic acid 800 mcg 1 TAB tablet () Allergy/AdvReac Type Severity Reaction Status Date / Time No Known Allergies Allergy Verified 09/29/24 20:20 Surgical History Hx of dilation and curettage Social History household members: significant other Smoking Status: Current every day smoker tobacco type: cigarettes alcohol intake: current alcohol intake frequency: holidays/special occasions only substance use type: does not use History 3 Elective abortions Hx Para 0 Spontaneous abortions Hx # Term Pregnancies Ectopic pregnancies Hx # Pregnancies Multiple births # of living children NST FHR Rate Baby A Baseline: 135 Variability:: Moderate Accelerations:: 15 x 15 Decelerations:: None Uterine Activity:: Irregular Physical Exam Const alert and oriented x3 Chest inspection of chest normal Resp normal respiratory effort GI soft to palpation, non-tender, non-distended and no masses Inspection: gravid external exam normal Narrative: cvx - 0/50/-3 Labs Labs Labs: Hct 40.0 % (37-47) Hgb 13.3 g/dL (12.0-15.0) Assessment & Plan (1) AMA (advanced maternal age) primigravida 35+: QUALIFIERS: Trimester: third trimester Qualified Code(s): O09.513 - Supervision of elderly primigravida, third trimester (2) 39 weeks gestation of : COMMENT: for elective IOL & 39&1 PLAN: Plan Admit to L&D Induction GBS negative EFW - less than 4500g & patient with adequate pelvis Pain - epidural as desired
[2024-10-08 19:42] VITALS: TEMP 37.1
[2024-10-08 19:44] VITALS: PULSE 107; O2SAT 96
[2024-10-08 19:47] VITALS: BP 118/75; PULSE 93
[2024-10-08 19:48] VITALS: RESP 16
[2024-10-08 19:55] VITALS: BMI 29.3
[2024-10-08] MEDS: Lactated Ringers 1,000 ML 50 ML IV (20:00)
[2024-10-08 20:11] LABS: Hematocrit 37.6 % (37-47); Hemoglobin 12.8 g/dL (12.0-15.0); Immature Granulocytes Count 0.170 X10^3/uL (0.0-0.0); Mean Corp Hgb Conc 34.0 g/dL (32-36); Mean Corpuscular Volume 89.1 fL (81-99); Mean Platelet Vol. 10.1 fl (6.2-12.0); NRBC Flagged by Analyzer 0 % (0-5); Platelet Count 212 K/mm3 (150-450); RBC Distribution Width CV 13.1 % (11.6-14.6); RBC Distribution Width SD 42.5 fl (35.1-43.9); Red Blood Count 4.22 M/mm3 (4.2-5.4); White Blood Count 11.7 K/mm3 (4.4-11.0)
[2024-10-08 20:46] LABS: Syphilis Antibodies Nonreactive (Nonreactive)
[2024-10-08 22:03] LABS: Barbiturate Urine NEGATIVE (< 200 ng/mL); Benzodiazepine Urine NEGATIVE (< 200 ng/mL); PCP Urine NEGATIVE (< 25 ng/mL); THC Urine NEGATIVE (< 50 ng/mL)
[2024-10-09] VITALS (37 sets, daily range): BP systolic 87–143; BP diastolic 48–91; PULSE 58–96; RESP 13–19; TEMP 36.1–37.1; O2SAT 93–100
[2024-10-09] MEDS: 0.9% Saline Lock 10 ML Syringe IV ×3 (06:00→19:05)
[2024-10-09] MEDS: LACTATED RINGERS 500 ML 999 ML IV (06:52)
[2024-10-09] MEDS: 0.9% Normal Saline Single 100 ML IV.SOLN. INTRA-UTER (08:17)
--- NOTE | 2024-10-09 08:36 | PCM.PN.BLA ---
Progress Note pt seen at bedside, VE: /-2 transcervical mcneill placed. pt tolerated well.
[2024-10-09] MEDS: Lactated Ringers 1,000 ML 999 ML IV ×2 (09:07→11:27)
[2024-10-09] MEDS: fentaNYL-bupivacaine (epidural) 100 ML BAG EPIDURAL (10:09)
--- NOTE | 2024-10-09 11:41 | PCM.PN.BLA ---
Progress Note i was called to evaulate FHR tracing- having Late deceleration and variables. Upon my arrival AROM performed- clear fluid. /-2. IUPC and IFM placed. Continued to monitor FHR- Remains category 2 remote from delivery- minimal variablity. Pt was counseled on Primary cs for non reassuring status- persistent cat 2 tracing. pt was [id number] to proceed at this time. OR team notified.
[2024-10-09] MEDS: Lactated Ringers 500 ML IV (11:45)
[2024-10-09] MEDS: Cefazolin 1 GM/5 ML Vial 2 GM IV (11:45)
[2024-10-09] MEDS: Lidocaine 2% (5ml sdv) 5 ML VIAL.MPF 15 ML EPIDURAL (11:48)
[2024-10-09] MEDS: morphine PF (epidural) 5 MG/10 ML Vial 3 MG IV (12:10)
[2024-10-09] MEDS: Azithromycin 500 MG Vial (SNAP) IV (12:14)
--- NOTE | 2024-10-09 12:22 | OP.PCM_ITS ---
Maternal Data Information ROSELIA Calculator Estimated Delivery Date Method Current WG Current Estimate 10/14/24 Manual 39w 2d Final ROSELIA: 10/14/24 Final ROSELIA Source: US <20 weeks Gestational age: 39 weeks Operative Report (OB) Procedure Details Date of Procedure: 10/09/24 Procedure Start Time: 11:56 Procedure Stop Time: 12:22 Time of Delivery: 11:58 Pre-Operative Diagnosis: Distress and Nonreassuring Status Post-Operative Diagnosis: Same as Pre-operative diagnosis Classification: KATELYN Type of Anesthesia: Epidural Antibiotic Given: Ancef 2 grams IV x1 and Zithromax 500 mg/5 mL X1 Drain: Henson to straight drain Estimated Blood Loss: 600 Fluids Replaced: 500 Findings Description of surgery: After informed consent was obtained the patient was taken the operating room. She was then placed in the supine position. She was prepped and draped in the normal sterile fashion. Epidural Anesthesia was found to be adequate. At this time a Pfannenstiel skin incision was made with a knife was carried down to the underlying layer of the fascia. The fascial incision was then extended laterally using gentle traction Attention was then turned to the superior aspect of the fascial edge was grasped with 2 straight Camillus clamps tented up and the rectus muscle dissected off blunty. Rectus muscles were then in the midline bluntly and peritoneum was entered bluntly. Gentle opposing traction was placed. At this time the vesicouterine peritoneum was identified. Scalpel was used to make a uterine incision in a low transverse fashion. The uterus was then entered bluntly gentle opposing traction was placed to extend this incision. amniotic fluid clear. Infant's head was brought to the uterine incision was delivered atraumatically. Infant was not vigorous at delivery.. Cord was clamped and cut was handed to the waiting nursery team. The Placenta was removed from the uterus. The uterus remained in the intraabdominal cavity. The uterus was cleared of all clots and debris using a lap. At this time the uterine incision was reapproximated using #1 Vicryl in a running locked fashion. Hemostasis was appreciated. Gutters were cleared of all clots and debris. Uterine incision was reevaluated and noted to be of excellent hemostasis. At this time the peritoneum was grasped with Kellys reapproximated using #2 Vicryl suture in a running fashion. Fascia was then reapproximated using #1 Vicryl in a running fashion. Subcu layer was irrigated with NS, reapproximated with #2 0 plain gut suture in an interrupted fashion. Subcu layer was closed using 4-0 Monocryl in a subcu fashion. Dry sterile dressing was applied. Instrument lap needle count correct ?2. Anticipated normal postoperative course. Surgical findings: uterus remained in abdominal cavity - did not visualize ovaries or tubes Presentation: Vertex Specimen collected: Yes Description of specimen(s) removed: placenta Cord Vessel Description: 3 Vessels Cord Gases: ABG and VBG A gender: Female (1 minute): 2 (5 minute): 9 Delayed Cord Clamping: No Principal Solutions Architect chemical packager: Yes Sole Inker: Sherry Boo Tasks completed by speech language pathology assistant: Opening & closing and Retracting Additional construction management assistant?: Yes Additional Patient Transport Orderly #2: huber Alfredo MS3 Tasks completed by construction management assistant #2: Retracting and Other (cutting sutures ) Additional construction management assistant?: No Complications Complications: No
[2024-10-09] MEDS: Oxytocin 15 Units/NS 250ml 15 UNITS/250 ML IV.SOLN 83 UNITS IV (13:00)
[2024-10-09] MEDS: Ketorolac 30 MG/ML Syringe IV ×2 (13:07→19:05)
[2024-10-10] MEDS: Ketorolac 30 MG/ML Syringe IV ×2 (01:21→07:28)
[2024-10-10] MEDS: 0.9% Saline Lock 10 ML Syringe IV ×2 (01:22→07:28)
[2024-10-10 04:23] VITALS: BP 117/72; PULSE 61; RESP 16; TEMP 36.4; O2SAT 100
[2024-10-10 06:06] LABS: Hematocrit 33.4 % (37-47); Hemoglobin 11.2 g/dL (12.0-15.0); Mean Corp Hgb Conc 33.5 g/dL (32-36); Mean Corpuscular Volume 90.5 fL (81-99); Mean Platelet Vol. 10.3 fl (6.2-12.0); Platelet Count 185 K/mm3 (150-450); RBC Distribution Width CV 12.9 % (11.6-14.6); RBC Distribution Width SD 42.3 fl (35.1-43.9); Red Blood Count 3.69 M/mm3 (4.2-5.4); White Blood Count 15.4 K/mm3 (4.4-11.0)
[2024-10-10 08:15] VITALS: BP 121/79; PULSE 67; RESP 16; TEMP 36.6; O2SAT 100
--- NOTE | 2024-10-10 08:19 | PCM.PROGNOTE ---
Subjective Subjective patient seen at bedside, doing well. Patient reports good pain control. lochia mild. pt reports passing flatus. pt states baby at [facility] is doing well. pt would like to be dc'd home to see baby. Objective Data Objective Data Vital Signs: Vital Signs Temp Pulse Resp BP Pulse Ox O2 Del Method 97.6 F L 61 16 117/72 100 Room Air 10/10/24 04:23 10/10/24 04:23 10/10/24 04:23 10/10/24 04:23 10/10/24 04:23 10/10/24 04:23 Oxygen Delivery Method Room Air Weight: 92.896 kg Body Mass Index (BMI) 29.3 Intake & Output: Intake and Output for Last 24 Hours 10/08/24 10/09/24 10/10/24 23:59 23:59 23:59 Intake Total 4.17 / 4.17 3357.33 / 3357.33 Output Total 1500 / 1500 Balance 4.17 / 4.17 1857.33 / 1857.33 Lab / Micro Data 10/10/24 05:52 Labs: Laboratory Results - last 24 hr 10/10/24 05:52: WBC 15.4 H, RBC 3.69 L, Hgb 11.2 L, Hct 33.4 L, MCV 90.5, MCH 30.4, MCHC 33.5, RDW Std Deviation 42.3, RDW Coeff of Rich 12.9, Plt Count 185, MPV 10.3 Physical Exam Narrative Abd: fundus firm. dressing dry and intact. Const alert and oriented x3 General Appearance: cooperative HEENT normocephalic Neck General: normal visual inspection GI soft to palpation and non-distended GI Narrative: Fundus firm Extremity normal to inspection and no calf tenderness Skin no rashes or lesions noted Neuro oriented x3 and CN's II-XII intact bilaterally Psych mental status grossly normal Assessment & Plan Assessment/Plan (1) Delivery by section: PLAN: Plan POD#1 , Doing well Routine care pain mgmt monitor VS ambulation dc home
--- NOTE | 2024-10-10 08:24 | DCINST_ITS ---
Discharge Instructions DC O2, CPAP, BIPAP needs Home O2 Discharge instructions: No Dressing / Incision May resume sexual activity in: 6-8 weeks Lifting Restrictions: 25 Dressing / Incision Call your doctor if your incision/area has: Continuous Slow Oozing, Sudden Increased Bleeding, Increased Pain/ Swelling, Increased Redness, Foul Smelling Discharge and Swelling at the incision site Call your doctor if you observe: Fever of 101 or Higher, Inability to urinate, Using more than 1 pad per hour and Uncontrolled pain Remove Dressing in: 1 week (post op) Cleanse incision/area with: Soap & Water Additional Dressing/Incision Instructions:: remove dressing at 7 days post op- if it becomes saturated prior to that time you may remove it. Let soap and water run over incision sites and dab dry. keep incision clean and dry. Follow Up Care Please Follow Up With: Winter Clark MD When: 1 weeks post of incision check and again at 6 weeks post . [phone] Test Results: Test results from this visit will be discussed in further detail at your follow- up appointment, if applicable. Discharge Plan Admission Admit Date/Time: 10/08/24 19:22 Attending Provider: Winter Clark Primary Care Provider: Etta Merchant NP Discharge Orders/Prescriptions Prescriptions: New acetaminophen 500 mg Tablet 1,000 mg PO Q6H Qty: 60 0RF ibuprofen 600 mg Tablet 600 mg PO Q6H Qty: 60 0RF simethicone 80 mg Tablet,Chewable 80 mg PO PCHS PRN (Reason: Indigestion/stomach pain) Qty: 20 0RF Continued PNV cmb#95-ferrous fumarate-FA [] 28 mg iron- 800 mcg tablet 1 tab PO DAILY Discontinued clonazepam 1 mg tablet 1 mg PO Q12H PRN (Reason: anxiety) Patient Comments: TAKE ONE TABLET BY MOUTH THREE TIMES A DAY FOR ANXIETY NEEDED aspirin 81 mg tablet,chewable 1 tab PO DAILY Referrals / Follow Up: Etta Merchant NP, EMAIL DESIGNER-C [Primary Care Provider] - Disposition Disposition (needs filled in before D/C Order can be placed): Home, Self Care
--- NOTE | 2024-10-10 10:29 | CASEMGMT ---
Social Work Assessment Labor and Delivery Unit Patient Address: [address] [place] [address] Phone number: [phone] Date of Referral: 10/08/24 Time of Referral:? 2004 Referred By: Dr. Mejia Date of Intervention: ?10/10/24? Time of Intervention:? 944 Reason for Referral:? hx of substance abuse Sw completed chart review and acknowledges social work consult due to maternal history of substance abuse. Sw presented to bedside and introduced self to mother of baby (YASMEEN- Dai) and maternal grandma. MOB stated that it was okay to complete social work assessment with grandma present. Sw explained reason for sw involvement and completed psychosocial assessment. History obtained from: medical records, MOB and maternal grandma. Household composition: Currently residing in the family home is MOB and father of baby (FOB- Jone Reynolds). MOB states that no one else resides with them. baby to be included in household when ready for discharge. MOB denies any problems or concerns with housing, stating it is safe and secure. Patient's parent/guardian status:? YASMEEN states that she and FORadha have been together for 10 years after meeting each other in [place]. YASMEEN states that she is originally from [place], and she and FOB met when FOB was visiting a family friend. baby is first baby for MOB and FOB. YASMEEN denies domestic violence or intimate partner violence. Medical History: ?YASMEEN is 39 year old female who is 3, para 0- now 1 following labor and delivery of . YASMEEN received routine care during with [facility]. YASMEEN presented to hospital for induction of labor and required delivery on 10/09/24 at 39 weeks gestation. Baby girl, named Adolfo Baig, was born weighing 8lb 1oz with apgars of 3 and 9 at one and five minutes of life, respectfully. Following delivery it was noted that baby was having seizure like activity and the decision was made to transfer her to [facility] NICU. YASMEEN is pumping milk for baby and reports that baby will be followed by Dr. Mi for pediatrics. Educational Status:? FOB graduated from high school. YASMEEN states that she dropped out of the 9th grade, and then obtained her GED. YASMEEN states that she went back to school several years ago and took classes in psychology, she did not obtain a degree, but would like to one day. 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 She reports that she is planning on taking plenty of time off now that baby is here. Supplies:?? All necessary baby supplies obtained, including: car seat, safe sleep space, clothes, diapers and wipes. Childcare/Caregiver(s):? YASMEEN will be the primary caregiver along with ZOE when he is not working. YASMEEN states that there are other family members they are close to who will be around and involved in baby's life as well. Transportation:?? Both parents have their drivers license and reliable means of transportation, no barriers. Programs/Agencies Involved: ?YASMEEN is connected to insurance through [employer] ([employer] Parents are over income for other community resources that provide financial assistance. ?? Children Services/Legal Issues:?YASMEEN states that her older sister from a drug overdose, and when she passed YASMEEN obtained custody of her 3 year old nephew. YASMEEN states that is the only time that she was involved with children services. No issues or concerns warranting a referral to be made at this time. ?? Behavioral Health Issues: ??Mental Health History:?YASMEEN reports that she has been diagnosed with anxiety, depression and PTSD. YASMEEN states that she was previously connected to a counselor, but is currently on the wait list to see the same counselor who is now working at a different agency. ?? 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 YASMEEN states that she has been sober for 14 years. YASMEEN reports that she went to treatment while she was still residing in [place]. 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 YASMEEN states that she moved to [place] when her and ZOE had been together for a year. When she and FOB moved to [place] she and FOB have gone to NA and AA meetings with each other. YASMEEN states that ZOE has abused pain medications in the past, when at parties when he was younger, however he never formed an addiction to them and it is not a problem for him. MOB states that ZOE has not used drugs or other substances for years, due to knowing that she is sober and any type of use could be a trigger for her or cause relapse. Although, MOB states that at this time she has no urges or desires to use. ?? Family History:??YASMEEN states that her family has significant substance use history, beginning with parents who dabbled with drugs or alcohol. YASMEEN states that both of her parents are sober, but unfortunately, both of her sisters (one younger and one older) both from overdoses. Sw talked to YASMEEN about using healthy and safe coping mechanisms and not seeking comfort from drugs or alcohol, MOB stated that she is connected to supports and services. MOB states that she has a desire to get back into volunteering with treatment community. ??? Drug Screens: ??Drug screen completed and was negative for all substances. Family/Social Stressors:? MOB states that at this time the only concern that she has is that baby is still admitted to [facility] NICU. MOB states that she has gotten positive updates and is hopeful that baby may be ready for discharge today. Support Systems: YASMEEN reports that ZOE and both sides of their families are their biggest supports. Depression/Shaken Baby/Safe Sleeping:? Sw talked to MOB and maternal grandma at length regarding signs and symptoms of baby blues and depression and anxiety. MOB states that she has heard those terms before, and has educated herself on what is normal and what are some red flags to be mindful of. MOB states that she feels comfortable talking to her supports if she were to feel as though she is struggling with her mental health. MOB states that ZOE would also be able to recognize if she is struggling and he would know how to help and support her. Sw educated YASMEEN on shaken baby prevention and ABCs of safe sleep, MOB expressed understanding. ASSESSMENT:? MOB admitted following labor and delivery of . MOB awaiting discharge so that she can go to [facility] to be with her baby. MOB states that she is aware of her mental health and is thankful for all of the supports that she has in her life at this time. MOB states that she is thankful for the support that she has received from staff, but is eager to be discharged to go see her baby. YASMEEN appeared to be extremely insightful regarding her mental health and willing to talk through whatever she may struggle with if she were to experience any mental health symptoms during this period. MOB is connected to a counselor, however has not been able to see her for several months. Sw encouraged MOB to also talk to her OBGYN if she were to have any mental health problems. MOB has obtained all necessary baby supplies and has natural supports in place. PLAN:? No other services requested or indicated. MOB and baby to be discharged when medically ready. Parents were provided literature regarding: signs and symptoms of baby blues and mood and anxiety disorders, Help Me Grow, shaken baby prevention, ABCs of safe sleep and a list of county resources that are available for them should any needs present themselves. Rebecca Ashley, MICROCHIP SPECIALIST, BASIN CLEANER
--- NOTE | 2024-10-16 15:41 | NURSING ---
Follow up phone call made, doing well has a bruise on the left side of incision. C/S incision without complications. Vaginal bleeding is decreasing. nursing well but favors the one side. patient is pumping on the side the struggles latching onto. Denies any questions or concerns at this time.
== END 2024-10-10 10:40 | disposition home or self-care (01) | DRG 540 ==
PROVIDERS: Advanced Practice Midwife; Obstetrics & Gynecology; Admitting Provider Obstetrics & Gynecology; PCP Nurse Practitioner Family; Referring Provider Obstetrics & Gynecology; Visit Provider Obstetrics & Gynecology
DX: O99.344 Other mental disorders complicating childbirth (principal); F17.210 Nicotine dependence, cigarettes, uncomplicated; F41.9 Anxiety disorder, unspecified; O99.334 Smoking (tobacco) complicating childbirth; O76 Abnormality in fetal heart rate and rhythm complicating labor and delivery; Z79.82 Long term (current) use of aspirin; Z37.0 Single live birth; Z3A.39 39 weeks gestation of pregnancy
CPT/HCPCS: 59025; 59050; 80307; 85025; 85027; 86780; 86850; 86900; 86901; 99221; A4216; G0378; J2405